=== PATIENT | female | born 1930 | race Caucasian/White ===

== ENCOUNTER 2016-08-20 19:42 | Emergency (ER) | payer OTHER, BC ==
[~2016-08-20] VITALS: Ht 165.1 cm; Wt 55.8 kg
[~2016-08-20 19:42] MED LIST: LANS30TA3 PO; LATA0.5S OP; MULTCAP33 PO
[2016-08-20 19:44] VITALS: TEMP 36.6; Ht 165.1 cm; Wt 55.8 kg
[2016-08-20 19:49] VITALS: O2SAT 95
--- NOTE | 2016-08-20 20:30 | EMERGENCY ROOM VISIT NOTE ---
History Report prepared by Roderick: Dev June Under the Supervision of: Dr. Bud Harding M.D. First contact with patient: 19:57 Chief Complaint: CHOKING Stated Complaint: CHOKING Nursing Triage Summary: Patient presents [facility] for evaluation of ? choking episode while eating dinner. Staff at the [facility] wanted patient evaluated. Patient states, "I was eating a salad and my espophagus just closed up. It happens frequently." Patient denies any complaints upon arrival. States, "I am fine now." Hx: esophageal problems since November 2015. History of Present Illness The patient is a 85 year old female who presents to the Emergency Room by EMS with complaints of an episode of choking occurring shortly prior to arrival. She is a resident at the [facility]. She states that she was witnessed choking on a steak salad. The patient states that she has a history of problems with swallowing, and states that her esophagus frequently closes up. She states that her esophageal symptoms began a little less than a year ago. She states "I felt it closing up tonight". She has been admitted for similar symptoms multiple times in the past. The patient denies any fevers, chills, vomiting, or chest pain. She states that the sensations in her throat lasted for 20-30 minutes. She states that during the episode, she felt that she was unable to breath as well. The patient had associated shortness of breath. She notes that she had a vodka before dinner. She is not on any blood thinners. She is completely asymptomatic at present and feels fine and wants to go home. Source of History: patient, transfer records Onset: shortly prior to arrival Position: throat Quality: other (closing) Timing: other (episode) Associated Symptoms: + SOB, No chest pain, No chills, No fevers, No vomiting Review of Systems See HPI for pertinent positives & negatives. A total of 10 systems reviewed and were otherwise negative. Past Medical & Surgical Medical Problems: (1) Acute respiratory failure with hypoxia and hypercapnia (2) Cerebrovasc Disease Nos (3) Congestive Heart Failure Nos (4) Dysphagia (5) Hypercholesterolemia (6) Hypertension Nos (7) Hysterectomy (8) Osteoarthros Nos-Unspec Old medical records were reviewed. Nurse's notes were reviewed and I agree with. Family History Patient reports no known family medical history. Social History Smoking Status: Never Smoker Alcohol Use: none Drug Use: none Marital Status: Housing Status: assisted living Occupation Status: retired Current/Historical Medications Scheduled Alcaftadine (Lastacaft), 1 DROPS OPR QAM Citalopram (Citalopram Hydrobromide), 40 MG PO QAM Clopidogrel Bisulfate (Clopidogrel), 75 MG PO QAM Lansoprazole (Prevacid Solutab), 30 MG PO DAILY Multiple Vitamins W/ Minerals (Preservision Areds), 1 CAP PO BID Multivitamin (Multivitamin), 1 TAB PO QAM Thiamine Hcl (Vitamin B-1), 100 MG PO DAILY Timolol Maleate (Timolol 0.5% Oph Soln 15 Ml), 1 DROP OP UD Allergies Coded Allergies: Sulfa Drugs (Verified Allergy, Unknown, UNKNOWN, 08/20/16) Fish (Verified Adverse Reaction, Unknown, GI SYMPTOMS, 08/20/16) Shellfish Allergy (Verified Adverse Reaction, Unknown, GI SYMPTOMS, 08/20/16 ) Yogurt (Verified Adverse Reaction, Unknown, GI SYMPTOMS, 08/20/16) Uncoded Allergies: SEAFOOD (Allergy, Unknown, GI SYMPTOMS, 08/20/16) Physical Exam Vital Signs Date Time Temp Pulse Resp B/P Pulse Ox O2 Delivery O2 Flow Rate FiO2 08/20/16 22:28 58 20 118/70 96 Room Air 08/20/16 19:49 95 Room Air 08/20/16 19:44 95 Room Air 08/20/16 19:44 36.6 62 18 111/79 95 Room Air Physical Exam General: Well developed, well nourished, non-ill appearing older female in no acute distress, breathing comfortably on room air. Normal speech. Hard of hearing but answering all questions appropriately. HEENT: Normal cephalic atraumatic. Pupils are equal round and reactive to light. Extraocular movements are intact. Oropharynx is pink with moist mucous membranes. Speaking and swallowing without difficulty. No drooling. No swelling of the mouth lips or tongue. Neck: Supple with a midline trachea. No meningeal signs or stiffness, no JVD or bruits. No Stridor. Chest: Clear to auscultation bilaterally. No wheezes or rhonchi. No increased work of breathing. Heart: regular rate and rhythm. Abdomen: Soft nontender, nondistended without rebound guarding or rigidity. Extremities: No cyanosis clubbing or edema. No calf tenderness or assymetry Spine/Back. Non tender to palpation. No CVA tenderness Skin: Good turgor without rashes. Neurologic exam: Cranial nerves two through 12 are intact. Motor and sensation are intact and symmetrical throughout. Medical Decision & Procedures ER Provider Diagnostic Interpretation: X-ray results as stated below per interpretation by me and the radiologist: CHEST ONE VIEW PORTABLE FINDINGS: Lung volumes are normal. No pneumothorax or pleural effusion is present. Mild opacity within the left lower lung likely reflects epicardial fat pad. Cardiac size is at the upper limits of normal. Dilatation of the aortic arch and descending thoracic aorta is unchanged. There is no evidence of pulmonary edema. IMPRESSION: No acute cardiopulmonary findings. No change in appearance of the chest. Electronically signed by: Sanford Marques M.D. MY IMPRESSION: No acute infiltrate, failure or pneumothorax. Dilation of aortic arch which is unchanged from old x-ray. Laboratory Results 08/20/16 20:25 Red Blood Count 4.10, Mean Corpuscular Volume 92.2, Mean Corpuscular Hemoglobin 30.7, Mean Corpuscular Hemoglobin Concent 33.3, Mean Platelet Volume 9.4, Neutrophils (%) (Auto) 69.0, Lymphocytes (%) (Auto) 17.8, Monocytes (%) (Auto) 10.4, Eosinophils (%) (Auto) 2.0, Basophils (%) (Auto) 0.4, Neutrophils # (Auto ) 3.73, Lymphocytes # (Auto) 0.96, Monocytes # (Auto) 0.56, Eosinophils # (Auto ) 0.11, Basophils # (Auto) 0.02 08/20/16 20:25 Test 08/20/16 20:25 08/20/16 20:36 White Blood Count 5.40 K/uL (4.8-10.8) Red Blood Count 4.10 M/uL (4.2-5.4) Hemoglobin 12.6 g/dL (12.0-16.0) Hematocrit 37.8 % (37-47) Mean Corpuscular Volume 92.2 fL (80-100) Mean Corpuscular Hemoglobin 30.7 pg (25-34) Mean Corpuscular Hemoglobin Concent 33.3 g/dl (32-36) Platelet Count 127 K/uL (130-400) Mean Platelet Volume 9.4 fL (7.4-10.4) Neutrophils (%) (Auto) 69.0 % Lymphocytes (%) (Auto) 17.8 % Monocytes (%) (Auto) 10.4 % Eosinophils (%) (Auto) 2.0 % Basophils (%) (Auto) 0.4 % Neutrophils # (Auto) 3.73 K/uL (1.4-6.5) Lymphocytes # (Auto) 0.96 K/uL (1.2-3.4) Monocytes # (Auto) 0.56 K/uL (0.11-0.59) Eosinophils # (Auto) 0.11 K/uL (0-0.5) Basophils # (Auto) 0.02 K/uL (0-0.2) RDW Standard Deviation 46.7 fL (36.4-46.3) RDW Coefficient of Variation 13.9 % (11.5-14.5) Immature Granulocyte % (Auto) 0.4 % Immature Granulocyte # (Auto) 0.02 K/uL (0.00-0.02) Anion Gap 14.0 mmol/L (3-11) Est Creatinine Clear Calc Drug Dose 29.1 ml/min Estimated GFR () 47.1 Estimated GFR (Non- 40.6 BUN/Creatinine Ratio 15.3 (10-20) Calcium Level 9.0 mg/dl (8.5-10.1) Bedside Troponin I 0.010 ng/ml (0-0.045) Laboratory studies as stated above per my review. ECG Indication: other (choking) Rate (beats per minute): 62 Rhythm: normal sinus Findings: no acute ischemic change, no ectopy Comparison ECG Date: Jul 18, 2016 Change: no significant change ED Course 1957: Past medical records reviewed. The patient was evaluated in room B5, and a complete history and physical examination were performed. 2146: Upon reevaluation, the patient is resting comfortably. She has been able to drink without difficulty and has no further complaints. Her pulse ox is normal. I discussed the results and treatment plan with the patient. She verbalized agreement of the treatment plan. The patient was discharged home. Medical Decision Differentials include, but are not limited to; aspiration, pneumonia, choking, infection, and electrolyte or metabolic abnormality. This patient comes in after having a choking episode. She looks great and is asymptomatic. This has been a chronic ongoing problem. She was admitted here a couple times for this and the last time she had an upper endoscopy in July and it was normal. She is not drooling. She is in no respiratory distress. She's not hypoxemic. She was able drink liquids here without any problems. She is sleeping comfortably. X-ray was obtained is not show any infiltrate or any signs of aspiration blood work was unremarkable. She's had no elevated white count or fever to suggest infection. EKG was unremarkable. It sounds like she has some dysmotility issues but at this point but she has nothing suggest a current food bolus or any ongoing respiratory symptoms or cardiac disease. Again ,she feels good and would like to home with his reasonable discharge her home here I told her to ensure that she take small bites and adheres to her diet. Return if she has recurrence of symptoms, fever or chills, sore throat, cough, any new problems or concerns. She was happy with plan and discharged to home. She is follow-up with her doctor tomorrow for recheck. Impression Primary Impression: Choking episode Scribe Attestation The scribe's documentation has been prepared under my direction and personally reviewed by me in its entirety. I confirm that the note above accurately reflects all work, treatment, procedures, and medical decision making performed by me. Departure Information Dispostion Home / Self-Care Referrals [facility] (PCP) Forms HOME CARE DOCUMENTATION FORM, IMPORTANT VISIT INFORMATION, WORK / SCHOOL INSTRUCTIONS Patient Instructions A Signature Page, [facility] Additional Instructions Rest. Ensure that you are taking small bites and eating food that is easy to swallow. Follow-up with your doctor tomorrow for recheck. Return i:f shortness of breath, chest pain, difficulty swallowing, recurrence of symptoms, any new problems or concerns.
[2016-08-20 20:39] LABS: BASO % 0.4 %; BASO ABS # 0.02 K/uL (0-0.2); COMPLETE YES; HEMATOCRIT 37.8 % (37-47); IG% 0.4 %; LYMPH % 17.8 %; LYMPH ABS # 0.96 K/uL (1.2-3.4); MEAN CELL VOLUME 92.2 fL (80-100); MEAN CORPUSCULAR HEMOGLOBIN 30.7 pg (25-34); MEAN CORPUSCULAR HGB CONC 33.3 g/dl (32-36); MEAN PLATELET VOLUME 9.4 fL (7.4-10.4); MONO % 10.4 %; PLATELET COUNT 127 K/uL (130-400)
[2016-08-20 20:57] LABS: BUN/CREATININE RATIO 15.3 (10-20); CREATININE 1.2 mg/dl (0.60-1.20); POTASSIUM 3.6 mmol/L (3.5-5.1)
--- NOTE | 2016-08-20 21:23 | DIAGNOSTIC IMAGING REPORT ---
CHEST ONE VIEW PORTABLE CLINICAL HISTORY: Chest pain. Choking. COMPARISON STUDY: Chest radiograph July 16, 2016. FINDINGS: Lung volumes are normal. No pneumothorax or pleural effusion is present. Mild opacity within the left lower lung likely reflects epicardial fat pad. Cardiac size is at the upper limits of normal. Dilatation of the aortic arch and descending thoracic aorta is unchanged. There is no evidence of pulmonary edema. IMPRESSION: No acute cardiopulmonary findings. No change in appearance of the chest. Electronically signed by: Sanford Marques M.D. 08/20/2016 9:21 PM
[2016-08-20 22:28] VITALS: BP 118/70; PULSE 58; O2SAT 96
[2016-10-29] MEDS ORDERED: LTRCR45 EXT (07:48)
[2016-10-29] MEDS ORDERED: MCTP EXT (07:48)
[2016-10-29] MEDS ORDERED: MCRK20 PO (09:08)
[2017-01-07] MEDS ORDERED: AMOX1TAB42 PO (15:17)
[2017-01-07] MEDS ORDERED: IMD2 PO (15:17)
[2017-01-07] MEDS ORDERED: LCTX PO (15:17)
[2017-01-07] MEDS ORDERED: XPNINS1255 INH (15:17)
[2017-02-02] MEDS ORDERED: ALCA0.25 OPR (09:34)
[2017-02-02] MEDS ORDERED: CLX40 PO (09:34)
[2017-02-02] MEDS ORDERED: MULT-506 PO (09:34)
[2017-02-02] MEDS ORDERED: PLV75 PO (09:34)
[2017-02-02] MEDS ORDERED: THIA100T11 PO (16:16)
[2017-02-02] MEDS ORDERED: TMPOPS15 OPL (21:04)
[2017-02-02] MEDS ORDERED: SENN-91 PO (21:54)
[2017-02-02] MEDS ORDERED: LATA0.009 OPB (21:54)
[2017-02-09] MEDS ORDERED: CRD200 PO (14:27)
[2017-02-09] MEDS ORDERED: MGNO400 PO (14:27)
[2017-02-09] MEDS ORDERED: AMOX1TAB43 PO (14:27)
[2017-02-09] MEDS ORDERED: IPRASOL4 INH (14:42)
== END 2016-08-20 22:52 | disposition home or self-care (01) ==
LOC: EDBD 19:42 → C.EDB 19:44
DX: R09.89 Other specified symptoms and signs involving the circulatory and respiratory systems (principal); I50.9 Heart failure, unspecified; E78.00 Pure hypercholesterolemia, unspecified; I10 Essential (primary) hypertension; Z90.710 Acquired absence of both cervix and uterus

== ENCOUNTER 2016-09-21 19:18 | Emergency (ER) | payer OTHER, BC ==
[~2016-09-21 19:18] MED LIST changes: -LATA0.5S OP
[2016-09-21 19:29] VITALS: TEMP 36.7; Ht 165.1 cm
[2016-09-21 19:35] VITALS: O2SAT 96
--- NOTE | 2016-09-21 20:40 | EMERGENCY ROOM VISIT NOTE ---
History Report prepared by Roderick: Nettie Francois Under the Supervision of: Dr. Macy Rothman M.D. First contact with patient: 20:12 Chief Complaint: FOOD BOLUS Stated Complaint: SHORTNESS OF BREATH Nursing Triage Summary: pt presents from the [facility] where she lives with her pt in the independent living pt is hard of hearing and wears hearing aids bilaterally uses a walker to ambulate staff report that patient was eating chicken and rice soup and a salad when she "aspirated" pt has a history of recent aspiration with admission here at the [facility] pt currently states she feels better but is making grunting noises and and has some audible stidor states she has a history requiring esophageal stretching History of Present Illness The patient is an 85 year old female who presents to the Emergency Room with complaints of a persistent food bolus that occurred this evening. Per nursing staff, the patient resides at [place] [facility] in independent living. The patient states that she has been feeling well recently. Tonight, the patient was eating chicken and rice soup when, per staff at [place], she aspirated. She states that she currently feels somewhat better but nursing staff notes that the patient is making "grunting noises." The patient states that she has had a food bolus six times previously. She has been told that her esophagus closes up. With these episodes, she notes that she has not been able to breathe when her esophagus closes. The patient describes that these episodes happen when she is eating and talking to people. The patient has had to have her esophagus stretched in the past. She denies feeling short of breath, choking on anything at dinner. Additionally, the patient states that she had a vodka drink before dinner. Source of History: patient, nursing staff Onset: this evening Position: throat Quality: other (food bolus) Timing: other (persistent) Associated Symptoms: No SOB Note: She denies choking on anything at dinner. Review of Systems See HPI for pertinent positives & negatives. A total of 10 systems reviewed and were otherwise negative. Past Medical & Surgical Medical Problems: (1) Acute respiratory failure with hypoxia and hypercapnia (2) Cerebrovasc Disease Nos (3) Congestive Heart Failure Nos (4) Dysphagia (5) Hypercholesterolemia (6) Hypertension Nos (7) Hysterectomy (8) Osteoarthros Nos-Unspec Family History Patient reports no known family medical history. Social History Smoking Status: Former Smoker Alcohol Use: none Drug Use: none Marital Status: Housing Status: assisted living Occupation Status: retired Current/Historical Medications Scheduled Alcaftadine (Lastacaft), 1 DROPS OPR QAM Citalopram (Citalopram Hydrobromide), 40 MG PO QAM Clopidogrel Bisulfate (Clopidogrel), 75 MG PO QAM Lansoprazole (Prevacid Solutab), 30 MG PO DAILY Latanoprost (Xalatan 0.005% Oph Milla), 1 DROPS OPB HS Multiple Vitamins W/ Minerals (Preservision Areds), 1 CAP PO BID Multivitamin (Multivitamin), 1 TAB PO QAM Thiamine Hcl (Vitamin B-1), 100 MG PO DAILY Timolol Maleate (Timolol 0.5% Oph Soln 15 Ml), 1 DROP OPL QAM Scheduled PRN Sennosides-Docusate Sodium (Senna S), 1 TAB PO UD PRN for Constipation Allergies Coded Allergies: Sulfa Drugs (Verified Allergy, Unknown, UNKNOWN, 09/21/16) Fish (Verified Adverse Reaction, Unknown, GI SYMPTOMS, 09/21/16) Shellfish Allergy (Verified Adverse Reaction, Unknown, GI SYMPTOMS, 09/21/16 ) Yogurt (Verified Adverse Reaction, Unknown, GI SYMPTOMS, 09/21/16) Uncoded Allergies: SEAFOOD (Allergy, Unknown, GI SYMPTOMS, 08/20/16) Physical Exam Vital Signs Date Time Temp Pulse Resp B/P Pulse Ox O2 Delivery O2 Flow Rate FiO2 09/21/16 22:21 58 20 102/67 95 Room Air 09/21/16 21:21 64 16 104/70 95 Room Air 09/21/16 20:23 60 20 113/76 96 Room Air 09/21/16 20:00 60 09/21/16 19:35 96 Room Air 09/21/16 19:29 36.7 65 28 137/94 96 Room Air 09/21/16 19:29 96 Room Air Physical Exam Vital signs reviewed. General: Elderly and generally well appearing, in no distress. HEENT: No scleral icterus, PERRLA, neck supple. Atraumatic. Cardiovascular: Regular rate and rhythm, no extra sounds. Pulmonary: Clear to auscultation bilaterally, normal work of breathing. Abdomen: Soft, nontender, nondistended, positive bowel sounds. Musculoskeletal: Atraumatic, no peripheral edema. Neurologic: Patient awake alert and oriented x 3, full strength in all 4 extremities. Cranial nerves 2 through 12 grossly intact. Skin: Warm, dry, no rash Medical Decision & Procedures ER Provider Diagnostic Interpretation: X-ray results as stated below per interpretation by me and the radiologist: CHEST 2 VIEWS ROUTINE CLINICAL HISTORY: choking episode dysphagia COMPARISON STUDY: 08/20/2016 FINDINGS: Stable mild fullness mid mediastinum and aortic arch. This appears to be a chronic finding. Lungs are considered clear. Diaphragms smooth. Chronic pleural plaque formation over the right to a lesser extent left pulmonary apex. IMPRESSION: 1. 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 2.. This is unchanged compared to several prior exams. 3. No acute process Electronically signed by: Tim Bender M.D. 09/21/2016 10:14 PM Dictated Date/Time: 09/21/2016 10:12 PM ED Course 2030: Past medical records reviewed. The patient was evaluated in room B5. A complete history and physical examination was performed. 2226: Upon reevaluation, the patient appeared to have improvement of her symptoms. I discussed findings with the patient. She verbalized agreement of the treatment plan. The patient was discharged home. Medical Decision The patient is an 85 year old female who presents to the ED with complaints of a food bolus. Differentials include: airway obstruction, esophageal dysmotility , esophageal stricture, food bolus, CHF, alcohol intoxication. This patient was evaluated and appeared to be in no significant distress. Physical examination is fairly unrevealing. Chest x-ray was performed and is negative for acute pathology. Review the patient's records indicate that she had an EGD in July 2016 that was normal. 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 I suspect this is what happened this evening. She does drink alcohol rarely. This likely increases her likelihood of choking. Patient was informed of the findings. She will follow-up with her physician this week for reevaluation return to the ER for worsening of symptoms or any medical concerns. Impression Primary Impression: Choking episode Scribe Attestation The scribe's documentation has been prepared under my direction and personally reviewed by me in its entirety. I confirm that the note above accurately reflects all work, treatment, procedures, and medical decision making performed by me. Departure Information Dispostion Home / Self-Care Referrals [facility] (PCP) Forms HOME CARE DOCUMENTATION FORM, IMPORTANT VISIT INFORMATION, WORK / SCHOOL INSTRUCTIONS Patient Instructions [facility] Additional Instructions Diagnosis: Choking episode Please follow-up with your space controller for reevaluation. Return to the ER for worsening of symptoms or any medical concerns.
--- NOTE | 2016-09-21 22:15 | DIAGNOSTIC IMAGING REPORT ---
CHEST 2 VIEWS ROUTINE CLINICAL HISTORY: choking episode dysphagia COMPARISON STUDY: 08/20/2016 FINDINGS: Stable mild fullness mid mediastinum and aortic arch. This appears to be a chronic finding. Lungs are considered clear. Diaphragms smooth. Chronic pleural plaque formation over the right to a lesser extent left pulmonary apex. IMPRESSION: 1. 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 2.. This is unchanged compared to several prior exams. 3. No acute process Electronically signed by: Tim Bender M.D. 09/21/2016 10:14 PM Dictated Date/Time: 09/21/2016 10:12 PM
[2016-09-21 22:21] VITALS: BP 102/67; PULSE 58; O2SAT 95
[2016-10-29] MEDS ORDERED: LTRCR45 EXT (07:48)
[2016-10-29] MEDS ORDERED: MCTP EXT (07:48)
[2016-10-29] MEDS ORDERED: MCRK20 PO (09:08)
[2017-01-07] MEDS ORDERED: XPNINS1255 INH (15:17)
[2017-01-07] MEDS ORDERED: LCTX PO (15:17)
[2017-01-07] MEDS ORDERED: IMD2 PO (15:17)
[2017-01-07] MEDS ORDERED: AMOX1TAB42 PO (15:17)
[2017-02-02] MEDS ORDERED: CLX40 PO (09:34)
[2017-02-02] MEDS ORDERED: PLV75 PO (09:34)
[2017-02-02] MEDS ORDERED: MULT-506 PO (09:34)
[2017-02-02] MEDS ORDERED: ALCA0.25 OPR (09:34)
[2017-02-02] MEDS ORDERED: THIA100T11 PO (16:16)
[2017-02-02] MEDS ORDERED: TMPOPS15 OPL (21:04)
[2017-02-02] MEDS ORDERED: SENN-91 PO (21:54)
[2017-02-02] MEDS ORDERED: LATA0.009 OPB (21:54)
[2017-02-09] MEDS ORDERED: CRD200 PO (14:27)
[2017-02-09] MEDS ORDERED: AMOX1TAB43 PO (14:27)
[2017-02-09] MEDS ORDERED: MGNO400 PO (14:27)
[2017-02-09] MEDS ORDERED: IPRASOL4 INH (14:42)
== END 2016-09-21 22:50 | disposition home or self-care (01) ==
LOC: EDBD 19:18 → C.EDB 19:20
DX: R09.89 Other specified symptoms and signs involving the circulatory and respiratory systems (principal); I50.9 Heart failure, unspecified; E78.00 Pure hypercholesterolemia, unspecified; I10 Essential (primary) hypertension; J96.91 Respiratory failure, unspecified with hypoxia; M19.90 Unspecified osteoarthritis, unspecified site; Z87.891 Personal history of nicotine dependence; Z79.899 Other long term (current) drug therapy

== ENCOUNTER 2016-10-20 09:01 | Inpatient (IN) | payer OTHER, BC ==
[~2016-10-20] VITALS: Ht 165.1 cm; Wt 53.2 kg
[2016-10-20 09:54] LABS: BASO % 0.4 %; BASO ABS # 0.02 K/uL (0-0.2); COMPLETE YES; HEMATOCRIT 36.6 % (37-47); IG% 0.2 %; LYMPH % 18.2 %; LYMPH ABS # 1.02 K/uL (1.2-3.4); MEAN CELL VOLUME 87.4 fL (80-100); MEAN CORPUSCULAR HEMOGLOBIN 29.8 pg (25-34); MEAN CORPUSCULAR HGB CONC 34.2 g/dl (32-36); MEAN PLATELET VOLUME 9.6 fL (7.4-10.4); MONO % 6.6 %; NEUT % 72.6 %; PLATELET COUNT 188 K/uL (130-400); RED BLOOD COUNT 4.19 M/uL (4.2-5.4); WHITE BLOOD COUNT 5.59 K/uL (4.8-10.8)
--- NOTE | 2016-10-20 10:11 | DIAGNOSTIC IMAGING REPORT ---
HEAD CT NONCONTRAST CT DOSE: 537.48 mGy.cm HISTORY: Mental status change encephalopathy, waxing/waning confusion TECHNIQUE: Multiaxial CT images of the head were performed without the use of intravenous contrast. Comparison: 06/07/2016 Findings: The paranasal sinuses and mastoid air cells are clear. The calvarium and skull base are intact. The ventricles and sulci are within normal limits. There is no mass, hematoma, midline shift, or acute infarct. Chronic small vessel change of aging Impression: No acute intracranial abnormality. Chronic small vessel change of aging Electronically signed by: Tim Bender M.D. 10/20/2016 10:10 AM Dictated Date/Time: 10/20/2016 10:09 AM
[2016-10-20 10:13] LABS: BUN/CREATININE RATIO 16.3 (10-20); CALCIUM 8.4 mg/dl (8.5-10.1); CREATININE 0.73 mg/dl (0.60-1.20); POTASSIUM 2.2 mmol/L (3.5-5.1)
--- NOTE | 2016-10-20 10:18 | DIAGNOSTIC IMAGING REPORT ---
CHEST ONE VIEW PORTABLE CLINICAL HISTORY: Encephalopathy mental status change COMPARISON STUDY: 09/21/2016 FINDINGS: Unchanging ectasia and dilatation of the aortic arch. Mild cardiomegaly. Lungs are considered clear. IMPRESSION: Chronic change. No acute process. Electronically signed by: Tim Bender M.D. 10/20/2016 10:17 AM Dictated Date/Time: 10/20/2016 10:16 AM
[2016-10-20] MEDS ORDERED: POTASSIUM CHLORIDE 10 MEQ TABCR PO STA ×2 (10:20→15:29)
[2016-10-20] MEDS ORDERED: POTASSIUM CHLR 20 MEQ / WTR 20 MEQ in PREMIXED WATER 100 ML IV STA (10:20)
--- NOTE | 2016-10-20 10:30 | EMERGENCY ROOM VISIT NOTE ---
History First contact with patient: 09:14 Chief Complaint: DIARRHEA Stated Complaint: DIARRHEA History of Present Illness The patient is a 85 year old female who presents to the Emergency Room with complaints of diarrhea for one month and two days of abdominal pain. She has a past history of alcohol abuse, bradycardia, and respiratory arrest and resides at [facility]. She reports over the last month she has had watery loose stool 2-4 times per day. The stool is occasionally blood tinged, but denies any mucus or uday blood. She reports she does feel generally weak from this diarrhea. The village reports they had sent off a stool sample for C. difficile but it has not returned yet. The patient also reports over the last 2 days she has had abdominal pain to her right and left side of her abdomen. She was unable to characterize her pain, reports she did not have it now, and that it hurt mainly when passing stool. She has associated nausea, but has not been vomiting. She reports she still does drink a small amount of vodka every night before dinner. She reports she last drank last night. She did not admit that in the past used to drink more. She reports she was with her in independent living, and functions very well on her own. She denies any chest pain, palpitations, or shortness of breath. She does report chronic visual issues, and that her right eye is her bad eye but her left works well. She presents with her advanced directive and and POLST form stating she is a DO NOT RESUSCITATE in the event of cardiac arrest. Review of Systems See HPI for pertinent positives & negatives. A total of 10 systems reviewed and were otherwise negative. Past Medical/Surgical History Medical Problems: (1) Acute respiratory failure with hypoxia and hypercapnia (2) Cerebrovasc Disease Nos (3) Congestive Heart Failure Nos (4) Diarrhea (5) Dysphagia (6) Hypercholesterolemia (7) Hypertension Nos (8) Hysterectomy (9) Osteoarthros Nos-Unspec Family History Patient reports no known family medical history. Social History Smoking Status: Former Smoker Alcohol Use: none Drug Use: none Marital Status: Housing Status: assisted living Occupation Status: retired Current/Historical Medications Scheduled Alcaftadine (Lastacaft), 1 DROPS OPR QAM Citalopram (Citalopram Hydrobromide), 40 MG PO QAM Clopidogrel Bisulfate (Clopidogrel), 75 MG PO QAM Lansoprazole (Prevacid Solutab), 30 MG PO DAILY Latanoprost (Xalatan 0.005% Oph Milla), 1 DROPS OPB HS Multiple Vitamins W/ Minerals (Preservision Areds), 1 CAP PO BID Multivitamin (Multivitamin), 1 TAB PO QAM Thiamine Hcl (Vitamin B-1), 100 MG PO DAILY Timolol Maleate (Timolol 0.5% Oph Soln 15 Ml), 1 DROP OPL QAM Scheduled PRN Sennosides-Docusate Sodium (Senna S), 1 TAB PO UD PRN for Constipation Allergies Coded Allergies: Sulfa Antibiotics (Verified Allergy, Unknown, ., 10/20/16) Fish (Verified Adverse Reaction, Unknown, GI SYMPTOMS, 10/20/16) Shellfish Allergy (Verified Adverse Reaction, Unknown, GI SYMPTOMS, 10/20/16 ) Yogurt (Verified Adverse Reaction, Unknown, GI SYMPTOMS, 10/20/16) Physical Exam Vital Signs Date Time Temp Pulse Resp B/P Pulse Ox O2 Delivery O2 Flow Rate FiO2 10/20/16 13:00 95 Room Air 10/20/16 12:54 68 20 129/80 95 Room Air 10/20/16 10:56 68 20 104/65 96 Room Air 10/20/16 10:23 57 10/20/16 09:42 93 Room Air 10/20/16 09:24 37.8 72 20 104/47 96 Room Air Physical Exam GENERAL: Awake, alert, well appearing, no distress. Thin. HENT: Normocephalic, atraumatic. TM's normal. Oropharynx unremarkable. EYES: Right eye pupil is constricted, Left pupil is dilated, mildly reactive to light. Extra ocular movements intact. Normal conjunctivae and sclera. NECK: Supple. No nuchal rigidity. FROM. RESPIRATORY: CTA CARDIAC: RRR. Extremities warm and well perfused. ABDOMEN: Soft, non distended. No tenderness to palpation. No rebound or guarding. No masses. MUSCULOSKELETAL: Unremarkable. EXTREMITIES: No edema. No discoloration. Gross motor strength 5/5 bilaterally. NEURO: Alert, oriented to time, place, and person - though was more confused to place when first came to ED. No sensory or motor deficits noted.Speech normal. Cranial nerves two through 12 intact. No pronator drift. Negative Romberg. Normal rapid alternating movements. SKIN: No rash or jaundice noted. LYMPH: No adenopathy. Medical Decision & Procedures ER Provider Diagnostic Interpretation: HEAD CT NONCONTRAST CT DOSE: 537.48 mGy.cm HISTORY: Mental status change encephalopathy, waxing/waning confusion TECHNIQUE: Multiaxial CT images of the head were performed without the use of intravenous contrast. Comparison: 06/07/2016 Findings: The paranasal sinuses and mastoid air cells are clear. The calvarium and skull base are intact. The ventricles and sulci are within normal limits. There is no mass, hematoma, midline shift, or acute infarct. Chronic small vessel change of aging Impression: No acute intracranial abnormality. Chronic small vessel change of aging CHEST ONE VIEW PORTABLE CLINICAL HISTORY: Encephalopathy mental status change COMPARISON STUDY: 09/21/2016 FINDINGS: Unchanging ectasia and dilatation of the aortic arch. Mild cardiomegaly. Lungs are considered clear. IMPRESSION: Chronic change. No acute process. Laboratory Results Test 10/20/16 09:28 10/20/16 10:16 10/20/16 10:18 10/20/16 10:28 Total Bilirubin 0.8 mg/dl (0.2-1) Aspartate Amino Transf (AST/SGOT) 19 U/L (15-37) Alanine Aminotransferase (ALT/SGPT) 12 U/L (12-78) Alkaline Phosphatase 72 U/L (45-117) Total Protein 6.4 gm/dl (6.4-8.2) Albumin 3.2 gm/dl (3.4-5.0) Globulin 3.2 gm/dl (2.5-4.0) Albumin/Globulin Ratio 1.0 (0.9-2) Ethyl Alcohol mg/dL < 3.0 mg/dl (0-3) Bedside Lactic Acid Venous 0.93 mmol/L (0.90-1.70) Bedside Troponin I 0.030 ng/ml (0-0.045) Test 10/20/16 10:47 Urine Color YELLOW Urine Appearance CLEAR (CLEAR) Urine pH 6.0 (4.5-7.5) Urine Specific [place] 1.008 (1.000-1.030) Urine Protein NEG (NEG) Urine Glucose (UA) NEG (NEG) Urine Ketones TRACE (NEG) Urine Occult Blood NEG (NEG) Urine Nitrite NEG (NEG) Urine Bilirubin NEG (NEG) Urine Urobilinogen NEG (NEG) Urine Leukocyte Esterase NEG (NEG) Urine WBC (Auto) /hpf (0-5) Urine RBC (Auto) /hpf (0-4) Urine Hyaline Casts (Auto) /lpf (0-5) Urine Epithelial Cells (Auto) /lpf (0-5) Urine Bacteria (Auto) (NEG) Urine RBC 0-4 /hpf (0-4) Urine WBC 1-5 /hpf (0-5) Urine Epithelial Cells 0-5 /lpf (0-5) Urine Bacteria NEG (NEG) Urine Opiates Screen NEG (NEG) Urine Methadone, Qualitative NEG (NEG) Urine Barbiturates NEG (NEG) Urine Phencyclidine (PCP) Level NEG (NEG) Ur Amphetamine/Methamphetamine NEG (NEG) MDMA (Ecstasy) Screen NEG (NEG) Urine Benzodiazepines Screen NEG (NEG) Urine Cocaine Metabolite NEG (NEG) Urine Marijuana (THC) NEG (NEG) Medications Administered Medications (Trade) Dose Ordered Sig/Bhavna Route Start Time Stop Time Status Last Admin Dose Admin Potassium Chloride 40 meq 40 meq NOW STAT PO 10/20/16 10:20 10/20/16 10:22 DC 10/20/16 11:13 40 MEQ Potassium Chloride (Kcl 10 Meq / Wtr) 100 ml @ 100 mls/hr Q1H IV 10/20/16 10:30 10/20/16 12:29 DC 10/20/16 12:26 100 MLS/HR Acetaminophen (Tylenol Tab) 650 mg Q4H PRN PO 10/20/16 13:00 11/19/16 12:59 10/20/16 17:44 650 MG ECG Indication: bradycardia Findings: T-wave inversion (Lateral), prolonged QT (>600) Change: no significant change ED Course 9:30: I evaluated the patient in room A10. A complete history and physical examination were performed. 9:37: I ordered a CBC, CMP, Pt/INR, Blood cultures, blood alcohol level, urinalysis, urine toxicology. She had already received a 500mL bolus in the ambulance. 10:20: Her potassium returned at a level of 2.2. She was given KCL 40mEq PO and 20mEq IV. Her EKG had a prolonged QTc as well but was still sinus bradycardia. 11:26: I discussed with Dr. Caruso of the [facility]. The patient will be admitted. Medical Decision This is an 85 yo F with history of respiratory arrest who presents with 1 month of diarrhea, weakness, and found to have a low potassium. Differential includes : Clostridium difficile colitis, alcohol intoxication, malabsorptive syndrome, anemia, ischemic colitis, and IBD. She had an IV placed and labs drawn. Her level of clarity was waxing and waning, but when I saw her, her CAM-ICU was negative, though I provided her with a vomit bag and upon return found she had placed it (empty) on her head. The nurses agreed at times she had irrelevant thought content, eg. asking where [place] was, and unsure of is she was in the hospital or not. Her labwork returned and she was found to have a K+ of 2.2. She was provided with IV and PO replacement. Blood cultures were obtained as she had a temperature of 37.8C. Her QTc was prolonged and upon admission was given 1gm of magnesium sulfate as well. She presented with her advanced directive and POLST form. She will be admitted to [place] [facility]. Impression Primary Impression: Hypokalemia Additional Impression: Diarrhea Departure Information Dispostion Being Evaluated By Hospitalist Condition GOOD Referrals [facility] (PCP) Patient Instructions My [facility] Resident Tracking Resident Involvement: Resident Care Provided Care Provided: Adult ED Problem Qualifiers
[2016-10-20] MEDS: POTASSIUM CHLR 10 MEQ / WTR 10 MEQ IV SCH ×2 (11:13→12:26)
[2016-10-20 11:23] LABS: URINE APPEARANCE CLEAR (CLEAR); URINE BILIRUBIN NEG (NEG); URINE COLOR YELLOW; URINE NITRITE NEG (NEG); URINE SPECIFIC GRAVITY 1.008 (1.000-1.030); UROBILINOGEN NEG (NEG); ZZURINE CULT IF INDIC CATH NO
[2016-10-20 11:24] LABS: MANUAL MICROSCOPIC REQUIRED? YES; REVIEW REQ? NO
--- NOTE | 2016-10-20 11:27 | EMERGENCY ROOM VISIT NOTE ---
ED Visit Note First contact with patient: 09:14 Resident Physician Supervision Note: I interviewed and examined the patient. Discussed with Dr. Soto and agree with findings and plan as documented in the note. Any exceptions or clarifications are listed here: [None] Documented By: Ranjit Hendricks
[2016-10-20 11:31] LABS: URINE BACTERIA NEG (NEG); URINE RBC 0-4 /hpf (0-4)
[2016-10-20 11:40] LABS: BENZODIAZEPINE, URINE NEG (NEG); COCAINE,URINE NEG (NEG); PHENCYCLIDINE, URINE NEG (NEG)
[2016-10-20 13:00] VITALS: O2SAT 95; Ht 165.1 cm; Wt 53.2 kg
[2016-10-20] MEDS ORDERED: ONDANSETRON INJ 2 MG/ML 2 ML VIAL IV PRN (13:00)
--- NOTE | 2016-10-20 13:44 | History and Physical ---
History & Physical Date & Time of Service: Oct 20, 2016 at 12:24 Chief Complaint: Diarrhea Primary Care Physician: Coretta Nelson Gail History of Present Illness Source: patient, family This is a 85 yo F with PMHx of HTN, hx CVA on plavix, diastolic CHF with EF 65- 70%, hyperlipidemia, osteoarthritis, esophageal dysmotility with multiple choking episodes, who presents with worsening diarrhea over the past 1 month. The patient is present with her who is a poor historian. The patient has felt generalized weakness and fatigue since the start of this, and worsened in the past 24 hours. She denies eating raw or undercooked meats, picnic foods, or being exposed to sick contacts with similar symptoms. Reports that her diarrhea is loose, mucous-like, last bowel movement was this morning and that it does have foul smell. The patient has been unable to eat or drink when she normally would 2 days. The patient admits to feeling lightheaded and dizzy this morning, as well as nausea. The patient had a syncopal like episode per nursing from the [facility] - pt reports that she got pale and weak, but quickly came to. She did not sustain any trauma during this syncopal like event. Patient denies fevers chills or sweats, chest pain, shortness of breath. The patient is a resident of the [facility], and reports having a C. difficile stool culture sent for pathology 2 days ago but does not have results back. Stool studies in process Potassium= 2.2 on admission EKG with prolonged QT and U waves Chest x-ray completed not show acute abnormalities Ethanol workup negative, toxicology in process CT of the head completed without any acute abnormalities or ischemic/ hemorrhagic changes. Past Medical/Surgical History Medical Problems: (1) Hypercholesterolemia Status: Chronic (2) Hysterectomy Status: Resolved Diastolic CHF HTN Osteoarthritis Esophageal Dysmotility Hx CVA on anticoagulation Acute hypoxic episode due to choking Family History Patient reports no known family medical history. Social History Smoking Status: Former Smoker Alcohol Use: 1 shot vodka daily/most days of week Drug Use: none Marital Status: Housing status: lives with family Occupational Status: retired Immunizations History of Influenza Vaccine: Yes Influenza Vaccine Date: Jun 09, 2012 History of Tetanus Vaccine?: Unknown History of Pneumococcal: Yes Pneumococcal Date: Oct 10, 2009 History of Hepatitis B Vaccine: Unknown Multi-Drug Resistant Organisms History of MDRO: No Allergies Coded Allergies: Sulfa Drugs (Verified Allergy, Unknown, UNKNOWN, 10/20/16) Fish (Verified Adverse Reaction, Unknown, GI SYMPTOMS, 10/20/16) Shellfish Allergy (Verified Adverse Reaction, Unknown, GI SYMPTOMS, 10/20/16 ) Yogurt (Verified Adverse Reaction, Unknown, GI SYMPTOMS, 10/20/16) Uncoded Allergies: SEAFOOD (Allergy, Unknown, GI SYMPTOMS, 08/20/16) Home Medications Scheduled Alcaftadine (Lastacaft), 1 DROPS OPR QAM Citalopram (Citalopram Hydrobromide), 40 MG PO QAM Clopidogrel Bisulfate (Clopidogrel), 75 MG PO QAM Lansoprazole (Prevacid Solutab), 30 MG PO DAILY Latanoprost (Xalatan 0.005% Oph Milla), 1 DROPS OPB HS Multiple Vitamins W/ Minerals (Preservision Areds), 1 CAP PO BID Multivitamin (Multivitamin), 1 TAB PO QAM Thiamine Hcl (Vitamin B-1), 100 MG PO DAILY Timolol Maleate (Timolol 0.5% Oph Soln 15 Ml), 1 DROP OPL QAM Scheduled PRN Sennosides-Docusate Sodium (Senna S), 1 TAB PO UD PRN for Constipation Review of Systems Constitutional: + fatigue, + weakness, No chills, No fever Eyes: + problem reported (vision is poor left eye) ENT: + trouble swallowing Respiratory: + sputum (ocassional production), No cough Cardiovascular: No chest pain, No orthopnea, No palpitations Abdomen: + diarrhea, + nausea, No GI bleeding, No pain, No vomiting Musculoskeletal: + swelling (patient reports swelling in lower legs/feet are improved today), No joint pain Genitourinary - Female: No dysuria Neurologic: + weakness, No numbness/tingling, No vertigo Psychiatric: + anxiety Endocrine: + fatigue Integumentary: + itch (bilateral lower extremities, feet), + rash (bilateral feet) Physical Exam Vital Signs Date Time Temp Pulse Resp B/P Pulse Ox O2 Delivery O2 Flow Rate FiO2 10/20/16 10:56 68 20 104/65 96 Room Air 10/20/16 10:23 57 10/20/16 09:42 93 Room Air 10/20/16 09:24 37.8 72 20 104/47 96 Room Air General Appearance: WD/WN, no apparent distress, + thin, + pertinent finding ( frail) Head: normocephalic, atraumatic Eyes: EOMI, + pertinent finding (left eye PERRL, right eye + cataract) ENT: pharynx normal, + pertinent finding (hard of hearing) Neck: supple, no JVD, no carotid bruits Respiratory/Chest: chest non-tender, no respiratory distress, no accessory muscle use, + pertinent finding (positive crackles left lower lobe, otherwise no adventitious breath sounds) Cardiovascular: regular rate, rhythm, normal peripheral pulses, + pertinent finding (+ murmur) Abdomen/GI: normal bowel sounds, non tender, soft, no organomegaly Back: normal inspection Extremities/Musculoskelatal: no calf tenderness, + pedal edema (LLE 1+ edema. Right without edema. ) Neurologic/Psych: alert, normal mood/affect, oriented x 3 Skin: + rash (diffuse erythematous rash over the dorsal aspect of bilateral feet, between toes, + onychomycosis) Diagnostics Laboratory Results Results Past 24 Hours Test 10/20/16 09:28 10/20/16 10:16 10/20/16 10:18 10/20/16 10:28 Range/Units White Blood Count 5.59 4.8-10.8 K/uL Red Blood Count 4.19 4.2-5.4 M/uL Hemoglobin 12.5 12.0-16.0 g/dL Hematocrit 36.6 37-47 % Mean Corpuscular Volume 87.4 80-100 fL Mean Corpuscular Hemoglobin 29.8 25-34 pg Mean Corpuscular Hemoglobin Concent 34.2 32-36 g/dl Platelet Count 188 130-400 K/uL Mean Platelet Volume 9.6 7.4-10.4 fL Neutrophils (%) (Auto) 72.6 % Lymphocytes (%) (Auto) 18.2 % Monocytes (%) (Auto) 6.6 % Eosinophils (%) (Auto) 2.0 % Basophils (%) (Auto) 0.4 % Neutrophils # (Auto) 4.06 1.4-6.5 K/uL Lymphocytes # (Auto) 1.02 1.2-3.4 K/uL Monocytes # (Auto) 0.37 0.11-0.59 K/uL Eosinophils # (Auto) 0.11 0-0.5 K/uL Basophils # (Auto) 0.02 0-0.2 K/uL RDW Standard Deviation 44.9 36.4-46.3 fL RDW Coefficient of Variation 14.1 11.5-14.5 % Immature Granulocyte % (Auto) 0.2 % Immature Granulocyte # (Auto) 0.01 0.00-0.02 K/uL Sodium Level 146 136-145 mmol/L Potassium Level 2.2 3.5-5.1 mmol/L Chloride Level 108 98-107 mmol/L Carbon Dioxide Level 25 21-32 mmol/L Anion Gap 13.0 3-11 mmol/L Blood Urea Nitrogen 12 7-18 mg/dl Creatinine 0.73 0.60-1.20 mg/dl Est Creatinine Clear Calc Drug Dose 45.6 ml/min Estimated GFR () 85.8 Estimated GFR (Non- 74.1 BUN/Creatinine Ratio 16.3 10-20 Random Glucose 131 70-99 mg/dl Calcium Level 8.4 8.5-10.1 mg/dl Total Bilirubin 0.8 0.2-1 mg/dl Aspartate Amino Transf (AST/SGOT) 19 15-37 U/L Alanine Aminotransferase (ALT/SGPT) 12 12-78 U/L Alkaline Phosphatase 72 45-117 U/L Total Protein 6.4 6.4-8.2 gm/dl Albumin 3.2 3.4-5.0 gm/dl Globulin 3.2 2.5-4.0 gm/dl Albumin/Globulin Ratio 1.0 0.9-2 Ethyl Alcohol mg/dL < 3.0 0-3 mg/dl Bedside Lactic Acid Venous 0.93 0.90-1.70 mmol/L Bedside Troponin I 0.030 0-0.045 ng/ml Test 10/20/16 10:47 Range/Units Urine Color YELLOW Urine Appearance CLEAR CLEAR Urine pH 6.0 4.5-7.5 Urine Specific [place] 1.008 1.000-1.030 Urine Protein NEG NEG Urine Glucose (UA) NEG NEG Urine Ketones TRACE NEG Urine Occult Blood NEG NEG Urine Nitrite NEG NEG Urine Bilirubin NEG NEG Urine Urobilinogen NEG NEG Urine Leukocyte Esterase NEG NEG Urine WBC (Auto) 0-5 /hpf Urine RBC (Auto) 0-4 /hpf Urine Hyaline Casts (Auto) 0-5 /lpf Urine Epithelial Cells (Auto) 0-5 /lpf Urine Bacteria (Auto) NEG Urine RBC 0-4 0-4 /hpf Urine WBC 1-5 0-5 /hpf Urine Epithelial Cells 0-5 0-5 /lpf Urine Bacteria NEG NEG Urine Opiates Screen NEG NEG Urine Methadone, Qualitative NEG NEG Urine Barbiturates NEG NEG Urine Phencyclidine (PCP) Level NEG NEG Ur Amphetamine/Methamphetamine NEG NEG MDMA (Ecstasy) Screen NEG NEG Urine Benzodiazepines Screen NEG NEG Urine Cocaine Metabolite NEG NEG Urine Marijuana (THC) NEG NEG Microbiology Results 10/20/16 Blood Culture, Received Pending 10/20/16 Blood Culture, Received Pending Diagnostic Radiology HEAD CT NONCONTRAST CT DOSE: 537.48 mGy.cm HISTORY: Mental status change encephalopathy, waxing/waning confusion TECHNIQUE: Multiaxial CT images of the head were performed without the use of intravenous contrast. Comparison: 06/07/2016 Findings: The paranasal sinuses and mastoid air cells are clear. The calvarium and skull base are intact. The ventricles and sulci are within normal limits. There is no mass, hematoma, midline shift, or acute infarct. Chronic small vessel change of aging Impression: No acute intracranial abnormality. Chronic small vessel change of aging Electronically signed by: Tim Bender M.D. 10/20/2016 10:10 AM Dictated Date/Time: 10/20/2016 10:09 AM The status of this report is Signed. CHEST ONE VIEW PORTABLE CLINICAL HISTORY: Encephalopathy mental status change COMPARISON STUDY: 09/21/2016 FINDINGS: Unchanging ectasia and dilatation of the aortic arch. Mild cardiomegaly. Lungs are considered clear. IMPRESSION: Chronic change. No acute process. Electronically signed by: Tim Bender M.D. 10/20/2016 10:17 AM Dictated Date/Time: 10/20/2016 10:16 AM The status of this report is Signed. EKG Vent. rate 63 BPM CA interval 180 ms QRS duration 128 ms QT/QTc 646/661 ms P-R-T axes 71 -55 93 Prolonged QT interval T-wave abnormality in the anterior and lateral leads be more prominent than last EKG completed September 21 Impression Assessment and Plan This is a 85 yo F with PMHx of HTN, hx CVA on plavix, diastolic CHF with EF 65- 70%, hyperlipidemia, osteoarthritis, esophageal dysmotility with multiple choking episodes, who presents with worsening diarrhea over the past 1 month. Diarrhea - C. difficile culture pending, check stool studies, fecal leukocytes - NSS + KCL 20 IV at 100mL/hr - Encourage oral hydration - Imodium when necessary, continue other supportive treatment - Patient does not have a history of recent antibiotic use or proton pump inhibitor - Pt was apparently taking some flagyl at home per nursing from the [facility] but was noncompliant with this, c. diff sample was not sent at the [facility]. - May need GI eval if this is malabsorptive syndrome if c. diff is negative. - checking celiac panel, b12, vit d levels, folate - PT/OT evaluation Hypokalemia - 2.2 on admission. Got 40 meq orally and 20 meq IV. Will replace potassium in IV fluids as above - Likely secondary to diarrhea - Prolonged QT interval on EKG - QT + 646/661, on last admission was ~450 - U waves present on EKG from hypokalemia Diastolic CHF - Last echocardiogram completed September 2014, with grade 1 diastolic dysfunction, preserved EF 65-70% - Mild swelling in bilateral lower extremities per patient, at present seems to be improved but lately more edema in the left ankle, nonpitting - Caution with IVFs Hx CVA - Cont Plavix Esophageal dysmotility - Patient has had a history of choking episodes, and has been seen in the ER twice within the past 2 months. She was recently hospitalized at the end of July for hypoxia where she required CPR and speech therapist saw her. At that time she was initially placed on pured foods and thickened liquids, at the [facility] she has been tolerating a regular diet with thin liquids. - Consider speech consult if patient displays any signs of worsening ability to swallow- - will place on mechanical soft, slippery diet. - Aspiration precautions, sit up to 90 with all meals, take sips of water in between each bite, do not talk when eating, chew all food thoroughly. Pruritic erythematous rash over bilateral feet/toes - ? if this is tinea pedis with itching and rash located on dorsal aspects of feet and in between toes- topical clotrimazole ordered - We'll order a one-time dose of Benadryl as the patient reports itching of her leg and also complaining of anxiety Anxiety/depression - Continue on daily Celexa 40 mg by mouth daily - We'll order one-time dose of Benadryl for anxiety, consider hydroxyzine if this does not work - The patient does not require other anxiolytic benzodiazepines as an outpatient and would not use this in a patient her age DVT prophylaxis: plavix, TEDs, SCDs CODE STATUS: DO NOT RESUSCITATE [facility]: [facility] [facility], can consider [facility] if patient requires SNIF level of care, await PT OT eval Level of Care Med/Surg Advanced Directives Existing Advance Directive: Yes Existing Living Will: Yes Existing Power of Glass Technician/Installer: Yes Existing Health Care Proxy: Yes Resuscitation Status DO NOT RESUSCITATE VTE Prophylaxis VTE Risk Assessment Done? Y/N: Yes Risk Level: Low Given or contraindicated: Other Anticoagulation, T.E.D. Stockings, SCD's Note Attending Admission Note & Attestation: Patient seen/examined, chart reviewed, and care plan d/w ALEKSEY Figueroa. I agree with the chandler components of her admission documentation. 85yo female with history of esophageal dysmotility leading to past dysphagia episodes leading to respiratory failure, chronic diastolic CHF, dementia vs cognitive impairment, and stroke who presented from the [facility] this AM after her called and health clinic there due to worsening weakness, confusion, and ongoing diarrhea. The patient is a poor historian and thus most information was obtained from the chart as well as her . She has had diarrhea for at least 1 month according to the . She was seen by Dr. Jones about 2 weeks ago and placed on flagyl. I called and spoke with the nurse at the [facility] health clinic and she confirmed she was in fact prescribed flagyl for suspected c. diff but the patient was noncompliant with such. She was unaware that an actual c. diff stool test was sent. Apparently the patient was confused this AM at her home. The dialed the clinic, and the nurse went to evaluate her. While the nurse was performing her evaluation she had a 20 second episode of unresponsiveness. By history it sounds like she was pale and/or cyanotic and she had posturing movements or myoclonic movements during the event. When it stopped the patient immediately regained consciousness and was able to talk. The confirms "her color wasn't good" during the spell. In July 2016 her weight was 67 kg; it is now 53 kg. The pt and her cannot tell me what she has been eating or how often. The diarrhea is described as mucous filled with occasional blood and liquid in consistency. PMH, PSH, allergies, meds, sochx, famhx, ros - reviewed VSS T 37.8 gen - confused, looks dehydrated, poor historian mouth - MM dry heart - irregular, s1, s2 lungs - CTA b/l abd - soft, minimally distended, BS+, no HSM, no masses rectal - multiple external hemorrhoids; stool with mucous present; no impaction ; no masses; stool heme negative ext - no edema, pulses 2+ b/l; probable tinea pedis both feet skin - dry A/P: 1. chronic diarrhea with history suggestive of malabsorption 2. moderate-severe protein calorie malnutrition as evidenced by 25+ pound weight loss 3. metabolic encephalopathy in setting of h/o dementia 4. severe hypokalemia 5. hypomagnesemia 6. prolonqed QTc due to low K and low mag 7. suspected syncopal episode due to electrolyte abnormalities and volume depletion 8. hypernatremia due to dehydration 9. chronic medical problems - chronic diastolic CHF, etc place on telemetry send c. diff toxin, stool cx, fecal leuks; consider celiac testing; consider giardia if infectious w/u is negative may need colonoscopy to exclude mass, biopsy for colitis (UC, Crohn's, etc) check vitamin D, vitamin B12, folic acid consider sed rate/crp hydrate with hypotonic fluids repeat K and mag later tonight to ensure normalization Everette Caruso MD
[2016-10-20] MEDS ORDERED: LOPERAMIDE HCL 2 MG CAP PO PRN (13:45)
[2016-10-20] MEDS ORDERED: CLOTRIMAZOLE 1% CR 15 GM TUBE EXT PRN (14:15)
[2016-10-20] MEDS ORDERED: MAGNESIUM SULFATE 1GM / D5W 1 GM BAG IV STA (14:56)
[2016-10-20 15:25] VITALS: BP 148/93; PULSE 71; TEMP 36.9; O2SAT 95
[2016-10-20] MEDS ORDERED: NSS + 20MEQ KCL 1000ML 1,000 ML IV SCH (16:00)
[2016-10-20] MEDS: MAGNESIUM SULFATE 1GM / D5W 1 GM in PREMIXED IN D5W 100 ML IV SCH ×2 (16:01→16:53)
[2016-10-20] MEDS: SODIUM CHLOR 0.45% + 20MEQ KCL 1,000 ML IV SCH (17:41)
[2016-10-20] MEDS: ACETAMINOPHEN 325 MG TAB PO PRN (17:44)
[2016-10-20] MEDS ORDERED: ERGOCALCIFEROL 50,000 INTER.UNIT CAP PO SCH (18:00)
[2016-10-20 19:01] LABS: BUN/CREATININE RATIO 14.1 (10-20); CALCIUM 8.3 mg/dl (8.5-10.1); CREATININE 0.63 mg/dl (0.60-1.20); MAGNESIUM 2.3 mg/dl (1.8-2.4); POTASSIUM 2.6 mmol/L (3.5-5.1)
[2016-10-20 19:57] VITALS: BP 101/70; PULSE 60; TEMP 36.9; O2SAT 95
[2016-10-20] MEDS ORDERED: POTASSIUM CHLORIDE 10 MEQ TABCR PO ONE (20:00)
[2016-10-20] MEDS: POTASSIUM CHLR 10 MEQ / WTR 10 MEQ in PREMIXED WATER 100 ML IV SCH ×2 (20:13→21:55)
[2016-10-20] MEDS: CEROVITE ADV FORMULA TAB PO SCH (20:17)
[2016-10-20] MEDS: MAGNESIUM OXIDE 400 MG TAB PO SCH (21:00)
[2016-10-20] MEDS: LATANOPROST 0.005% OP SOLN 2.5 ML BTL OPB SCH (21:04)
[2016-10-20 23:34] VITALS: BP 113/78; PULSE 59; TEMP 36.9; O2SAT 93
[2016-10-21] VITALS (7 sets, daily range): BP systolic 107–156; BP diastolic 62–91; PULSE 18–81; TEMP 36.3–36.7; O2SAT 94–96
[2016-10-21] MEDS: SODIUM CHLOR 0.45% + 20MEQ KCL 1,000 ML IV SCH ×3 (02:15→21:38)
[2016-10-21 06:19] LABS: BASO % 0.3 %; BASO ABS # 0.02 K/uL (0-0.2); COMPLETE YES; EOS % 2.6 %; HEMATOCRIT 35.6 % (37-47); IG% 0.2 %; LYMPH % 26.4 %; LYMPH ABS # 1.52 K/uL (1.2-3.4); MEAN CELL VOLUME 90.4 fL (80-100); MEAN CORPUSCULAR HEMOGLOBIN 30.7 pg (25-34); MEAN PLATELET VOLUME 9.9 fL (7.4-10.4); MONO % 10.1 %; NEUT % 60.4 %; PLATELET COUNT 185 K/uL (130-400); RED BLOOD COUNT 3.94 M/uL (4.2-5.4); WHITE BLOOD COUNT 5.76 K/uL (4.8-10.8)
[2016-10-21 06:50] LABS: BUN/CREATININE RATIO 8.6 (10-20); CALCIUM 8.3 mg/dl (8.5-10.1); CREATININE 0.58 mg/dl (0.60-1.20); POTASSIUM 2.9 mmol/L (3.5-5.1)
[2016-10-21] MEDS: TIMOLOL MALEATE 0.5% OP SOLN 5 ML BTL OPL SCH (07:56)
[2016-10-21] MEDS: CITALOPRAM 40 MG TAB PO SCH ×2 (07:58→08:08)
[2016-10-21] MEDS: CLOPIDOGREL BISULFATE 75 MG TAB PO SCH ×2 (07:58→08:08)
[2016-10-21] MEDS: MAGNESIUM OXIDE 400 MG TAB PO SCH ×3 (07:59→20:33)
[2016-10-21] MEDS: MULTIVITAMIN TAB PO SCH (07:59)
[2016-10-21] MEDS: CEROVITE ADV FORMULA TAB PO SCH ×3 (07:59→20:33)
[2016-10-21] MEDS: THIAMINE HCL 100 MG TAB PO SCH (08:02)
[2016-10-21] MEDS: PANTOprazole SOD 40 MG TAB PO SCH (08:02)
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
[2016-10-21] MEDS ORDERED: hydrOXYzine HCL 25 MG TAB PO PRN (09:45)
[2016-10-21] MEDS ORDERED: ONDANSETRON INJ 2 MG/ML 2 ML VIAL IV STA (09:45)
[2016-10-21] MEDS: RASPBERRY SYRUP 5 ML UDP PO SCH ×2 (11:54→17:06)
[2016-10-21] MEDS: VANCOMYCIN HCL 125 MG/2.5ML SOLN PO SCH ×2 (11:55→17:06)
[2016-10-21] MEDS ORDERED: ONDANSETRON INJ 8 MG in DEXTROSE 5% 50ML 50 ML IV PRN (14:00)
[2016-10-21] MEDS ORDERED: ONDANSETRON INJ 2 MG/ML 2 ML VIAL IV PRN (14:00)
[2016-10-21] MEDS ORDERED: LORAZEPAM 2 MG/ML 1 ML VIAL IV PRN ×2 (18:00)
[2016-10-21] MEDS ORDERED: LORAZEPAM INJ 0.5 MG in SYRINGE 0.75 ML IV PRN (18:15)
[2016-10-21] MEDS ORDERED: LORAZEPAM INJ 1 MG in SYRINGE 0.5 ML IV PRN (18:15)
--- NOTE | 2016-10-21 18:34 | DIAGNOSTIC IMAGING REPORT ---
ABDOMEN 2 VIEWS CLINICAL HISTORY: Diarrhea. FINDINGS: Supine and decubitus abdominal radiographs are correlated with abdominal CT dated 06/07/2016. There is a nonobstructed abdominal bowel gas pattern. Mild colonic fecal retention is noted. No evidence of intraperitoneal free air seen on the decubitus view. Numerous phleboliths are identified in the pelvis. There is advanced atherosclerotic calcification of the abdominal aorta. The skeletal structures are osteopenic. There is moderate to advanced lumbosacral spondylosis and scoliosis. Cardiac enlargement is observed. IMPRESSION: Nonobstructed abdominal bowel gas pattern noting mild colonic fecal retention. Electronically signed by: Kirill Cui M.D. 10/21/2016 6:33 PM Dictated Date/Time: 10/21/2016 6:31 PM
[2016-10-21] MEDS: LATANOPROST 0.005% OP SOLN 2.5 ML BTL OPB SCH (20:32)
[2016-10-22] MEDS: SODIUM CHLOR 0.45% + 20MEQ KCL 1,000 ML IV SCH ×2 (04:19→14:21)
[2016-10-22 07:03] VITALS: BP 145/88; PULSE 68; TEMP 36.8; O2SAT 92
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
[2016-10-22 08:00] VITALS: O2SAT 92
[2016-10-22 08:12] LABS: BASO % 0.4 %; BASO ABS # 0.03 K/uL (0-0.2); COMPLETE YES; HEMATOCRIT 38.1 % (37-47); IG% 0.6 %; LYMPH ABS # 1.33 K/uL (1.2-3.4); MEAN CELL VOLUME 91.1 fL (80-100); MEAN CORPUSCULAR HEMOGLOBIN 31.1 pg (25-34); MEAN CORPUSCULAR HGB CONC 34.1 g/dl (32-36); MEAN PLATELET VOLUME 9.7 fL (7.4-10.4); MONO % 6.3 %; NEUT % 72.7 %; PLATELET COUNT 184 K/uL (130-400); RED BLOOD COUNT 4.18 M/uL (4.2-5.4)
[2016-10-22 08:45] LABS: CALCIUM 8.6 mg/dl (8.5-10.1); CREATININE 0.54 mg/dl (0.60-1.20); POTASSIUM 3.1 mmol/L (3.5-5.1)
[2016-10-22] MEDS: CEROVITE ADV FORMULA TAB PO SCH (09:53)
[2016-10-22] MEDS: MULTIVITAMIN TAB PO SCH (09:54)
[2016-10-22] MEDS: PANTOprazole SOD 40 MG TAB PO SCH (09:54)
[2016-10-22] MEDS: CITALOPRAM 40 MG TAB PO SCH (09:54)
[2016-10-22] MEDS: THIAMINE HCL 100 MG TAB PO SCH (09:54)
[2016-10-22] MEDS: MAGNESIUM OXIDE 400 MG TAB PO SCH (09:54)
[2016-10-22] MEDS: CLOPIDOGREL BISULFATE 75 MG TAB PO SCH (09:54)
[2016-10-22] MEDS: TIMOLOL MALEATE 0.5% OP SOLN 5 ML BTL OPL SCH (09:55)
[2016-10-22] MEDS ORDERED: NURSING VERBAL MED ORDER ONE (10:25)
[2016-10-22] MEDS ORDERED: ONDANSETRON INJ 2 MG/ML 2 ML VIAL ONE (10:25)
[2016-10-22] MEDS ORDERED: ACETAMINOPHEN IV 650 MG in EMPTY BAG 0 ML IV PRN (12:15)
[2016-10-22] MEDS ORDERED: PROCHLORPERAZINE MALEATE 10 MG TAB PO PRN (12:30)
[2016-10-22] MEDS ORDERED: HYDROmorphone INJ 0.5 MG/0.5 ML SYR IV STA (12:34)
[2016-10-22] MEDS ORDERED: PANTOprazole INJ 40 MG in SYRINGE 0 ML IV ONE (12:45)
[2016-10-22] MEDS ORDERED: HYDROmorphone INJ 1 MG/ML SYR IV PRN (12:45)
[2016-10-22 14:13] LABS: BUN/CREATININE RATIO 8.4 (10-20); CALCIUM 8.7 mg/dl (8.5-10.1); CREATININE 0.63 mg/dl (0.60-1.20); POTASSIUM 3.6 mmol/L (3.5-5.1)
--- NOTE | 2016-10-22 14:56 | DIAGNOSTIC IMAGING REPORT ---
ABDOMEN 2VIEW W/PA CHEST RTN CLINICAL HISTORY: Abdominal pain, nausea, diarrhea. COMPARISON STUDY: 10/21/2016, chest x-ray dated 10/20/2016 FINDINGS: The heart is enlarged. There is dilatation of the aortic knob. No free air is visualized. There are minor left basilar atelectatic changes. There are biapical opacities, likely representing calcifications. There is calcification within the abdominal aorta. There are no abnormally dilated loops of large or small bowel. There are no transition zones to indicate bowel obstruction. IMPRESSION: No evidence of bowel obstruction. No evidence of free air. Electronically signed by: Arthur Gonzalez M.D. 10/22/2016 2:54 PM Dictated Date/Time: 10/22/2016 2:53 PM
--- NOTE | 2016-10-22 15:08 | DIAGNOSTIC IMAGING REPORT ---
BILIARY ULTRASOUND CLINICAL HISTORY: Right upper quadrant abdominal pain COMPARISON STUDY: 04/21/2007 FINDINGS: The pancreas appears normal. The pancreatic duct is at the upper limits of normal in diameter. There is coarsened hepatic echotexture. No focal masses are visualized. There is no right-sided hydronephrosis. The gallbladder demonstrates minimal dependent sludge. No calculi are visualized. There is mild dilatation the common bile duct which measures 9 mm. The common bile duct measured 5 mm in April 2007 IMPRESSION: 1. Slightly coarsened hepatic echotexture without evidence of focal mass 2. Small amount of sludge in the gallbladder. No shadowing calculi identified 3. Mild dilatation of the common bile duct which measured up to 9 mm Electronically signed by: Arthur Gonzalez M.D. 10/22/2016 3:07 PM Dictated Date/Time: 10/22/2016 3:04 PM
[2016-10-22] MEDS ORDERED: PROMETHAZINE HCL INJ 12.5 MG in SODIUM CHLORIDE 0.9% 50ML 50 ML IV PRN (15:30)
[2016-10-22 15:35] VITALS: BP 90/62; PULSE 58; TEMP 36.3; O2SAT 93
[2016-10-22] MEDS ORDERED: PIPERACILL/TAZOBAC CONSULT ACTIVE PRN (15:45)
[2016-10-22] MEDS ORDERED: ONDANSETRON INJ 2 MG/ML 2 ML VIAL IV STA (15:45)
[2016-10-22] MEDS ORDERED: PIPERACILL/TAZOBAC IV 3.375 GM in DEXTROSE 5% 100ML IV ONE (16:00)
[2016-10-22] MEDS: NSS + 20MEQ KCL 1000ML 1,000 ML IV SCH (16:38)
[2016-10-22] MEDS: ACETAMINOPHEN 325 MG TAB PO PRN (17:21)
[2016-10-22] MEDS: LATANOPROST 0.005% OP SOLN 2.5 ML BTL OPB SCH (20:13)
[2016-10-22] MEDS: PANTOprazole INJ 40 MG in SYRINGE 0 ML IV SCH (20:14)
[2016-10-22] MEDS ORDERED: QUETIAPINE FUMARATE 25 MG TAB PO SCH (21:00)
[2016-10-22] MEDS ORDERED: PIPERACILL/TAZOBAC IV 3.375 GM in DEXTROSE 5% 100ML 100 ML IV SCH (22:00)
[2016-10-22] MEDS: PIPERACILL/TAZOBAC IV 3.375 GM in DEXTROSE 5% 100ML IV SCH (22:00)
[2016-10-23] VITALS (14 sets, daily range): BP systolic 72–130; BP diastolic 46–85; PULSE 58–66; TEMP 36.4–37; O2SAT 37–100
[2016-10-23] MEDS: NSS + 20MEQ KCL 1000ML 1,000 ML IV SCH ×2 (04:53→20:28)
[2016-10-23] MEDS: PIPERACILL/TAZOBAC IV 3.375 GM in DEXTROSE 5% 100ML IV SCH ×3 (06:02→21:45)
[2016-10-23 06:57] LABS: COMPLETE YES; EOS % 0.1 %; HEMATOCRIT 36.7 % (37-47); IG% 0.4 %; LYMPH % 15.8 %; LYMPH ABS # 1.06 K/uL (1.2-3.4); MEAN CELL VOLUME 88.2 fL (80-100); MEAN CORPUSCULAR HEMOGLOBIN 30.5 pg (25-34); MEAN CORPUSCULAR HGB CONC 34.6 g/dl (32-36); MEAN PLATELET VOLUME 9.3 fL (7.4-10.4); NEUT % 74.7 %; PLATELET COUNT 168 K/uL (130-400); RED BLOOD COUNT 4.16 M/uL (4.2-5.4)
[2016-10-23 07:28] LABS: BUN/CREATININE RATIO 10.8 (10-20); CALCIUM 8.6 mg/dl (8.5-10.1); CREATININE 0.73 mg/dl (0.60-1.20); POTASSIUM 3.3 mmol/L (3.5-5.1)
--- NOTE | 2016-10-23 08:03 | Hospitalist Progress Note ---
Hospitalist Progress Note Date of Service Oct 23, 2016. (Tari Figueroa PA-C) Subjective Pt evaluation today including: conversation w/ patient, physical exam, chart review, lab review, review of studies, review of inpatient medication list Pain: RUQ PO Intake: Poor Voiding: quesada catheter in place The patient was seen and examined this morning. Pt reports feeling better today. She does not recall much of yesterday or anything that happened overnight. PT reports her abdominal pain was not there earlier this morning but that it started after HIDA scan was complete. The patient denies having nausea this morning, she denies vomiting, denies having bowel movement since yesterday. Nursing staff reports that she has not had any bowel movements overnight. Denies fever, chills, sweats, chest pain, shortness of breath, lightheadedness, dizziness. All Other Systems: Reviewed and Negative (other than listed above) (Tari Figueroa PA-C) Objective Vital Signs Date Time Temp Pulse Resp B/P Pulse Ox O2 Delivery O2 Flow Rate FiO2 10/23/16 00:03 37.0 66 16 116/79 37 Room Air 10/23/16 00:00 Room Air 10/22/16 20:00 Room Air 10/22/16 16:00 Room Air 10/22/16 15:35 36.3 58 18 90/62 93 Room Air 10/22/16 08:00 92 Room Air (Tari Figueroa PA-C) Physical Exam General Appearance: WD/WN, no apparent distress, + thin Eyes: PERRL, EOMI ENT: hearing grossly normal, pharynx normal, + pertinent finding (hard of hearing) Neck: supple, no JVD Respiratory/Chest: chest non-tender, no respiratory distress, no accessory muscle use, + pertinent finding (diminished breath sounds in bases bilaterally, no adventitious breath sounds) Cardiovascular: regular rate, rhythm, no JVD, no murmur Abdomen: normal bowel sounds, soft, no organomegaly, + pertinent finding (+ pain in RUQ, tender with palpation, no rebound tenderness or guarding. ) Extremities: non-tender, no pedal edema, no calf tenderness Neurologic/Psychiatric: alert, normal mood/affect, oriented x 3 Skin: normal color, warm/dry (Tari Figueroa PA-C) Laboratory Results Last 24 Hours Test 10/22/16 07:55 10/22/16 13:18 10/23/16 06:45 White Blood Count 7.00 K/uL 6.70 K/uL Red Blood Count 4.18 M/uL 4.16 M/uL Hemoglobin 13.0 g/dL 12.7 g/dL Hematocrit 38.1 % 36.7 % Mean Corpuscular Volume 91.1 fL 88.2 fL Mean Corpuscular Hemoglobin 31.1 pg 30.5 pg Mean Corpuscular Hemoglobin Concent 34.1 g/dl 34.6 g/dl Platelet Count 184 K/uL 168 K/uL Mean Platelet Volume 9.7 fL 9.3 fL Neutrophils (%) (Auto) 72.7 % 74.7 % Lymphocytes (%) (Auto) 19.0 % 15.8 % Monocytes (%) (Auto) 6.3 % 9.0 % Eosinophils (%) (Auto) 1.0 % 0.1 % Basophils (%) (Auto) 0.4 % 0.0 % Neutrophils # (Auto) 5.09 K/uL 5.00 K/uL Lymphocytes # (Auto) 1.33 K/uL 1.06 K/uL Monocytes # (Auto) 0.44 K/uL 0.60 K/uL Eosinophils # (Auto) 0.07 K/uL 0.01 K/uL Basophils # (Auto) 0.03 K/uL 0.00 K/uL RDW Standard Deviation 46.6 fL 44.1 fL RDW Coefficient of Variation 14.2 % 13.7 % Immature Granulocyte % (Auto) 0.6 % 0.4 % Immature Granulocyte # (Auto) 0.04 K/uL 0.03 K/uL Sodium Level 139 mmol/L 137 mmol/L 138 mmol/L Potassium Level 3.1 mmol/L 3.6 mmol/L 3.3 mmol/L Chloride Level 99 mmol/L 97 mmol/L 98 mmol/L Carbon Dioxide Level 25 mmol/L 28 mmol/L 28 mmol/L Anion Gap 15.0 mmol/L 12.0 mmol/L 12.0 mmol/L Blood Urea Nitrogen 4 mg/dl 5 mg/dl 8 mg/dl Creatinine 0.54 mg/dl 0.63 mg/dl 0.73 mg/dl Est Creatinine Clear Calc Drug Dose 61.6 ml/min 52.8 ml/min 45.6 ml/min Estimated GFR () 98.3 93.5 85.8 Estimated GFR (Non- 84.8 80.6 74.1 BUN/Creatinine Ratio 8.0 8.4 10.8 Random Glucose 111 mg/dl 133 mg/dl 117 mg/dl Calcium Level 8.6 mg/dl 8.7 mg/dl 8.6 mg/dl Lactic Acid Level 1.4 mmol/L Lactate Dehydrogenase 209 U/L (Tari Figueroa, SANDI) Assessment and Plan This is a 85 yo F with PMHx of HTN, hx CVA on plavix, diastolic CHF with EF 65- 70%, hyperlipidemia, osteoarthritis, esophageal dysmotility with multiple choking episodes, who presents with worsening diarrhea over the past 1 month. Diarrhea - C. difficile culture NEGATIVE, - following check stool studies, fecal leukocytes - NSS + KCL 20 IV at 100mL/hr, continue, K+ improved to 3.3 - Encourage oral hydration, continue other supportive treatment - Consult GI: ?if this is malabsorptive syndrome if c. diff is negative. - checking celiac panel still in process. Vit D low, B12 and folate WNL. Does not appear to have signs of macrocytic anemia with would signal other signs of malabsorptive syndrome. Last EGD done by Dr. Smith on 07/19/16 for esophageal dysmotility as below. NO records of colonoscopy found in the system. - Consult Gen surg for dilated CBD, possible cholycystitis? - antiemetic- phenergan IV, zofran 8 mg TID, compazine 10 mg ordered - HIDA scan 1. No evidence for cystic duct obstruction. 2. Gallbladder ejection fraction calculated to be 73 %. - CT abd w/ IV and oral contrast ordered, also recommended gen surg to rule out colitis or other etiology; possible that patient will need colonoscopy Hypokalemia - 2.2 on admission. Cont IVFs with KCl- , secondary to diarrhea, K+ 3.3 today - Prolonged QT interval on EKG - QT + 646/661, on last admission was ~450 - U waves present on EKG from hypokalemia Diastolic CHF - Last echocardiogram completed September 2014, with grade 1 diastolic dysfunction, preserved EF 65-70% - Swelling improved, will monitor - Caution with IVFs Hx CVA - Cont Plavix Esophageal dysmotility - Patient has had a history of choking episodes - been in the ER twice within the past 2 months. She was recently hospitalized at the end of July for hypoxia where she required CPR and speech therapist saw her. At that time she was initially placed on pured foods and thickened liquids, at the [facility] she has been tolerating a regular diet with thin liquids. - nutrition consulted: Agree with boost supplementation, she has lost 21% body weight in past 3 months. - speech consulted- cont mechanical soft, slippery diet - Aspiration precautions, sit up to 90 with all meals, take sips of water in between each bite, do not talk when eating, chew all food thoroughly. Pruritic erythematous rash over bilateral feet/toes - likely tinea pedis- topical clotrimazole ordered - pt reports improvement with itching. Anxiety/depression - Continue on daily Celexa 40 mg by mouth daily - Ativan when necessary - Continue seroquel 25 mg QHS; patient is unsure that she had any issues overnight, reports her hallucinations have diminished, nursing staff did not receive reports the patient was increasingly agitated or confused. Dementia - Pt is AAO x 3 today - Patient has displayed signs of confusion since admission, infectious etiology being worked off and negative thus far, question if the patient has early onset dementia, stated upon admission the patient had been more confused and has been ongoing thing for the last 3 months or so. - Likely not related to infectious etiology at this point - Continue seroquel Hallucinations - improved. - Continue seroquel 25 mg QHS to aid in sleep. DVT ppx: plavix, TEDs, SCDs CODE STATUS: DNR Disposition: Patient from the [facility], will return there, PT recommending SNF, will ask CM to contact with [facility] (Tari Figueroa, SANDI) PA Physician Supervision Note: I interviewed and examined the patient. Discussed with Tari Figueroa PAC and agree with findings and plan as documented in the note. Any exceptions or clarifications are listed here: None Pt has great improvement, u/s shows dialated CBD ? passed stone, HIDA is negative, CT shows some debris in esophagus, but also some sma and renal artery stenosis, will await GI medicine to comment on achalasia and importance of sma in this pts current course vitals reviewed, abd is tender in RUQ, not prater's sign tenderness but shot coat tender did have episode prior to CT of aspirating contrast, now improved, no focal loss of breath sounds Await GI and surgical input after CT continue zosyn, liquid diet and symptom control Documented By: Chris Adam (Chris Adam M.D.)
[2016-10-23] MEDS ORDERED: SINCALIDE INJ 1.1 MCG in SODIUM CHLORIDE 0.9% 100ML 100 ML IV ONE (08:45)
[2016-10-23] MEDS: PANTOprazole INJ 40 MG in SYRINGE 0 ML IV SCH ×2 (10:12→20:29)
[2016-10-23] MEDS: TIMOLOL MALEATE 0.5% OP SOLN 5 ML BTL OPL SCH (10:14)
[2016-10-23] MEDS: CITALOPRAM 40 MG TAB PO SCH (10:14)
[2016-10-23] MEDS: CLOPIDOGREL BISULFATE 75 MG TAB PO SCH (10:14)
--- NOTE | 2016-10-23 10:19 | DIAGNOSTIC IMAGING REPORT ---
NUCLEAR MEDICINE HEPATOBILIARY SCAN WITH EJECTION FRACTION HISTORY: Nausea. Vomiting. eval for gb dysfunction COMPARISON: None. TECHNIQUE: Immediately following the intravenous administration of 5.2 mCi Tc-99m Choletec, dynamic anterior abdominal imaging pre/post 1.2 mcg of Kinevac was performed. FINDINGS: Uniform hepatic tracer accumulation is shown. Prompt intrahepatic biliary excretion is seen. The gallbladder, common bile duct, and small bowel are all visualized by 20 minutes. This appearance represents the normal sequence of biliary excretion. The gallbladder ejection fraction following administration of Kinevac was 73 % (normal >35%). IMPRESSION: 1. No evidence for cystic duct obstruction. 2. Gallbladder ejection fraction calculated to be 73 %. Electronically signed by: Tim Bender M.D. 10/23/2016 10:18 AM Dictated Date/Time: 10/23/2016 10:17 AM
[2016-10-23] MEDS ORDERED: PANTOprazole INJ 40 MG in SYRINGE 0 ML IV SCH (11:00)
--- NOTE | 2016-10-23 11:02 | Medical Consult ---
Consultation Date of Consultation: Oct 23, 2016. Attending Physician: Chris Adam M.D. History of Present Illness 85 y/o female with at least 1 month history of diarrhea [place] when she developed some RUQ discomfort. She describes her BM's as cereal-like mixed mixed with mucus and occasionally small amounts of blood. She's not able to recall how many times she goes in a day. She has occasional nausea, no vomiting. She has not been eating much lately due to dysphagia. Had EGD in July. No known fatty food intolerance. Has lost weight but does not know how much. Over the past three months her recorded weight has gone from 67 to 53 Kg. Past Medical/Surgical History Medical Problems: (1) Acute respiratory failure with hypoxia and hypercapnia (2) Cerebrovasc Disease Nos (3) Congestive Heart Failure Nos (4) Diarrhea (5) Dysphagia (6) Hypercholesterolemia (7) Hypertension Nos (8) Hysterectomy (9) Osteoarthros Nos-Unspec Family History Patient reports no known family medical history. Social History Smoking Status: Former Smoker Alcohol Use: 1 shot vodka daily/most days of week Drug Use: none Marital Status: Housing Status: assisted living Occupation Status: retired Allergies Coded Allergies: Sulfa Antibiotics (Verified Allergy, Unknown, ., 10/20/16) Fish (Verified Adverse Reaction, Unknown, GI SYMPTOMS, 10/20/16) Shellfish Allergy (Verified Adverse Reaction, Unknown, GI SYMPTOMS, 10/20/16 ) Yogurt (Verified Adverse Reaction, Unknown, GI SYMPTOMS, 10/20/16) Current Inpatient Medications Current Inpatient Medications Medications (Trade) Dose Ordered Sig/Bhavna Route Start Time Stop Time Status Last Admin Dose Admin Acetaminophen (Tylenol Tab) 650 mg Q4H PRN PO 10/20/16 13:00 11/19/16 12:59 10/22/16 17:21 650 MG Citalopram Hydrobromide (celeXA TAB) 40 mg QAM PO 10/21/16 09:00 11/20/16 08:59 10/23/16 10:14 40 MG Clopidogrel Bisulfate (plAVix TAB) 75 mg QAM PO 10/21/16 09:00 11/20/16 08:59 10/23/16 10:14 75 MG Latanoprost (Xalatan Oph Soln) 1 drops HS OPB 10/20/16 21:00 11/19/16 20:59 10/22/16 20:13 1 DROPS Timolol Maleate (Timoptic 0.5% Oph Soln) 1 drops QAM OPL 10/21/16 09:00 11/20/16 08:59 10/23/16 10:14 1 DROPS Miscellaneous Information (Order Awaiting Action) 1 ea QS N/A 10/20/16 16:00 11/19/16 15:59 Clotrimazole (Lotrimin 1% Crm) 1 appln DAILY PRN EXT 10/20/16 14:15 11/19/16 14:14 Hydroxyzine HCl 25 mg 25 mg BID PRN PO 10/21/16 09:45 11/20/16 09:44 Ondansetron HCl/ Dextrose (Zofran Inj/D5 50ml) 54 ml @ 216 mls/hr TID PRN IV 10/21/16 14:00 11/20/16 13:59 Lorazepam 0.5 mg 0.5 mg Q6 PRN PO 10/21/16 18:00 11/20/16 17:59 Lorazepam 1 mg/ Syringe 1 ml @ 1 mls/min Q4H PRN IV 10/21/16 18:15 11/20/16 18:14 10/21/16 21:34 1 MLS/MIN Lorazepam 0.5 mg/ Syringe 1 ml @ 1 mls/min Q4H PRN IV 10/21/16 18:15 11/20/16 18:14 Acetaminophen/ Empty Bag (Ofirmev IV/ Empty Iv Bag 100ml) 65 ml @ 260 mls/hr Q6H PRN IV 10/22/16 12:15 11/21/16 12:14 Hydromorphone HCl (Dilaudid Inj) 0.5 mg Q4 PRN IV 10/22/16 12:45 11/05/16 12:44 Hydromorphone HCl 1 mg 1 mg Q4 PRN IV 10/22/16 12:45 11/05/16 12:44 Pantoprazole Sodium 40 mg/ Syringe 10 ml @ 5 mls/min BID IV 10/22/16 21:00 11/21/16 20:59 10/23/16 10:12 5 MLS/MIN Potassium Chloride/Sodium Chloride 1,000 ml @ 80 mls/hr [id number] IV 10/22/16 16:00 11/21/16 15:59 10/23/16 04:53 80 MLS/HR Promethazine HCl 12.5 mg/Sodium Chloride 50.5 ml @ 204 mls/hr Q6H PRN IV 10/22/16 15:30 11/21/16 15:29 Piperacillin Sod/ Tazobactam Sod/ Dextrose (Zosyn Iv/D5 100ml) 115 ml @ 28.75 mls/ hr Q8H IV 10/22/16 22:00 11/01/16 21:59 10/23/16 06:02 28.75 MLS/HR Piperacillin Sod/ Tazobactam Sod (Consult) 1 ea UD PRN N/A 10/22/16 15:45 11/21/16 15:44 Review of Systems Constitutional: No chills, No fever Abdomen: + nausea, No vomiting Physical Exam Date Time Temp Pulse Resp B/P Pulse Ox O2 Delivery O2 Flow Rate FiO2 10/23/16 08:30 97 Room Air 10/23/16 08:17 36.4 65 20 130/85 97 Room Air 10/23/16 08:00 92 Room Air 10/23/16 00:03 37.0 66 16 116/79 37 Room Air 10/23/16 00:00 Room Air 10/22/16 20:00 Room Air 10/22/16 16:00 Room Air 10/22/16 15:35 36.3 58 18 90/62 93 Room Air General Appearance: no apparent distress, + thin Abdomen/GI: soft, + tenderness (minimal RUQ) Extremities/Musculoskelatal: no pedal edema Laboratory Results Last 24 Hours Test 10/22/16 13:18 10/23/16 06:45 Sodium Level 137 mmol/L 138 mmol/L Potassium Level 3.6 mmol/L 3.3 mmol/L Chloride Level 97 mmol/L 98 mmol/L Carbon Dioxide Level 28 mmol/L 28 mmol/L Anion Gap 12.0 mmol/L 12.0 mmol/L Blood Urea Nitrogen 5 mg/dl 8 mg/dl Creatinine 0.63 mg/dl 0.73 mg/dl Est Creatinine Clear Calc Drug Dose 52.8 ml/min 45.6 ml/min Estimated GFR () 93.5 85.8 Estimated GFR (Non- 80.6 74.1 BUN/Creatinine Ratio 8.4 10.8 Random Glucose 133 mg/dl 117 mg/dl Lactic Acid Level 1.4 mmol/L Calcium Level 8.7 mg/dl 8.6 mg/dl Lactate Dehydrogenase 209 U/L White Blood Count 6.70 K/uL Red Blood Count 4.16 M/uL Hemoglobin 12.7 g/dL Hematocrit 36.7 % Mean Corpuscular Volume 88.2 fL Mean Corpuscular Hemoglobin 30.5 pg Mean Corpuscular Hemoglobin Concent 34.6 g/dl Platelet Count 168 K/uL Mean Platelet Volume 9.3 fL Neutrophils (%) (Auto) 74.7 % Lymphocytes (%) (Auto) 15.8 % Monocytes (%) (Auto) 9.0 % Eosinophils (%) (Auto) 0.1 % Basophils (%) (Auto) 0.0 % Neutrophils # (Auto) 5.00 K/uL Lymphocytes # (Auto) 1.06 K/uL Monocytes # (Auto) 0.60 K/uL Eosinophils # (Auto) 0.01 K/uL Basophils # (Auto) 0.00 K/uL RDW Standard Deviation 44.1 fL RDW Coefficient of Variation 13.7 % Immature Granulocyte % (Auto) 0.4 % Immature Granulocyte # (Auto) 0.03 K/uL Assessment & Plan diarrhea, dysphagia, weight loss Doubt her discomfort is of biliary origin given normal WBC, HIDA, and lack of inflammatory findings on U/S. Although CBD was 9mm, LFTs were normal on admission. Stool studies have been negative. We would agree with abdominal CT and GI evaluation. Will follow-up after CT.
--- NOTE | 2016-10-23 11:17 | Gastroenterology Progress Note ---
Progress Note Date of Service: Oct 23, 2016 Subjective Pt evaluation today including: conversation w/ patient, physical exam, chart review (including outpt EMR), lab review, review of studies, review of inpatient medication list Medications Current Inpatient Medications Medications (Trade) Dose Ordered Sig/Bhavna Route Start Time Stop Time Status Last Admin Dose Admin Acetaminophen (Tylenol Tab) 650 mg Q4H PRN PO 10/20/16 13:00 11/19/16 12:59 10/22/16 17:21 650 MG Citalopram Hydrobromide (celeXA TAB) 40 mg QAM PO 10/21/16 09:00 11/20/16 08:59 10/23/16 10:14 40 MG Clopidogrel Bisulfate (plAVix TAB) 75 mg QAM PO 10/21/16 09:00 11/20/16 08:59 10/23/16 10:14 75 MG Latanoprost (Xalatan Oph Soln) 1 drops HS OPB 10/20/16 21:00 11/19/16 20:59 10/22/16 20:13 1 DROPS Timolol Maleate (Timoptic 0.5% Oph Soln) 1 drops QAM OPL 10/21/16 09:00 11/20/16 08:59 10/23/16 10:14 1 DROPS Miscellaneous Information (Order Awaiting Action) 1 ea QS N/A 10/20/16 16:00 11/19/16 15:59 Clotrimazole (Lotrimin 1% Crm) 1 appln DAILY PRN EXT 10/20/16 14:15 11/19/16 14:14 Hydroxyzine HCl 25 mg 25 mg BID PRN PO 10/21/16 09:45 11/20/16 09:44 Ondansetron HCl/ Dextrose (Zofran Inj/D5 50ml) 54 ml @ 216 mls/hr TID PRN IV 10/21/16 14:00 11/20/16 13:59 Lorazepam 0.5 mg 0.5 mg Q6 PRN PO 10/21/16 18:00 11/20/16 17:59 Lorazepam 1 mg/ Syringe 1 ml @ 1 mls/min Q4H PRN IV 10/21/16 18:15 11/20/16 18:14 10/21/16 21:34 1 MLS/MIN Lorazepam 0.5 mg/ Syringe 1 ml @ 1 mls/min Q4H PRN IV 10/21/16 18:15 11/20/16 18:14 Acetaminophen/ Empty Bag (Ofirmev IV/ Empty Iv Bag 100ml) 65 ml @ 260 mls/hr Q6H PRN IV 10/22/16 12:15 11/21/16 12:14 Hydromorphone HCl (Dilaudid Inj) 0.5 mg Q4 PRN IV 10/22/16 12:45 11/05/16 12:44 Hydromorphone HCl 1 mg 1 mg Q4 PRN IV 10/22/16 12:45 11/05/16 12:44 Pantoprazole Sodium 40 mg/ Syringe 10 ml @ 5 mls/min BID IV 10/22/16 21:00 11/21/16 20:59 10/23/16 10:12 5 MLS/MIN Potassium Chloride/Sodium Chloride 1,000 ml @ 80 mls/hr [id number] IV 10/22/16 16:00 11/21/16 15:59 10/23/16 04:53 80 MLS/HR Promethazine HCl 12.5 mg/Sodium Chloride 50.5 ml @ 204 mls/hr Q6H PRN IV 10/22/16 15:30 11/21/16 15:29 Piperacillin Sod/ Tazobactam Sod/ Dextrose (Zosyn Iv/D5 100ml) 115 ml @ 28.75 mls/ hr Q8H IV 10/22/16 22:00 11/01/16 21:59 10/23/16 06:02 28.75 MLS/HR Piperacillin Sod/ Tazobactam Sod (Consult) 1 ea UD PRN N/A 10/22/16 15:45 11/21/16 15:44 Objective Vital Signs Date Time Temp Pulse Resp B/P Pulse Ox O2 Delivery O2 Flow Rate FiO2 10/23/16 08:30 97 Room Air 10/23/16 08:17 36.4 65 20 130/85 97 Room Air 10/23/16 08:00 92 Room Air 10/23/16 00:03 37.0 66 16 116/79 37 Room Air 10/23/16 00:00 Room Air 10/22/16 20:00 Room Air 10/22/16 16:00 Room Air 10/22/16 15:35 36.3 58 18 90/62 93 Room Air Laboratory Results Last 24 Hours Test 10/22/16 13:18 10/23/16 06:45 10/23/16 11:05 Sodium Level 137 mmol/L 138 mmol/L Potassium Level 3.6 mmol/L 3.3 mmol/L Chloride Level 97 mmol/L 98 mmol/L Carbon Dioxide Level 28 mmol/L 28 mmol/L Anion Gap 12.0 mmol/L 12.0 mmol/L Blood Urea Nitrogen 5 mg/dl 8 mg/dl Creatinine 0.63 mg/dl 0.73 mg/dl Est Creatinine Clear Calc Drug Dose 52.8 ml/min 45.6 ml/min Estimated GFR () 93.5 85.8 Estimated GFR (Non- 80.6 74.1 BUN/Creatinine Ratio 8.4 10.8 Random Glucose 133 mg/dl 117 mg/dl Lactic Acid Level 1.4 mmol/L Calcium Level 8.7 mg/dl 8.6 mg/dl Lactate Dehydrogenase 209 U/L White Blood Count 6.70 K/uL Red Blood Count 4.16 M/uL Hemoglobin 12.7 g/dL Hematocrit 36.7 % Mean Corpuscular Volume 88.2 fL Mean Corpuscular Hemoglobin 30.5 pg Mean Corpuscular Hemoglobin Concent 34.6 g/dl Platelet Count 168 K/uL Mean Platelet Volume 9.3 fL Neutrophils (%) (Auto) 74.7 % Lymphocytes (%) (Auto) 15.8 % Monocytes (%) (Auto) 9.0 % Eosinophils (%) (Auto) 0.1 % Basophils (%) (Auto) 0.0 % Neutrophils # (Auto) 5.00 K/uL Lymphocytes # (Auto) 1.06 K/uL Monocytes # (Auto) 0.60 K/uL Eosinophils # (Auto) 0.01 K/uL Basophils # (Auto) 0.00 K/uL RDW Standard Deviation 44.1 fL RDW Coefficient of Variation 13.7 % Immature Granulocyte % (Auto) 0.4 % Immature Granulocyte # (Auto) 0.03 K/uL Assessment and Plan GI consult dictated job [id number] diarrha---Cdiff neg, WBC negative, culture pending--Check CT A/P, check stool for blood, no impaction on rectal exam, check giardia, o/p, cryptosporidia, fecal fat epigastric pain--u./s and HIDA do not suggest GB etiology---EGD 07/19/[address] A/P for other pathology including ischemic. No WBC elevation of low CO2 to suggest ischemia but will look at CT report and also check lactic acid level. dilated CBD on U/S ---LFTs on admit normal so no complete obstruction--repeat LFTS and see what CT shows weight loss-see what CT shows.
--- NOTE | 2016-10-23 11:49 | GASTROINTESTINAL CONSULTATION ---
DATE OF CONSULTATION: 10/23/2016 DATE OF CONSULTATION: 10/23/2016. REASON FOR CONSULTATION: Dilated bile duct and questionable malabsorption with diarrhea. REQUESTING PHYSICIAN: Hospitalist. CHIEF COMPLAINT OF THE PATIENT: Diarrhea and abdominal pain. HISTORY OF PRESENT ILLNESS: For the last 2-4 weeks the patient has been having epigastric pain, also watery diarrhea up to 4 times a day normally bowel movements 1-2 times a day and is not constipated. Apparently, her weight in July 2016 was 67 kilograms down to 53 kilograms. It does not sound like she is able to eat as much. She has early satiety. Stools have been mucusy. There are some occasional blood tinges of stool but no gross blood and not black. Some nausea and vomiting recently. In the ER she was also noted to have some confusion and weakness. Apparently she was given an outpatient Flagyl couple weeks prior, although I do not have any testing for that. Her C. diff in the hospital x2 has been negative. Stools for WBC negative. Stool culture pending. Biliary ultrasound this admission showed coarse hepatic echotexture, sludge in the gallbladder, common bile duct 9 mm versus 5 mm in 2006. Abdominal series done twice showed some cardiomegaly, 1 showed some mild colonic fecal retention. Head CT no acute changes. Chest x-ray some cardiomegaly. The patient does have significant dysphagia. She was seen by our GI group in the hospital 06/08/2016 and had foreign body removal, esophagitis presbyesophagus. Seen in the office 07/10/2016 and had a repeat EGD 07/19/2016 reported as normal. PAST MEDICAL HISTORY: ALLERGY TO SULFA AND SEAFOOD. MEDICATIONS ON ADMISSION: Lastacaft, citalopram, Plavix, Prevacid, Xalatan eyedrops, multivitamin, B1, timolol eyedrops. Senna S was listed as p.r.n. for constipation. PROBLEMS AND SURGERY: CARLITO-BSO, eye surgeries, appendectomy, cerebrovascular disease, CHF, dysphagia, hypercholesterolemia, hypertension, hysterectomy and dementia versus cognitive impairment. FAMILY HISTORY: Noncontributory. SOCIAL HISTORY: Lives at [place] at [facility]. Alcohol 1-2 times a day previously heavy tobacco, quit 4 years ago. REVIEW OF SYSTEMS: CONSTITUTIONAL: Weak. EYES: Poor vision in the left eye. EARS, NOSE, MOUTH, THROAT: Negative. CARDIOVASCULAR: Negative. RESPIRATORY: Negative. GENITOURINARY: Negative. MUSCULOSKELETAL: Some arthritis. INTEGUMENTARY: Negative. NEUROLOGIC, PSYCHIATRIC, ENDOCRINE, HEMATOLOGIC: Negative except as noted above. PHYSICAL EXAMINATION: GENERAL: Female, appears stated age in no acute distress. VITAL SIGNS: Most recent vital signs in the chart temp 36.4, pulse 65, respirations 20, BP 130/85, O2 saturation 97% on room air. EYES: Conjunctivae and lids normal. EARS, NOSE, THROAT: Oropharynx clear. NECK: Without obvious mass or thyroid enlargement. RESPIRATORY: Normal effort, clear to anterior auscultation. CARDIOVASCULAR: Regular rate and rhythm. EXTREMITIES: Without edema. ABDOMEN: Positive bowel sounds. Guarding in the epigastric, no rebound, no obvious organomegaly or masses are appreciated. RECTAL EXAMINATION: Done in presence of the nurse as well as the entire physical. No impaction noted. Stool was liquid brown being sent for Hemoccult. LYMPH NODES: No obvious neck or groin nodes. MUSCULOSKELETAL: Digits and nails normal. SKIN: Without obvious rash or induration. NEUROLOGIC: Cranial nerves intact. Sensation intact. PSYCHIATRIC: Recent and remote memory good. Insight and judgment good. DATA: As above plus CBC on admission normal. CMP low potassium of 2.2. LFTs: Albumin was 3.2, otherwise were normal on admission. C. diff negative x2. Stool for white count negative. Stool for culture is pending. IMPRESSION AND PLAN: 1. Diarrhea. Clostridium difficile is negative. Stool WBC was negative. Await the stool culture. Check CT abdomen and pelvis. Check stool for blood. There is no impaction on rectal exam. Going to check Giardia, O & P, cryptosporidium antigen also. 2. Epigastric pain. Ultrasound and HIDA do not suggest gallbladder etiology. An EGD 08/12/2016 was normal. Again check a CT scan abdomen and pelvis above for other pathology including ischemic bowel. There is no white blood cell or low CO2 to suggest ischemia but would like the CT report and also check lactic acid level. 3. Dilated common bile duct on ultrasound. Repeat the LFTs, but they were normal on admission, so no complete obstruction. We will see what the CT scan shows as well. [facility]
[2016-10-23] MEDS: HYDROmorphone INJ 0.5 MG/0.5 ML SYR IV PRN (12:46)
[2016-10-23] MEDS ORDERED: OPTIRAY 320 IV PRN (14:00)
--- NOTE | 2016-10-23 14:19 | DIAGNOSTIC IMAGING REPORT ---
ABDOMEN AND PELVIS CT WITH IV AND ORAL CONTRAST CT DOSE: 332.64 mGy.cm HISTORY: Transabdominal pain, diarrhea, r/o gastritis and ischemic etiology TECHNIQUE: Multiaxial CT images of the abdomen and pelvis were performed following the use of intravenous and oral contrast. COMPARISON STUDY: Chest abdomen and pelvis CTA 06/07/2016. FINDINGS: The heart remains mildly enlarged. Aortic and mitral valve calcifications. Small bilateral pleural effusions with partial compressive atelectasis of the bilateral lower lobes. Moderately distended and debris-filled distal esophagus. This remains unchanged. There appears to be focal narrowing at the gastroesophageal junction. There is hyperenhancement within the gastric mucosa. Nodular contour to the liver which demonstrates heterogeneous enhancement. This is consistent with cirrhosis. The main portal vein is patent. Normal adrenal glands. The gallbladder is unremarkable. Trace perihepatic ascites. Bilateral cortical renal scarring. Bilateral nephrolithiasis. No hydronephrosis. The pancreas enhances normally. No retroperitoneal lymphadenopathy. Extensive calcified plaque within the abdominal aorta. The main portal vein is patent. Moderate right and severe left renal artery stenosis. 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 The inferior mesenteric artery and celiac artery are patent. No retroperitoneal lymphadenopathy. Trace pelvic ascites. There is a Dent catheter within the bladder. The uterus is surgically absent. No evidence for small bowel obstruction. Questionable mild thickening of the hepatic flexure of the colon may be due to the patient's edematous state. There is mild body wall edema. Mild anterior wedging within the T9 vertebral body. This is likely old. There are 2 separate bandlike hypodense areas within the spleen. IMPRESSION: 1. Moderately distended and debris-filled distal esophagus, unchanged. There is focal narrowing at the gastroesophageal junction. This could be due to a stricture or achalasia. Endoscopy should be performed for further evaluation. 2. Hyperenhancement within the gastric mucosa consistent with a nonspecific gastritis. 3. Cirrhosis with trace ascites. 4. There are 2 separate bandlike hypodense areas within the spleen. The may represent small splenic infarcts. 5. Small bilateral pleural effusions. 6. Bilateral nephrolithiasis. No hydronephrosis. 7. 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 There is also moderate right and severe left renal artery stenosis. 8. Questionable mild thickening of the hepatic flexure of the colon which is likely due to the patient's edematous state. Electronically signed by: Tee Whatley M.D. 10/23/2016 2:17 PM Dictated Date/Time: 10/23/2016 2:03 PM
[2016-10-23 15:33] LABS: IGA SERUM 263 mg/dL (81-463); TIS TRANS IGA 1 U/mL (<4)
[2016-10-23] MEDS ORDERED: ATROPINE SULFATE 0.1 MG/ML 5ML SYR IV PRN (16:15)
[2016-10-23] MEDS ORDERED: EpHEDrine SULFATE INJ 50 MG/ML AMP IV PRN (16:15)
[2016-10-23] MEDS ORDERED: FENTANYL CITRATE INJ 50 MCG/1 ML 2 ML VIAL ONE (16:20)
[2016-10-23] MEDS ORDERED: LIDOCAINE HCL 2% 2 ML VIAL (20MG/ML) ONE (17:37)
[2016-10-23] MEDS ORDERED: PROPOFOL IV EMULSION 10 MG/ML 20 ML VIAL IV ONE (17:37)
[2016-10-23] MEDS ORDERED: SUCCINYLCHOLINE CHLORIDE 20 MG/ML 10 ML VIAL IV ONE (17:37)
--- NOTE | 2016-10-23 17:58 | Anesthesiology Progress Note ---
Anesthesia Post Op Note Date & Time Oct 23, 2016 at 17:58 Vital Signs Pain Intensity: 0 Vital Signs Past 12 Hours Date Time Temp Pulse Resp B/P Pulse Ox O2 Delivery O2 Flow Rate FiO2 10/23/16 17:45 57 14 119/80 100 Mask 10 10/23/16 17:35 36.9 60 16 122/83 100 Mask 10 10/23/16 16:27 36.9 20 117/75 100 Nasal Cannula 4 10/23/16 15:51 36.6 62 18 98/64 100 Nasal Cannula 6.0 10/23/16 08:30 97 Room Air 10/23/16 08:17 36.4 65 20 130/85 97 Room Air 10/23/16 08:00 92 Room Air Notes Mental Status: alert / awake / arousable, participated in evaluation Pt Amnestic to Procedure: Yes Nausea / Vomiting: adequately controlled Pain: adequately controlled Airway Patency, RR, SpO2: stable & adequate BP & HR: stable & adequate Hydration State: stable & adequate Anesthetic Complications: no major complications apparent
[2016-10-23] MEDS: LATANOPROST 0.005% OP SOLN 2.5 ML BTL OPB SCH (20:29)
[2016-10-23] MEDS ORDERED: SODIUM CHLORIDE 0.9% 500ML 500 ML IV STA (22:01)
[2016-10-24] VITALS: BP 101/64; PULSE 60; TEMP 36.6; O2SAT 96
--- NOTE | 2016-10-24 00:45 | GI REPORT ---
Procedure Date: 10/23/2016 4:38 PM Procedure: Upper GI endoscopy Indications: Esophageal dysphagia, Foreign body in the esophagus, Abnormal CT of the GI tract Medicines: General Anesthesia Complications: No immediate complications. Estimated blood loss: None. Estimated Blood Loss: Estimated blood loss: none. Procedure: Pre-Anesthesia Assessment: - Prior to the procedure, a History and Physical was performed, and patient medications and allergies were reviewed. The patient's tolerance of previous anesthesia was also reviewed. The risks and benefits of the procedure and the sedation options and risks were discussed with the patient. All questions were answered, and informed consent was obtained. Prior Anticoagulants: The patient has taken no previous anticoagulant or antiplatelet agents. ASA Grade Assessment: III - A patient with severe systemic disease. After reviewing the risks and benefits, the patient was deemed in satisfactory condition to undergo the procedure. After obtaining informed consent, the endoscope was passed under direct vision. Throughout the procedure, the patient's blood pressure, pulse, and oxygen saturations were monitored continuously. The Scope was introduced through the mouth, and advanced to the second part of duodenum. The upper GI endoscopy was accomplished without difficulty. The patient tolerated the procedure well. Findings: Food was found in the entire esophagus. Removal of food was accomplished. One moderate benign-appearing, intrinsic stenosis was found 32 to 34 cm from the incisors. This measured 1.2 cm (inner diameter) and was traversed. A guidewire was placed and the scope was withdrawn. Dilation was performed with a Savary dilator with no resistance at 42 Fr and 45 Fr and mild resistance at 48 Fr and 51 Fr. LA Grade B (one or more mucosal breaks greater than 5 mm, not extending between the tops of two mucosal folds) esophagitis with no bleeding was found in the entire esophagus. The entire examined stomach was normal. The examined duodenum was normal. The cardia and gastric fundus were normal on retroflexion. All food bolus material and retained particiles were advanced to the stomach and or flushed to the stomach. the entire esphgaus was clear of retained contents at the end of procedure. All liquid and soludi debris was suctioned from the oropharynx preior to ET tube removal. Impression: - Food in the esophagus. Removal was successful. - Benign-appearing esophageal stenosis. Dilated. - LA Grade B esophagitis. - Normal stomach. - Normal examined duodenum. Recommendation: - Return patient to [facility] for ongoing care. - Full liquid diet, pureed diet and diet per speech therapy indefinitely. - Use a proton pump inhibitor PO BID. MD Luis Alberto Dominguez MD 10/23/2016 5:38:04 PM This report has been signed electronically. Note Initiated On: 10/23/2016 4:38 PM I attest to the content of the Intraoperative Record and orders documented therein, exceptions below
[2016-10-24] MEDS: PIPERACILL/TAZOBAC IV 3.375 GM in DEXTROSE 5% 100ML IV SCH ×3 (05:40→21:58)
[2016-10-24] MEDS: NSS + 20MEQ KCL 1000ML 1,000 ML IV SCH ×2 (05:40→18:05)
[2016-10-24 05:45] LABS: BASO % 0.1 %; BASO ABS # 0.01 K/uL (0-0.2); COMPLETE YES; EOS % 1.7 %; HEMATOCRIT 35.7 % (37-47); IG% 0.1 %; LYMPH % 19.5 %; LYMPH ABS # 1.36 K/uL (1.2-3.4); MEAN CELL VOLUME 91.3 fL (80-100); MEAN CORPUSCULAR HEMOGLOBIN 30.7 pg (25-34); MEAN CORPUSCULAR HGB CONC 33.6 g/dl (32-36); MEAN PLATELET VOLUME 9.4 fL (7.4-10.4); NEUT % 66.6 %; PLATELET COUNT 130 K/uL (130-400); RED BLOOD COUNT 3.91 M/uL (4.2-5.4); WHITE BLOOD COUNT 6.99 K/uL (4.8-10.8)
[2016-10-24 06:16] LABS: CALCIUM 8.3 mg/dl (8.5-10.1); CREATININE 0.86 mg/dl (0.60-1.20); POTASSIUM 3.2 mmol/L (3.5-5.1)
--- NOTE | 2016-10-24 06:40 | SURGERY PROGRESS NOTE ---
DATE: 10/24/2016 SUBJECTIVE: Denise is resting comfortably this morning. She said she feels better than she had yesterday. She has no abdominal discomfort. EGD results were noted. Her last vitals showed a temperature of 36.6, pulse 60, respirations 18, blood pressure 101/64, O2 sats 94 on room air. Her I\T\O, she is slightly positive since been admitted, but this does include the insensible losses that she has had as far as the diarrhea, although she stated that she still has diarrhea, but only 2 times was reported yesterday. Of note, her labs this morning is pending. Chemistries still showed hypokalemia. Interestingly, now she came in with a hypokalemia of 2.2. With the diarrhea, one would probably need to rule out the possibility of a villous adenoma in the colon, although the CAT scan showed no real evidence of any enlarging mass in the colon itself. The only issue was some edema regarding the hepatic flexure. Regarding her gallbladder, I think this is just mildly chronic cholecystitis that she has had. She is completely asymptomatic and certainly I would not her put her through with any surgery and the fact that she has had some cirrhosis also found by CAT scan. I will leave it up to the medical colleagues and the GI colleagues whether or not she needs a colonoscopy.
[2016-10-24] MEDS: PANTOprazole INJ 40 MG in SYRINGE 0 ML IV SCH ×2 (07:49→20:23)
[2016-10-24] MEDS: CITALOPRAM 40 MG TAB PO SCH (07:50)
[2016-10-24] MEDS: CLOPIDOGREL BISULFATE 75 MG TAB PO SCH (07:50)
[2016-10-24] MEDS: TIMOLOL MALEATE 0.5% OP SOLN 5 ML BTL OPL SCH (07:51)
[2016-10-24 08:03] VITALS: BP 123/68; PULSE 57; TEMP 36.5; O2SAT 99
--- NOTE | 2016-10-24 08:17 | Hospitalist Progress Note ---
Hospitalist Progress Note Date of Service Oct 24, 2016. (Tari Figueroa PA-C) Subjective Pt evaluation today including: conversation w/ patient, physical exam, chart review, lab review, review of studies, review of inpatient medication list Pain: mild RUQ pain with palpation PO Intake: Liquid diet Voiding: no voiding problems The patient was seen and examined this morning. Pt underwent EGD last evening. She is extrememly confused this morning; thinks she is in a shared room with lots of people around her, was on a train, going [place] a [place], and can't make another trip. She knows she is in a hospital. The patient doesn't remember procedure yesterday. She denies any acute pain just sitting in bed, she is unsure if she has had a bowel movement overnight. All Other Systems: Reviewed and Negative (other than listed above) (Tari Figueroa, SANDI) Objective Vital Signs Date Time Temp Pulse Resp B/P Pulse Ox O2 Delivery O2 Flow Rate FiO2 10/24/16 00:00 36.6 60 18 101/64 96 Room Air 10/24/16 00:00 Room Air 10/23/16 22:41 61 99/64 10/23/16 22:40 82/60 10/23/16 22:00 72/54 10/23/16 21:45 36.5 63 18 81/46 95 Room Air 10/23/16 20:45 37.0 66 18 91/60 94 Room Air 10/23/16 19:45 36.9 59 18 124/71 99 Nasal Cannula 2.0 10/23/16 19:15 36.5 66 18 104/67 96 Nasal Cannula 2.0 10/23/16 18:46 36.6 58 16 122/79 100 Nasal Cannula 2.0 10/23/16 18:20 58 20 122/78 98 Nasal Cannula 2 10/23/16 18:05 36.9 58 15 125/82 99 Nasal Cannula 2 10/23/16 17:55 59 15 135/85 100 Mask 10 10/23/16 17:45 57 14 119/80 100 Mask 10 10/23/16 17:35 36.9 60 16 122/83 100 Mask 10 10/23/16 16:27 36.9 20 117/75 100 Nasal Cannula 4 10/23/16 16:00 94 Nasal Cannula 4.0 10/23/16 15:51 36.6 62 18 98/64 100 Nasal Cannula 6.0 10/23/16 08:30 97 Room Air 10/23/16 08:17 36.4 65 20 130/85 97 Room Air (Tari Figueroa PA-C) Physical Exam General Appearance: WD/WN, no apparent distress, + thin, + pertinent finding ( + confused) Eyes: PERRL, EOMI ENT: hearing grossly normal, pharynx normal Neck: supple, no JVD Respiratory/Chest: lungs clear, no respiratory distress, no accessory muscle use Cardiovascular: regular rate, rhythm, no murmur Abdomen: normal bowel sounds, soft, no organomegaly, + pertinent finding (+ mild tenderness in the RUQ with palpation, no rebound tenderness or guarding.) Extremities: non-tender, no pedal edema, no calf tenderness Neurologic/Psychiatric: alert, + disoriented Skin: normal color, warm/dry (Tari Figueroa, ALEKSEY-C) Laboratory Results Last 24 Hours Test 10/23/16 10:20 10/23/16 11:05 10/24/16 05:37 Lactic Acid Level 1.0 mmol/L 0.8 mmol/L Total Bilirubin 1.1 mg/dl 0.7 mg/dl Direct Bilirubin 0.4 mg/dl Aspartate Amino Transf (AST/SGOT) 22 U/L 20 U/L Alanine Aminotransferase (ALT/SGPT) 14 U/L 16 U/L Alkaline Phosphatase 61 U/L 59 U/L Total Protein 6.0 gm/dl 5.4 gm/dl Albumin 3.1 gm/dl 2.7 gm/dl Stool Occult Blood NEGATIVE White Blood Count 6.99 K/uL Red Blood Count 3.91 M/uL Hemoglobin 12.0 g/dL Hematocrit 35.7 % Mean Corpuscular Volume 91.3 fL Mean Corpuscular Hemoglobin 30.7 pg Mean Corpuscular Hemoglobin Concent 33.6 g/dl Platelet Count 130 K/uL Mean Platelet Volume 9.4 fL Neutrophils (%) (Auto) 66.6 % Lymphocytes (%) (Auto) 19.5 % Monocytes (%) (Auto) 12.0 % Eosinophils (%) (Auto) 1.7 % Basophils (%) (Auto) 0.1 % Neutrophils # (Auto) 4.65 K/uL Lymphocytes # (Auto) 1.36 K/uL Monocytes # (Auto) 0.84 K/uL Eosinophils # (Auto) 0.12 K/uL Basophils # (Auto) 0.01 K/uL RDW Standard Deviation 45.8 fL RDW Coefficient of Variation 14.0 % Immature Granulocyte % (Auto) 0.1 % Immature Granulocyte # (Auto) 0.01 K/uL Sodium Level 142 mmol/L Potassium Level 3.2 mmol/L Chloride Level 104 mmol/L Carbon Dioxide Level 30 mmol/L Anion Gap 8.0 mmol/L Blood Urea Nitrogen 10 mg/dl Creatinine 0.86 mg/dl Est Creatinine Clear Calc Drug Dose 38.7 ml/min Estimated GFR () 70.4 Estimated GFR (Non- 60.7 BUN/Creatinine Ratio 12.0 Random Glucose 86 mg/dl Calcium Level 8.3 mg/dl Globulin 2.7 gm/dl Albumin/Globulin Ratio 1.0 (Tari Figueroa, PARoC) Assessment and Plan This is a 85 yo F with PMHx of HTN, hx CVA on plavix, diastolic CHF with EF 65- 70%, hyperlipidemia, osteoarthritis, esophageal dysmotility with multiple choking episodes, who presents with worsening diarrhea over the past 1 month. Diarrhea - C. difficile culture NEGATIVE, - following check stool studies, fecal leukocytes - NSS + KCL 20 IV at 100mL/hr, continue, K+ improved to 3.3 - Encourage oral hydration, continue other supportive treatment - Consult GI: ?if this is malabsorptive syndrome if c. diff is negative. - celiac panel is negative. B12 and folate WNL. Vit D low. EGD completed on 10/23: food bolus removed but no acute signs of bleeding - by Dr. Grover. - ? may need colonoscopy - Consult Gen surg- no need for surgical intervention with mild cholecystitis - CT abdomen completed 1. Moderately distended and debris-filled distal esophagus, unchanged. There is focal narrowing at the gastroesophageal junction. This could be due to a stricture or achalasia. Endoscopy should be performed for further evaluation. 2. Hyperenhancement within the gastric mucosa consistent with a nonspecific gastritis. 3. Cirrhosis with trace ascites. 4. There are 2 separate bandlike hypodense areas within the spleen. The may represent small splenic infarcts. 5. Small bilateral pleural effusions. 6. Bilateral nephrolithiasis. No hydronephrosis. 7. 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 There is also moderate right and severe left renal artery stenosis. 8. Questionable mild thickening of the hepatic flexure of the colon which is likely due to the patient's edematous state. - Multiple findings but none specific to the patient complaints. - Unlikely that MSA stenosis is causing issues as bowel movements have not been bloody - Will need follow up as outpatient for renal artery stenosis but nothing to do now. - antiemetic- phenergan IV, zofran 8 mg TID, compazine 10 mg ordered Hypokalemia - Cont IVFs with KCl- , secondary to diarrhea, K+ 3.2 today, cont to replace - Prolonged QT interval on EKG - QT + 646/661, on last admission was ~450 - U waves present on EKG from hypokalemia Diastolic CHF - Last echocardiogram completed September 2014, with grade 1 diastolic dysfunction, preserved EF 65-70% - Swelling improved, will monitor - Caution with IVFs Hx CVA - Cont Plavix Esophageal dysmotility - EGD complete as above - Patient has had a history of choking episodes - been in the ER twice within the past 2 months. She was recently hospitalized at the end of July for hypoxia where she required CPR and speech therapist saw her. At that time she was initially placed on pured foods and thickened liquids, at [facility] she has been tolerating a regular diet with thin liquids. - nutrition consulted: cont boost supplementation, she has lost 21% body weight in past 3 months. - speech consulted- cont mechanical soft, slippery diet - Aspiration precautions, sit up to 90 with all meals, take sips of water in between each bite, do not talk when eating, chew all food thoroughly. Pruritic erythematous rash over bilateral feet/toes - likely tinea pedis- topical clotrimazole ordered - pt reports improvement with itching. Anxiety/depression Hallucinations - Continue on daily Celexa 40 mg by mouth daily - confirmed with pharmacy that she picked up last on sep 26 for the month. - Ativan when necessary - Continue seroquel 25 mg QHS; did not receive last night after EGD. - See's a counselor to alcohol use/depression at [facility], but does not have a psychiatrist. Psych meds are managed by Dr. Jones. - Pt is agreeable to seeing a psychiatrist for hallucinations as she hasn't ever before. Dementia - Pt is very confused this morning- got anesthesia last night with EGD, so likely is worse due to this, cont reorientation - Patient has displayed signs of confusion since admission, infectious etiology being worked off and negative thus far, question if the patient has early onset dementia, stated upon admission the patient had been more confused and has been ongoing thing for the last 3 months or so. - Likely not related to infectious etiology at this point - May ask neuro to see the pt DVT ppx: plavix, TEDs, SCDs CODE STATUS: DNR Disposition: [facility], will return there, PT recommending SNF, will ask CM to contact with [facility] Addendum: Pt was re-evalated around 12:30 and shows some improvement with less confusion. She is oriented to self, family members in room, and place. Spoke with anesthesiology about the patient. Discussed issues with family at bedside where all their questions and concerns were addressed. - Will do delirium workup with electrolytes, tsh, UA/Ucx since has quesada cath in place, CT head, cxr - consider alcohol withdrawal (pts last drink was day prior to admission) vs wernickes encephalopathy vs sundowning vs worsening dementia. (Tari Figueroa, SANDI) ALEKSEY Physician Supervision Note: I interviewed and examined the patient. Discussed with Tari Figueroa PAC and agree with findings and plan as documented in the note. Any exceptions or clarifications are listed here: None Pt has developed delerium, maybe from medications or possible developing infiltrate discussed on cxr, head ct reviewed by myself shows no changes EGD 10/23 removed food bolus and stretched LES vitals reviewed, abd is less tender in RUQ, epigastrium lungs with rhonchi at both bases delerium maybe multifactoral, only with antibiotic less than 48 hours, zosyn is acceptable for health care associated pneumonia, if still poor may use other antibiotics, use hs seroquel and follow Documented By: Chris Adam (Chris Adam M.D.)
[2016-10-24 08:30] VITALS: O2SAT 94
[2016-10-24] MEDS: POTASSIUM CHLR 10 MEQ / WTR 10 MEQ in PREMIXED WATER 100 ML IV SCH ×2 (09:40→11:53)
--- NOTE | 2016-10-24 10:22 | Anesthesiology Progress Note ---
Anesthesia Post Op Note Date & Time Oct 24, 2016 at 10:18 Vital Signs Pain Intensity: 0 Vital Signs Past 12 Hours Date Time Temp Pulse Resp B/P Pulse Ox O2 Delivery O2 Flow Rate FiO2 10/24/16 08:30 94 Room Air 10/24/16 08:03 36.5 57 16 123/68 99 Nasal Cannula 2.0 10/24/16 00:00 36.6 60 18 101/64 96 Room Air 10/24/16 00:00 Room Air 10/23/16 22:41 61 99/64 10/23/16 22:40 82/60 Notes Mental Status: alert / awake / arousable, participated in evaluation Pt Amnestic to Procedure: Yes Nausea / Vomiting: adequately controlled Pain: adequately controlled Airway Patency, RR, SpO2: stable & adequate BP & HR: stable & adequate Hydration State: stable & adequate Anesthetic Complications: no major complications apparent Patient awake, alert, vitals stable....RN reports some mild confusion this AM, possibly due to advanced age, unfamiliar hospital environment, anesthesia, illness, etc. Will continue to follow.
--- NOTE | 2016-10-24 13:06 | Anesthesiology Progress Note ---
Anesthesia Progress Note Date of Service Oct 24, 2016. Progress Notes The patient is an 85 y/o female who underwent a general anesthetic yesterday due to a food bolus. She was found to be more confused this AM than she was yesterday including seeing hallucinations and making up stories of things that are happening to her. She has a PMH of dementia and has been noticing to be worsening over the past three months according to her family. PMH includes stroke, esophageal dysmotility, HTN, CHF, dyslipidemia, hypokalemia, diarrhea, and respiratory distress. She has been hospitalized for several days due to her gastrointestinal issues. According to Paty, the medicine PA the patient was agitated on arrival but improved after receiving Seroquel to help her sleep. However, the patient was more agitated this morning than she was on admission according to Paty. The patient did admit that she did not sleep well last night. The patient underwent a quick general anesthetic with only propofol and desflurane being used as anesthetics for a brief period of time. Dr. Marcus stated that the patient was confused preoperatively which necessitated consent from the patient's . The procedure was quick and uneventful and the patient was at her baseline in recovery according to Dr. Marcus. On exam the patient was pleasant and oriented to self and year. She stated that the month was November even though it is December and initially stated that she was in the [facility] before quickly correcting herself to say she was in the hospital. She stated that she was irritated with people asking her birthday. The patient otherwise seemed comfortable. Her family was present and stated that she seems slightly more confused than normal. The patient likely has a multifactorial delirium on top of possible dementia. Her delirium may be related to postoperative delirium even though she received no long acting anesthetics. It could also be due to her underlying GI abnormality , electrolyte imbalance, lack of sleep, or other underlying medical cause. She may have an evolving dementia as well. I spoke to Paty about the possibility of getting a geriatric neuro/psych evaluation as well as continuing to workup any other possible underlying medical causes for her delirium. The patient will continue to be monitored on the floor.
[2016-10-24 15:24] VITALS: BP 106/69; PULSE 56; TEMP 36.5; O2SAT 98
[2016-10-24 15:55] VITALS: O2SAT 98
--- NOTE | 2016-10-24 16:14 | DIAGNOSTIC IMAGING REPORT ---
TWO VIEW CHEST CLINICAL HISTORY: Change in mental status. FINDINGS: AP and lateral chest radiographs are compared to study dated 10/22/2016. Correlation is made with chest CT dated 06/07/2016. The AP view is degraded by patient rotation. The heart is enlarged. The pulmonary vasculature is noncongested. 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 Chronic interstitial thickening is unchanged. Left basilar consolidation is noted. Small pleural effusions are identified on the lateral view. The right lung is clear. Biapical scarring is observed. There is no pneumothorax. The skeletal structures are osteopenic. Chronic posttraumatic deformity is noted in the right humerus. A mild compression deformity is seen in the lower thoracic spine. IMPRESSION: 1. There is developing airspace consolidation at the left lung base. Correlate clinically for pneumonia/aspiration pneumonitis. Radiographic follow-up to resolution is recommended. 2. Cardiomegaly without radiographic evidence of congestive failure. 3. Small pleural effusions are noted on the lateral view. 4. Additional chronic findings as above. Electronically signed by: Kirill Cui M.D. 10/24/2016 4:13 PM Dictated Date/Time: 10/24/2016 4:10 PM
[2016-10-24] MEDS ORDERED: OPTIRAY 320 IV PRN (16:15)
--- NOTE | 2016-10-24 16:36 | DIAGNOSTIC IMAGING REPORT ---
CT SCAN OF THE BRAIN COMBO CLINICAL HISTORY: Change in mental status. Dimension appear COMPARISON STUDY: CT of the brain dated 10/20/2016. MRI of the brain dated 05/22/2016. TECHNIQUE: Axial CT scan of the brain is performed from the vertex to the skull base before and following the IV administration of 92 cc of Optiray 320. IV contrast was administered without complication.. CT DOSE: 1228.53 mGy.cm FINDINGS: Brain parenchyma: There are age-related involutional changes noting moderate confluent subcortical and periventricular microangiopathic change. There is no hemorrhage, mass effect, or evidence of acute territorial ischemia by CT criteria. No enhancing mass lesion is seen on the postcontrast images. Nugent-white matter is preserved. No extra-axial fluid collection is seen. Ventricles, sulci, cisterns: Prominent secondary to involutional change. Intracranial vasculature: There is atherosclerotic calcification of the cavernous carotid and vertebral arteries. Calvarium: The skeletal structures are osteopenic. The calvarium appears intact. 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 Sinuses and mastoids: Mild mucosal thickening is seen within the maxillary antra. The remaining visualized paranasal sinuses are clear. The mastoid air cells are well pneumatized. Orbits: The bony orbits are grossly intact. There are bilateral ocular lens implants. IMPRESSION: Senescent changes as above with no hemorrhage, enhancing mass, or evidence of acute territorial ischemia by CT criteria. There has been no significant change from 10/20/2016. Electronically signed by: Kirill Cui M.D. 10/24/2016 4:34 PM Dictated Date/Time: 10/24/2016 4:31 PM
--- NOTE | 2016-10-24 18:02 | GASTROENTEROLOGY PROGRESS NOTE ---
DATE: 10/24/2016 GASTROENTEROLOGY INPATIENT PROGRESS NOTE SUBJECTIVE: The patient is not complaining of any difficulty with dysphagia, although according to the nursing notes and staff, the patient has not had anything to eat or drink since last evening. A liquid diet is prescribed. The patient seems somewhat more confused today and agitated. She comments that she has abdominal discomfort, although her vital signs are and have been stable. She is afebrile at 36.6 at midnight and 36.5 again this morning. Blood pressure is stable 101/64 and currently 123/68; she is 99% on 2 liters, respirations 16, heart rate is 57. LABORATORY STUDIES: From today show white count 6.99, hemoglobin is 12, MCV 91, platelets are 130. Serum chemistries show a potassium that is low at 3.2 and she is receiving a potassium replacement. Celiac serologies were sent on admission and there is no evidence for celiac disease on those blood specimens. Her medications were reviewed as was her allergy list. PHYSICAL EXAMINATION: GENERAL: The patient is awake and alert but not oriented to place and got confrontational when asked these questions by me and the nurse. HEART: Normal S1, S2. LUNGS: Clear to auscultation. ABDOMEN: Soft, nontender with no rebound or guarding. EXTREMITIES: Without edema. RECTAL: Deferred. IMAGING DATA: Chest x-ray and head CT today with change in mental status was found with senescent changes as above without hemorrhage, enhancing mass, or evidence of acute ischemia by CT, no change from 10/20/2016. A chest x-ray showed evidence of left lung pneumonia. Cardiomegaly is present. Abdominal CT reports from yesterday revealed the moderately distended debris filled distal esophagus which was unchanged. There was focal narrowing at the GE junction. This underwent upper endoscopy yesterday afternoon with food bolus removal through advancement into the stomach and serial dilation to 51-[place]man[place] Savary dilator. 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 There is also questionable hepatic flexure thickening in the colon which may be related to edema. IMPRESSION AND PLAN: I made the following recommendations: The CT did not reveal any acute cerebrovascular events to explain the patient's change in mental status. The esophagus is cleared of any debris by endoscopy yesterday; however, at the present time, would maintain n.p.o. status until the patient's mental status is improved and can adequately and safely take oral intake. The left lung consolidation may reflect the source of the patient's change in mental status, although there is no fever or leukocytosis associated with this chest x-ray finding. Regarding her eventual resumption of oral intake, this should occur with liquids or nectar-thickened liquids along with a pureed diet and would strongly consider a speech therapy consultation. Ultimately, a study with a barium esophagram with a barium tablet may be helpful to exclude a focal stenosis in the esophagus. Diet should be limited to no more than a full liquid or perhaps a soft mechanical diet or preferably a pureed diet to avoid large food amounts to obstruct the esophagus. The nature of the SMA stenosis also may be a source of the patient's presenting abdominal pain. Additional testing with Dopplers to get a better sense of the degree of stenosis may be helpful. We will follow with you. JOLIE
[2016-10-24] MEDS: LATANOPROST 0.005% OP SOLN 2.5 ML BTL OPB SCH (20:24)
[2016-10-24] MEDS ORDERED: QUETIAPINE FUMARATE 25 MG TAB PO SCH (21:00)
[2016-10-25 00:18] VITALS: BP 115/81; PULSE 54; TEMP 34.5; O2SAT 95
[2016-10-25] MEDS: HYDROmorphone INJ 0.5 MG/0.5 ML SYR IV PRN (03:50)
[2016-10-25 04:34] LABS: URINE APPEARANCE CLEAR (CLEAR); URINE BILIRUBIN NEG (NEG); URINE COLOR YELLOW; URINE NITRITE NEG (NEG); URINE SPECIFIC GRAVITY 1.008 (1.000-1.030); UROBILINOGEN NEG (NEG)
[2016-10-25 04:35] LABS: MANUAL MICROSCOPIC REQUIRED? NO; REVIEW REQ? NO
[2016-10-25] MEDS: PIPERACILL/TAZOBAC IV 3.375 GM in DEXTROSE 5% 100ML IV SCH ×3 (05:48→21:28)
[2016-10-25] MEDS: NSS + 20MEQ KCL 1000ML 1,000 ML IV SCH ×2 (05:49→18:07)
[2016-10-25 06:47] LABS: BASO % 0.4 %; BASO ABS # 0.02 K/uL (0-0.2); COMPLETE YES; HEMATOCRIT 35.2 % (37-47); IG% 0.4 %; LYMPH % 21.2 %; LYMPH ABS # 1.05 K/uL (1.2-3.4); MEAN CELL VOLUME 91.4 fL (80-100); MEAN CORPUSCULAR HEMOGLOBIN 29.9 pg (25-34); MEAN CORPUSCULAR HGB CONC 32.7 g/dl (32-36); MEAN PLATELET VOLUME 9.8 fL (7.4-10.4); MONO % 7.7 %; NEUT % 67.3 %; PLATELET COUNT 109 K/uL (130-400); RED BLOOD COUNT 3.85 M/uL (4.2-5.4); WHITE BLOOD COUNT 4.96 K/uL (4.8-10.8)
[2016-10-25 07:11] LABS: BUN/CREATININE RATIO 8.6 (10-20); CALCIUM 8.6 mg/dl (8.5-10.1); CREATININE 0.73 mg/dl (0.60-1.20); MAGNESIUM 1.4 mg/dl (1.8-2.4)
[2016-10-25 07:22] LABS: PHOSPHORUS 2.1 mg/dl (2.5-4.9); THYROID STIMULATING HORMONE 3.87 uIu/ml (0.300-4.500)
[2016-10-25 07:52] VITALS: BP 126/77; PULSE 52; TEMP 36.4; O2SAT 98
[2016-10-25] MEDS ORDERED: MAGNESIUM SULFATE 1GM / D5W 1 GM in PREMIXED IN D5W 100 ML IV STA (08:01)
[2016-10-25] MEDS: PANTOprazole INJ 40 MG in SYRINGE 0 ML IV SCH (08:22)
[2016-10-25] MEDS: CLOPIDOGREL BISULFATE 75 MG TAB PO SCH (08:22)
[2016-10-25] MEDS: CITALOPRAM 40 MG TAB PO SCH (08:22)
[2016-10-25] MEDS: TIMOLOL MALEATE 0.5% OP SOLN 5 ML BTL OPL SCH (08:23)
[2016-10-25] MEDS: POTASSIUM CHLORIDE 20 MEQ TABCR PO SCH ×2 (08:48→20:08)
[2016-10-25] MEDS: POTASSIUM CHLR 10 MEQ / WTR 10 MEQ in PREMIXED WATER 100 ML IV SCH ×4 (08:50→11:33)
[2016-10-25 09:54] VITALS: O2SAT 98
--- NOTE | 2016-10-25 13:26 | Gastroenterology Progress Note ---
Progress Note Date of Service: Oct 25, 2016 Subjective Pt evaluation today including: conversation w/ patient, conversation w/ family (daughter and ), physical exam, chart review, lab review, review of studies, review of inpatient medication list cc f/u epigastric pain and diarrhea HPI Diet has been clear liquids and not advanced to solid yet. Per nursing notes about 3 loose stools in last 24 hours. Pt denies abd pain. From family sounds like patient not eating much at home and is drinking alcohol. Review of Systems Respiratory: No shortness of breath Cardiac: No chest pain Medications Current Inpatient Medications Medications (Trade) Dose Ordered Sig/Bhavna Route Start Time Stop Time Status Last Admin Dose Admin Acetaminophen (Tylenol Tab) 650 mg Q4H PRN PO 10/20/16 13:00 11/19/16 12:59 10/22/16 17:21 650 MG Citalopram Hydrobromide (celeXA TAB) 40 mg QAM PO 10/21/16 09:00 11/20/16 08:59 10/25/16 08:22 40 MG Clopidogrel Bisulfate (plAVix TAB) 75 mg QAM PO 10/21/16 09:00 11/20/16 08:59 10/25/16 08:22 75 MG Latanoprost (Xalatan Oph Soln) 1 drops HS OPB 10/20/16 21:00 11/19/16 20:59 10/24/16 20:24 1 DROPS Timolol Maleate (Timoptic 0.5% Oph Soln) 1 drops QAM OPL 10/21/16 09:00 11/20/16 08:59 10/25/16 08:23 1 DROPS Miscellaneous Information (Order Awaiting Action) 1 ea QS N/A 10/20/16 16:00 11/19/16 15:59 Clotrimazole (Lotrimin 1% Crm) 1 appln DAILY PRN EXT 10/20/16 14:15 11/19/16 14:14 Hydroxyzine HCl 25 mg 25 mg BID PRN PO 10/21/16 09:45 11/20/16 09:44 Ondansetron HCl/ Dextrose (Zofran Inj/D5 50ml) 54 ml @ 216 mls/hr TID PRN IV 10/21/16 14:00 11/20/16 13:59 10/23/16 11:22 216 MLS/HR Lorazepam 0.5 mg 0.5 mg Q6 PRN PO 10/21/16 18:00 11/20/16 17:59 Lorazepam 1 mg/ Syringe 1 ml @ 1 mls/min Q4H PRN IV 10/21/16 18:15 11/20/16 18:14 10/21/16 21:34 1 MLS/MIN Lorazepam 0.5 mg/ Syringe 1 ml @ 1 mls/min Q4H PRN IV 10/21/16 18:15 11/20/16 18:14 10/24/16 19:46 1 MLS/MIN Acetaminophen/ Empty Bag (Ofirmev IV/ Empty Iv Bag 100ml) 65 ml @ 260 mls/hr Q6H PRN IV 10/22/16 12:15 11/21/16 12:14 Hydromorphone HCl (Dilaudid Inj) 0.5 mg Q4 PRN IV 10/22/16 12:45 11/05/16 12:44 10/25/16 03:50 0.5 MG Hydromorphone HCl 1 mg 1 mg Q4 PRN IV 10/22/16 12:45 11/05/16 12:44 Pantoprazole Sodium 40 mg/ Syringe 10 ml @ 5 mls/min BID IV 10/22/16 21:00 11/21/16 20:59 10/25/16 08:22 5 MLS/MIN Potassium Chloride/Sodium Chloride 1,000 ml @ 80 mls/hr [id number] IV 10/22/16 16:00 11/21/16 15:59 10/25/16 05:49 80 MLS/HR Promethazine HCl 12.5 mg/Sodium Chloride 50.5 ml @ 204 mls/hr Q6H PRN IV 10/22/16 15:30 11/21/16 15:29 Piperacillin Sod/ Tazobactam Sod/ Dextrose (Zosyn Iv/D5 100ml) 115 ml @ 28.75 mls/ hr Q8H IV 10/22/16 22:00 11/01/16 21:59 10/25/16 05:48 28.75 MLS/HR Piperacillin Sod/ Tazobactam Sod (Consult) 1 ea UD PRN N/A 10/22/16 15:45 11/21/16 15:44 Ioversol (Optiray 320) 93 ml UD PRN IV 10/23/16 14:00 10/27/16 13:59 Quetiapine Fumarate (seroQUEL TAB) 25 mg HS PO 10/24/16 21:00 11/23/16 20:59 10/24/16 20:23 25 MG Ioversol (Optiray 320) 100 ml UD PRN IV 10/24/16 16:15 10/28/16 16:14 Potassium Chloride (Klor-Con Tab) 20 meq BID PO 10/25/16 09:00 11/24/16 08:59 10/25/16 08:48 20 MEQ Objective Vital Signs Date Time Temp Pulse Resp B/P Pulse Ox O2 Delivery O2 Flow Rate FiO2 10/25/16 09:54 98 Room Air 10/25/16 08:00 Room Air 10/25/16 07:52 36.4 52 20 126/77 98 Room Air 10/25/16 00:18 34.5 54 18 115/81 95 Room Air 10/24/16 15:55 98 Nasal Cannula 2.0 10/24/16 15:24 36.5 56 18 106/69 98 Room Air Physical Exam General Appearance: WD/WN, no apparent distress Respiratory/Chest: lungs clear, no respiratory distress Cardiovascular: no murmur Abdomen: normal bowel sounds, non tender, soft, no organomegaly Neurologic/Psych: normal mood/affect Laboratory Results Last 24 Hours Test 10/25/16 04:00 10/25/16 04:03 10/25/16 04:04 10/25/16 06:36 Urine Color YELLOW Urine Appearance CLEAR Urine pH 5.0 Urine Specific [place] 1.008 Urine Protein NEG Urine Glucose (UA) NEG Urine Ketones NEG Urine Occult Blood NEG Urine Nitrite NEG Urine Bilirubin NEG Urine Urobilinogen NEG Urine Leukocyte Esterase NEG White Blood Count 4.96 K/uL Red Blood Count 3.85 M/uL Hemoglobin 11.5 g/dL Hematocrit 35.2 % Mean Corpuscular Volume 91.4 fL Mean Corpuscular Hemoglobin 29.9 pg Mean Corpuscular Hemoglobin Concent 32.7 g/dl Platelet Count 109 K/uL Mean Platelet Volume 9.8 fL Neutrophils (%) (Auto) 67.3 % Lymphocytes (%) (Auto) 21.2 % Monocytes (%) (Auto) 7.7 % Eosinophils (%) (Auto) 3.0 % Basophils (%) (Auto) 0.4 % Neutrophils # (Auto) 3.34 K/uL Lymphocytes # (Auto) 1.05 K/uL Monocytes # (Auto) 0.38 K/uL Eosinophils # (Auto) 0.15 K/uL Basophils # (Auto) 0.02 K/uL RDW Standard Deviation 47.0 fL RDW Coefficient of Variation 14.1 % Immature Granulocyte % (Auto) 0.4 % Immature Granulocyte # (Auto) 0.02 K/uL Sodium Level 145 mmol/L Potassium Level 3.0 mmol/L Chloride Level 108 mmol/L Carbon Dioxide Level 26 mmol/L Anion Gap 11.0 mmol/L Blood Urea Nitrogen 6 mg/dl Creatinine 0.73 mg/dl Est Creatinine Clear Calc Drug Dose 45.6 ml/min Estimated GFR () 85.8 Estimated GFR (Non- 74.1 BUN/Creatinine Ratio 8.6 Random Glucose 91 mg/dl Calcium Level 8.6 mg/dl Phosphorus Level 2.1 mg/dl Magnesium Level 1.4 mg/dl Thyroid Stimulating Hormone (TSH) 3.870 uIu/ml Assessment and Plan diarrha---Cdiff neg, WBC negative, culture neg, WBCs neg--CT A/P negative for significant SB or colo disease (?hepatic flexure thickening only) , stool for blood negative, no impaction on rectal exam, heme neg, TTG/IGA normal, giardia, o/p, cryptosporidia, fecal fat still pending---could be from not eating much and drinking ETOH---advance to solid diet and see how she does. epigastric pain--u./s and HIDA do not suggest GB etiology---EGD 10/23 esophagus full of food, erosive esophagitis--continue PPI erosive esophagitis--PPI cirrhosis--noted on CT scan, Check ammonia since patient confused dilated CBD on U/S ---LFTs normal and no pathology appreciated on CT, no mention of ampulllary pathology on EGD stenosis of SMA--epigastric pain has improved with removal of food bolus so do not feel patient has intestinal angina weight loss-no cancer noted on CT A/P nor on CXR. Discussed with family there are many tests that could be done on this patient like colonoscopy and angiogram but at 85 if she tolerates diet I do not feel putting her through lot of testing is indicated. Pts family is in agreement. Likewise, I spoke with DR Adam could do MRCP for dilated PD and angiogram for SMA and renal artery stenosis in addition to above but again at 85 probably not warranted Plan therefore is check ammonia level and advance diet to cardiac diet but mechanical soft/slippery.
[2016-10-25 14:41] VITALS: BP 99/65; PULSE 56; TEMP 36.4; O2SAT 99
--- NOTE | 2016-10-25 15:45 | Progress Note ---
Subjective Date of Service: Oct 25, 2016. Subjective pt was lethargic in the morning but cleared as day progressed suggesting this was medication induced, less abdominal pain Problem List Medical Problems: (1) Choking Status: Acute (2) Choking episode Status: Acute (3) Choking episode Status: Acute (4) Contusion of multiple sites Status: Acute (5) Dizzy spells Status: Acute (6) Fall Status: Acute (7) Fall Status: Acute (8) Hypokalemia Status: Acute (9) Lactic acidosis Status: Acute (10) Respiratory arrest Status: Acute (11) Respiratory arrest Status: Acute (12) Rib pain on left side Status: Acute (13) Upper abdominal pain Status: Acute Review of Systems Constitutional: No chills, No fever Cardiac: No chest pain, No edema Abdomen: No diarrhea, No nausea, No pain Female : No dysuria, No hematuria, No urinary frequency Psychiatric: No anhedonism, No depression symptoms Objective Vital Signs Date Time Temp Pulse Resp B/P Pulse Ox O2 Delivery O2 Flow Rate FiO2 10/25/16 07:52 36.4 52 20 126/77 98 Room Air 10/25/16 00:18 34.5 54 18 115/81 95 Room Air 10/24/16 15:55 98 Nasal Cannula 2.0 10/24/16 15:24 36.5 56 18 106/69 98 Room Air 10/24/16 08:30 94 Room Air 10/24/16 08:03 36.5 57 16 123/68 99 Nasal Cannula 2.0 Physical Exam General Appearance: WD/WN, + mild distress Neck: supple, no JVD Respiratory/Chest: chest non-tender, lungs clear Cardiovascular: regular rate, rhythm, no murmur Abdomen: normal bowel sounds, soft Extremities: no pedal edema, no calf tenderness Neurologic/Psychiatric: alert, oriented x 3 Laboratory Results Last 24 Hours Test 10/25/16 04:00 10/25/16 04:03 10/25/16 04:04 10/25/16 06:36 Urine Color YELLOW Urine Appearance CLEAR Urine pH 5.0 Urine Specific [place] 1.008 Urine Protein NEG Urine Glucose (UA) NEG Urine Ketones NEG Urine Occult Blood NEG Urine Nitrite NEG Urine Bilirubin NEG Urine Urobilinogen NEG Urine Leukocyte Esterase NEG White Blood Count 4.96 K/uL Red Blood Count 3.85 M/uL Hemoglobin 11.5 g/dL Hematocrit 35.2 % Mean Corpuscular Volume 91.4 fL Mean Corpuscular Hemoglobin 29.9 pg Mean Corpuscular Hemoglobin Concent 32.7 g/dl Platelet Count 109 K/uL Mean Platelet Volume 9.8 fL Neutrophils (%) (Auto) 67.3 % Lymphocytes (%) (Auto) 21.2 % Monocytes (%) (Auto) 7.7 % Eosinophils (%) (Auto) 3.0 % Basophils (%) (Auto) 0.4 % Neutrophils # (Auto) 3.34 K/uL Lymphocytes # (Auto) 1.05 K/uL Monocytes # (Auto) 0.38 K/uL Eosinophils # (Auto) 0.15 K/uL Basophils # (Auto) 0.02 K/uL RDW Standard Deviation 47.0 fL RDW Coefficient of Variation 14.1 % Immature Granulocyte % (Auto) 0.4 % Immature Granulocyte # (Auto) 0.02 K/uL Sodium Level 145 mmol/L Potassium Level 3.0 mmol/L Chloride Level 108 mmol/L Carbon Dioxide Level 26 mmol/L Anion Gap 11.0 mmol/L Blood Urea Nitrogen 6 mg/dl Creatinine 0.73 mg/dl Est Creatinine Clear Calc Drug Dose 45.6 ml/min Estimated GFR () 85.8 Estimated GFR (Non- 74.1 BUN/Creatinine Ratio 8.6 Random Glucose 91 mg/dl Calcium Level 8.6 mg/dl Phosphorus Level 2.1 mg/dl Magnesium Level 1.4 mg/dl Thyroid Stimulating Hormone (TSH) 3.870 uIu/ml Assessment and Plan 85 yo F presented with diarrhea but has shown issues with esophageal dysmotility , has dialated CBD with concern for passing a stone and now concern for LLL pneumonia causing metabolic encephalopathy, PMHx of HTN, hx CVA on plavix, diastolic CHF with EF 65-70%, hyperlipidemia, osteoarthritis, choking episode, CT shows . Moderately distended and debris-filled distal esophagus, unchanged. There is focal narrowing at the gastroesophageal junction. possibly stricture or achalasia. Endoscopy 10/23 with LES dialation, mechanical soft, slippery diet - Aspiration precautions CT incidentally noted, Mild multifocal stenosis within the superior mesenteric artery. There is also moderate right and severe left renal artery stenosis. Diarrhea- C. difficile culture NEGATIVE, -resolved Hypokalemia/hypomagnesemia, repleted 10/25 Diastolic CHF- Last echocardiogram completed September 2014, with grade 1 diastolic dysfunction, preserved EF 65-70% Hx CVA- Cont Plavix Delerium, Celexa 40 mg by mouth daily - Ativan when necessary, CT head is negative seroquel 25 mg QHS; this maybe metabolic encephalopathy from LLL pneumonia seen in CXR 10/24, which I reviewed, continue zosyn DVT ppx: plavix, TEDs, SCDs CODE STATUS: DNR
[2016-10-25 16:15] VITALS: O2SAT 99
[2016-10-25] MEDS: PANTOprazole SOD 40 MG TAB PO SCH (20:08)
[2016-10-25] MEDS: LATANOPROST 0.005% OP SOLN 2.5 ML BTL OPB SCH (20:08)
[2016-10-25] MEDS: QUETIAPINE FUMARATE 25 MG TAB PO SCH (20:09)
[2016-10-25 23:44] VITALS: BP 112/73; PULSE 67; TEMP 36.6; O2SAT 94
[2016-10-26 00:09] VITALS: O2SAT 98
[2016-10-26] MEDS: PIPERACILL/TAZOBAC IV 3.375 GM in DEXTROSE 5% 100ML IV SCH ×3 (04:07→22:28)
[2016-10-26] MEDS: NSS + 20MEQ KCL 1000ML 1,000 ML IV SCH ×2 (06:15→18:07)
[2016-10-26 07:15] LABS: BASO % 0.6 %; BASO ABS # 0.03 K/uL (0-0.2); COMPLETE YES; EOS % 4.7 %; HEMATOCRIT 34.5 % (37-47); IG% 0.2 %; LYMPH ABS # 1.03 K/uL (1.2-3.4); MEAN CELL VOLUME 90.1 fL (80-100); MEAN CORPUSCULAR HEMOGLOBIN 30.3 pg (25-34); MEAN CORPUSCULAR HGB CONC 33.6 g/dl (32-36); MEAN PLATELET VOLUME 9.7 fL (7.4-10.4); NEUT % 63.5 %; PLATELET COUNT 127 K/uL (130-400); RED BLOOD COUNT 3.83 M/uL (4.2-5.4); WHITE BLOOD COUNT 4.68 K/uL (4.8-10.8)
[2016-10-26] MEDS: TIMOLOL MALEATE 0.5% OP SOLN 5 ML BTL OPL SCH (07:44)
[2016-10-26] MEDS: PANTOprazole SOD 40 MG TAB PO SCH ×2 (07:46→20:37)
[2016-10-26] MEDS: POTASSIUM CHLORIDE 20 MEQ TABCR PO SCH ×2 (07:46→20:37)
[2016-10-26] MEDS: CITALOPRAM 40 MG TAB PO SCH (07:47)
[2016-10-26 07:48] LABS: ALB/GLOB RATIO 0.9 (0.9-2); BUN/CREATININE RATIO 6.4 (10-20); CALCIUM 8.3 mg/dl (8.5-10.1); CREATININE 0.83 mg/dl (0.60-1.20); POTASSIUM 3.5 mmol/L (3.5-5.1)
[2016-10-26 08:03] VITALS: BP 150/84; PULSE 61; TEMP 36.4; O2SAT 96
[2016-10-26 08:09] VITALS: O2SAT 96
[2016-10-26] MEDS: CLOPIDOGREL BISULFATE 75 MG TAB PO SCH (08:50)
[2016-10-26 09:44] VITALS: BP 103/72
--- NOTE | 2016-10-26 10:20 | Gastroenterology Progress Note ---
Progress Note Date of Service: Oct 26, 2016 Subjective Pt evaluation today including: conversation w/ patient, physical exam, chart review, lab review, review of studies, review of inpatient medication list CC f/u epigastric pain and diarrhea HPI Per patient no abd pain. Is eating some solid food. Nursing record confusing as to how many bms last 24 hours because says diarrhea in 2 places but 0 BMs. This am had report of large loose brown stool. Review of Systems Respiratory: No shortness of breath Cardiac: No chest pain Medications Current Inpatient Medications Medications (Trade) Dose Ordered Sig/Bhavna Route Start Time Stop Time Status Last Admin Dose Admin Acetaminophen (Tylenol Tab) 650 mg Q4H PRN PO 10/20/16 13:00 11/19/16 12:59 10/22/16 17:21 650 MG Citalopram Hydrobromide (celeXA TAB) 40 mg QAM PO 10/21/16 09:00 11/20/16 08:59 10/26/16 07:47 40 MG Clopidogrel Bisulfate (plAVix TAB) 75 mg QAM PO 10/21/16 09:00 11/20/16 08:59 10/26/16 08:50 75 MG Latanoprost (Xalatan Oph Soln) 1 drops HS OPB 10/20/16 21:00 11/19/16 20:59 10/25/16 20:08 1 DROPS Timolol Maleate (Timoptic 0.5% Oph Soln) 1 drops QAM OPL 10/21/16 09:00 11/20/16 08:59 10/26/16 07:44 1 DROPS Miscellaneous Information (Order Awaiting Action) 1 ea QS N/A 10/20/16 16:00 11/19/16 15:59 Clotrimazole (Lotrimin 1% Crm) 1 appln DAILY PRN EXT 10/20/16 14:15 11/19/16 14:14 Hydroxyzine HCl 25 mg 25 mg BID PRN PO 10/21/16 09:45 11/20/16 09:44 Ondansetron HCl/ Dextrose (Zofran Inj/D5 50ml) 54 ml @ 216 mls/hr TID PRN IV 10/21/16 14:00 11/20/16 13:59 10/23/16 11:22 216 MLS/HR Lorazepam 0.5 mg 0.5 mg Q6 PRN PO 10/21/16 18:00 11/20/16 17:59 Acetaminophen/ Empty Bag (Ofirmev IV/ Empty Iv Bag 100ml) 65 ml @ 260 mls/hr Q6H PRN IV 10/22/16 12:15 11/21/16 12:14 Hydromorphone HCl (Dilaudid Inj) 0.5 mg Q4 PRN IV 10/22/16 12:45 11/05/16 12:44 10/25/16 03:50 0.5 MG Hydromorphone HCl 1 mg 1 mg Q4 PRN IV 10/22/16 12:45 11/05/16 12:44 Potassium Chloride/Sodium Chloride 1,000 ml @ 80 mls/hr [id number] IV 10/22/16 16:00 11/21/16 15:59 10/26/16 06:15 80 MLS/HR Promethazine HCl 12.5 mg/Sodium Chloride 50.5 ml @ 204 mls/hr Q6H PRN IV 10/22/16 15:30 11/21/16 15:29 Piperacillin Sod/ Tazobactam Sod/ Dextrose (Zosyn Iv/D5 100ml) 115 ml @ 28.75 mls/ hr Q8H IV 10/22/16 22:00 11/01/16 21:59 10/26/16 04:07 28.75 MLS/HR Piperacillin Sod/ Tazobactam Sod (Consult) 1 ea UD PRN N/A 10/22/16 15:45 11/21/16 15:44 Ioversol (Optiray 320) 93 ml UD PRN IV 10/23/16 14:00 10/27/16 13:59 Ioversol (Optiray 320) 100 ml UD PRN IV 10/24/16 16:15 10/28/16 16:14 Potassium Chloride (Klor-Con Tab) 20 meq BID PO 10/25/16 09:00 11/24/16 08:59 10/26/16 07:46 20 MEQ Quetiapine Fumarate (seroQUEL TAB) 12.5 mg HS PO 10/25/16 21:00 11/24/16 20:59 10/25/16 20:09 12.5 MG Pantoprazole Sodium (Protonix Tab) 40 mg BID PO 10/25/16 21:00 11/24/16 20:59 10/26/16 07:46 40 MG Objective Vital Signs Date Time Temp Pulse Resp B/P Pulse Ox O2 Delivery O2 Flow Rate FiO2 10/26/16 09:44 103/72 10/26/16 08:03 36.4 61 20 150/84 96 Room Air 10/26/16 08:00 Room Air 10/26/16 00:09 98 Room Air 10/25/16 23:44 36.6 67 16 112/73 94 Room Air 10/25/16 16:15 99 Room Air 10/25/16 14:41 36.4 56 16 99/65 99 Room Air Physical Exam General Appearance: WD/WN, no apparent distress Respiratory/Chest: lungs clear, no respiratory distress Cardiovascular: no murmur Abdomen: normal bowel sounds, non tender, soft Neurologic/Psych: normal mood/affect Laboratory Results Last 24 Hours Test 10/25/16 13:39 10/26/16 06:30 Ammonia < 10.0 umol/L White Blood Count 4.68 K/uL Red Blood Count 3.83 M/uL Hemoglobin 11.6 g/dL Hematocrit 34.5 % Mean Corpuscular Volume 90.1 fL Mean Corpuscular Hemoglobin 30.3 pg Mean Corpuscular Hemoglobin Concent 33.6 g/dl Platelet Count 127 K/uL Mean Platelet Volume 9.7 fL Neutrophils (%) (Auto) 63.5 % Lymphocytes (%) (Auto) 22.0 % Monocytes (%) (Auto) 9.0 % Eosinophils (%) (Auto) 4.7 % Basophils (%) (Auto) 0.6 % Neutrophils # (Auto) 2.97 K/uL Lymphocytes # (Auto) 1.03 K/uL Monocytes # (Auto) 0.42 K/uL Eosinophils # (Auto) 0.22 K/uL Basophils # (Auto) 0.03 K/uL RDW Standard Deviation 45.7 fL RDW Coefficient of Variation 13.9 % Immature Granulocyte % (Auto) 0.2 % Immature Granulocyte # (Auto) 0.01 K/uL Sodium Level 144 mmol/L Potassium Level 3.5 mmol/L Chloride Level 109 mmol/L Carbon Dioxide Level 26 mmol/L Anion Gap 9.0 mmol/L Blood Urea Nitrogen 5 mg/dl Creatinine 0.83 mg/dl Est Creatinine Clear Calc Drug Dose 40.1 ml/min Estimated GFR () 73.5 Estimated GFR (Non- 63.4 BUN/Creatinine Ratio 6.4 Random Glucose 85 mg/dl Calcium Level 8.3 mg/dl Total Bilirubin 0.6 mg/dl Aspartate Amino Transf (AST/SGOT) 23 U/L Alanine Aminotransferase (ALT/SGPT) 16 U/L Alkaline Phosphatase 58 U/L Total Protein 5.3 gm/dl Albumin 2.5 gm/dl Globulin 2.8 gm/dl Albumin/Globulin Ratio 0.9 Assessment and Plan diarrha---Cdiff neg, WBC negative, culture neg, WBCs neg--CT A/P negative for significant SB or colo disease (?hepatic flexure thickening only) , stool for blood negative, no impaction on rectal exam, heme neg, TTG/IGA normal, giardia, o/p, cryptosporidia, fecal fat still pending---could be from not eating much and drinking ETOH---see how she does next 24 hours on solid diet epigastric pain--u./s and HIDA do not suggest GB etiology---EGD 10/23 esophagus full of food, erosive esophagitis--continue PPI erosive esophagitis--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 dilated CBD on U/S ---LFTs normal and no pathology appreciated on CT, no mention of ampulllary pathology on EGD stenosis of SMA--epigastric pain has improved with removal of food bolus so do not feel patient has intestinal angina weight loss-no cancer noted on CT A/P nor on CXR. Discussed with family yesterday there are many tests that could be done on this patient like colonoscopy and angiogram but at 85 if she tolerates diet I do not feel putting her through lot of testing is indicated. Pts family is in agreement. Likewise, I spoke with DR Adam could do MRCP for dilated PD and angiogram for SMA and renal artery stenosis in addition to above but again at 85 probably not warranted Continue supportive care as above.
[2016-10-26 11:45] VITALS: BP 118/79; PULSE 57; TEMP 36.8; O2SAT 93
--- NOTE | 2016-10-26 13:11 | Progress Note ---
Subjective Date of Service: Oct 26, 2016. Subjective this pt is much better but pleasantly confused, she is not tolerating full diet yet. has some bloody bowel movements negative infectious workups. Problem List Medical Problems: (1) Choking Status: Acute (2) Choking episode Status: Acute (3) Choking episode Status: Acute (4) Contusion of multiple sites Status: Acute (5) Dizzy spells Status: Acute (6) Fall Status: Acute (7) Fall Status: Acute (8) Hypokalemia Status: Acute (9) Lactic acidosis Status: Acute (10) Respiratory arrest Status: Acute (11) Respiratory arrest Status: Acute (12) Rib pain on left side Status: Acute (13) Upper abdominal pain Status: Acute Review of Systems Constitutional: No chills, No fatigue, No fever, No weakness Respiratory: No cough, No wheezing Cardiac: No chest pain, No edema Abdomen: + GI bleeding, + diarrhea, + nausea, + pain, No vomiting Female : No dysuria, No urinary frequency Neurologic: + memory loss, + weakness Objective Vital Signs Date Time Temp Pulse Resp B/P Pulse Ox O2 Delivery O2 Flow Rate FiO2 10/26/16 11:45 36.8 57 23 118/79 93 Room Air 10/26/16 09:44 103/72 10/26/16 08:03 36.4 61 20 150/84 96 Room Air 10/26/16 08:00 Room Air 10/26/16 00:09 98 Room Air 10/25/16 23:44 36.6 67 16 112/73 94 Room Air 10/25/16 16:15 99 Room Air 10/25/16 14:41 36.4 56 16 99/65 99 Room Air Physical Exam General Appearance: WD/WN, + mild distress Eyes: PERRL, EOMI Neck: supple, no JVD Respiratory/Chest: no respiratory distress, no accessory muscle use Cardiovascular: regular rate, rhythm, + systolic murmur Abdomen: normal bowel sounds, soft, + tenderness Extremities: no pedal edema, no calf tenderness Neurologic/Psychiatric: alert, + disoriented Laboratory Results Last 24 Hours Test 10/25/16 13:39 10/26/16 06:30 Ammonia < 10.0 umol/L White Blood Count 4.68 K/uL Red Blood Count 3.83 M/uL Hemoglobin 11.6 g/dL Hematocrit 34.5 % Mean Corpuscular Volume 90.1 fL Mean Corpuscular Hemoglobin 30.3 pg Mean Corpuscular Hemoglobin Concent 33.6 g/dl Platelet Count 127 K/uL Mean Platelet Volume 9.7 fL Neutrophils (%) (Auto) 63.5 % Lymphocytes (%) (Auto) 22.0 % Monocytes (%) (Auto) 9.0 % Eosinophils (%) (Auto) 4.7 % Basophils (%) (Auto) 0.6 % Neutrophils # (Auto) 2.97 K/uL Lymphocytes # (Auto) 1.03 K/uL Monocytes # (Auto) 0.42 K/uL Eosinophils # (Auto) 0.22 K/uL Basophils # (Auto) 0.03 K/uL RDW Standard Deviation 45.7 fL RDW Coefficient of Variation 13.9 % Immature Granulocyte % (Auto) 0.2 % Immature Granulocyte # (Auto) 0.01 K/uL Sodium Level 144 mmol/L Potassium Level 3.5 mmol/L Chloride Level 109 mmol/L Carbon Dioxide Level 26 mmol/L Anion Gap 9.0 mmol/L Blood Urea Nitrogen 5 mg/dl Creatinine 0.83 mg/dl Est Creatinine Clear Calc Drug Dose 40.1 ml/min Estimated GFR () 73.5 Estimated GFR (Non- 63.4 BUN/Creatinine Ratio 6.4 Random Glucose 85 mg/dl Calcium Level 8.3 mg/dl Total Bilirubin 0.6 mg/dl Aspartate Amino Transf (AST/SGOT) 23 U/L Alanine Aminotransferase (ALT/SGPT) 16 U/L Alkaline Phosphatase 58 U/L Total Protein 5.3 gm/dl Albumin 2.5 gm/dl Globulin 2.8 gm/dl Albumin/Globulin Ratio 0.9 Assessment and Plan 85 yo F presented with diarrhea but has shown issues with esophageal dysmotility requiring urgent EGD and removal of food bolus, since has been improved, , also during this stay had discovered a dilated CBD with concern for passing a stone and LLL pneumonia causing metabolic encephalopathy choking episode, CT showed . 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 There is also moderate right and severe left renal artery stenosis. she seems to be asymptomatic at this time and will recommend follow up only if needed Diarrhea- C. difficile culture NEGATIVE, -resolved Hypokalemia/hypomagnesemia, repleated 10/25 Diastolic CHF- Last echocardiogram completed September 2014, with grade 1 diastolic dysfunction, preserved EF 65-70% Hx CVA- Cont Plavix Delirium, Celexa 40 mg by mouth daily - Ativan when necessary, CT head is negative seroquel 12.5 mg QHS; metabolic encephalopathy from LLL pneumonia seen in CXR 10/24, which I reviewed, continue zosyn DVT ppx: plavix, TEDs, SCDs CODE STATUS: DNR
[2016-10-26 15:31] VITALS: BP 124/84; PULSE 59; TEMP 36.9; O2SAT 96
[2016-10-26] MEDS: LORAZEPAM 0.5 MG TAB PO PRN (16:09)
[2016-10-26] MEDS: LATANOPROST 0.005% OP SOLN 2.5 ML BTL OPB SCH (20:37)
[2016-10-26] MEDS: QUETIAPINE FUMARATE 25 MG TAB PO SCH (20:37)
[2016-10-27] MEDS: PIPERACILL/TAZOBAC IV 3.375 GM in DEXTROSE 5% 100ML IV SCH ×3 (05:56→22:00)
[2016-10-27 07:28] LABS: CREATININE 0.78 mg/dl (0.60-1.20)
[2016-10-27 07:37] VITALS: BP 140/97; PULSE 64; TEMP 36.6; O2SAT 98
[2016-10-27] MEDS: NSS + 20MEQ KCL 1000ML 1,000 ML IV SCH (08:18)
[2016-10-27] MEDS: CLOPIDOGREL BISULFATE 75 MG TAB PO SCH (08:19)
[2016-10-27] MEDS: CITALOPRAM 40 MG TAB PO SCH (08:19)
[2016-10-27] MEDS: PANTOprazole SOD 40 MG TAB PO SCH ×2 (08:19→20:14)
[2016-10-27] MEDS: POTASSIUM CHLORIDE 20 MEQ TABCR PO SCH ×2 (08:19→20:15)
[2016-10-27] MEDS: TIMOLOL MALEATE 0.5% OP SOLN 5 ML BTL OPL SCH (08:19)
[2016-10-27] MEDS ORDERED: NURSING DECISION MEDICATION ORDER SCH ×2 (10:30→11:00)
[2016-10-27] MEDS ORDERED: MICONAZOLE NITRATE POWDER 43 GM EXT PRN (11:15)
--- NOTE | 2016-10-27 12:07 | Progress Note ---
Subjective Date of Service: Oct 27, 2016. Subjective Pt evaluation today including: conversation w/ patient, physical exam, lab review, review of inpatient medication list Pain: denies pain PO Intake: adequate per RN Voiding: no voiding problems patient lethargic, sleeping when I entered room, awoke to verbal and tactile stimuli after some prodding, she was able to answer simple questions she stated that she was in a hospital, when asked why, she said "I am sick" RN reports she is similar to yesterday, alertness waxes and wanes, baseline dementia no specific complaints from the patient herself Problem List Medical Problems: (1) Choking Status: Acute (2) Choking episode Status: Acute (3) Choking episode Status: Acute (4) Contusion of multiple sites Status: Acute (5) Dizzy spells Status: Acute (6) Fall Status: Acute (7) Fall Status: Acute (8) Hypokalemia Status: Acute (9) Lactic acidosis Status: Acute (10) Respiratory arrest Status: Acute (11) Respiratory arrest Status: Acute (12) Rib pain on left side Status: Acute (13) Upper abdominal pain Status: Acute Review of Systems Constitutional: + fatigue, + weakness Respiratory: No shortness of breath Abdomen: No diarrhea, No pain Neurologic: + memory loss Psychiatric: + depression symptoms All Other Systems: Reviewed and Negative Medications Current Inpatient Medications Medications (Trade) Dose Ordered Sig/Bhavna Route Start Time Stop Time Status Last Admin Dose Admin Acetaminophen (Tylenol Tab) 650 mg Q4H PRN PO 10/20/16 13:00 11/19/16 12:59 10/22/16 17:21 650 MG Citalopram Hydrobromide (celeXA TAB) 40 mg QAM PO 10/21/16 09:00 11/20/16 08:59 10/27/16 08:19 40 MG Clopidogrel Bisulfate (plAVix TAB) 75 mg QAM PO 10/21/16 09:00 11/20/16 08:59 10/27/16 08:19 75 MG Latanoprost (Xalatan Oph Soln) 1 drops HS OPB 10/20/16 21:00 11/19/16 20:59 10/26/16 20:37 1 DROPS Timolol Maleate (Timoptic 0.5% Oph Soln) 1 drops QAM OPL 10/21/16 09:00 11/20/16 08:59 10/27/16 08:19 1 DROPS Miscellaneous Information (Order Awaiting Action) 1 ea QS N/A 10/20/16 16:00 11/19/16 15:59 Clotrimazole (Lotrimin 1% Crm) 1 appln DAILY PRN EXT 10/20/16 14:15 11/19/16 14:14 Hydroxyzine HCl 25 mg 25 mg BID PRN PO 10/21/16 09:45 11/20/16 09:44 Ondansetron HCl/ Dextrose (Zofran Inj/D5 50ml) 54 ml @ 216 mls/hr TID PRN IV 10/21/16 14:00 11/20/16 13:59 10/23/16 11:22 216 MLS/HR Lorazepam 0.5 mg 0.5 mg Q6 PRN PO 10/21/16 18:00 11/20/16 17:59 10/26/16 16:09 0.5 MG Acetaminophen/ Empty Bag (Ofirmev IV/ Empty Iv Bag 100ml) 65 ml @ 260 mls/hr Q6H PRN IV 10/22/16 12:15 11/21/16 12:14 Hydromorphone HCl (Dilaudid Inj) 0.5 mg Q4 PRN IV 10/22/16 12:45 11/05/16 12:44 10/25/16 03:50 0.5 MG Hydromorphone HCl 1 mg 1 mg Q4 PRN IV 10/22/16 12:45 11/05/16 12:44 Potassium Chloride/Sodium Chloride 1,000 ml @ 80 mls/hr [id number] IV 10/22/16 16:00 11/21/16 15:59 10/27/16 08:18 80 MLS/HR Promethazine HCl 12.5 mg/Sodium Chloride 50.5 ml @ 204 mls/hr Q6H PRN IV 10/22/16 15:30 11/21/16 15:29 Piperacillin Sod/ Tazobactam Sod/ Dextrose (Zosyn Iv/D5 100ml) 115 ml @ 28.75 mls/ hr Q8H IV 10/22/16 22:00 11/01/16 21:59 10/27/16 05:56 28.75 MLS/HR Piperacillin Sod/ Tazobactam Sod (Consult) 1 ea UD PRN N/A 10/22/16 15:45 11/21/16 15:44 Ioversol (Optiray 320) 93 ml UD PRN IV 10/23/16 14:00 10/27/16 13:59 Ioversol (Optiray 320) 100 ml UD PRN IV 10/24/16 16:15 10/28/16 16:14 Potassium Chloride (Klor-Con Tab) 20 meq BID PO 10/25/16 09:00 11/24/16 08:59 10/27/16 08:19 20 MEQ Quetiapine Fumarate (seroQUEL TAB) 12.5 mg HS PO 10/25/16 21:00 11/24/16 20:59 10/26/16 20:37 12.5 MG Pantoprazole Sodium (Protonix Tab) 40 mg BID PO 10/25/16 21:00 11/24/16 20:59 10/27/16 08:19 40 MG Miconazole Nitrate (Desenex Powder) 1 appln PRN PRN EXT 10/27/16 11:15 11/26/16 11:14 Objective Vital Signs Date Time Temp Pulse Resp B/P Pulse Ox O2 Delivery O2 Flow Rate FiO2 10/27/16 08:00 Room Air 10/27/16 07:37 36.6 64 16 140/97 98 Room Air 10/26/16 23:59 Room Air 10/26/16 19:09 Room Air 10/26/16 15:31 36.9 59 18 124/84 96 Room Air Physical Exam General Appearance: WD/WN, no apparent distress Eyes: normal inspection, EOMI, sclerae normal ENT: normal ENT inspection, hearing grossly normal, pharynx normal Neck: supple, no adenopathy, no JVD, trachea midline Respiratory/Chest: chest non-tender, no respiratory distress, no accessory muscle use, + decreased breath sounds (bases) Cardiovascular: regular rate, rhythm, no edema, no gallop, no JVD, no murmur Abdomen: normal bowel sounds, non tender, soft, no organomegaly Extremities: non-tender, normal inspection, no pedal edema, no calf tenderness , normal capillary refill, pelvis stable 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, + motor weakness (generalized , in bed), + disoriented, + pertinent finding (lethargic but wakes on command) Skin: normal color, warm/dry, no rash Lymphatic: no adenopathy Laboratory Results Last 24 Hours Test 10/26/16 21:00 10/27/16 06:28 Creatinine 0.78 mg/dl Est Creatinine Clear Calc Drug Dose 42.7 ml/min Estimated GFR () 79.2 Estimated GFR (Non- 68.4 Assessment and Plan 85 yo F presented with diarrhea but has shown issues with esophageal dysmotility requiring urgent EGD and removal of food bolus, since has been improved, , also during this stay had discovered a dilated CBD with concern for passing a stone and LLL pneumonia causing metabolic encephalopathy choking episode, CT showed moderately distended and debris-filled distal esophagus,urgent egd 10/23 with LES dialation, mechanical soft, slippery diet - Aspiration precautions, she has done well with progression of diet - no issues today CT incidentally noted, 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 There is also moderate right and severe left renal artery stenosis. she seems to be asymptomatic at this time and will recommend follow up only if needed Diarrhea- C. difficile culture NEGATIVE, -resolved Hypokalemia/hypomagnesemia, repleated 10/25, recheck tomorrow AM labs Diastolic CHF- Last echocardiogram completed September 2014, with grade 1 diastolic dysfunction, preserved EF 65-70% Hx CVA- Cont Plavix Delirium, Celexa 40 mg by mouth daily - Ativan when necessary, CT head is negative seroquel 12.5 mg QHS; metabolic encephalopathy from LLL pneumonia seen in CXR 10/24 treat pneumonia with Zosyn IV, today is day # 5 she has been afebrile, WBC normal, breathing room air will stop antibiotics after today DVT ppx: plavix, TEDs, SCDs CODE STATUS: DNR Plan: to return to the [facility] tomorrow as long as she is stable off antibiotics and continues to eat well
[2016-10-27] MEDS: ACETAMINOPHEN 325 MG TAB PO PRN ×2 (12:18→20:13)
--- NOTE | 2016-10-27 13:17 | Gastroenterology Progress Note ---
Progress Note Date of Service: Oct 27, 2016 Subjective Pt evaluation today including: conversation w/ patient, conversation w/ family (), physical exam, chart review, lab review, review of studies, review of inpatient medication list CC f/u epigastric pain and diarrhea HPI Pt denies abd pain and states she is eating amount of food she normally eats which is no alot. She thinks stools are firming. The report is 3-4 BMs in last 24 hours no blood or black reported Review of Systems Respiratory: No shortness of breath Cardiac: No chest pain Medications Current Inpatient Medications Medications (Trade) Dose Ordered Sig/Bhavna Route Start Time Stop Time Status Last Admin Dose Admin Acetaminophen (Tylenol Tab) 650 mg Q4H PRN PO 10/20/16 13:00 11/19/16 12:59 10/27/16 12:18 650 MG Citalopram Hydrobromide (celeXA TAB) 40 mg QAM PO 10/21/16 09:00 11/20/16 08:59 10/27/16 08:19 40 MG Clopidogrel Bisulfate (plAVix TAB) 75 mg QAM PO 10/21/16 09:00 11/20/16 08:59 10/27/16 08:19 75 MG Latanoprost (Xalatan Oph Soln) 1 drops HS OPB 10/20/16 21:00 11/19/16 20:59 10/26/16 20:37 1 DROPS Timolol Maleate (Timoptic 0.5% Oph Soln) 1 drops QAM OPL 10/21/16 09:00 11/20/16 08:59 10/27/16 08:19 1 DROPS Miscellaneous Information (Order Awaiting Action) 1 ea QS N/A 10/20/16 16:00 11/19/16 15:59 Clotrimazole (Lotrimin 1% Crm) 1 appln DAILY PRN EXT 10/20/16 14:15 11/19/16 14:14 Hydroxyzine HCl 25 mg 25 mg BID PRN PO 10/21/16 09:45 11/20/16 09:44 Ondansetron HCl/ Dextrose (Zofran Inj/D5 50ml) 54 ml @ 216 mls/hr TID PRN IV 10/21/16 14:00 11/20/16 13:59 10/23/16 11:22 216 MLS/HR Lorazepam 0.5 mg 0.5 mg Q6 PRN PO 10/21/16 18:00 11/20/16 17:59 10/26/16 16:09 0.5 MG Acetaminophen/ Empty Bag (Ofirmev IV/ Empty Iv Bag 100ml) 65 ml @ 260 mls/hr Q6H PRN IV 10/22/16 12:15 11/21/16 12:14 Hydromorphone HCl (Dilaudid Inj) 0.5 mg Q4 PRN IV 10/22/16 12:45 11/05/16 12:44 10/25/16 03:50 0.5 MG Hydromorphone HCl 1 mg 1 mg Q4 PRN IV 10/22/16 12:45 11/05/16 12:44 Promethazine HCl 12.5 mg/Sodium Chloride 50.5 ml @ 204 mls/hr Q6H PRN IV 10/22/16 15:30 11/21/16 15:29 Piperacillin Sod/ Tazobactam Sod/ Dextrose (Zosyn Iv/D5 100ml) 115 ml @ 28.75 mls/ hr Q8H IV 10/22/16 22:00 10/27/16 23:00 10/27/16 05:56 28.75 MLS/HR Piperacillin Sod/ Tazobactam Sod (Consult) 1 ea UD PRN N/A 10/22/16 15:45 10/27/16 23:00 Ioversol (Optiray 320) 93 ml UD PRN IV 10/23/16 14:00 10/27/16 13:59 Ioversol (Optiray 320) 100 ml UD PRN IV 10/24/16 16:15 10/28/16 16:14 Potassium Chloride (Klor-Con Tab) 20 meq BID PO 10/25/16 09:00 11/24/16 08:59 10/27/16 08:19 20 MEQ Quetiapine Fumarate (seroQUEL TAB) 12.5 mg HS PO 10/25/16 21:00 11/24/16 20:59 10/26/16 20:37 12.5 MG Pantoprazole Sodium (Protonix Tab) 40 mg BID PO 10/25/16 21:00 11/24/16 20:59 10/27/16 08:19 40 MG Miconazole Nitrate (Desenex Powder) 1 appln PRN PRN EXT 10/27/16 11:15 11/26/16 11:14 Objective Vital Signs Date Time Temp Pulse Resp B/P Pulse Ox O2 Delivery O2 Flow Rate FiO2 10/27/16 08:00 Room Air 10/27/16 07:37 36.6 64 16 140/97 98 Room Air 10/26/16 23:59 Room Air 10/26/16 19:09 Room Air 10/26/16 15:31 36.9 59 18 124/84 96 Room Air Physical Exam General Appearance: WD/WN, no apparent distress Respiratory/Chest: normal breath sounds, no respiratory distress Cardiovascular: no murmur Abdomen: normal bowel sounds, non tender, soft, no organomegaly, no pulsatile mass Neurologic/Psych: normal mood/affect Laboratory Results Last 24 Hours Test 10/26/16 21:00 10/27/16 06:28 Creatinine 0.78 mg/dl Est Creatinine Clear Calc Drug Dose 42.7 ml/min Estimated GFR () 79.2 Estimated GFR (Non- 68.4 Assessment and Plan diarrha---Cdiff neg, WBC negative, culture neg, WBCs neg--CT A/P negative for significant SB or colo disease (?hepatic flexure thickening only) , stool for blood negative, no impaction on rectal exam, heme neg, TTG/IGA normal, giardia, o/p, cryptosporidia, fecal fat still pending---could be from not eating much and drinking ETOH---improved overall epigastric pain--u./s and HIDA do not suggest GB etiology---EGD 10/23 esophagus full of food, erosive esophagitis--continue PPI--resolved erosive esophagitis--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 dilated CBD on U/S ---LFTs normal and no pathology appreciated on CT, no mention of ampulllary pathology on EGD stenosis of SMA--epigastric pain has improved with removal of food bolus so do not feel patient has intestinal angina weight loss-no cancer noted on CT A/P nor on CXR. Discussed with family yesterday 2 days ago: there are many tests that could be done on this patient like colonoscopy and angiogram but at 85 if she tolerates diet I do not feel putting her through lot of testing is indicated. Pts family is in agreement. Likewise, I spoke with DR Adam could do MRCP for dilated PD and angiogram for SMA and renal artery stenosis in addition to above but again at 85 probably not warranted Continue supportive care as above. Probable DC soon from GI standpoint.
[2016-10-27 15:33] VITALS: BP 111/76; PULSE 51; TEMP 36.4; O2SAT 97
[2016-10-27] MEDS: LATANOPROST 0.005% OP SOLN 2.5 ML BTL OPB SCH (20:14)
[2016-10-27] MEDS: QUETIAPINE FUMARATE 25 MG TAB PO SCH (20:14)
[2016-10-27 23:06] VITALS: BP 148/96; PULSE 56; TEMP 36.5; O2SAT 96
[2016-10-28 06:54] LABS: BASO % 0.5 %; BASO ABS # 0.02 K/uL (0-0.2); COMPLETE YES; HEMATOCRIT 37.2 % (37-47); IG% 0.5 %; LYMPH % 31.7 %; LYMPH ABS # 1.33 K/uL (1.2-3.4); MEAN CELL VOLUME 92.1 fL (80-100); MEAN CORPUSCULAR HEMOGLOBIN 30.4 pg (25-34); MEAN CORPUSCULAR HGB CONC 33.1 g/dl (32-36); MEAN PLATELET VOLUME 10.2 fL (7.4-10.4); MONO % 11.2 %; NEUT % 52.1 %; PLATELET COUNT 133 K/uL (130-400); RED BLOOD COUNT 4.04 M/uL (4.2-5.4)
[2016-10-28 07:09] VITALS: BP 134/83; PULSE 56; TEMP 36.5; O2SAT 97
[2016-10-28 07:22] LABS: BUN/CREATININE RATIO 7.2 (10-20); CALCIUM 8.8 mg/dl (8.5-10.1); CREATININE 0.98 mg/dl (0.60-1.20); MAGNESIUM 1.5 mg/dl (1.8-2.4)
[2016-10-28] MEDS: CITALOPRAM 40 MG TAB PO SCH (07:57)
[2016-10-28] MEDS: TIMOLOL MALEATE 0.5% OP SOLN 5 ML BTL OPL SCH (07:57)
[2016-10-28] MEDS: CLOPIDOGREL BISULFATE 75 MG TAB PO SCH (07:57)
[2016-10-28] MEDS: POTASSIUM CHLORIDE 20 MEQ TABCR PO SCH ×2 (07:57→20:34)
[2016-10-28] MEDS: PANTOprazole SOD 40 MG TAB PO SCH ×2 (07:57→20:35)
[2016-10-28 08:00] VITALS: O2SAT 97
--- NOTE | 2016-10-28 10:19 | Progress Note ---
Subjective Date of Service: Oct 28, 2016. Subjective Pt evaluation today including: conversation w/ patient, physical exam, chart review, lab review, review of studies, review of inpatient medication list Still have large watery brown stools, one last night and one this morning. Otherwise, no chest pain, no sob, no lightheadedness. No abd pain, no urinary symptoms. No fevers. Tolerating mechanical soft with aspiration precautions. Denies coughing with swallowing. Problem List Medical Problems: (1) Choking Status: Acute (2) Choking episode Status: Acute (3) Choking episode Status: Acute (4) Contusion of multiple sites Status: Acute (5) Dizzy spells Status: Acute (6) Fall Status: Acute (7) Fall Status: Acute (8) Hypokalemia Status: Acute (9) Lactic acidosis Status: Acute (10) Respiratory arrest Status: Acute (11) Respiratory arrest Status: Acute (12) Rib pain on left side Status: Acute (13) Upper abdominal pain Status: Acute Review of Systems All Other Systems: Reviewed and Negative Medications Acetaminophen (Tylenol Tab) 650 mg Q4H PRN PO Last administered on 10/27/16 20:13; Admin Dose 650 MG; Start 10/20/16 at 13:00; Stop 11/19/16 at 12:59 Acetaminophen/ Empty Bag (Ofirmev IV/ Empty Iv Bag 100ml) 65 ml @ 260 mls/hr Q6H PRN IV; Start 10/22/16 at 12:15; Stop 11/21/16 at 12:14 Citalopram Hydrobromide (celeXA TAB) 40 mg QAM PO Last administered on 07:57; Admin Dose 40 MG; Start 10/21/16 at 09:00; Stop 11/20/16 at 08:59 Clopidogrel Bisulfate (plAVix TAB) 75 mg QAM PO Last administered on 10/28/16 07:57; Admin Dose 75 MG; Start 10/21/16 at 09:00; Stop 11/20/16 at 08:59 Clotrimazole (Lotrimin 1% Crm) 1 appln DAILY PRN EXT; Start 10/20/16 at 14:15; Stop 11/19/16 at 14:14 Hydromorphone HCl (Dilaudid Inj) 0.5 mg Q4 PRN IV Last administered on 03:50; Admin Dose 0.5 MG; Start 10/22/16 at 12:45; Stop 11/05/16 at 12:44 Hydromorphone HCl 1 mg 1 mg Q4 PRN IV; Start 10/22/16 at 12:45; Stop 11/05/16 at 12:44 Hydroxyzine HCl 25 mg 25 mg BID PRN PO; Start 10/21/16 at 09:45; Stop 11/20/16 at 09:44 Ioversol (Optiray 320) 100 ml UD PRN IV; Start 10/24/16 at 16:15; Stop 10/28/16 at 16:14 Latanoprost (Xalatan Oph Soln) 1 drops HS OPB Last administered on 10/27/16 20: 14; Admin Dose 1 DROPS; Start 10/20/16 at 21:00; Stop 11/19/16 at 20:59 Lorazepam 0.5 mg 0.5 mg Q6 PRN PO Last administered on 10/26/16 16:09; Admin Dose 0.5 MG; Start 10/21/16 at 18:00; Stop 11/20/16 at 17:59 Miconazole Nitrate (Desenex Powder) 1 appln PRN PRN EXT; Start 10/27/16 at 11: 15; Stop 11/26/16 at 11:14 Miscellaneous Information (Order Awaiting Action) 1 ea QS N/A; Start 10/20/16 at 16:00; Stop 11/19/16 at 15:59 Ondansetron HCl/ Dextrose (Zofran Inj/D5 50ml) 54 ml @ 216 mls/hr TID PRN IV Last administered on 10/23/16 11:22; Admin Dose 216 MLS/HR; Start 10/21/16 at 14: 00; Stop 11/20/16 at 13:59 Pantoprazole Sodium (Protonix Tab) 40 mg BID PO Last administered on 10/28/16 07:57; Admin Dose 40 MG; Start 10/25/16 at 21:00; Stop 11/24/16 at 20:59 Potassium Chloride (Klor-Con Tab) 20 meq BID PO Last administered on 10/28/16 07:57; Admin Dose 20 MEQ; Start 10/25/16 at 09:00; Stop 11/24/16 at 08:59 Promethazine HCl/ Sodium Chloride (Phenergan Inj/ Nss 50ml) 50.5 ml @ 204 mls/ hr Q6H PRN IV; Start 10/22/16 at 15:30; Stop 11/21/16 at 15:29 Quetiapine Fumarate (seroQUEL TAB) 12.5 mg HS PO Last administered on 10/27/16 20:14; Admin Dose 12.5 MG; Start 10/25/16 at 21:00; Stop 11/24/16 at 20:59 Timolol Maleate (Timoptic 0.5% Oph Soln) 1 drops QAM OPL Last administered on 07:57; Admin Dose 1 DROPS; Start 10/21/16 at 09:00; Stop 11/20/16 at 08:59 Objective Vital Signs Date Time Temp Pulse Resp B/P Pulse Ox O2 Delivery O2 Flow Rate FiO2 10/28/16 08:00 97 Room Air 10/28/16 07:09 36.5 56 16 134/83 97 Room Air 10/27/16 23:59 Room Air 10/27/16 23:06 36.5 56 20 148/96 96 Room Air 10/27/16 20:00 Room Air 10/27/16 16:00 Room Air 10/27/16 15:33 36.4 51 18 111/76 97 Room Air Physical Exam Comments: nad, oriented to person and place, knows it's October but that it's 2011 s1 s2 rrr, no murmurs appreciated ctab no w/r/r abd soft, nt/nd +BS no LE edema Laboratory Results Last 24 Hours Test 10/28/16 06:35 White Blood Count 4.20 K/uL Red Blood Count 4.04 M/uL Hemoglobin 12.3 g/dL Hematocrit 37.2 % Mean Corpuscular Volume 92.1 fL Mean Corpuscular Hemoglobin 30.4 pg Mean Corpuscular Hemoglobin Concent 33.1 g/dl Platelet Count 133 K/uL Mean Platelet Volume 10.2 fL Neutrophils (%) (Auto) 52.1 % Lymphocytes (%) (Auto) 31.7 % Monocytes (%) (Auto) 11.2 % Eosinophils (%) (Auto) 4.0 % Basophils (%) (Auto) 0.5 % Neutrophils # (Auto) 2.19 K/uL Lymphocytes # (Auto) 1.33 K/uL Monocytes # (Auto) 0.47 K/uL Eosinophils # (Auto) 0.17 K/uL Basophils # (Auto) 0.02 K/uL RDW Standard Deviation 46.4 fL RDW Coefficient of Variation 14.0 % Immature Granulocyte % (Auto) 0.5 % Immature Granulocyte # (Auto) 0.02 K/uL Sodium Level 143 mmol/L Potassium Level 4.0 mmol/L Chloride Level 107 mmol/L Carbon Dioxide Level 29 mmol/L Anion Gap 7.0 mmol/L Blood Urea Nitrogen 7 mg/dl Creatinine 0.98 mg/dl Est Creatinine Clear Calc Drug Dose 34.0 ml/min Estimated GFR () 60.1 Estimated GFR (Non- 51.9 BUN/Creatinine Ratio 7.2 Random Glucose 87 mg/dl Calcium Level 8.8 mg/dl Magnesium Level 1.5 mg/dl Assessment and Plan 1. Chronic diarrhea - unclear etiology - C diff negative, obt negative. Stool O&P, crypto, giardia pending. - anti- ttg mis, iga negative. - no obstruction on imaging - CBD slightly dilated but HIDA without e/o obstruction - GI on board 2. Aspiration, dysphagia - EGD with GE junction narrowing, s/p dilation - aspiration precautions - mechanical soft diet - PPI 3. erosive esophagitis - PPI BID 4. Vascular stenoses - seen on imaging in SMA and renal artery - asymptomatic and creat stable - conservative management, monitor for symptoms for now 5. diastolic CHF, HFpEF - stable 6. hx CVA - cont plavix 7. dvt ppx
[2016-10-28] MEDS ORDERED: MAGNESIUM SULFATE 1GM / D5W 1 GM in PREMIXED IN D5W 100 ML IV ONE (10:30)
[2016-10-28 12:02] LABS: INR 1.1 (0.9-1.1)
[2016-10-28] MEDS ORDERED: ENOXAPARIN 30 MG/0.3 ML SYR SQ ONE (13:00)
[2016-10-28 14:57] VITALS: BP 90/61; PULSE 55; TEMP 36.9; O2SAT 95
--- NOTE | 2016-10-28 16:12 | PROGRESS NOTE ---
DATE: 10/28/2016 SUBJECTIVE: Symptomatically the patient is eating, although not a lot, but her usual amount. She has had 2 recorded bowel movements today. Most of her stool studies have returned negative, things that are still pending are fecal fat, cryptosporidium, ova and parasites and stool for Giardia. IMPRESSION: The patient's diarrhea is improving. Her anemia is stable. According to conversations that Dr. Fonseca had with family, it was agreed that further aggressive intervention was not warranted. Will continue to follow the patient as needed.
[2016-10-28] MEDS: LORAZEPAM 0.5 MG TAB PO PRN (20:33)
[2016-10-28] MEDS: ACETAMINOPHEN 325 MG TAB PO PRN (20:34)
[2016-10-28] MEDS: QUETIAPINE FUMARATE 25 MG TAB PO SCH (20:35)
[2016-10-28] MEDS: LATANOPROST 0.005% OP SOLN 2.5 ML BTL OPB SCH (20:38)
[2016-10-29 00:12] VITALS: BP 118/79; PULSE 61; TEMP 36.7; O2SAT 96
[2016-10-29 07:27] LABS: BASO % 0.3 %; BASO ABS # 0.01 K/uL (0-0.2); COMPLETE YES; EOS % 3.5 %; HEMATOCRIT 37.3 % (37-47); IG% 0.3 %; LYMPH % 29.7 %; LYMPH ABS # 1.18 K/uL (1.2-3.4); MEAN PLATELET VOLUME 9.8 fL (7.4-10.4); MONO % 12.1 %; NEUT % 54.1 %; PLATELET COUNT 129 K/uL (130-400); WHITE BLOOD COUNT 3.97 K/uL (4.8-10.8)
[2016-10-29] MEDS ORDERED: MCTP EXT (07:48)
[2016-10-29] MEDS ORDERED: LTRCR45 EXT (07:48)
--- NOTE | 2016-10-29 07:52 | Discharge Instructions ---
Discharge Instructions Date of Service Oct 29, 2016. Admission Reason for Admission: Diarrhea Discharge Discharge Diagnosis / Problem: diarrhea, electrolyte abnormalities Discharge Goals Goal(s): Improve function, Improve nutritional status Activity Recommendations Activity Limitations: resume your previous activity Exercise/Sports Limitations: as tolerated . Current Hospital Diet Patient's current hospital diet: AHA Diet (Heart Healthy) Discharge Diet Recommended Diet: Clear Liquid Diet (see details below), Full Liquid Diet Diet Texture: Mechanical Soft (ground) (SLIPPERY see details below) Procedures Procedures Performed: Esophagogastroduodenoscopy, removal of food bolus, esophageal dilation. DIET RECS: 1. We recommend advancing the patient's diet to full liquids and continuing to advance it slowly until reaching the goal of SLIPPERY Dental Soft diet. Full liquids ---> SLIPPERY pureed ---> SLIPPERY mechanical soft ---> SLIPPERY Dental Soft 2. Aspiration precautions: no straws; fully upright during meals and for 15-30 minutes after, head of bed elevated at least 30-degrees at all times, alternate solids and liquids frequently during meals to encourage esophageal clearance 3. Consider routine imaging to check for esophageal bolus retention Pending Studies Studies pending at discharge: yes List of pending studies: Stool studies Medical Emergencies . Who to Call and When: Medical Emergencies: If at any time you feel your situation is an emergency, please call 911 immediately. . Non-Emergent Contact Non-Emergency issues call your: Primary Care Provider . . "Provider Documentation" section prepared by Anne Ordaz. VTE Core Measure Inpt VTE Proph given/why not?: Other Anticoagulation, T.E.D. Stockings, SCD's
[2016-10-29 07:54] VITALS: BP 127/83; PULSE 61; TEMP 36.5; O2SAT 95
[2016-10-29 08:00] LABS: CALCIUM 9.2 mg/dl (8.5-10.1); CREATININE 0.78 mg/dl (0.60-1.20); POTASSIUM 3.8 mmol/L (3.5-5.1)
[2016-10-29 08:03] LABS: ALB/GLOB RATIO 0.8 (0.9-2)
[2016-10-29] MEDS: PANTOprazole SOD 40 MG TAB PO SCH (08:34)
[2016-10-29] MEDS: TIMOLOL MALEATE 0.5% OP SOLN 5 ML BTL OPL SCH (08:35)
[2016-10-29] MEDS: POTASSIUM CHLORIDE 20 MEQ TABCR PO SCH (08:35)
[2016-10-29] MEDS: CITALOPRAM 40 MG TAB PO SCH (08:35)
[2016-10-29] MEDS: CLOPIDOGREL BISULFATE 75 MG TAB PO SCH (08:35)
[2016-10-29] MEDS ORDERED: ENOXAPARIN 30 MG/0.3 ML SYR SQ SCH (09:00)
[2016-10-29] MEDS ORDERED: MCRK20 PO (09:08)
--- NOTE | 2016-10-29 09:23 | Discharge Summary ---
Discharge Summary Date of Service Oct 29, 2016. Discharge Summary Admission Date: Oct 20, 2016 at 14:17 Discharge Date: Oct 29, 2016 Discharge Disposition: [facility] facility Principal Diagnosis: diarrhea, viral GE Immunizations: Have You Had Influenza Vaccine: Yes Influenza Vaccine Date: Jun 09, 2012 History of Tetanus Vaccine?: Unknown History of Pneumococcal: Yes Pneumococcal Date: Oct 10, 2009 History of Hepatitis B Vaccine: Unknown Medication Reconciliation New Medications: Potassium Chloride (Klor-Con M20) 20 Meq Tabcr 20 MEQ PO DAILY for 30 Days Continued Medications: Alcaftadine (Lastacaft) 0.25 % Milla 1 DROPS OPR QAM, ML Citalopram (Citalopram Hydrobromide) 40 Mg Tab 40 MG PO QAM Clopidogrel Bisulfate (Clopidogrel) 75 Mg Tab 75 MG PO QAM Lansoprazole (Prevacid Solutab) 30 Mg Tab 30 MG PO DAILY for 15 Days, TAB Latanoprost (Xalatan 0.005% Oph Milla) 0.005 % Milla 1 DROPS OPB HS for 30 Days, #2.5 ML 6 Refills Multiple Vitamins W/ Minerals (Preservision Areds) 1 Cap Cap 1 CAP PO BID Multivitamin (Multivitamin) Tab 1 TAB PO QAM, TAB Sennosides-Docusate Sodium (Senna S) 1 Tab Tab 1 TAB PO UD PRN for Constipation Thiamine Hcl (Vitamin B-1) 100 Mg Tab 100 MG PO DAILY, TAB Timolol Maleate (Timolol 0.5% Oph Soln 15 Ml) 15 Ml Soln 1 DROP OPL QAM, #5 Hospital Course This is a 85 yo F with PMHx of HTN, hx CVA on plavix, diastolic CHF with EF 65- 70%, hyperlipidemia, osteoarthritis, esophageal dysmotility with multiple choking episodes, who presents with worsening diarrhea over the past 1 month. The patient is present with her who is a poor historian. The patient has felt generalized weakness and fatigue since the start of this, and worsened in the past 24 hours. She denies eating raw or undercooked meats, picnic foods, or being exposed to sick contacts with similar symptoms. Reports that her diarrhea is loose, mucous-like, last bowel movement was this morning and that it does have foul smell. The patient has been unable to eat or drink when she normally would 2 days. The patient admits to feeling lightheaded and dizzy this morning, as well as nausea. The patient had a syncopal like episode per nursing from the [facility] - pt reports that she got pale and weak, but quickly came to. She did not sustain any trauma during this syncopal like event. Patient denies fevers chills or sweats, chest pain, shortness of breath. The patient is a resident of the [facility], and reports having a C. difficile stool culture sent for pathology 2 days ago but does not have results back. During this hospitalization, stools were checked and negative for C diff, and stool occult blood, and stool culture. Serologies for Celiac were alos negative. Stool o&p were pending however with improving diarrhea, can follow-up as outpatient for results. Imaging studies did not reveal any obstruction but did show a slightly dilated CBD with negative subsequent HIDA. EGD did reveal narrowing at the GE junction and was dilated and some food particles were removed. Swallowing evaluation was done and mechanical soft diet was started. On day of discharge, patient feels well with slow and gradual improvement of her diarrhea. She complains of no chest pain ,no sob, no abd pain and is tolerating her diet well. Vital Signs Date Time Temp Pulse Resp B/P Pulse Ox O2 Delivery O2 Flow Rate FiO2 10/29/16 08:25 Room Air 10/29/16 07:54 36.5 61 16 127/83 95 10/24/16 15:55 2.0 nad, aox3 eomi, anicteric s1 s2 rrr ctab no w/r/r abd soft nt nd +BS no LE edema cn 2-12 grossly intact without facial drooping 1. Chronic diarrhea - unclear etiology, likely viral; improving gradually - C diff negative, obt negative. Stool O&P, crypto, giardia pending, however, this can be follow-up outpatient - anti- ttg mis, iga negative. - no obstruction on imaging - CBD slightly dilated but HIDA without e/o obstruction - GI on board, no further evaluation is warranted at this point 2. Aspiration, dysphagia - EGD with GE junction narrowing, s/p dilation - aspiration precautions - mechanical soft diet - PPI 3. erosive esophagitis - PPI BID 4. Vascular stenoses - seen on imaging in SMA and renal artery - asymptomatic and creat stable - conservative management, monitor for symptoms for now 5. diastolic CHF, HFpEF - stable 6. hx CVA - cont plavix 7. Electrolyte abnormalities - hypokalemia: would cont to replete K if continues to have diarrhea - hypomagnesemia: mag supplements tend to cause diarrhea, so will hold off on continuous supplementation but would check met panel regularly if continues to have diarrhea Total Time Spent: Less than 30 minutes This includes examination of the patient, discharge planning, medication reconciliation, and communication with other providers. Discharge Instructions Please refer to the electronic Patient Visit Report (Discharge Instructions) for additional information. Additional Copies To [facility]
[2016-10-29 12:30] VITALS: BP 127/83; PULSE 61; TEMP 36.5; O2SAT 95
[2016-10-29 13:30] VITALS: BP 85/60; PULSE 50; O2SAT 91
[2016-11-05 15:42] LABS: CRYPTOSPORIDIUM AG TC 37213 NOT DETECTED (NOT DETECTED); O&P GIARDIA AG NOT DETECTED (NOT DETECTED); O&P SOURCE OTHER-STOOL
[2017-02-02] MEDS ORDERED: CLX40 PO (09:34)
[2017-02-02] MEDS ORDERED: ALCA0.25 OPR (09:34)
[2017-02-02] MEDS ORDERED: MULT-506 PO (09:34)
[2017-02-02] MEDS ORDERED: PLV75 PO (09:34)
[2017-02-02] MEDS ORDERED: THIA100T11 PO (16:16)
[2017-02-02] MEDS ORDERED: TMPOPS15 OPL (21:04)
[2017-02-02] MEDS ORDERED: SENN-91 PO (21:54)
[2017-02-02] MEDS ORDERED: LATA0.009 OPB (21:54)
[2017-02-09] MEDS ORDERED: MGNO400 PO (14:27)
[2017-02-09] MEDS ORDERED: AMOX1TAB43 PO (14:27)
[2017-02-09] MEDS ORDERED: CRD200 PO (14:27)
[2017-02-09] MEDS ORDERED: IPRASOL4 INH (14:42)
== END 2016-10-29 15:07 | DRG 391 ==
LOC: ENRESERV → CANRESERV → ENRESERVTM → ENRESERVDT → EDBD 09:01 → C.EDA 09:02 → CANBEDREQ 14:03 → UNDOADMIN 14:17 → C.2T 14:17 → EDBEDREQ 10-21 13:12 → C.MS2W 10-21 13:54 → C.2T 10-21 13:54
PROVIDERS: ADMIT Internal Medicine; ATTEND Internal Medicine
PROC: 0DC58ZZ Extirpation of Matter from Esophagus, Via Natural or Artificial Opening Endoscopic (ICD-10-PCS; principal; 2016-10-23 17:00)
PROC: 0D758ZZ Dilation of Esophagus, Via Natural or Artificial Opening Endoscopic (ICD-10-PCS; principal; 2016-10-23 17:00)
DX: A08.4 Viral intestinal infection, unspecified (principal); E43 Unspecified severe protein-calorie malnutrition; I50.32 Chronic diastolic (congestive) heart failure; R19.7 Diarrhea, unspecified; K22.10 Ulcer of esophagus without bleeding; E87.0 Hyperosmolality and hypernatremia; G93.41 Metabolic encephalopathy; I10 Essential (primary) hypertension; Z86.73 Personal history of transient ischemic attack (TIA), and cerebral infarction without residual deficits; K22.4 Dyskinesia of esophagus; E78.00 Pure hypercholesterolemia, unspecified; Z79.01 Long term (current) use of anticoagulants; Z87.891 Personal history of nicotine dependence; E87.6 Hypokalemia; F32.9 Major depressive disorder, single episode, unspecified; E83.42 Hypomagnesemia; M19.90 Unspecified osteoarthritis, unspecified site; R13.10 Dysphagia, unspecified; N20.0 Calculus of kidney; I70.1 Atherosclerosis of renal artery; K74.60 Unspecified cirrhosis of liver; K22.2 Esophageal obstruction

== ENCOUNTER → 2016-11-13 | Outpatient (CLI) | payer OTHER, BC ==
[~2016-11-13] MED LIST changes: +ACET-1311 PO; +ALCA0.25 OPR; +AMOX1TAB42 PO; +AMOX1TAB43 PO; +CLX40 PO; +CRD200 PO; +IMD2 PO; +IPRASOL4 INH; +LANS30CA12 PO; +LATA0.009 OPB; +LCTX PO; +LOPE-5 PO; +MCRK20 PO; +MGNO400 PO; +MRPL PO; +MULT-506 PO; +PLV75 PO; +PSYL58.636 PO; +SENN-91 PO; +THIA100T11 PO; +TMPOPS15 OPL; +XPNINS125 NEB; +XPNINS1255 INH
[2016-11-13 09:21] LABS: BASO % 0.5 %; BASO ABS # 0.02 K/uL (0-0.2); COMPLETE YES; EOS % 2.8 %; HEMATOCRIT 33.6 % (37-47); IG% 0.5 %; LYMPH % 28.4 %; MEAN CELL VOLUME 98.8 fL (80-100); MEAN CORPUSCULAR HEMOGLOBIN 34.4 pg (25-34); MEAN CORPUSCULAR HGB CONC 34.8 g/dl (32-36); MEAN PLATELET VOLUME 10.4 fL (7.4-10.4); NEUT % 60.8 %; PLATELET COUNT 148 K/uL (130-400); WHITE BLOOD COUNT 3.88 K/uL (4.8-10.8)
[2016-11-13 09:28] LABS: BLOOD UREA NITROGEN 23 mg/dl (7-18); BUN/CREATININE RATIO 35.5 (10-20); CALCIUM 9.1 mg/dl (8.5-10.1); CARBON DIOXIDE 28 mmol/L (21-32); CHLORIDE 108 mmol/L (98-107); CREATININE 0.65 mg/dl (0.60-1.20); GLUCOSE 86 mg/dl (70-99); POTASSIUM 4.1 mmol/L (3.5-5.1); SODIUM 142 mmol/L (136-145)
== END | disposition home or self-care (01) ==
LOC: C.LABVPSUA 08:38
PROVIDERS: ATTEND Internal Medicine Critical Care Medicine
DX: K21.0 Gastro-esophageal reflux disease with esophagitis (principal)

== ENCOUNTER 2017-01-01 21:17 | Inpatient (IN) | payer OTHER, BC ==
[~2017-01-01] VITALS: Ht 165.1 cm; Wt 57.6 kg
[~2017-01-01 21:17] MED LIST changes: -ACET-1311 PO; -ALCA0.25 OPR; -AMOX1TAB42 PO; -AMOX1TAB43 PO; -CLX40 PO; -CRD200 PO; -IMD2 PO; -IPRASOL4 INH; -LANS30CA12 PO; -LATA0.009 OPB; -LCTX PO; -LOPE-5 PO; -MGNO400 PO; -MRPL PO; -MULT-506 PO; -PLV75 PO; -PSYL58.636 PO; -SENN-91 PO; -THIA100T11 PO; -TMPOPS15 OPL; -XPNINS125 NEB; -XPNINS1255 INH
[2017-01-01] MEDS ORDERED: ALBUT/IPRATROP 3MG/0.5MG NEB 3 ML VIAL ONE (21:25)
[2017-01-01] MEDS ORDERED: LORAZEPAM 2 MG/ML 1 ML VIAL ONE (21:33)
[2017-01-01 21:38] VITALS: PULSE 109; O2SAT 98
[2017-01-01 21:47] LABS: MEAN CELL VOLUME 95.5 fL (80-100); MEAN CORPUSCULAR HEMOGLOBIN 29.8 pg (25-34); MEAN CORPUSCULAR HGB CONC 31.2 g/dl (32-36); MEAN PLATELET VOLUME 9.7 fL (7.4-10.4); PLATELET COUNT 238 K/uL (130-400); WHITE BLOOD COUNT 17.82 K/uL (4.8-10.8)
--- NOTE | 2017-01-01 21:51 | EMERGENCY ROOM VISIT NOTE ---
History Report prepared by Roderick: Isidra Vizcaino Under the Supervision of: Jamison RankinO. First contact with patient: 21:34 Chief Complaint: SHORTNESS OF BREATH Stated Complaint: SOB/ASPIRATION [facility] History of Present Illness The patient is a 86 year old female who presents to the Emergency Room via EMS from the [facility] with complaints of severe and worsening difficulty breathing. The patient was eating dinner about an hour and a half ago when she aspirated. The patient has a history of aspiration. She had a change in mental status in route to the Emergency Room. She has a history of CHF , and acute respiratory failure. The patient is a DNR. HPI is limited secondary to altered mental status and severe respiratory distress. Additional history is obtained as per EMS. Source of History: EMS History Limited By: AMS, other (respiratory distress) Onset: about an hour and a half ago Position: other (global) Symptom Intensity: severe Quality: other (difficulty breathing) Review of Systems ROS is limited secondary to altered mental status and severe respiratory distress. Past Medical & Surgical Medical Problems: (1) Acute respiratory failure with hypoxia and hypercapnia (2) Aspiration pneumonia (3) Cerebrovasc Disease Nos (4) Congestive Heart Failure Nos (5) Diarrhea (6) Dysphagia (7) Hypercholesterolemia (8) Hypertension Nos (9) Hysterectomy (10) Osteoarthros Nos-Unspec Family History Patient reports no known family medical history. Social History Smoking Status: Former Smoker Alcohol Use: none Drug Use: none Marital Status: Housing Status: assisted living Occupation Status: retired Current/Historical Medications Scheduled Alcaftadine (Lastacaft), 1 DROPS OPR QAM Citalopram (Citalopram Hydrobromide), 40 MG PO QAM Clopidogrel Bisulfate (Clopidogrel), 75 MG PO QAM Lansoprazole (Prevacid), 30 MG PO DAILY Latanoprost (Xalatan 0.005% Oph Milla), 1 DROPS OPB HS Multiple Vitamins W/ Minerals (Preservision Areds), 1 CAP PO BID Multivitamin (Multivitamin), 1 TAB PO QAM Thiamine Hcl (Vitamin B-1), 100 MG PO DAILY Timolol Maleate (Timolol 0.5% Oph Soln 15 Ml), 1 DROP QAM Scheduled PRN Sennosides-Docusate Sodium (Senna S), 1 TAB PO UD PRN for Constipation Allergies Coded Allergies: Sulfa Antibiotics (Verified Allergy, Unknown, ., 10/20/16) Fish (Verified Adverse Reaction, Unknown, GI SYMPTOMS, 10/20/16) Shellfish Allergy (Verified Adverse Reaction, Unknown, GI SYMPTOMS, 10/20/16 ) Yogurt (Verified Adverse Reaction, Unknown, GI SYMPTOMS, 10/20/16) Physical Exam Vital Signs Date Time Temp Pulse Resp B/P Pulse Ox O2 Delivery O2 Flow Rate FiO2 01/02/17 00:01 80 100 80 01/01/17 23:25 76 17 98/74 98 BiPAP 01/01/17 22:37 80 24 97 01/01/17 22:32 84 24 98 01/01/17 22:27 83 26 97 01/01/17 22:22 83 28 94 01/01/17 22:17 83 27 91 01/01/17 22:12 84 25 92 01/01/17 22:07 82 25 94 01/01/17 22:02 88 26 97 01/01/17 21:57 91 26 97 01/01/17 21:52 87 24 93/72 97 01/01/17 21:52 87 01/01/17 21:47 101 28 98 01/01/17 21:42 104 25 98 BiPAP 80 01/01/17 21:38 109 98 80 01/01/17 21:38 109 28 98 BiPAP 80 01/01/17 21:37 149 78 01/01/17 21:32 148 77 01/01/17 21:28 90 Nasal Cannula 6.0 01/01/17 21:28 90 Nasal Cannula 6.0 01/01/17 21:28 88 Nasal Cannula 6.0 01/01/17 21:27 125 68 Non-Rebreather 15.0 01/01/17 21:20 90 Nasal Cannula 6.0 01/01/17 21:20 149 135/115 90 Nasal Cannula 6.0 Physical Exam GENERAL: Patient is in clear respiratory distress, possibly having an acute seizure. HENT: Normocephalic, atraumatic. Oropharynx unremarkable. EYES: Sclera non-icteric. Has a pupillary defect of the left eye and it is dilated. NECK: Supple. No nuchal rigidity. FROM. No JVD. RESPIRATORY: Clear to auscultation. Respiratory distress, decrease breath sounds. CARDIAC: Tachycardic rate, normal rhythm. Extremities warm and well perfused. Pulses equal. ABDOMEN: Soft, non-distended. No tenderness to palpation. No rebound or guarding. No masses. RECTAL: Deferred. MUSCULOSKELETAL: Chest examination reveals no tenderness. The back is symmetrical on inspection without obvious abnormality. There is no CVA tenderness to palpation. No joint edema. LOWER EXTREMITIES: Calves are equal size bilaterally and non-tender. No edema. No discoloration. NEURO: Unresponsive. SKIN: No rash or jaundice noted. Cyanosis. Medical Decision & Procedures ER Provider Diagnostic Interpretation: X-ray: Per my interpretation, radiologist review. SINGLE VIEW CHEST CLINICAL HISTORY: Dyspnea. FINDINGS: An AP, portable, upright chest radiograph is compared to study dated 10/24/2016. Correlation is made with chest CT dated 06/07/2016. The examination is degraded by portable technique and patient rotation. The heart is enlarged. The pulmonary vasculature is noncongested. 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 Chronic interstitial thickening is unchanged. Consolidative change is seen at the left lung base and there is a small left pleural effusion the right lung is grossly clear. Biapical scarring is observed. There is no pneumothorax. The skeletal structures are osteopenic. Chronic posttraumatic deformity is noted in the right humerus. IMPRESSION: 1. Airspace consolidation is seen at the left lung base and there is a small left pleural effusion. Radiographic follow-up to resolution is recommended. 2. Cardiomegaly without radiographic evidence of congestive failure. 3. Additional chronic findings as above. Electronically signed by: Kirill Cui M.D. 01/01/2017 10:38 PM Dictated Date/Time: 01/01/2017 10:36 PM Laboratory Results 01/01/17 21:39 Red Blood Count 4.40, Mean Corpuscular Volume 95.5, Mean Corpuscular Hemoglobin 29.8, Mean Corpuscular Hemoglobin Concent 31.2, Mean Platelet Volume 9.7, Neutrophils (%) (Auto) 57.1, Lymphocytes (%) (Auto) 34.1, Monocytes (%) (Auto) 7.0, Eosinophils (%) (Auto) 0.9, Basophils (%) (Auto) 0.3, Neutrophils # (Auto) 10.18, Lymphocytes # (Auto) 6.08, Monocytes # (Auto) 1.25, Eosinophils # (Auto) 0.16, Basophils # (Auto) 0.05 01/01/17 21:39 Test 01/01/17 21:39 White Blood Count 17.82 K/uL (4.8-10.8) Red Blood Count 4.40 M/uL (4.2-5.4) Hemoglobin 13.1 g/dL (12.0-16.0) Hematocrit 42.0 % (37-47) Mean Corpuscular Volume 95.5 fL (80-100) Mean Corpuscular Hemoglobin 29.8 pg (25-34) Mean Corpuscular Hemoglobin Concent 31.2 g/dl (32-36) Platelet Count 238 K/uL (130-400) Mean Platelet Volume 9.7 fL (7.4-10.4) Neutrophils (%) (Auto) 57.1 % Lymphocytes (%) (Auto) 34.1 % Monocytes (%) (Auto) 7.0 % Eosinophils (%) (Auto) 0.9 % Basophils (%) (Auto) 0.3 % Neutrophils # (Auto) 10.18 K/uL (1.4-6.5) Lymphocytes # (Auto) 6.08 K/uL (1.2-3.4) Monocytes # (Auto) 1.25 K/uL (0.11-0.59) Eosinophils # (Auto) 0.16 K/uL (0-0.5) Basophils # (Auto) 0.05 K/uL (0-0.2) RDW Standard Deviation 45.5 fL (36.4-46.3) RDW Coefficient of Variation 13.0 % (11.5-14.5) Immature Granulocyte % (Auto) 0.6 % Immature Granulocyte # (Auto) 0.10 K/uL (0.00-0.02) Tear Drop Cells 1+ Anion Gap 6.0 mmol/L (3-11) Estimated GFR () 58.3 Estimated GFR (Non- 50.3 BUN/Creatinine Ratio 19.9 (10-20) Calcium Level 9.5 mg/dl (8.5-10.1) Total Bilirubin 0.5 mg/dl (0.2-1) Direct Bilirubin 0.2 mg/dl (0-0.2) Aspartate Amino Transf (AST/SGOT) 80 U/L (15-37) Alanine Aminotransferase (ALT/SGPT) 57 U/L (12-78) Alkaline Phosphatase 176 U/L (45-117) Total Protein 7.9 gm/dl (6.4-8.2) Albumin 3.6 gm/dl (3.4-5.0) Laboratory results reviewed by me Medications Administered Medications (Trade) Dose Ordered Sig/Bhavna Route Start Time Stop Time Status Last Admin Dose Admin Lorazepam (Ativan Inj) 2 mg STK-MED ONCE .ROUTE 01/01/17 21:33 01/01/17 21:34 DC 01/01/17 21:40 2 MG Levofloxacin (Levaquin / D5W) 750 mg NOW ONCE IV 01/01/17 22:45 01/01/17 22:46 DC 01/01/17 23:17 750 MG Metronidazole (Flagyl / Nss) 500 mg NOW STAT IV 01/01/17 22:42 01/01/17 22:44 DC 01/01/17 23:17 500 MG ECG Indication: SOB/dyspnea Rate (beats per minute): 109 Rhythm: atrial fibrillation Findings: PVC, RBBB (incomplete), left axis deviation ED Course 2133: The patient was evaluated in room A09. A complete history and physical exam was performed. The patient's is out of town and her daughter will serve as the [id number]. The patient's daughter agreed with the DNR paperwork. The patient's daughter would like me to make the patient more comfortable but to not intubate her, perform CPR, or any other procedures as outlined in the DNR paperwork. 2155: I reevaluated the patient who is much improved on BiPAP, no current distress with a pulse ox greater than 94%. 6: I discussed the patient's case with her daughter, Orly Elliott. She is agreeable to administering antibiotics but she continues to agree to the DNR paperwork. She does not want me to perform any invasive procedures. 2242: Flagyl/Nss 500 mg IV 2245: Levofloxacin 750 mg IV 2258: Upon reexamination, the patient was resting comfortably. I discussed the test results and treatment plan with the patient's daughter. I discussed the [facility]'s [facility] The patient will be evaluated for further management. Medical Decision Differential diagnosis includes but is not limited to aspiration pneumonia, hypoxia, CVA, seizure, sepsis. I had spoken to the power of commonwealth attorney immediately upon the patient's arrival she stated that she did not want the patient intubated and the patient was in fact DO NOT RESUSCITATE. I've spoken and the patient's power of commonwealth attorney at bedside as well. Patient was given Ativan 2 mg and placed on BiPAP for which she has actually improved. I did speak again to the power of commonwealth attorney was at bedside and she was okay with the patient receiving antibiotics. Patient was started on Levaquin and Flagyl for presumptive aspiration pneumonia with hypoxia. The case is discussed with the hospitalist for admission Consults Time Called: [phone] Consulting Physician: [facility] Returned Call: [phone] I discussed the patient's case with [facility] Impression Primary Impression: Acute dyspnea Additional Impressions: Acute aspiration pneumonia Hypoxia DNR (do not resuscitate) Critical Care I have personally spent greater than 40 minutes of critical care time in the direct management of this patient. This includes bedside care, interpretation of diagnostic studies, and testing, discussion with consultants, patient, and family members, and other required patient management activities. This 40 minutes is in excess of all separately billable procedures. Scribe Attestation The scribe's documentation has been prepared under my direction and personally reviewed by me in its entirety. I confirm that the note above accurately reflects all work, treatment, procedures, and medical decision making performed by me. Departure Information Dispostion Being Evaluated By Hospitalist Referrals [facility] (PCP) Patient Instructions My [facility] Problem Qualifiers
[2017-01-01 22:04] LABS: ALT/SGPT 57 U/L (12-78); BLOOD UREA NITROGEN 20 mg/dl (7-18); BUN/CREATININE RATIO 19.9 (10-20); CARBON DIOXIDE 30 mmol/L (21-32); CHLORIDE 105 mmol/L (98-107); GLUCOSE 208 mg/dl (70-99); POTASSIUM 4.6 mmol/L (3.5-5.1); SODIUM 141 mmol/L (136-145)
[2017-01-01 22:07] LABS: ALKALINE PHOSPHATASE 176 U/L (45-117); AST/SGOT 80 U/L (15-37)
[2017-01-01 22:17] LABS: CALCIUM 9.5 mg/dl (8.5-10.1)
[2017-01-01 22:22] LABS: BASO % 0.3 %; BASO ABS # 0.05 K/uL (0-0.2); COMPLETE YES; EOS % 0.9 %; IG% 0.6 %; LYMPH % 34.1 %; LYMPH ABS # 6.08 K/uL (1.2-3.4); NEUT % 57.1 %; TEAR DROP CELLS 1+
--- NOTE | 2017-01-01 22:40 | DIAGNOSTIC IMAGING REPORT ---
SINGLE VIEW CHEST CLINICAL HISTORY: Dyspnea. FINDINGS: An AP, portable, upright chest radiograph is compared to study dated 10/24/2016. Correlation is made with chest CT dated 06/07/2016. The examination is degraded by portable technique and patient rotation. The heart is enlarged. The pulmonary vasculature is noncongested. 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 Chronic interstitial thickening is unchanged. Consolidative change is seen at the left lung base and there is a small left pleural effusion the right lung is grossly clear. Biapical scarring is observed. There is no pneumothorax. The skeletal structures are osteopenic. Chronic posttraumatic deformity is noted in the right humerus. IMPRESSION: 1. Airspace consolidation is seen at the left lung base and there is a small left pleural effusion. Radiographic follow-up to resolution is recommended. 2. Cardiomegaly without radiographic evidence of congestive failure. 3. Additional chronic findings as above. Electronically signed by: Kirill Cui M.D. 01/01/2017 10:38 PM Dictated Date/Time: 01/01/2017 10:36 PM
[2017-01-01] MEDS ORDERED: METRONIDAZOLE 500MG / 100ML NSS IV STA (22:42)
[2017-01-01] MEDS ORDERED: LEVAQUIN 750MG / 150ML D5W IV ONE (22:45)
--- NOTE | 2017-01-01 23:32 | History and Physical ---
History & Physical Date & Time of Service: January 01, 2017 at 23:32 Chief Complaint: Sob/Aspiration [facility] Primary Care Physician: Coretta Nelson [place] History of Present Illness Source: family, clinic records, hospital records The patient is an 78-year-old female brought to the emergency department by EMS from the [facility], where she was noted to have probable aspiration while eating dinner tonight about one half hours prior to arrival. She has a known history of aspiration, and EMS reports that her mental status altered en route to the hospital. The history of present illness itself is limited due to the patient's nonresponsive state. Her daughter, who did arrive, does relate some of the patient's history. Past Medical/Surgical History Medical Problems: (1) Hypercholesterolemia Status: Chronic (2) Hysterectomy Status: Resolved Family History Patient reports no known family medical history. Social History Smoking Status: Former Smoker Smokeless Tobacco Use: No Alcohol Use: none Drug Use: none Marital Status: Housing status: lives with family Occupational Status: retired Immunizations History of Influenza Vaccine: Yes Influenza Vaccine Date: Jun 09, 2012 History of Tetanus Vaccine?: Unknown History of Pneumococcal: Yes Pneumococcal Date: Oct 10, 2009 History of Hepatitis B Vaccine: Unknown Multi-Drug Resistant Organisms History of MDRO: No Allergies Coded Allergies: Sulfa Antibiotics (Verified Allergy, Unknown, ., 10/20/16) Fish (Verified Adverse Reaction, Unknown, GI SYMPTOMS, 10/20/16) Shellfish Allergy (Verified Adverse Reaction, Unknown, GI SYMPTOMS, 10/20/16 ) Yogurt (Verified Adverse Reaction, Unknown, GI SYMPTOMS, 10/20/16) Home Medications Scheduled Alcaftadine (Lastacaft), 1 DROPS OPR QAM Citalopram (Citalopram Hydrobromide), 40 MG PO QAM Clopidogrel Bisulfate (Clopidogrel), 75 MG PO QAM Lansoprazole (Prevacid), 30 MG PO DAILY Latanoprost (Xalatan 0.005% Oph Milla), 1 DROPS OPB HS Multiple Vitamins W/ Minerals (Preservision Areds), 1 CAP PO BID Multivitamin (Multivitamin), 1 TAB PO QAM Thiamine Hcl (Vitamin B-1), 100 MG PO DAILY Timolol Maleate (Timolol 0.5% Oph Soln 15 Ml), 1 DROP QAM Scheduled PRN Sennosides-Docusate Sodium (Senna S), 1 TAB PO UD PRN for Constipation Review of Systems Her review of systems, as the history of present illness, is limited secondary to her nonresponsive altered mental status state. The patient's daughter reports that the patient was in her usual state of health until she began to choke while eating dinner tonight about one half hours prior to arrival in the ED. Physical Exam Vital Signs Date Time Temp Pulse Resp B/P Pulse Ox O2 Delivery O2 Flow Rate FiO2 01/01/17 23:25 76 17 98/74 98 BiPAP 01/01/17 22:37 80 24 97 01/01/17 22:32 84 24 98 01/01/17 22:27 83 26 97 01/01/17 22:22 83 28 94 01/01/17:17 83 27 91 01/01/17 22:12 84 25 92 01/01/17 22:07 82 25 94 01/01/17 22:02 88 26 97 01/01/17 21:57 91 26 97 01/01/17 21:52 87 24 93/72 97 01/01/17 21:52 87 01/01/17 21:47 101 28 98 01/01/17 21:42 104 25 98 BiPAP 80 01/01/17 21:38 109 98 80 01/01/17 21:38 109 28 98 BiPAP 80 01/01/17 21:37 149 78 01/01/17 21:32 148 77 01/01/17 21:28 90 Nasal Cannula 6.0 01/01/17 21:28 90 Nasal Cannula 6.0 01/01/17 21:28 88 Nasal Cannula 6.0 01/01/17 21:27 125 68 Non-Rebreather 15.0 01/01/17 21:20 90 Nasal Cannula 6.0 01/01/17 21:20 149 135/115 90 Nasal Cannula 6.0 The patient is nonresponsive, normocephalic and atraumatic, lying in bed with BiPAP mask in place, and otherwise in no acute distress. HEENT--PERRL, mucous membranes and oropharynx dry. Neck--supple, no JVD or bruits, thyroid normal, trachea midline, no adenopathy. Heart--normal S1 and S2, no extra beats, no murmurs, rubs or gallops. Lungs--coarse breath sounds bilaterally, no respiratory distress, no accessory muscle use. Abdomen--normal bowel sounds and soft, nontender and nondistended, no hernias or masses, no organomegaly. Extremities--no cyanosis, clubbing or edema. There are good distal pulses b/l. Dermatologic--normal skin turgor, normal color, warm and dry, no abnormal lymph nodes, no rash. Neurologic--cranial nerves II through XII grossly intact. Rheumatologic--deferred Psychiatric--nonresponsive Diagnostics Laboratory Results Results Past 24 Hours Test 01/01/17 21:39 Range/Units White Blood Count 17.82 4.8-10.8 K/uL Red Blood Count 4.40 4.2-5.4 M/uL Hemoglobin 13.1 12.0-16.0 g/dL Hematocrit 42.0 37-47 % Mean Corpuscular Volume 95.5 80-100 fL Mean Corpuscular Hemoglobin 29.8 25-34 pg Mean Corpuscular Hemoglobin Concent 31.2 32-36 g/dl Platelet Count 238 130-400 K/uL Mean Platelet Volume 9.7 7.4-10.4 fL Neutrophils (%) (Auto) 57.1 % Lymphocytes (%) (Auto) 34.1 % Monocytes (%) (Auto) 7.0 % Eosinophils (%) (Auto) 0.9 % Basophils (%) (Auto) 0.3 % Neutrophils # (Auto) 10.18 1.4-6.5 K/uL Lymphocytes # (Auto) 6.08 1.2-3.4 K/uL Monocytes # (Auto) 1.25 0.11-0.59 K/uL Eosinophils # (Auto) 0.16 0-0.5 K/uL Basophils # (Auto) 0.05 0-0.2 K/uL RDW Standard Deviation 45.5 36.4-46.3 fL RDW Coefficient of Variation 13.0 11.5-14.5 % Immature Granulocyte % (Auto) 0.6 % Immature Granulocyte # (Auto) 0.10 0.00-0.02 K/uL Tear Drop Cells 1+ Sodium Level 141 136-145 mmol/L Potassium Level 4.6 3.5-5.1 mmol/L Chloride Level 105 98-107 mmol/L Carbon Dioxide Level 30 21-32 mmol/L Anion Gap 6.0 3-11 mmol/L Blood Urea Nitrogen 20 7-18 mg/dl Creatinine 1.00 0.60-1.20 mg/dl Estimated GFR () 58.3 Estimated GFR (Non- 50.3 BUN/Creatinine Ratio 19.9 10-20 Random Glucose 208 70-99 mg/dl Calcium Level 9.5 8.5-10.1 mg/dl Total Bilirubin 0.5 0.2-1 mg/dl Direct Bilirubin 0.2 0-0.2 mg/dl Aspartate Amino Transf (AST/SGOT) 80 15-37 U/L Alanine Aminotransferase (ALT/SGPT) 57 12-78 U/L Alkaline Phosphatase 176 45-117 U/L Total Protein 7.9 6.4-8.2 gm/dl Albumin 3.6 3.4-5.0 gm/dl Microbiology Results 01/01/17 Blood Culture, Received Pending 01/01/17 Blood Culture, Received Pending Diagnostic Radiology Patient Name: JASON DIETZ Unit Number: [id number] Dictated: 01/01/172235 Transcribed: 01/01/172235 EV Printed Date/Time: [~ rep prt dt]/[~ rep prt tm] [~ rep ct labl] - [~ rep ct ivnm] [facility] [place] [address] Dictated: 01/01/172235 Transcribed: 01/01/172235 EV Printed Date/Time: [~ rep prt dt]/[~ rep prt tm] [~ rep ct labl] - [~ rep ct ivnm] SINGLE VIEW CHEST CLINICAL HISTORY: Dyspnea. FINDINGS: An AP, portable, upright chest radiograph is compared to study dated 10/24/2016. Correlation is made with chest CT dated 06/07/2016. The examination is degraded by portable technique and patient rotation. The heart is enlarged. The pulmonary vasculature is noncongested. 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 Chronic interstitial thickening is unchanged. Consolidative change is seen at the left lung base and there is a small left pleural effusion the right lung is grossly clear. Biapical scarring is observed. There is no pneumothorax. The skeletal structures are osteopenic. Chronic posttraumatic deformity is noted in the right humerus. IMPRESSION: 1. Airspace consolidation is seen at the left lung base and there is a small left pleural effusion. Radiographic follow-up to resolution is recommended. 2. Cardiomegaly without radiographic evidence of congestive failure. 3. Additional chronic findings as above. Electronically signed by: Kirill Cui M.D. 01/01/2017 10:38 PM Dictated Date/Time: 01/01/2017 10:36 PM The status of this report is Signed. Draft = Not yet reviewed or approved by Radiologist. Signed = Reviewed and approved by Radiologist. <AttendingPhy></AttendingPhy> <FamilyPhy>Luis Alberto Grover M.D.</FamilyPhy> <PrimaryPhy>[facility]</PrimaryPhy> <UnitNumber>[id number]</ UnitNumber> <VisitNumber>[id number]</VisitNumber> <PatientName>JASON DIETZ </PatientName> <DateOfBirth>1930</DateOfBirth> <Location>[facility]</Location> <ServiceDate>01/01/17</ServiceDate> <MNE>ESINDI</MNE> <OrderingPhy>Andre Ruvalcaba DO</OrderingPhy> <OrderingPhyMNE>f rep ord dr ni</OrderingPhyMNE> < DictatingPhyMNE>f rep dict dr ni</DictatingPhyMNE> <CCListMNE>f rep ct raine</ CCListMNE> <AdmittingPhyMNE>f pt admit dr ni</AdmittingPhyMNE> <AttendingPhyMNE >f pt attend dr ni</AttendingPhyMNE> <ConsultingPhyMNE>f pt consult dr ni</ConsultingPhyMNE> <FamilyPhyMNE>f pt fam dr ni</FamilyPhyMNE> <OtherPhyMNE>f pt other dr ni</OtherPhyMNE> < PrimaryPhyMNE>f pt prim care dr ni</PrimaryPhyMNE> <ReferringPhyMNE>f pt referring dr ni</ReferringPhyMNE> EKG EKG shows atrial fibrillation with rapid ventricular response at 117 bpm, and complete right bundle branch block, left anterior fascicular block, otherwise no acute ST-T changes. Impression Assessment and Plan Acute respiratory failure with hypoxia and hypercapnia/Aspiration pneumonia/ BiPAP--the patient will be admitted to the telemetry unit. She will placed on vancomycin IV, Zosyn IV, Xopenex/Atrovent nebulizers, and continue BiPAP until able to be tapered to nasal cannula oxygen. Atrial fibrillation with RVR--her rate did improve significantly down into the low 70s as her respiratory status improved. She'll be monitored on telemetry. Cerebrovascular disease--the patient will be nothing by mouth. Will hold all medications including clopidogrel. GERD--change Prevacid 30 mg by mouth daily to pantoprazole 40 mg IV daily. Glaucoma--continue lastacaft, Xalatan, and timolol maleate. Depression--hold citalopram. CODE STATUS-- patient is a level V DO NOT RESUSCITATE Level of Care Telemetry Advanced Directives Existing Advance Directive: Yes Existing Living Will: Yes Existing Power of Grease Refiner Operator: Yes Resuscitation Status DO NOT RESUSCITATE VTE Prophylaxis VTE Risk Assessment Done? Y/N: Yes Risk Level: Moderate Given or contraindicated: Ayanna Diaz, SCD's Social Service Consult Lives in Assisted
[2017-01-01] MEDS ORDERED: VANCOMYCIN INJ 1,000 MG in SODIUM CHLORIDE 0.9% 250ML 250 ML IV STA (23:34)
[2017-01-01] MEDS ORDERED: ACETAMINOPHEN IV 100 ML IV PRN (23:45)
[2017-01-01] MEDS ORDERED: ONDANSETRON INJ 2 MG/ML 2 ML VIAL IV PRN (23:45)
[2017-01-02] VITALS (37 sets, daily range): BP systolic 70–110; BP diastolic 42–85; PULSE 61–86; TEMP 36.3–37; O2SAT 92–100; Ht 165.1 cm; Wt 57.6 kg
[2017-01-02] MEDS ORDERED: VANCOMYCIN IV STA (00:15)
[2017-01-02] MEDS ORDERED: SODIUM CHLORIDE 0.9% IV STA (00:15)
[2017-01-02] MEDS ORDERED: PATIENT'S HEIGHT AND/OR WEIGHT NEEDED SCH (01:00)
[2017-01-02] MEDS ORDERED: IPRATROPIUM BROMIDE NEB SOLN 0.02% 2.5 ML VIAL INH PRN (01:00)
[2017-01-02] MEDS ORDERED: LEVALBUTEROL 1.25MG/0.5ML NEB INH PRN (01:00)
[2017-01-02] MEDS ORDERED: NSS + 20MEQ KCL 1000ML 1,000 ML IV SCH (01:00)
[2017-01-02] MEDS ORDERED: PIPERACILL/TAZOBAC CONSULT ACTIVE PRN (01:45)
[2017-01-02] MEDS: IPRATROPIUM BROMIDE NEB SOLN 0.02% 2.5 ML VIAL INH SCH ×4 (01:53→19:05)
[2017-01-02] MEDS: LEVALBUTEROL 1.25MG/0.5ML NEB INH SCH ×4 (01:53→19:05)
[2017-01-02] MEDS ORDERED: PIPERACILL/TAZOBAC IV 3.375 GM in DEXTROSE 5% 100ML IV ONE (02:00)
[2017-01-02] MEDS: METHYLPREDNISOLONE IV 30 MG in SYRINGE 0 ML IV SCH ×3 (02:22→20:29)
[2017-01-02] MEDS ORDERED: LEVALBUTEROL/IPRATROPIUM NEB INH SCH (03:00)
[2017-01-02 05:39] LABS: BASO % 0.1 %; BASO ABS # 0.01 K/uL (0-0.2); COMPLETE YES; HEMATOCRIT 38.7 % (37-47); IG% 0.2 %; LYMPH ABS # 0.43 K/uL (1.2-3.4); MEAN CORPUSCULAR HEMOGLOBIN 29.3 pg (25-34); MEAN CORPUSCULAR HGB CONC 31.5 g/dl (32-36); MEAN PLATELET VOLUME 9.7 fL (7.4-10.4); MONO % 3.1 %; NEUT % 93.6 %; PLATELET COUNT 161 K/uL (130-400); RED BLOOD COUNT 4.16 M/uL (4.2-5.4); WHITE BLOOD COUNT 14.33 K/uL (4.8-10.8)
[2017-01-02] MEDS ORDERED: PIPERACILL/TAZOBAC IV 3.375 GM in DEXTROSE 5% 100ML 100 ML IV SCH (06:00)
[2017-01-02 06:19] LABS: BLOOD UREA NITROGEN 21 mg/dl (7-18); BUN/CREATININE RATIO 20.9 (10-20); CALCIUM 8.7 mg/dl (8.5-10.1); CARBON DIOXIDE 29 mmol/L (21-32); CHLORIDE 106 mmol/L (98-107); GLUCOSE 171 mg/dl (70-99); SODIUM 141 mmol/L (136-145)
[2017-01-02 07:59] LABS: MAGNESIUM 1.9 mg/dl (1.8-2.4)
[2017-01-02] MEDS: PIPERACILL/TAZOBAC IV 3.375 GM in DEXTROSE 5% 100ML IV SCH ×3 (08:05→23:46)
[2017-01-02] MEDS: TIMOLOL MALEATE 0.5% OP SOLN 5 ML BTL OPB SCH ×2 (09:23→20:29)
[2017-01-02] MEDS ORDERED: NURSING VERBAL MED ORDER ONE ×4 (09:45→22:00)
[2017-01-02] MEDS ORDERED: SODIUM CHLORIDE 0.9% 1000ML 1,000 ML IV ONE ×2 (10:00→15:45)
--- NOTE | 2017-01-02 10:00 | Pharmacy Progress Note ---
Pharmacy Abx Initial Consult Date of Service January 02, 2017. Pharmacy Dosing Scope Date of Consult: 01/02/17 Consultation requested by: Dr. Sequeira Pharmacy is consulted to initiate Vancomycin and Zosyn IV dosing therapy, order appropriate labs and adjust drug dose/frequency. Subjective The patient is a 86 year old female admitted on January 01, 2017 at 23:31 with acute respiratory failure with hypoxia. Objective Height (Feet): 5 Height (Inches): 5.00 Weight (Kilograms): 53.100 Vital Signs (Past 12Hrs) Vital Signs Past 12 Hours Date Time Temp Pulse Resp B/P Pulse Ox O2 Delivery O2 Flow Rate FiO2 01/02/17 09:27 67 78/55 99 Nasal Cannula 3.0 01/02/17 07:37 36.4 72 15 97/66 100 BiPAP 50 01/02/17 07:02 78 100 50 01/02/17 06:59 73 18 100 BiPAP/CPAP 50 01/02/17 04:00 100 BiPAP 6.0 50 01/02/17 03:55 36.4 77 14 96/73 100 BiPAP 50 01/02/17 01:55 74 100 50 01/02/17 01:53 73 21 100 BiPAP/CPAP 50 01/02/17 00:30 36.3 86 18 110/85 100 BiPAP 50 01/02/17 00:29 82 96 50 01/02/17 00:20 74 17 96 01/02/17 00:01 80 100 80 01/01/17 23:25 76 17 98/74 98 BiPAP 01/01/17 22:37 80 24 97 01/01/17 22:32 84 24 98 01/01/17 22:27 83 26 97 01/01/17 22:22 83 28 94 01/01/17 22:17 83 27 91 01/01/17 22:12 84 25 92 01/01/17 22:07 82 25 94 01/01/17 22:02 88 26 97 01/01/17 21:57 91 26 97 Lab Results (24Hrs) Test 01/01/17 21:39 01/02/17 05:08 01/02/17 06:58 White Blood Count 17.82 K/uL (4.8-10.8) 14.33 K/uL (4.8-10.8) Red Blood Count 4.40 M/uL (4.2-5.4) 4.16 M/uL (4.2-5.4) Hemoglobin 13.1 g/dL (12.0-16.0) 12.2 g/dL (12.0-16.0) Hematocrit 42.0 % (37-47) 38.7 % (37-47) Mean Corpuscular Volume 95.5 fL (80-100) 93.0 fL (80-100) Mean Corpuscular Hemoglobin 29.8 pg (25-34) 29.3 pg (25-34) Mean Corpuscular Hemoglobin Concent 31.2 g/dl (32-36) 31.5 g/dl (32-36) Platelet Count 238 K/uL (130-400) 161 K/uL (130-400) Mean Platelet Volume 9.7 fL (7.4-10.4) 9.7 fL (7.4-10.4) Neutrophils (%) (Auto) 57.1 % 93.6 % Lymphocytes (%) (Auto) 34.1 % 3.0 % Monocytes (%) (Auto) 7.0 % 3.1 % Eosinophils (%) (Auto) 0.9 % 0.0 % Basophils (%) (Auto) 0.3 % 0.1 % Neutrophils # (Auto) 10.18 K/uL (1.4-6.5) 13.41 K/uL (1.4-6.5) Lymphocytes # (Auto) 6.08 K/uL (1.2-3.4) 0.43 K/uL (1.2-3.4) Monocytes # (Auto) 1.25 K/uL (0.11-0.59) 0.45 K/uL (0.11-0.59) Eosinophils # (Auto) 0.16 K/uL (0-0.5) 0.00 K/uL (0-0.5) Basophils # (Auto) 0.05 K/uL (0-0.2) 0.01 K/uL (0-0.2) RDW Standard Deviation 45.5 fL (36.4-46.3) 44.1 fL (36.4-46.3) RDW Coefficient of Variation 13.0 % (11.5-14.5) 13.0 % (11.5-14.5) Immature Granulocyte % (Auto) 0.6 % 0.2 % Immature Granulocyte # (Auto) 0.10 K/uL (0.00-0.02) 0.03 K/uL (0.00-0.02) Tear Drop Cells 1+ Sodium Level 141 mmol/L (136-145) 141 mmol/L (136-145) Chloride Level 105 mmol/L (98-107) 106 mmol/L (98-107) Carbon Dioxide Level 30 mmol/L (21-32) 29 mmol/L (21-32) Anion Gap 6.0 mmol/L (3-11) 6.0 mmol/L (3-11) Blood Urea Nitrogen 20 mg/dl (7-18) 21 mg/dl (7-18) Creatinine 1.00 mg/dl (0.60-1.20) 1.00 mg/dl (0.60-1.20) Estimated GFR () 58.3 58.3 Estimated GFR (Non- 50.3 50.3 BUN/Creatinine Ratio 19.9 (10-20) 20.9 (10-20) Random Glucose 208 mg/dl (70-99) 171 mg/dl (70-99) Calcium Level 9.5 mg/dl (8.5-10.1) 8.7 mg/dl (8.5-10.1) Total Bilirubin 0.5 mg/dl (0.2-1) Direct Bilirubin 0.2 mg/dl (0-0.2) Aspartate Amino Transf (AST/SGOT) 80 U/L (15-37) Alanine Aminotransferase (ALT/SGPT) 57 U/L (12-78) Alkaline Phosphatase 176 U/L (45-117) Total Protein 7.9 gm/dl (6.4-8.2) Albumin 3.6 gm/dl (3.4-5.0) Potassium Level mmol/L (3.5-5.1) 5.0 mmol/L (3.5-5.1) Est Creatinine Clear Calc Drug Dose 32.6 ml/min Magnesium Level mg/dl (1.8-2.4) 1.9 mg/dl (1.8-2.4) Micro Results Date/Time Source Procedure Growth Status 01/01/17 22:41 Blood Blood Culture Pending Received 01/01/17 21:30 Blood Blood Culture Pending Received Assessment & Plan Assessment 86 year old female admitted with acute respiratory failure, suspected aspiration pneumonia. Plan Vancomycin + Zosyn for treatment of aspiration pnx. Vancomycin IV * Loading dose: 1425 mg (27 mg/kg) * Maintenance dose: 900 mg IV (17 mg/kg) every 24 hours * Goal trough level for pnx : 15 to 20 mcg/mL * Trough level ordered for 01/05/17 * MRSA nasal swab ordered to guide possible discontinuation of MRSA coverage Piperacillin/tazobactam * 3.375 g bolus administered over 30 minutes, then 3.375 g IV extended infusion every 8 hours for CrCl greater than 20 mL/min Pharmacy will continue to follow and will adjust dose/frequency as necessary. Thank you.
[2017-01-02] MEDS: SODIUM CHLORIDE 0.9% 1000ML 1,000 ML IV SCH ×2 (10:23→20:15)
--- NOTE | 2017-01-02 10:46 | Hospitalist Progress Note ---
Hospitalist Progress Note Date of Service January 02, 2017. (Karime Shane ., NAV[facility]) Subjective Pt evaluation today including: conversation w/ patient, physical exam, chart review, lab review, review of studies, review of inpatient medication list Pain: None PO Intake: NPO Voiding: voiding difficulty (has not voided, bladder scan over 360 cc) The patient reports feeling very fatigued. She is falling asleep during my interview and exam. Per nursing, the patient was somewhat more awake earlier but had stated then that she was very sleepy. She complains of weakness. The patient denies fevers, chills, sweats, chest pain, palpitations, claudication, cough, wheezing, shortness of breath, nausea, vomiting, abdominal pain, dysuria , hematuria, urinary retention, paralysis, weakness, numbness and tingling. This morning the patient was weaned off of BIPAP and placed on nasal cannula. Per respiratory, there appeared to be some vomit in the BIPAP mask. The patient does not recall vomiting. The patient became hypotensive this morning and received 1 liter fluid bolus. Nursing reports that she has not been voiding. Bladder scan showed over 360 cc of urine. The patient will attempt the bed spears but will otherwise need a straight cath. Additional Comments: See HPI for pertinent positives and negatives. All other systems reviewed and negative. (Karime Shane ., PA-C) Objective Vital Signs Date Time Temp Pulse Resp B/P Pulse Ox O2 Delivery O2 Flow Rate FiO2 01/02/17 10:04 17 102/67 100 Nasal Cannula 3.0 01/02/17 09:27 67 78/55 99 Nasal Cannula 3.0 01/02/17 08:00 100 Nasal Cannula 4.0 01/02/17 07:37 36.4 72 15 97/66 100 BiPAP 50 01/02/17 07:02 78 100 50 01/02/17 06:59 73 18 100 BiPAP/CPAP 50 01/02/17 04:00 100 BiPAP 6.0 50 01/02/17 03:55 36.4 77 14 96/73 100 BiPAP 50 01/02/17 01:55 74 100 50 01/02/17 01:53 73 21 100 BiPAP/CPAP 50 01/02/17 00:30 36.3 86 18 110/85 100 BiPAP 50 01/02/17 00:29 82 96 50 01/02/17 00:20 74 17 96 01/02/17 00:01 80 100 80 01/01/17 23:25 76 17 98/74 98 BiPAP 01/01/17 22:37 80 24 97 01/01/17 22:32 84 24 98 01/01/17 22:27 83 26 97 01/01/17 22:22 83 28 94 01/01/17 22:17 83 27 91 01/01/17 22:12 84 25 92 01/01/17 22:07 82 25 94 01/01/17 22:02 88 26 97 01/01/17 21:57 91 26 97 01/01/17 21:52 87 24 93/72 97 01/01/17 21:52 87 01/01/17 21:47 101 28 98 01/01/17 21:42 104 25 98 BiPAP 80 01/01/17 21:38 109 98 80 01/01/17 21:38 109 28 98 BiPAP 80 01/01/17 21:37 149 78 01/01/17 21:32 148 77 01/01/17 21:28 90 Nasal Cannula 6.0 01/01/17 21:28 90 Nasal Cannula 6.0 01/01/17 21:28 88 Nasal Cannula 6.0 01/01/17 21:27 125 68 Non-Rebreather 15.0 01/01/17 21:20 90 Nasal Cannula 6.0 01/01/17 21:20 149 135/115 90 Nasal Cannula 6.0 (Karime Shane, PA-C) Laboratory Results Last 24 Hours Test 01/01/17 21:39 01/02/17 05:08 01/02/17 06:58 White Blood Count 17.82 K/uL 14.33 K/uL Red Blood Count 4.40 M/uL 4.16 M/uL Hemoglobin 13.1 g/dL 12.2 g/dL Hematocrit 42.0 % 38.7 % Mean Corpuscular Volume 95.5 fL 93.0 fL Mean Corpuscular Hemoglobin 29.8 pg 29.3 pg Mean Corpuscular Hemoglobin Concent 31.2 g/dl 31.5 g/dl Platelet Count 238 K/uL 161 K/uL Mean Platelet Volume 9.7 fL 9.7 fL Neutrophils (%) (Auto) 57.1 % 93.6 % Lymphocytes (%) (Auto) 34.1 % 3.0 % Monocytes (%) (Auto) 7.0 % 3.1 % Eosinophils (%) (Auto) 0.9 % 0.0 % Basophils (%) (Auto) 0.3 % 0.1 % Neutrophils # (Auto) 10.18 K/uL 13.41 K/uL Lymphocytes # (Auto) 6.08 K/uL 0.43 K/uL Monocytes # (Auto) 1.25 K/uL 0.45 K/uL Eosinophils # (Auto) 0.16 K/uL 0.00 K/uL Basophils # (Auto) 0.05 K/uL 0.01 K/uL RDW Standard Deviation 45.5 fL 44.1 fL RDW Coefficient of Variation 13.0 % 13.0 % Immature Granulocyte % (Auto) 0.6 % 0.2 % Immature Granulocyte # (Auto) 0.10 K/uL 0.03 K/uL Tear Drop Cells 1+ Sodium Level 141 mmol/L 141 mmol/L Potassium Level 4.6 mmol/L mmol/L 5.0 mmol/L Chloride Level 105 mmol/L 106 mmol/L Carbon Dioxide Level 30 mmol/L 29 mmol/L Anion Gap 6.0 mmol/L 6.0 mmol/L Blood Urea Nitrogen 20 mg/dl 21 mg/dl Creatinine 1.00 mg/dl 1.00 mg/dl Estimated GFR () 58.3 58.3 Estimated GFR (Non- 50.3 50.3 BUN/Creatinine Ratio 19.9 20.9 Random Glucose 208 mg/dl 171 mg/dl Calcium Level 9.5 mg/dl 8.7 mg/dl Total Bilirubin 0.5 mg/dl Direct Bilirubin 0.2 mg/dl Aspartate Amino Transf (AST/SGOT) 80 U/L Alanine Aminotransferase (ALT/SGPT) 57 U/L Alkaline Phosphatase 176 U/L Total Protein 7.9 gm/dl Albumin 3.6 gm/dl Est Creatinine Clear Calc Drug Dose 32.6 ml/min Magnesium Level mg/dl 1.9 mg/dl (Karime Shane, SANDI) Assessment and Plan 86 y/o female with a history of afib, CVA, depression, glaucoma, and GERD who presented to the ED from [place] with altered mental status and aspiration. Pt developed acute respiratory failure in ED with O2 saturation as low as 68% before being placed on BIPAP. Sepsis secondary to LLL aspiration pneumonia/acute respiratory failure-- improving -Admitted to telemetry. Pt in sinus rhythm over night with HR 60s-70s -Continue IV vancomycin and Zosyn -Pt weaned off BIPAP. O2 by protocol -Continue Xopenex/Atrovent nebs -Decrease Solu-Medrol to 30 mg IV BID -Leukocytosis improving. WBC 14.33 on 01/02, down from 17.82 -Currently NPO due to aspiration/AMS. Records show pt recently on mechanical soft/slippery diet. Will order this for lunch if pt is awake/alert enough to eat -Speech therapy evaluate and treat Altered mental status, likely secondary to sepsis--stable -Pt very lethargic now, difficult to assess orientation. Per nursing was more alert earlier Hypotension--stable -BP down to 78/55 this morning. Given 1L NSS bolus -Due to potassium of 5.0, IVF changed to just NSS at 100 cc/hr -Continue to monitor, may give more boluses as needed H/o CVA -Currently NPO, Plavix on hold Depression -Citalopram on hold while NPO Glaucoma -Continue Lastacaft, Xalatan, and timolol drops GERD -Home Prevacid changed to Protonix 40 mg IV qd DVT prophylaxis -Heparin 5000 units SC q12h -SCDs Code Status -Level V, DO NOT RESUSCITATE (Karime Shane ., PA-C) I agree with PA assessment and plan and have seen and examined pt myself Resting comfortably in bed Hypotension noted this AM Cont IVF and add bolus NS COnt to tx for aspiration PNA Speech eval pending at this time Lungs Dec BS B/L Pt is DNR code status (Charles Funes D.O.)
[2017-01-02] MEDS ORDERED: PANTOprazole INJ 40 MG in SYRINGE 0 ML IV SCH (11:00)
[2017-01-02] MEDS ORDERED: SODIUM CHLORIDE 0.9% 500ML 500 ML IV SCH ×2 (18:30→20:30)
[2017-01-02] MEDS: LATANOPROST 0.005% OP SOLN 2.5 ML BTL OPB SCH (20:30)
[2017-01-02] MEDS: HEPARIN SOD 5000 UNIT/0.5 ML CARP SQ SCH (20:32)
--- NOTE | 2017-01-02 21:00 | DIAGNOSTIC IMAGING REPORT ---
CHEST ONE VIEW PORTABLE CLINICAL HISTORY: hypoxia dyspnea COMPARISON STUDY: 01/01/2017 FINDINGS: Developing congestive heart failure. Chronic megaly. Increased prominence of pulmonary vasculature. IMPRESSION: Congestive heart failure Electronically signed by: Tim Bender M.D. 01/02/2017 8:59 PM Dictated Date/Time: 01/02/2017 8:58 PM
--- NOTE | 2017-01-02 23:05 | GASTROINTESTINAL CONSULTATION ---
DATE OF CONSULTATION: 01/02/2017 CHIEF COMPLAINT: History of recurrent aspiration pneumonia, esophageal food bolus. HISTORY OF PRESENT ILLNESS: Mrs. Elliott is an 86-year-old white female known to me from prior hospitalizations. At a more recent exam, she had a profoundly obstructed esophagus due to food bolus that took over an hour to clear endoscopically. At the present time, the patient was admitted for features of aspiration pneumonia which will be described below. Interestingly, the patient has been eating solids and liquids and does not report any difficulty with oral intake. She actually reports that her weight has increased and does not vomit up any material. She believes she had liquid earlier this afternoon which was also tolerated. She is currently on a full diet. Her prior upper endoscopy on 10/23/2016 showed food in the entire esophagus along with a moderate benign-appearing intrinsic stenosis in the mid esophageal region. This underwent dilation to 51 Armenian. There was evidence of esophagitis. Complete clearing of the esophagus was achieved. The patient required endotracheal intubation. PAST MEDICAL HISTORY: Includes hypercholesterolemia, hysterectomy, recurrent esophageal food bolus with aspiration pneumonia. FAMILY HISTORY: There is no pertinent family history. SOCIAL HISTORY: The patient smoked in the past but does not currently use tobacco products. She does not use alcoholic beverages. She is , lives with family, and is retired. ALLERGIES: TO SULFA, SHELL FISH AND FISH ALLERGIES, AND YOGURT. HOME MEDICATIONS: Include Lastacaft, citalopram, Plavix, lansoprazole, latanoprost, multivitamins, thiamine and Timoptic eyedrops. REVIEW OF SYSTEMS: Otherwise noncontributory based on 14-point exam except for mentioned above. The patient had presented to the Emergency Room last evening on 01/01/2017 at approximately 9:00 p.m. At that time, blood pressure 135/115, heart rate was 149, 90% on 6 liters nasal cannula. ADMISSION LABORATORY DATA: Showed a white count of 17.8, hemoglobin 13.1, MCV 95, platelets 238,000. BUN and creatinine were 20 and 1.0. Potassium was 4.6. Total and direct bilirubin of 0.5 and 0.2, AST 80, ALT 57, alkaline phosphatase 176, albumin 3.6. The patient had a view of the chest which showed airspace consolidation at the left lung base and left pleural effusion. There was evidence of cardiomegaly and chronic changes with chronic interstitial thickening. There was no evidence for pneumothorax and no radial opacities were seen during the study. There is atherosclerotic disease in the thoracic aorta. EKG was atrial fibrillation and right bundle-branch block. IMPRESSION: The patient with admission for recurrent aspiration pneumonia without current symptoms of dysphagia. The patient has had several hospitalizations and evaluations for food boluses in the past, most recently in mid October. This revealed significant accumulation of esophageal retained material. In the past, alternate source of oral intake was described but declined at that time. RECOMMENDATIONS: I made the following recommendations. I would keep the patient on a full liquid diet with aspiration precautions overnight and will tentatively plan to keep the patient n.p.o. after midnight in order to assess for any retained food material. On previous admission, the patient did not have significant dysphagia, yet had an entire esophagus filled with impacted food. At some point, it may be prudent to readdress possible PEG tube placement in order to help avoid solid food intake and still provide adequate calories. Would continue on acid therapy, antibiotics for her aspiration pneumonia. All questions answered. We will plan for upper endoscopy tomorrow to reassess with n.p.o. after midnight.
[2017-01-03] VITALS (15 sets, daily range): BP systolic 91–128; BP diastolic 57–73; PULSE 54–94; TEMP 36.4–36.8; O2SAT 94–98
[2017-01-03] MEDS ORDERED: VANCOMYCIN INJ 900 MG in SODIUM CHLORIDE 0.9% 250ML 250 ML IV SCH ×2
[2017-01-03] MEDS: IPRATROPIUM BROMIDE NEB SOLN 0.02% 2.5 ML VIAL INH SCH ×4 (02:05→19:03)
[2017-01-03] MEDS: LEVALBUTEROL 1.25MG/0.5ML NEB INH SCH ×4 (02:05→19:03)
[2017-01-03 06:01] LABS: COMPLETE YES; HEMATOCRIT 32.3 % (37-47); IG% 0.2 %; LYMPH % 4.6 %; LYMPH ABS # 0.45 K/uL (1.2-3.4); MEAN CELL VOLUME 93.1 fL (80-100); MEAN CORPUSCULAR HEMOGLOBIN 28.5 pg (25-34); MEAN CORPUSCULAR HGB CONC 30.7 g/dl (32-36); MEAN PLATELET VOLUME 9.6 fL (7.4-10.4); MONO % 2.8 %; NEUT % 92.4 %; PLATELET COUNT 132 K/uL (130-400); RED BLOOD COUNT 3.47 M/uL (4.2-5.4); WHITE BLOOD COUNT 9.75 K/uL (4.8-10.8)
[2017-01-03 06:36] LABS: BUN/CREATININE RATIO 24.9 (10-20); CALCIUM 8.5 mg/dl (8.5-10.1); CREATININE 0.9 mg/dl (0.60-1.20); MAGNESIUM 1.8 mg/dl (1.8-2.4); POTASSIUM 4.3 mmol/L (3.5-5.1)
[2017-01-03] MEDS: PIPERACILL/TAZOBAC IV 3.375 GM in DEXTROSE 5% 100ML IV SCH ×3 (08:04→23:17)
[2017-01-03] MEDS ORDERED: HYDROCORTISONE IV 50 MG in SYRINGE 0 ML IV SCH (08:15)
[2017-01-03] MEDS: METHYLPREDNISOLONE IV 30 MG in SYRINGE 0 ML IV SCH ×2 (09:25→20:38)
[2017-01-03] MEDS: HEPARIN SOD 5000 UNIT/0.5 ML CARP SQ SCH ×2 (09:27→20:43)
[2017-01-03] MEDS ORDERED: DOCUSATE SODIUM/SENNA 50/8.6MG TAB PO PRN (10:45)
--- NOTE | 2017-01-03 10:46 | Hospitalist Progress Note ---
Hospitalist Progress Note Date of Service January 03, 2017. (Karime Shane ., [facility]) Subjective Pt evaluation today including: conversation w/ patient, conversation w/ family ( and daughter at bedside), physical exam, chart review, lab review, review of studies, review of inpatient medication list Pain: None PO Intake: Currently NPO Voiding: no voiding problems Patient reports feeling better today. She is much more alert/awake. The patient currently denies any complaints. She does state that she is very hungry. The patient denies fevers, chills, sweats, chest pain, palpitations, claudication, cough, wheezing, shortness of breath, nausea, vomiting, abdominal pain, dysuria, hematuria, urinary retention, paralysis, weakness, numbness and tingling. Additional Comments: See HPI for pertinent positives and negatives. All other systems reviewed and negative. (Karime Shane ., PA-C) Objective Vital Signs Date Time Temp Pulse Resp B/P Pulse Ox O2 Delivery O2 Flow Rate FiO2 01/03/17 09:21 61 115/66 01/03/17 07:44 36.4 60 17 100/58 94 Room Air 01/03/17 06:59 74 18 97 Nasal Cannula 2.0 01/03/17 04:38 36.6 62 20 91/57 98 Nasal Cannula 2.0 01/03/17 04:00 Nasal Cannula 2.0 01/03/17 02:05 66 18 98 Nasal Cannula 2.0 01/02/17 23:59 Nasal Cannula 2.0 01/02/17 23:51 36.4 67 22 92/66 99 Nasal Cannula 2.0 01/02/17 20:30 61 71 86/58 92 01/02/17 20:15 70 18 81/57 98 01/02/17 20:15 72 22 85/55 94 01/02/17 20:00 Nasal Cannula 2.0 01/02/17 20:00 71 22 81/51 98 01/02/17 19:46 70 24 71/55 98 01/02/17 19:30 69 26 92/60 100 01/02/17 19:15 72 24 97/52 100 01/02/17 19:08 68 18 98 Nasal Cannula 2.0 01/02/17 19:00 69 18 91/57 99 01/02/17 18:46 81 20 91/71 100 01/02/17 18:31 75 24 87/60 98 01/02/17 18:08 74/48 01/02/17 18:06 71 26 70/50 98 01/02/17 18:02 71 29 71/42 99 01/02/17 18:00 71 22 73/51 99 01/02/17 17:35 77 20 88/58 98 Nasal Cannula 2.0 01/02/17 17:30 77 26 88/58 100 01/02/17 17:00 85 20 103/64 100 01/02/17 16:30 68 20 91/64 100 01/02/17 16:00 Nasal Cannula 2.0 01/02/17 16:00 67 18 95/68 98 01/02/17 15:14 36.6 68 20 83/57 98 Nasal Cannula 84/53 01/02/17 14:19 66 14 99 Nasal Cannula 2.0 01/02/17 12:00 100 Nasal Cannula 3.0 01/02/17 11:47 37.0 69 16 99/61 100 (Karime Shane ., PA-C) Physical Exam Notes: General appearance: Well-developed, well-nourished, no apparent distress Head: Normocephalic, atraumatic Eyes: +Left pupil irregular in shape, non-reactive. Right pupil reactive. EOMI ENT: Normal ENT inspection, hearing grossly normal, pharynx normal Neck: Supple, no JVD, trachea midline Respiratory/Chest: +Crackles from mid to lower lung tovar bilaterally. Breathing comfortably on room air. Normal breath sounds, no respiratory distress Cardiovascular: Regular rate & rhythm, no gallop, no murmur Abdomen/GI: Normal bowel sounds, non-tender, soft Extremities/Musculoskeletal: Normal inspection, no calf tenderness, no pedal edema Neurological/Psych: Alert, normal mood/affect, oriented x 3 Skin: Normal color, warm/dry, no rash (Karime Shane ., PA-C) Laboratory Results Last 24 Hours Test 01/03/17 05:44 01/03/17 09:30 White Blood Count 9.75 K/uL Red Blood Count 3.47 M/uL Hemoglobin 9.9 g/dL Hematocrit 32.3 % Mean Corpuscular Volume 93.1 fL Mean Corpuscular Hemoglobin 28.5 pg Mean Corpuscular Hemoglobin Concent 30.7 g/dl Platelet Count 132 K/uL Mean Platelet Volume 9.6 fL Neutrophils (%) (Auto) 92.4 % Lymphocytes (%) (Auto) 4.6 % Monocytes (%) (Auto) 2.8 % Eosinophils (%) (Auto) 0.0 % Basophils (%) (Auto) 0.0 % Neutrophils # (Auto) 9.01 K/uL Lymphocytes # (Auto) 0.45 K/uL Monocytes # (Auto) 0.27 K/uL Eosinophils # (Auto) 0.00 K/uL Basophils # (Auto) 0.00 K/uL RDW Standard Deviation 45.1 fL RDW Coefficient of Variation 13.3 % Immature Granulocyte % (Auto) 0.2 % Immature Granulocyte # (Auto) 0.02 K/uL Sodium Level 144 mmol/L Potassium Level 4.3 mmol/L Chloride Level 113 mmol/L Carbon Dioxide Level 25 mmol/L Anion Gap 6.0 mmol/L Blood Urea Nitrogen 22 mg/dl Creatinine 0.90 mg/dl Est Creatinine Clear Calc Drug Dose 38.9 ml/min Estimated GFR () 66.2 Estimated GFR (Non- 57.1 BUN/Creatinine Ratio 24.9 Random Glucose 145 mg/dl Calcium Level 8.5 mg/dl Magnesium Level 1.8 mg/dl (Karime Shane, SANDI) Diagnostic Results Reviewed EKG and agree with interpretation as follows: 59 bpm, sinus bradycardia, PVCs Reviewed the following studies and agree with interpretation as follows: Patient Name: JASON DIETZ Unit Number: [id number] Dictated: 01/02/172057 Transcribed: 01/02/172057 MS Printed Date/Time: [~ rep prt dt]/[~ rep prt tm] [~ rep ct labl] - [~ rep ct ivnm] [facility] [place] [address] Dictated: 01/02/172057 Transcribed: 01/02/172057 MS Printed Date/Time: [~ rep prt dt]/[~ rep prt tm] [~ rep ct labl] - [~ rep ct ivnm] Patient: JASON DIETZ Address1: [address] Med Rec: [id number] Address2: Acct ID: [id number] [facility] Zip: [place] [address] Date: 1930 Sex: F Room/Bed: [facility] Ref Phy: Luis Alberto Grover M.D. SC: [id number] Att Phy: Charles Funse D.O. Report #: [id number] Connie Phy: [facility] Test: CXR1P Admit Phy: Sebastián Sequeira M.D. Dialysis Clinical Manager: FABIÁN Interpreting Phy: Tim Bender M.D. Diagnosis: ACUTE RESPIRATORY FAILURE WITH HYPOXIA AND Ordering Phy: Sebastián Sequeira M.D. Service Date: 01/02/17 Admit Date: 01/01/1705/17/17 MNE: [id number] CONF: DICTATED BY: Tim Bender M.D.]] CC: Charles Funes D.O. Inverso, Nicholas A., M.D. Pasquariello, Rick D M.D. [facility] Endcc: [~ rep ct add3]] CHEST ONE VIEW PORTABLE CLINICAL HISTORY: hypoxia dyspnea COMPARISON STUDY: 01/01/2017 FINDINGS: Developing congestive heart failure. Chronic megaly. Increased prominence of pulmonary vasculature. IMPRESSION: Congestive heart failure Electronically signed by: Tim Bender M.D. 01/02/2017 8:59 PM Dictated Date/Time: 01/02/2017 8:58 PM The status of this report is Signed. Draft = Not yet reviewed or approved by Radiologist. Signed = Reviewed and approved by Radiologist. <AttendingPhy>Charles Funes D.O.</AttendingPhy> <FamilyPhy>Luis Alberto Grover M.D.</FamilyPhy> <PrimaryPhy>[facility]</PrimaryPhy> < UnitNumber>[id number]</UnitNumber> <VisitNumber>[id number]</VisitNumber> < PatientName>JASON DIETZ</PatientName> <DateOfBirth>1930</DateOfBirth> <Location>C.2E</Location> <ServiceDate>01/01/17</ServiceDate> <MNE>ESINDI</MNE> <OrderingPhy>Sebastián Sequeira M.D.</OrderingPhy> <OrderingPhyMNE>f rep ord dr ni</OrderingPhyMNE> <DictatingPhyMNE>f rep dict dr ni</DictatingPhyMNE> < CCListMNE>f rep ct lisandroe</CCListMNE> <AdmittingPhyMNE>f pt admit dr ni</ AdmittingPhyMNE> <AttendingPhyMNE>f pt attend dr ni</AttendingPhyMNE> <ConsultingPhyMNE>f pt consult dr ni</ConsultingPhyMNE> <FamilyPhyMNE>f pt fam dr ni</FamilyPhyMNE> <OtherPhyMNE>f pt other dr ni</OtherPhyMNE> < PrimaryPhyMNE>f pt prim care dr ni</PrimaryPhyMNE> <ReferringPhyMNE>f pt referring dr ni</ReferringPhyMNE> (Karime Shane ., SANDI) Assessment and Plan 86 y/o female with a history of afib, CVA, depression, glaucoma, and GERD who presented to the ED from [facility] with altered mental status and aspiration. Pt developed acute respiratory failure in ED with O2 saturation as low as 68% before being placed on BIPAP. Sepsis secondary to LLL aspiration pneumonia/acute respiratory failure-- improving -Admitted to telemetry. Pt in sinus rhythm over night with HR 60s-70s -Continue IV vancomycin and Zosyn. Day #2 of abx -Pt weaned off BIPAP. O2 by protocol. Currently saturating 94% on room air -Continue Xopenex/Atrovent nebs -Continue Solu-Medrol to 30 mg IV BID -Leukocytosis continues to improve. WBC 9.75 on 01/03, down from 14.33 -Speech therapy evaluate and treat: recommend mechanical soft, slipper diet with aspiration precautions. Consider GI consult -GI consulted, appreciate recs: Plan for EGD to assess for retained food (pt has h/o this despite being asymptomatic). Consider PEG tube -EGD postponed today as pt has remained hypotensive and not hemodynamically stable enough for sedation -Pt may eat today as no procedure, placed on soft/slippery diet. Per nursing, pt tolerated this diet fine yesterday Altered mental status, likely secondary to sepsis--resolved -Pt alert and oriented x 3 today Hypotension--improving -Pt remained hypotensive throughout 01/02 with SBP ranging form 70-90 despite receiving total of 3L of IVF boluses -CXR obtained which showed congestive heart failure -IVF d/c'd -No diuresis at this time due to hypotension -BP slowly improving, last recorded BP this am 115/66 -Continue to monitor. If BP remains stable throughout today, can go for EGD tomorrow H/o CVA -Continue Plavix 75 mg PO qd as now eating Depression -Continue citalopram 40 mg PO qd Glaucoma -Continue Lastacaft, Xalatan, and timolol drops GERD -D/C IV Protonix -Protonix 40 mg PO qam DVT prophylaxis -Heparin 5000 units SC q12h -SCDs Code Status -Level V, DO NOT RESUSCITATE Dispo -Pt lives in independent living apt at [facility] with -PT/OT evaluate and treat -Discharge uncertain at this time (Karime Shane ., PA-C) I personally interviewed and examined the patient I discussed the above plan with Miss Shane Marty Pineda supervising attending 86 y/o female ( PMHx afib, CVA, depression, glaucoma, and GERD) presented with metabolic encephalopathy and hypoxic respiratory failure Acute on chronic hypoxic respiratory failure secondary to below SIRS POA HCAP currently on broad spectrum Abx also on a small dose steroids despite of steroids WBC is improving will continue same management add lactinex for C diff prophylaxis (Marty Celis MD)
[2017-01-03] MEDS ORDERED: PANTOprazole SOD 40 MG TAB PO ONE (11:00)
[2017-01-03 12:32] LABS: INFLUENZA A PCR Neg for Influ A (NEG); INFLUENZA B PCR Neg for Influ B (NEG)
--- NOTE | 2017-01-03 16:45 | PROGRESS NOTE ---
DATE: 01/03/2017 SUBJECTIVE: The patient was admitted with left lower lobe aspiration pneumonia and difficulty swallowing, this difficulty swallowing has resolved and she is currently on antibiotics for her pneumonia. There was an EGD that was tentatively scheduled for today but was canceled due to the fact that the patient was hypotensive and hemodynamically unstable. In reviewing her records, she had an EGD done just 5 months ago on 07/19/2016 with a totally normal exam. IMPRESSION AND PLAN: The patient has recurrent aspiration, probably from oropharyngeal dysphagia. She had an EGD in July, which was negative. I am not sure that pursuing an EGD at this time would be of value, especially given her debilitated state. If it is felt that she cannot swallow safely and is going to continue to aspirate, we may be able to pursue a PEG tube in the future when her infection in the lung is little better. Dr. Fonseca will be covering this weekend.
[2017-01-03] MEDS: LATANOPROST 0.005% OP SOLN 2.5 ML BTL OPB SCH (20:44)
[2017-01-04] VITALS (14 sets, daily range): BP systolic 96–125; BP diastolic 61–78; PULSE 55–68; TEMP 36.3–37; O2SAT 96–100
[2017-01-04] MEDS: LEVALBUTEROL 1.25MG/0.5ML NEB INH SCH ×4 (01:50→19:28)
[2017-01-04] MEDS: IPRATROPIUM BROMIDE NEB SOLN 0.02% 2.5 ML VIAL INH SCH ×4 (01:50→19:28)
[2017-01-04 06:48] LABS: COMPLETE YES; HEMATOCRIT 32.2 % (37-47); IG% 0.3 %; LYMPH % 5.8 %; LYMPH ABS # 0.41 K/uL (1.2-3.4); MEAN CELL VOLUME 92.5 fL (80-100); MEAN CORPUSCULAR HEMOGLOBIN 28.4 pg (25-34); MEAN CORPUSCULAR HGB CONC 30.7 g/dl (32-36); MONO % 3.3 %; NEUT % 90.6 %; PLATELET COUNT 144 K/uL (130-400); RED BLOOD COUNT 3.48 M/uL (4.2-5.4); WHITE BLOOD COUNT 7.06 K/uL (4.8-10.8)
[2017-01-04 07:14] LABS: BUN/CREATININE RATIO 23.4 (10-20); CALCIUM 8.8 mg/dl (8.5-10.1); CREATININE 1.1 mg/dl (0.60-1.20); MAGNESIUM 1.9 mg/dl (1.8-2.4); POTASSIUM 4.3 mmol/L (3.5-5.1)
[2017-01-04] MEDS: THIAMINE HCL 100 MG TAB PO SCH (07:36)
[2017-01-04] MEDS: MULTIVITAMIN TAB PO SCH (07:36)
[2017-01-04] MEDS: CLOPIDOGREL BISULFATE 75 MG TAB PO SCH (07:37)
[2017-01-04] MEDS: CITALOPRAM 40 MG TAB PO SCH (07:37)
[2017-01-04] MEDS: LACTOBACILLUS ACIDOPHILUS (FLORANEX) TAB PO SCH ×3 (07:37→16:07)
[2017-01-04] MEDS: PANTOprazole SOD 40 MG TAB PO SCH (07:37)
[2017-01-04] MEDS: TIMOLOL MALEATE 0.5% OP SOLN 5 ML BTL OPB SCH (07:38)
[2017-01-04] MEDS: PIPERACILL/TAZOBAC IV 3.375 GM in DEXTROSE 5% 100ML IV SCH ×2 (07:38→16:07)
[2017-01-04] MEDS: HEPARIN SOD 5000 UNIT/0.5 ML CARP SQ SCH ×2 (07:44→21:00)
[2017-01-04] MEDS: METHYLPREDNISOLONE IV 30 MG in SYRINGE 0 ML IV SCH ×2 (07:44→20:56)
[2017-01-04] MEDS ORDERED: NURSING VERBAL MED ORDER ONE (12:15)
[2017-01-04] MEDS ORDERED: POLYETHYLENE (MIRALAX) 17 GM PACK PO PRN (12:30)
--- NOTE | 2017-01-04 15:48 | Gastroenterology Progress Note ---
Progress Note Date of Service: January 04, 2017 Subjective Pt evaluation today including: conversation w/ patient, physical exam, chart review, lab review, review of studies, review of inpatient medication list CC f/u dysphagia, gerd HPI Per nursing and patient she is tolerating mechanical soft slippery diet in the hospital without issue. Pt states ate home if she is not careful and tries to eat too many bites at once she develops problems. She denies abd pain. Review of Systems Respiratory: No shortness of breath Cardiac: No chest pain Medications Current Inpatient Medications Medications (Trade) Dose Ordered Sig/Bhavna Route Start Time Stop Time Status Last Admin Dose Admin Latanoprost (Xalatan Oph Soln) 1 drops HS OPB 01/02/17 21:00 02/01/17 20:59 01/03/17 20:44 1 DROPS Timolol Maleate (Timoptic 0.5% Oph Soln) 1 drops QAM OPB 01/02/17 09:00 02/01/17 08:59 01/04/17 07:38 1 DROPS Miscellaneous Information (Order Awaiting Action) 1 ea QS N/A 01/02/17 08:00 02/01/17 07:59 Ondansetron HCl 4 mg 4 mg Q6H PRN IV 01/01/17 23:45 01/31/17 23:44 Acetaminophen (Ofirmev Iv) 100 ml @ 400 mls/hr Q8H PRN IV 01/01/17 23:45 01/31/17 23:44 Ipratropium [place] (Atrovent 0.02% 0.5MG/2.5ML Neb) 0.5 mg Q6R INH 01/02/17 03:00 02/01/17 02:59 01/04/17 14:03 0.5 MG Levalbuterol (Xopenex 1.25MG/ 0.5ML Neb) 1.25 mg Q6R INH 01/02/17 03:00 02/01/17 02:59 01/04/17 14:03 1.25 MG Ipratropium [place] (Atrovent 0.02% 0.5MG/2.5ML Neb) 0.5 mg Q2H PRN INH 01/02/17 01:00 02/01/17 00:59 Levalbuterol 1.25 mg 1.25 mg Q2H PRN INH 01/02/17 01:00 02/01/17 00:59 Piperacillin Sod/ Tazobactam Sod/ Dextrose (Zosyn Iv/D5 100ml) 115 ml @ 28.75 mls/ hr Q8H IV 01/02/17 08:00 01/09/17 07:59 01/04/17 07:38 28.75 MLS/HR Piperacillin Sod/ Tazobactam Sod (Consult) 1 ea UD PRN N/A 01/02/17 01:45 02/01/17 01:44 Heparin Sodium (Porcine) 5000 unit 5,000 unit Q12 SQ 01/02/17 21:00 02/01/17 20:59 01/04/17 07:44 5,000 UNIT Methylprednisolone Sodium Succinate/ Syringe (Solu-Medrol IV/ Syringe) 0.48 ml @ 1.5 mls/min Q12H IV 01/02/17 21:00 02/01/17 20:59 01/04/17 07:44 1.5 MLS/MIN Citalopram Hydrobromide (celeXA TAB) 40 mg QAM PO 01/04/17 09:00 02/03/17 08:59 01/04/17 07:37 40 MG Clopidogrel Bisulfate (plAVix TAB) 75 mg QAM PO 01/04/17 09:00 02/03/17 08:59 01/04/17 07:37 75 MG Multivitamins (Multivitamin Tab) 1 tab QAM PO 01/04/17 09:00 02/03/17 08:59 01/04/17 07:36 1 TAB Senna/Docusate Sodium (Senokot S Tab) 1 tab DAILY PRN PO 01/03/17 10:45 02/02/17 10:44 Thiamine HCl (Vitamin B-1 Tab) 100 mg DAILY PO 01/04/17 09:00 02/03/17 08:59 01/04/17 07:36 100 MG Pantoprazole Sodium (Protonix Tab) 40 mg QAM PO 01/04/17 09:00 02/03/17 08:59 01/04/17 07:37 40 MG Lactobacillus Acidophilus (Floranex Tab) 4 tab TIDM PO 01/04/17 07:30 02/03/17 07:29 01/04/17 11:23 4 TAB Polyethylene (Miralax Powder Packet) 17 gm DAILY PRN PO 01/04/17 12:30 02/03/17 12:29 01/04/17 13:11 17 GM Objective Vital Signs Date Time Temp Pulse Resp B/P Pulse Ox O2 Delivery O2 Flow Rate FiO2 01/04/17 14:03 57 16 100 Nasal Cannula 1.0 01/04/17 12:00 97 Nasal Cannula 1.0 01/04/17 11:39 36.3 59 18 108/63 100 Nasal Cannula 1.0 01/04/17 08:00 97 Nasal Cannula 1.0 01/04/17 07:51 36.7 61 19 113/70 97 Nasal Cannula 1.0 01/04/17 07:00 68 16 98 Nasal Cannula 1.0 01/04/17 04:30 36.6 65 20 107/67 98 Nasal Cannula 1.0 01/04/17 04:02 Nasal Cannula 1.5 50 01/04/17 01:50 68 16 98 Nasal Cannula 1.0 01/04/17 00:01 Nasal Cannula 1.5 50 01/03/17 23:39 36.8 60 22 118/67 96 Nasal Cannula 1.0 01/03/17 20:00 Nasal Cannula 1.5 01/03/17 19:20 36.5 61 20 100/58 95 Nasal Cannula 1.0 01/03/17 19:03 54 18 97 Nasal Cannula 1.0 01/03/17 16:35 36.6 67 18 128/62 95 Room Air 01/03/17 16:00 95 Room Air Physical Exam General Appearance: WD/WN, no apparent distress Respiratory/Chest: lungs clear, no respiratory distress Cardiovascular: regular rate, rhythm Abdomen: normal bowel sounds, non tender, soft Laboratory Results Last 24 Hours Test 01/04/17 05:57 White Blood Count 7.06 K/uL Red Blood Count 3.48 M/uL Hemoglobin 9.9 g/dL Hematocrit 32.2 % Mean Corpuscular Volume 92.5 fL Mean Corpuscular Hemoglobin 28.4 pg Mean Corpuscular Hemoglobin Concent 30.7 g/dl Platelet Count 144 K/uL Mean Platelet Volume 10.0 fL Neutrophils (%) (Auto) 90.6 % Lymphocytes (%) (Auto) 5.8 % Monocytes (%) (Auto) 3.3 % Eosinophils (%) (Auto) 0.0 % Basophils (%) (Auto) 0.0 % Neutrophils # (Auto) 6.40 K/uL Lymphocytes # (Auto) 0.41 K/uL Monocytes # (Auto) 0.23 K/uL Eosinophils # (Auto) 0.00 K/uL Basophils # (Auto) 0.00 K/uL RDW Standard Deviation 44.6 fL RDW Coefficient of Variation 13.3 % Immature Granulocyte % (Auto) 0.3 % Immature Granulocyte # (Auto) 0.02 K/uL Sodium Level 143 mmol/L Potassium Level 4.3 mmol/L Chloride Level 110 mmol/L Carbon Dioxide Level 25 mmol/L Anion Gap 8.0 mmol/L Blood Urea Nitrogen 26 mg/dl Creatinine 1.10 mg/dl Est Creatinine Clear Calc Drug Dose 31.8 ml/min Estimated GFR () 51.9 Estimated GFR (Non- 44.8 BUN/Creatinine Ratio 23.4 Random Glucose 147 mg/dl Calcium Level 8.8 mg/dl Magnesium Level 1.9 mg/dl Assessment and Plan Dysphagia--EGD 07/2016 normal, EGD 10/2016 entire esophagus full of food, grade B esophagitis, mild esoph stricture dilated with resistance felt only wtwith 48 and 51 F dilators---at present eating fine. Perhaps has primary esophageal dysmotility or induced by GERD. Would continue slippery mechanical ground diet and needs to be on that diet at home. No endoscopic intervention planned unless develops signs of problems with eating. GERD--stable, continue PPI--Protonix 40 mg q am.
--- NOTE | 2017-01-04 15:53 | Progress Note ---
Subjective Date of Service: January 04, 2017. Subjective Pt evaluation today including: conversation w/ patient, physical exam, chart review, lab review Problem List Medical Problems: (1) Acute aspiration pneumonia Status: Acute (2) Acute dyspnea Status: Acute (3) Choking Status: Acute (4) Choking episode Status: Acute (5) Choking episode Status: Acute (6) Contusion of multiple sites Status: Acute (7) Dizzy spells Status: Acute (8) DNR (do not resuscitate) Status: Acute (9) Fall Status: Acute (10) Fall Status: Acute (11) Hypokalemia Status: Acute (12) Hypoxia Status: Acute (13) Lactic acidosis Status: Acute (14) Respiratory arrest Status: Acute (15) Respiratory arrest Status: Acute (16) Rib pain on left side Status: Acute (17) Upper abdominal pain Status: Acute Review of Systems Constitutional: No chills, No fatigue, No fever, No problem reported, No see HPI, No sweats, No weakness, No weight loss Eyes: No diplopia, No discharge, No eye pain, No problem reported, No redness, No see HPI, No worsening of vision ENT: No dental problems, No hearing loss, No nasal symptoms, No problem reported, No see HPI, No sore throat, No tinnitus, No trouble swallowing, No unusual epistaxis Respiratory: No cough, No dyspnea at rest, No dyspnea on exertion, No hemoptysis, No problem reported, No see HPI, No shortness of breath, No sputum, No wheezing Cardiac: No PND, No chest pain, No claudication, No edema, No orthopnea, No palpitations, No problem reported, No see HPI Abdomen: No GI bleeding, No constipation, No diarrhea, No nausea, No pain, No problem reported, No see HPI, No vomiting Musculoskeletal: No calf pain, No joint pain, No muscle pain, No problem reported, No see HPI, No swelling Female : No abnormal vaginal bleeding, No dysuria, No hematuria, No incontinence, No problem reported, No see HPI, No urinary frequency, No vaginal discharge Neurologic: No balance problems, No memory loss, No numbness/tingling, No paralysis, No problem reported, No see HPI, No vertigo, No weakness Psychiatric: No anhedonism, No anxiety, No depression symptoms, No insomnia, No problem reported, No see HPI, No substance abuse Heme: No abnormal bleeding/bruising, No clotting problems, No night sweats, No problem reported, No see HPI, No swollen lymph nodes Endo: No excessive thirst, No excessive urination, No fatigue, No problem reported, No see HPI Skin: No bleeding, No color change, No itch, No new/changing skin lesions, No problem reported, No rash, No see HPI Medications Current Inpatient Medications Medications (Trade) Dose Ordered Sig/Bhavna Route Start Time Stop Time Status Last Admin Dose Admin Latanoprost (Xalatan Oph Soln) 1 drops HS OPB 01/02/17 21:00 02/01/17 20:59 01/03/17 20:44 1 DROPS Timolol Maleate (Timoptic 0.5% Oph Soln) 1 drops QAM OPB 01/02/17 09:00 02/01/17 08:59 01/04/17 07:38 1 DROPS Miscellaneous Information (Order Awaiting Action) 1 ea QS N/A 01/02/17 08:00 02/01/17 07:59 Ondansetron HCl 4 mg 4 mg Q6H PRN IV 01/01/17 23:45 01/31/17 23:44 Acetaminophen (Ofirmev Iv) 100 ml @ 400 mls/hr Q8H PRN IV 01/01/17 23:45 01/31/17 23:44 Ipratropium [place] (Atrovent 0.02% 0.5MG/2.5ML Neb) 0.5 mg Q6R INH 01/02/17 03:00 02/01/17 02:59 01/04/17 14:03 0.5 MG Levalbuterol (Xopenex 1.25MG/ 0.5ML Neb) 1.25 mg Q6R INH 01/02/17 03:00 02/01/17 02:59 01/04/17 14:03 1.25 MG Ipratropium [place] (Atrovent 0.02% 0.5MG/2.5ML Neb) 0.5 mg Q2H PRN INH 01/02/17 01:00 02/01/17 00:59 Levalbuterol 1.25 mg 1.25 mg Q2H PRN INH 01/02/17 01:00 02/01/17 00:59 Piperacillin Sod/ Tazobactam Sod/ Dextrose (Zosyn Iv/D5 100ml) 115 ml @ 28.75 mls/ hr Q8H IV 01/02/17 08:00 01/09/17 07:59 01/04/17 07:38 28.75 MLS/HR Piperacillin Sod/ Tazobactam Sod (Consult) 1 ea UD PRN N/A 01/02/17 01:45 02/01/17 01:44 Heparin Sodium (Porcine) 5000 unit 5,000 unit Q12 SQ 01/02/17 21:00 02/01/17 20:59 01/04/17 07:44 5,000 UNIT Methylprednisolone Sodium Succinate/ Syringe (Solu-Medrol IV/ Syringe) 0.48 ml @ 1.5 mls/min Q12H IV 01/02/17 21:00 02/01/17 20:59 01/04/17 07:44 1.5 MLS/MIN Citalopram Hydrobromide (celeXA TAB) 40 mg QAM PO 01/04/17 09:00 02/03/17 08:59 01/04/17 07:37 40 MG Clopidogrel Bisulfate (plAVix TAB) 75 mg QAM PO 01/04/17 09:00 02/03/17 08:59 01/04/17 07:37 75 MG Multivitamins (Multivitamin Tab) 1 tab QAM PO 01/04/17 09:00 02/03/17 08:59 01/04/17 07:36 1 TAB Senna/Docusate Sodium (Senokot S Tab) 1 tab DAILY PRN PO 01/03/17 10:45 02/02/17 10:44 Thiamine HCl (Vitamin B-1 Tab) 100 mg DAILY PO 01/04/17 09:00 02/03/17 08:59 01/04/17 07:36 100 MG Pantoprazole Sodium (Protonix Tab) 40 mg QAM PO 01/04/17 09:00 02/03/17 08:59 01/04/17 07:37 40 MG Lactobacillus Acidophilus (Floranex Tab) 4 tab TIDM PO 01/04/17 07:30 02/03/17 07:29 01/04/17 11:23 4 TAB Polyethylene (Miralax Powder Packet) 17 gm DAILY PRN PO 01/04/17 12:30 02/03/17 12:29 01/04/17 13:11 17 GM Objective Vital Signs Date Time Temp Pulse Resp B/P Pulse Ox O2 Delivery O2 Flow Rate FiO2 01/04/17 14:03 57 16 100 Nasal Cannula 1.0 01/04/17 12:00 97 Nasal Cannula 1.0 01/04/17 11:39 36.3 59 18 108/63 100 Nasal Cannula 1.0 01/04/17 08:00 97 Nasal Cannula 1.0 01/04/17 07:51 36.7 61 19 113/70 97 Nasal Cannula 1.0 01/04/17 07:00 68 16 98 Nasal Cannula 1.0 01/04/17 04:30 36.6 65 20 107/67 98 Nasal Cannula 1.0 01/04/17 04:02 Nasal Cannula 1.5 50 01/04/17 01:50 68 16 98 Nasal Cannula 1.0 01/04/17 00:01 Nasal Cannula 1.5 50 01/03/17 23:39 36.8 60 22 118/67 96 Nasal Cannula 1.0 01/03/17 20:00 Nasal Cannula 1.5 01/03/17 19:20 36.5 61 20 100/58 95 Nasal Cannula 1.0 01/03/17 19:03 54 18 97 Nasal Cannula 1.0 01/03/17 16:35 36.6 67 18 128/62 95 Room Air 01/03/17 16:00 95 Room Air Physical Exam General Appearance: WD/WN, no apparent distress Eyes: normal inspection, EOMI ENT: normal ENT inspection, hearing grossly normal Neck: supple Respiratory/Chest: chest non-tender, + accessory muscle use, + rales Cardiovascular: regular rate, rhythm, no edema, no gallop, no JVD, no murmur Abdomen: normal bowel sounds, non tender, soft, no organomegaly, no pulsatile mass Extremities: normal range of motion, non-tender, normal inspection, no pedal edema, no calf tenderness Neurologic/Psychiatric: canine deputy II-XII nml as tested, no motor/sensory deficits, alert, normal mood/affect, oriented x 3 Skin: normal color, warm/dry, no rash Laboratory Results Last 24 Hours Test 01/04/17 05:57 White Blood Count 7.06 K/uL Red Blood Count 3.48 M/uL Hemoglobin 9.9 g/dL Hematocrit 32.2 % Mean Corpuscular Volume 92.5 fL Mean Corpuscular Hemoglobin 28.4 pg Mean Corpuscular Hemoglobin Concent 30.7 g/dl Platelet Count 144 K/uL Mean Platelet Volume 10.0 fL Neutrophils (%) (Auto) 90.6 % Lymphocytes (%) (Auto) 5.8 % Monocytes (%) (Auto) 3.3 % Eosinophils (%) (Auto) 0.0 % Basophils (%) (Auto) 0.0 % Neutrophils # (Auto) 6.40 K/uL Lymphocytes # (Auto) 0.41 K/uL Monocytes # (Auto) 0.23 K/uL Eosinophils # (Auto) 0.00 K/uL Basophils # (Auto) 0.00 K/uL RDW Standard Deviation 44.6 fL RDW Coefficient of Variation 13.3 % Immature Granulocyte % (Auto) 0.3 % Immature Granulocyte # (Auto) 0.02 K/uL Sodium Level 143 mmol/L Potassium Level 4.3 mmol/L Chloride Level 110 mmol/L Carbon Dioxide Level 25 mmol/L Anion Gap 8.0 mmol/L Blood Urea Nitrogen 26 mg/dl Creatinine 1.10 mg/dl Est Creatinine Clear Calc Drug Dose 31.8 ml/min Estimated GFR () 51.9 Estimated GFR (Non- 44.8 BUN/Creatinine Ratio 23.4 Random Glucose 147 mg/dl Calcium Level 8.8 mg/dl Magnesium Level 1.9 mg/dl Assessment and Plan 86 y/o female with a history of afib, CVA, depression, glaucoma, and GERD who presented to the ED from [place] with altered mental status and aspiration. Pt developed acute respiratory failure in ED with O2 saturation as low as 68% before being placed on BIPAP. Assessment: Sepsis secondary to LLL aspiration pneumonia/acute respiratory failure-- improving Metabolic encephalopathy / Altered mental status, likely secondary to sepsis / resolved Hypotension / improved H/o CVA Depression Glaucoma GERD Plan: -Continue Zosyn. Day #3 of abx -Pt weaned off BIPAP. O2 by protocol. -Continue Xopenex/Atrovent nebs -Continue Solu-Medrol to 30 mg IV BID -Leukocytosis continues to normalized -Speech therapy evaluate and treat: recommend mechanical soft, slipper diet with aspiration precautions. GI consult appreciated , continue to monitor, She had an EGD in July, which was negative -IVF d/c'd -No diuresis at this time due to hypotension -BP slowly improving -Continue to monitor. -D/C IV Protonix -Protonix 40 mg PO qam -Continue Plavix 75 mg PO qd as now eating -Continue Lastacaft, Xalatan, and timolol drops -Continue citalopram 40 mg PO qd -start PT/OT DVT prophylaxis -Heparin 5000 units SC q12h -SCDs Code Status -Level V, DO NOT RESUSCITATE Dispo -Pt lives in independent living apt at [place] at [facility] with
[2017-01-04] MEDS: LATANOPROST 0.005% OP SOLN 2.5 ML BTL OPB SCH (20:56)
[2017-01-04] MEDS ORDERED: VANCOMYCIN TROUGH SCH (23:30)
[2017-01-05] VITALS (8 sets, daily range): BP systolic 92–126; BP diastolic 55–75; PULSE 51–61; TEMP 36.4–36.6; O2SAT 95–97
[2017-01-05] MEDS: PIPERACILL/TAZOBAC IV 3.375 GM in DEXTROSE 5% 100ML IV SCH ×4 (00:14→23:51)
[2017-01-05] MEDS: IPRATROPIUM BROMIDE NEB SOLN 0.02% 2.5 ML VIAL INH SCH ×4 (01:27→19:06)
[2017-01-05] MEDS: LEVALBUTEROL 1.25MG/0.5ML NEB INH SCH ×4 (01:28→19:06)
[2017-01-05 07:32] LABS: COMPLETE YES; HEMATOCRIT 32.4 % (37-47); IG% 0.5 %; LYMPH % 8.2 %; LYMPH ABS # 0.53 K/uL (1.2-3.4); MEAN CELL VOLUME 90.3 fL (80-100); MEAN CORPUSCULAR HGB CONC 32.1 g/dl (32-36); MEAN PLATELET VOLUME 9.9 fL (7.4-10.4); MONO % 5.9 %; NEUT % 85.4 %; PLATELET COUNT 147 K/uL (130-400); RED BLOOD COUNT 3.59 M/uL (4.2-5.4); WHITE BLOOD COUNT 6.48 K/uL (4.8-10.8)
[2017-01-05 08:04] LABS: BUN/CREATININE RATIO 34.7 (10-20); CALCIUM 9.1 mg/dl (8.5-10.1); CREATININE 0.94 mg/dl (0.60-1.20)
[2017-01-05 08:07] LABS: ALB/GLOB RATIO 0.9 (0.9-2); PHOSPHORUS 2.7 mg/dl (2.5-4.9)
[2017-01-05] MEDS: CITALOPRAM 40 MG TAB PO SCH (08:56)
[2017-01-05] MEDS: CLOPIDOGREL BISULFATE 75 MG TAB PO SCH (08:56)
[2017-01-05] MEDS: LACTOBACILLUS ACIDOPHILUS (FLORANEX) TAB PO SCH ×3 (08:56→17:38)
[2017-01-05] MEDS: TIMOLOL MALEATE 0.5% OP SOLN 5 ML BTL OPB SCH (08:57)
[2017-01-05] MEDS: PANTOprazole SOD 40 MG TAB PO SCH (08:57)
[2017-01-05] MEDS: PSYLLIUM 58.6% PWD PACK S\\F PO SCH (08:57)
[2017-01-05] MEDS: THIAMINE HCL 100 MG TAB PO SCH (08:57)
[2017-01-05] MEDS: METHYLPREDNISOLONE IV 30 MG in SYRINGE 0 ML IV SCH (08:57)
[2017-01-05] MEDS: MULTIVITAMIN TAB PO SCH (08:57)
[2017-01-05] MEDS: HEPARIN SOD 5000 UNIT/0.5 ML CARP SQ SCH ×2 (08:59→21:20)
--- NOTE | 2017-01-05 11:34 | Progress Note ---
Subjective Date of Service: January 05, 2017. Subjective Pt evaluation today including: conversation w/ patient, physical exam, chart review, lab review, review of studies, review of inpatient medication list Problem List Medical Problems: (1) Acute aspiration pneumonia Status: Acute (2) Acute dyspnea Status: Acute (3) Choking Status: Acute (4) Choking episode Status: Acute (5) Choking episode Status: Acute (6) Contusion of multiple sites Status: Acute (7) Dizzy spells Status: Acute (8) DNR (do not resuscitate) Status: Acute (9) Fall Status: Acute (10) Fall Status: Acute (11) Hypokalemia Status: Acute (12) Hypoxia Status: Acute (13) Lactic acidosis Status: Acute (14) Respiratory arrest Status: Acute (15) Respiratory arrest Status: Acute (16) Rib pain on left side Status: Acute (17) Upper abdominal pain Status: Acute Review of Systems Constitutional: No chills, No fatigue, No fever, No problem reported, No see HPI, No sweats, No weakness, No weight loss Eyes: No diplopia, No discharge, No eye pain, No problem reported, No redness, No see HPI, No worsening of vision ENT: No dental problems, No hearing loss, No nasal symptoms, No problem reported, No see HPI, No sore throat, No tinnitus, No trouble swallowing, No unusual epistaxis Respiratory: + shortness of breath, No cough, No dyspnea at rest, No dyspnea on exertion, No hemoptysis, No problem reported, No see HPI, No sputum, No wheezing Cardiac: No PND, No chest pain, No claudication, No edema, No orthopnea, No palpitations, No problem reported, No see HPI Abdomen: No GI bleeding, No constipation, No diarrhea, No nausea, No pain, No problem reported, No see HPI, No vomiting Musculoskeletal: No calf pain, No joint pain, No muscle pain, No problem reported, No see HPI, No swelling Female : No abnormal vaginal bleeding, No dysuria, No hematuria, No incontinence, No problem reported, No see HPI, No urinary frequency, No vaginal discharge Neurologic: No balance problems, No memory loss, No numbness/tingling, No paralysis, No problem reported, No see HPI, No vertigo, No weakness Psychiatric: No anhedonism, No anxiety, No depression symptoms, No insomnia, No problem reported, No see HPI, No substance abuse Heme: No abnormal bleeding/bruising, No clotting problems, No night sweats, No problem reported, No see HPI, No swollen lymph nodes Endo: No excessive thirst, No excessive urination, No fatigue, No problem reported, No see HPI Skin: No bleeding, No color change, No itch, No new/changing skin lesions, No problem reported, No rash, No see HPI Medications Current Inpatient Medications Medications (Trade) Dose Ordered Sig/Bhavna Route Start Time Stop Time Status Last Admin Dose Admin Latanoprost (Xalatan Oph Soln) 1 drops HS OPB 01/02/17 21:00 02/01/17 20:59 01/04/17 20:56 1 DROPS Timolol Maleate (Timoptic 0.5% Oph Soln) 1 drops QAM OPB 01/02/17 09:00 02/01/17 08:59 01/05/17 08:57 1 DROPS Miscellaneous Information (Order Awaiting Action) 1 ea QS N/A 01/02/17 08:00 02/01/17 07:59 Ondansetron HCl 4 mg 4 mg Q6H PRN IV 01/01/17 23:45 01/31/17 23:44 Acetaminophen (Ofirmev Iv) 100 ml @ 400 mls/hr Q8H PRN IV 01/01/17 23:45 01/31/17 23:44 Ipratropium [place] (Atrovent 0.02% 0.5MG/2.5ML Neb) 0.5 mg Q6R INH 01/02/17 03:00 02/01/17 02:59 01/04/17 19:28 0.5 MG Levalbuterol (Xopenex 1.25MG/ 0.5ML Neb) 1.25 mg Q6R INH 01/02/17 03:00 02/01/17 02:59 01/04/17 19:28 1.25 MG Ipratropium [place] (Atrovent 0.02% 0.5MG/2.5ML Neb) 0.5 mg Q2H PRN INH 01/02/17 01:00 02/01/17 00:59 Levalbuterol 1.25 mg 1.25 mg Q2H PRN INH 01/02/17 01:00 02/01/17 00:59 Piperacillin Sod/ Tazobactam Sod/ Dextrose (Zosyn Iv/D5 100ml) 115 ml @ 28.75 mls/ hr Q8H IV 01/02/17 08:00 01/09/17 07:59 01/05/17 08:56 28.75 MLS/HR Piperacillin Sod/ Tazobactam Sod (Consult) 1 ea UD PRN N/A 01/02/17 01:45 02/01/17 01:44 Heparin Sodium (Porcine) 5000 unit 5,000 unit Q12 SQ 01/02/17 21:00 02/01/17 20:59 01/05/17 08:59 5,000 UNIT Methylprednisolone Sodium Succinate/ Syringe (Solu-Medrol IV/ Syringe) 0.48 ml @ 1.5 mls/min Q12H IV 01/02/17 21:00 02/01/17 20:59 01/05/17 08:57 1.5 MLS/MIN Citalopram Hydrobromide (celeXA TAB) 40 mg QAM PO 01/04/17 09:00 02/03/17 08:59 01/05/17 08:56 40 MG Clopidogrel Bisulfate (plAVix TAB) 75 mg QAM PO 01/04/17 09:00 02/03/17 08:59 01/05/17 08:56 75 MG Multivitamins (Multivitamin Tab) 1 tab QAM PO 01/04/17 09:00 02/03/17 08:59 01/05/17 08:57 1 TAB Senna/Docusate Sodium (Senokot S Tab) 1 tab DAILY PRN PO 01/03/17 10:45 02/02/17 10:44 01/05/17 08:56 1 TAB Thiamine HCl (Vitamin B-1 Tab) 100 mg DAILY PO 01/04/17 09:00 02/03/17 08:59 01/05/17 08:57 100 MG Pantoprazole Sodium (Protonix Tab) 40 mg QAM PO 01/04/17 09:00 02/03/17 08:59 01/05/17 08:57 40 MG Lactobacillus Acidophilus (Floranex Tab) 4 tab TIDM PO 01/04/17 07:30 02/03/17 07:29 01/05/17 08:56 4 TAB Polyethylene (Miralax Powder Packet) 17 gm DAILY PRN PO 01/04/17 12:30 02/03/17 12:29 01/04/17 13:11 17 GM Psyllium Hydrophilic Mucilloid (Metamucil Powder) 1 pkt QAM PO 01/05/17 09:00 02/04/17 08:59 01/05/17 08:57 1 PKT Objective Vital Signs Date Time Temp Pulse Resp B/P Pulse Ox O2 Delivery O2 Flow Rate FiO2 01/05/17 08:08 36.6 54 17 126/75 95 Room Air 01/05/17 08:00 Room Air 01/05/17 04:30 36.6 55 15 122/74 95 Room Air 01/05/17 04:00 Room Air 01/05/17 00:00 Room Air 01/04/17 23:42 36.6 59 21 125/78 96 Room Air 01/04/17 20:00 Room Air 01/04/17 19:31 55 16 96 Room Air 01/04/17 19:01 37.0 57 17 102/61 99 Room Air 01/04/17 16:00 97 Room Air 01/04/17 15:59 36.6 59 18 96/61 98 Nasal Cannula 2.0 01/04/17 14:03 57 16 100 Nasal Cannula 1.0 01/04/17 12:00 97 Nasal Cannula 1.0 01/04/17 11:39 36.3 59 18 108/63 100 Nasal Cannula 1.0 Physical Exam General Appearance: WD/WN, no apparent distress Eyes: normal inspection, EOMI ENT: normal ENT inspection, hearing grossly normal Neck: supple Respiratory/Chest: chest non-tender, no respiratory distress, no accessory muscle use, + decreased breath sounds, + crackles, + rhonchi Cardiovascular: regular rate, rhythm, no edema, no gallop, no JVD, no murmur Abdomen: normal bowel sounds, non tender, soft, no organomegaly, no pulsatile mass Extremities: normal range of motion, non-tender, normal inspection, no pedal edema Neurologic/Psychiatric: community health agent II-XII nml as tested, no motor/sensory deficits, alert, normal mood/affect, oriented x 3 Skin: normal color, warm/dry, no rash Laboratory Results Last 24 Hours Test 01/04/17 16:10 01/05/17 06:30 White Blood Count 6.48 K/uL Red Blood Count 3.59 M/uL Hemoglobin 10.4 g/dL Hematocrit 32.4 % Mean Corpuscular Volume 90.3 fL Mean Corpuscular Hemoglobin 29.0 pg Mean Corpuscular Hemoglobin Concent 32.1 g/dl Platelet Count 147 K/uL Mean Platelet Volume 9.9 fL Neutrophils (%) (Auto) 85.4 % Lymphocytes (%) (Auto) 8.2 % Monocytes (%) (Auto) 5.9 % Eosinophils (%) (Auto) 0.0 % Basophils (%) (Auto) 0.0 % Neutrophils # (Auto) 5.54 K/uL Lymphocytes # (Auto) 0.53 K/uL Monocytes # (Auto) 0.38 K/uL Eosinophils # (Auto) 0.00 K/uL Basophils # (Auto) 0.00 K/uL RDW Standard Deviation 43.6 fL RDW Coefficient of Variation 13.2 % Immature Granulocyte % (Auto) 0.5 % Immature Granulocyte # (Auto) 0.03 K/uL Sodium Level 143 mmol/L Potassium Level 4.0 mmol/L Chloride Level 108 mmol/L Carbon Dioxide Level 27 mmol/L Anion Gap 8.0 mmol/L Blood Urea Nitrogen 33 mg/dl Creatinine 0.94 mg/dl Est Creatinine Clear Calc Drug Dose 37.2 ml/min Estimated GFR () 62.8 Estimated GFR (Non- 54.2 BUN/Creatinine Ratio 34.7 Random Glucose 130 mg/dl Calcium Level 9.1 mg/dl Phosphorus Level 2.7 mg/dl Magnesium Level 2.0 mg/dl Total Bilirubin 0.4 mg/dl Aspartate Amino Transf (AST/SGOT) 51 U/L Alanine Aminotransferase (ALT/SGPT) 67 U/L Alkaline Phosphatase 95 U/L Total Protein 5.8 gm/dl Albumin 2.8 gm/dl Globulin 3.0 gm/dl Albumin/Globulin Ratio 0.9 Assessment and Plan 86 y/o female with a history of afib, CVA, depression, glaucoma, and GERD who presented to the ED from [place] with altered mental status and aspiration. Pt developed acute respiratory failure in ED with O2 saturation as low as 68% before being placed on BIPAP. Assessment: Sepsis secondary to LLL aspiration pneumonia/acute respiratory failure-- improving Metabolic encephalopathy / Altered mental status, likely secondary to sepsis / resolved Hypotension / improved H/o CVA Depression Glaucoma GERD Plan: -Continue Zosyn. Day #4 of abx, after day 5 it can be switched to CTXN to continue 2 more days (otal of 7 days of Abx) / add lactinex -CXR reviewed today and Left lobe was masked by cardiac shadow -Pt weaned off BIPAP. nad off O2 -Continue Xopenex/Atrovent nebs -decrease Solu-Medrol to 20 mg IV BID -Speech therapy evaluate and treat: recommend mechanical soft, slipper diet with aspiration precautions. GI consult appreciated , continue to monitor, She had an EGD in July, which was negative -IVF d/c'd -hold diuresis at this time due to hypotension -BP slowly improving -Continue to monitor. -D/C IV Protonix -Protonix 40 mg PO qam -Continue Plavix 75 mg PO qd as now eating -Continue Lastacaft, Xalatan, and timolol drops -Continue citalopram 40 mg PO qd DVT prophylaxis -Heparin 5000 units SC q12h -SCDs Code Status -Level V, DO NOT RESUSCITATE Dispo -Pt lives in independent living apt at [place] at [facility] with -PT/OT recommended rehab
--- NOTE | 2017-01-05 12:01 | DIAGNOSTIC IMAGING REPORT ---
CHEST ONE VIEW PORTABLE HISTORY: Short of breath. COMPARISON: Chest 01/02/2017. FINDINGS: Rotated study. This may account for the widening at the aortic knob. The heart remains mildly enlarged. Mild central pulmonary vascular congestion without overt edema. The right lung is clear. Left basilar opacity/effusion remains unchanged. IMPRESSION: Rotated study. Improvement in the pulmonary vascular congestion. Left basilar opacity/effusion persists. Electronically signed by: Tee Whatley M.D. 01/05/2017 12:00 PM Dictated Date/Time: 01/05/2017 11:57 AM
--- NOTE | 2017-01-05 12:45 | Gastroenterology Progress Note ---
Progress Note Date of Service: January 05, 2017 Subjective Pt evaluation today including: conversation w/ patient, physical exam, chart review, lab review, review of studies, review of inpatient medication list cc f/u dysphagia, gerd HPI Pt had some chest discomfort this am before breakfast she attibutes to gerd resolved.Per nursing she can eat and takes pills without a problem. New diarrhea today. Review of Systems Respiratory: No shortness of breath Cardiac: No chest pain (no angina pain) Medications Current Inpatient Medications Medications (Trade) Dose Ordered Sig/Bhavna Route Start Time Stop Time Status Last Admin Dose Admin Latanoprost (Xalatan Oph Soln) 1 drops HS OPB 01/02/17 21:00 02/01/17 20:59 01/04/17 20:56 1 DROPS Timolol Maleate (Timoptic 0.5% Oph Soln) 1 drops QAM OPB 01/02/17 09:00 02/01/17 08:59 01/05/17 08:57 1 DROPS Miscellaneous Information (Order Awaiting Action) 1 ea QS N/A 01/02/17 08:00 02/01/17 07:59 Ondansetron HCl 4 mg 4 mg Q6H PRN IV 01/01/17 23:45 01/31/17 23:44 Acetaminophen (Ofirmev Iv) 100 ml @ 400 mls/hr Q8H PRN IV 01/01/17 23:45 01/31/17 23:44 Ipratropium [place] (Atrovent 0.02% 0.5MG/2.5ML Neb) 0.5 mg Q6R INH 01/02/17 03:00 02/01/17 02:59 01/04/17 19:28 0.5 MG Levalbuterol (Xopenex 1.25MG/ 0.5ML Neb) 1.25 mg Q6R INH 01/02/17 03:00 02/01/17 02:59 01/04/17 19:28 1.25 MG Ipratropium [place] (Atrovent 0.02% 0.5MG/2.5ML Neb) 0.5 mg Q2H PRN INH 01/02/17 01:00 02/01/17 00:59 Levalbuterol 1.25 mg 1.25 mg Q2H PRN INH 01/02/17 01:00 02/01/17 00:59 Piperacillin Sod/ Tazobactam Sod/ Dextrose (Zosyn Iv/D5 100ml) 115 ml @ 28.75 mls/ hr Q8H IV 01/02/17 08:00 01/09/17 07:59 01/05/17 08:56 28.75 MLS/HR Piperacillin Sod/ Tazobactam Sod (Consult) 1 ea UD PRN N/A 01/02/17 01:45 02/01/17 01:44 Heparin Sodium (Porcine) (Heparin Sq 5000 Unit/0.5ml) 5,000 unit Q12 SQ 01/02/17 21:00 02/01/17 20:59 01/05/17 08:59 5,000 UNIT Citalopram Hydrobromide (celeXA TAB) 40 mg QAM PO 01/04/17 09:00 02/03/17 08:59 01/05/17 08:56 40 MG Clopidogrel Bisulfate (plAVix TAB) 75 mg QAM PO 01/04/17 09:00 02/03/17 08:59 01/05/17 08:56 75 MG Multivitamins (Multivitamin Tab) 1 tab QAM PO 01/04/17 09:00 02/03/17 08:59 01/05/17 08:57 1 TAB Senna/Docusate Sodium (Senokot S Tab) 1 tab DAILY PRN PO 01/03/17 10:45 02/02/17 10:44 01/05/17 08:56 1 TAB Thiamine HCl (Vitamin B-1 Tab) 100 mg DAILY PO 01/04/17 09:00 02/03/17 08:59 01/05/17 08:57 100 MG Pantoprazole Sodium (Protonix Tab) 40 mg QAM PO 01/04/17 09:00 02/03/17 08:59 01/05/17 08:57 40 MG Lactobacillus Acidophilus (Floranex Tab) 4 tab TIDM PO 01/04/17 07:30 02/03/17 07:29 01/05/17 11:47 4 TAB Polyethylene (Miralax Powder Packet) 17 gm DAILY PRN PO 01/04/17 12:30 02/03/17 12:29 01/04/17 13:11 17 GM Psyllium Hydrophilic Mucilloid 1 pkt 1 pkt QAM PO 01/05/17 09:00 02/04/17 08:59 01/05/17 08:57 1 PKT Methylprednisolone Sodium Succinate/ Syringe (Solu-Medrol IV/ Syringe) 0.32 ml @ 1.5 mls/min Q12H IV 01/05/17 21:00 02/04/17 11:44 Objective Vital Signs Date Time Temp Pulse Resp B/P Pulse Ox O2 Delivery O2 Flow Rate FiO2 01/05/17 12:24 36.6 54 18 92/55 95 Room Air 01/05/17 12:00 Room Air 01/05/17 08:08 36.6 54 17 126/75 95 Room Air 01/05/17 08:00 Room Air 01/05/17 04:30 36.6 55 15 122/74 95 Room Air 01/05/17 04:00 Room Air 01/05/17 00:00 Room Air 01/04/17 23:42 36.6 59 21 125/78 96 Room Air 01/04/17 20:00 Room Air 01/04/17 19:31 55 16 96 Room Air 01/04/17 19:01 37.0 57 17 102/61 99 Room Air 01/04/17 16:00 97 Room Air 01/04/17 15:59 36.6 59 18 96/61 98 Nasal Cannula 2.0 01/04/17 14:03 57 16 100 Nasal Cannula 1.0 Physical Exam General Appearance: WD/WN, no apparent distress Respiratory/Chest: lungs clear, no respiratory distress Cardiovascular: regular rate, rhythm Abdomen: normal bowel sounds, non tender, soft, no organomegaly Laboratory Results Last 24 Hours Test 01/04/17 16:10 01/05/17 06:30 White Blood Count 6.48 K/uL Red Blood Count 3.59 M/uL Hemoglobin 10.4 g/dL Hematocrit 32.4 % Mean Corpuscular Volume 90.3 fL Mean Corpuscular Hemoglobin 29.0 pg Mean Corpuscular Hemoglobin Concent 32.1 g/dl Platelet Count 147 K/uL Mean Platelet Volume 9.9 fL Neutrophils (%) (Auto) 85.4 % Lymphocytes (%) (Auto) 8.2 % Monocytes (%) (Auto) 5.9 % Eosinophils (%) (Auto) 0.0 % Basophils (%) (Auto) 0.0 % Neutrophils # (Auto) 5.54 K/uL Lymphocytes # (Auto) 0.53 K/uL Monocytes # (Auto) 0.38 K/uL Eosinophils # (Auto) 0.00 K/uL Basophils # (Auto) 0.00 K/uL RDW Standard Deviation 43.6 fL RDW Coefficient of Variation 13.2 % Immature Granulocyte % (Auto) 0.5 % Immature Granulocyte # (Auto) 0.03 K/uL Sodium Level 143 mmol/L Potassium Level 4.0 mmol/L Chloride Level 108 mmol/L Carbon Dioxide Level 27 mmol/L Anion Gap 8.0 mmol/L Blood Urea Nitrogen 33 mg/dl Creatinine 0.94 mg/dl Est Creatinine Clear Calc Drug Dose 37.2 ml/min Estimated GFR () 62.8 Estimated GFR (Non- 54.2 BUN/Creatinine Ratio 34.7 Random Glucose 130 mg/dl Calcium Level 9.1 mg/dl Phosphorus Level 2.7 mg/dl Magnesium Level 2.0 mg/dl Total Bilirubin 0.4 mg/dl Aspartate Amino Transf (AST/SGOT) 51 U/L Alanine Aminotransferase (ALT/SGPT) 67 U/L Alkaline Phosphatase 95 U/L Total Protein 5.8 gm/dl Albumin 2.8 gm/dl Globulin 3.0 gm/dl Albumin/Globulin Ratio 0.9 Assessment and Plan Dysphagia--EGD 07/2016 normal, EGD 10/2016 entire esophagus full of food, grade B esophagitis, mild esoph stricture dilated with resistance felt only wtwith 48 and 51 F dilators---at present eating fine. Perhaps has primary esophageal dysmotility or induced by GERD. Would continue slippery mechanical ground diet and needs to be on that diet at home. No endoscopic intervention planned unless develops signs of problems with eating. GERD--stable, continue PPI--Protonix 40 mg q am. diarrhea--new agree with check CDiff Dr Smith assuming GI care today 01/05/17 as of 1700.
[2017-01-05 20:27] LABS: URINE APPEARANCE CLEAR (CLEAR); URINE BILIRUBIN NEG (NEG); URINE COLOR YELLOW; URINE NITRITE NEG (NEG); UROBILINOGEN NEG (NEG)
[2017-01-05 20:37] LABS: MANUAL MICROSCOPIC REQUIRED? NO; REVIEW REQ? NO
[2017-01-05] MEDS: LATANOPROST 0.005% OP SOLN 2.5 ML BTL OPB SCH (21:19)
[2017-01-05] MEDS: METHYLPREDNISOLONE IV 20 MG in SYRINGE 0 ML IV SCH (21:19)
[2017-01-06] VITALS (9 sets, daily range): BP systolic 80–112; BP diastolic 51–76; PULSE 50–62; TEMP 36.4–36.6; O2SAT 95–97
[2017-01-06] MEDS: IPRATROPIUM BROMIDE NEB SOLN 0.02% 2.5 ML VIAL INH SCH ×4 (02:15→19:20)
[2017-01-06] MEDS: LEVALBUTEROL 1.25MG/0.5ML NEB INH SCH ×4 (02:15→19:20)
[2017-01-06 05:57] LABS: COMPLETE YES; HEMATOCRIT 33.2 % (37-47); IG% 0.8 %; LYMPH ABS # 0.55 K/uL (1.2-3.4); MEAN CORPUSCULAR HEMOGLOBIN 29.3 pg (25-34); MEAN CORPUSCULAR HGB CONC 32.2 g/dl (32-36); MEAN PLATELET VOLUME 9.9 fL (7.4-10.4); MONO % 8.4 %; NEUT % 79.8 %; PLATELET COUNT 153 K/uL (130-400); RED BLOOD COUNT 3.65 M/uL (4.2-5.4); WHITE BLOOD COUNT 4.98 K/uL (4.8-10.8)
[2017-01-06 06:23] LABS: CALCIUM 8.9 mg/dl (8.5-10.1)
[2017-01-06 06:36] LABS: ALB/GLOB RATIO 0.8 (0.9-2); BUN/CREATININE RATIO 33.6 (10-20); CREATININE 0.95 mg/dl (0.60-1.20); PHOSPHORUS 2.7 mg/dl (2.5-4.9)
[2017-01-06] MEDS: LACTOBACILLUS ACIDOPHILUS (FLORANEX) TAB PO SCH ×3 (07:30→18:03)
[2017-01-06] MEDS: PIPERACILL/TAZOBAC IV 3.375 GM in DEXTROSE 5% 100ML IV SCH (08:00)
[2017-01-06] MEDS: TIMOLOL MALEATE 0.5% OP SOLN 5 ML BTL OPB SCH (09:00)
[2017-01-06] MEDS: HEPARIN SOD 5000 UNIT/0.5 ML CARP SQ SCH ×2 (09:00→21:46)
[2017-01-06] MEDS: MULTIVITAMIN TAB PO SCH (09:00)
[2017-01-06] MEDS: CITALOPRAM 40 MG TAB PO SCH (09:00)
[2017-01-06] MEDS: PSYLLIUM 58.6% PWD PACK S\\F PO SCH (09:00)
[2017-01-06] MEDS: THIAMINE HCL 100 MG TAB PO SCH (09:00)
[2017-01-06] MEDS: PANTOprazole SOD 40 MG TAB PO SCH (09:00)
[2017-01-06] MEDS: METHYLPREDNISOLONE IV 20 MG in SYRINGE 0 ML IV SCH (09:00)
[2017-01-06] MEDS: CLOPIDOGREL BISULFATE 75 MG TAB PO SCH (09:00)
--- NOTE | 2017-01-06 16:08 | PROGRESS NOTE ---
DATE: 01/06/2017 SUBJECTIVE: The patient had diarrhea over the weekend and a C. diff was ordered. The C. diff has returned normal. Her liver tests were very slightly elevated as well and they were also returned to normal. She has 2 recorded bowel movements for today, which seems to indicate that her condition is improved. No further intervention is necessary at this time. Please contact us for any new developments.
[2017-01-06] MEDS: AMOXICILLIN/CLAVULANATE TAB 500 MG TAB PO SCH (18:03)
--- NOTE | 2017-01-06 20:28 | Progress Note ---
Subjective Date of Service: January 06, 2017. Subjective Pt evaluation today including: conversation w/ patient, conversation w/ family ( at bedside), physical exam, chart review, lab review, review of studies (cxr), review of inpatient medication list Pain: denies dysphagia or any other pain PO Intake: normal/improved Voiding: no voiding problems tele without a. fib overnight she feels better denies any complaints no swallowing issues, heartburn, etc Problem List Medical Problems: (1) Acute aspiration pneumonia Status: Acute (2) Acute dyspnea Status: Acute (3) Choking Status: Acute (4) Choking episode Status: Acute (5) Choking episode Status: Acute (6) Contusion of multiple sites Status: Acute (7) Dizzy spells Status: Acute (8) DNR (do not resuscitate) Status: Acute (9) Fall Status: Acute (10) Fall Status: Acute (11) Hypokalemia Status: Acute (12) Hypoxia Status: Acute (13) Lactic acidosis Status: Acute (14) Respiratory arrest Status: Acute (15) Respiratory arrest Status: Acute (16) Rib pain on left side Status: Acute (17) Upper abdominal pain Status: Acute Review of Systems Constitutional: No fever Respiratory: No cough, No dyspnea on exertion, No shortness of breath Cardiac: No chest pain Abdomen: No pain Objective Vital Signs Date Time Temp Pulse Resp B/P Pulse Ox O2 Delivery O2 Flow Rate FiO2 01/06/17 16:00 Room Air 01/06/17 15:56 36.5 52 16 97/63 97 Room Air 01/06/17 14:39 54 16 97 Room Air 01/06/17 11:31 36.4 52 18 98/67 97 Room Air 01/06/17 11:00 Room Air 01/06/17 07:59 36.5 50 17 112/74 95 Room Air 01/06/17 07:38 51 16 97 Room Air 01/06/17 07:30 Room Air 01/06/17 04:02 Room Air 01/06/17 02:50 36.5 55 20 112/76 97 Room Air 01/06/17 00:00 Room Air 01/05/17 23:46 36.6 51 20 102/63 96 Room Air Physical Exam General Appearance: no apparent distress ENT: pharynx normal Neck: no JVD Respiratory/Chest: no respiratory distress, no accessory muscle use, + decreased breath sounds (left base, with rales) Cardiovascular: regular rate, rhythm, no gallop, no murmur Abdomen: normal bowel sounds, non tender, soft, no organomegaly Extremities: + pedal edema (trace b/l) Neurologic/Psychiatric: alert Laboratory Results Last 24 Hours Test 01/06/17 05:28 White Blood Count 4.98 K/uL Red Blood Count 3.65 M/uL Hemoglobin 10.7 g/dL Hematocrit 33.2 % Mean Corpuscular Volume 91.0 fL Mean Corpuscular Hemoglobin 29.3 pg Mean Corpuscular Hemoglobin Concent 32.2 g/dl Platelet Count 153 K/uL Mean Platelet Volume 9.9 fL Neutrophils (%) (Auto) 79.8 % Lymphocytes (%) (Auto) 11.0 % Monocytes (%) (Auto) 8.4 % Eosinophils (%) (Auto) 0.0 % Basophils (%) (Auto) 0.0 % Neutrophils # (Auto) 3.97 K/uL Lymphocytes # (Auto) 0.55 K/uL Monocytes # (Auto) 0.42 K/uL Eosinophils # (Auto) 0.00 K/uL Basophils # (Auto) 0.00 K/uL RDW Standard Deviation 44.6 fL RDW Coefficient of Variation 13.4 % Immature Granulocyte % (Auto) 0.8 % Immature Granulocyte # (Auto) 0.04 K/uL Sodium Level 145 mmol/L Potassium Level 4.0 mmol/L Chloride Level 109 mmol/L Carbon Dioxide Level 28 mmol/L Anion Gap 8.0 mmol/L Blood Urea Nitrogen 32 mg/dl Creatinine 0.95 mg/dl Est Creatinine Clear Calc Drug Dose 36.8 ml/min Estimated GFR () 62.0 Estimated GFR (Non- 53.5 BUN/Creatinine Ratio 33.6 Random Glucose 130 mg/dl Calcium Level 8.9 mg/dl Phosphorus Level 2.7 mg/dl Magnesium Level 2.0 mg/dl Total Bilirubin 0.4 mg/dl Aspartate Amino Transf (AST/SGOT) 32 U/L Alanine Aminotransferase (ALT/SGPT) 56 U/L Alkaline Phosphatase 90 U/L Total Protein 5.9 gm/dl Albumin 2.7 gm/dl Globulin 3.2 gm/dl Albumin/Globulin Ratio 0.8 Assessment and Plan 86yo female: 1. acute hypoxic resp failure 2nd to aspiration pneumonia - resolved. no wheezing on exam; stop the IV steroids. 2. LLL aspiration pneumonia - day #5 of zosyn - d/c, change to augmentin, complete 7 days in total of abx. 3. dysphagia - esophageal dysmotility - stable at the present time. Appreciate GI consultation & recs. 4. h/o esophagitis - continue PPI. 5. h/o a. fib - no signs of such on tele while here. 6. h/o stroke - noted; continue plavix for secondary stroke prevention. 7. DVT proph - heparin BID. 8. diarrhea - improved; c. diff negative. dispo - [facility] tomorrow Continued [facility] stay due to: multiple IV medications needed [facility]charge planning[facility] jail facility
[2017-01-06] MEDS: LATANOPROST 0.005% OP SOLN 2.5 ML BTL OPB SCH (21:45)
[2017-01-07] VITALS (9 sets, daily range): BP systolic 91–122; BP diastolic 55–77; PULSE 48–59; TEMP 36.5–36.8; O2SAT 93–96
[2017-01-07] MEDS: LEVALBUTEROL 1.25MG/0.5ML NEB INH SCH ×3 (01:45→14:46)
[2017-01-07] MEDS: IPRATROPIUM BROMIDE NEB SOLN 0.02% 2.5 ML VIAL INH SCH ×3 (01:45→14:46)
[2017-01-07] MEDS: PSYLLIUM 58.6% PWD PACK S\\F PO SCH (07:32)
[2017-01-07] MEDS: AMOXICILLIN/CLAVULANATE TAB 500 MG TAB PO SCH ×2 (07:33→17:06)
[2017-01-07] MEDS: LACTOBACILLUS ACIDOPHILUS (FLORANEX) TAB PO SCH ×3 (07:34→17:06)
[2017-01-07] MEDS: MULTIVITAMIN TAB PO SCH (07:34)
[2017-01-07] MEDS: PANTOprazole SOD 40 MG TAB PO SCH (07:34)
[2017-01-07] MEDS: TIMOLOL MALEATE 0.5% OP SOLN 5 ML BTL OPB SCH (07:36)
[2017-01-07] MEDS: HEPARIN SOD 5000 UNIT/0.5 ML CARP SQ SCH (07:38)
[2017-01-07] MEDS: CLOPIDOGREL BISULFATE 75 MG TAB PO SCH (09:00)
[2017-01-07] MEDS: CITALOPRAM 40 MG TAB PO SCH (09:00)
[2017-01-07 10:06] LABS: LEGIONELLA ANTIGEN NOT DETECTED (NOT DETECTED)
[2017-01-07] MEDS: THIAMINE HCL 100 MG TAB PO SCH (12:31)
[2017-01-07] MEDS ORDERED: IMD2 PO (15:17)
[2017-01-07] MEDS ORDERED: LCTX PO (15:17)
[2017-01-07] MEDS ORDERED: XPNINS1255 INH (15:17)
[2017-01-07] MEDS ORDERED: AMOX1TAB42 PO (15:17)
--- NOTE | 2017-01-07 15:23 | Discharge Instructions ---
Discharge Instructions Date of Service January 07, 2017. Admission Reason for Admission: Acute Respiratory Failure due to aspiration pneumonia Discharge Discharge Diagnosis / Problem: aspiration pneumonia - resolved Discharge Goals Goal(s): Learn about illness, Diagnostic testing, Therapeutic intervention Activity Recommendations Activity Level: Assistance Required Therapies: Physical Therapy, Occupational Therapy, Speech Therapy . Additional Information Patient informed of condition: Yes Advance Directives: Yes DNR: Yes Level of Care: Skilled Communicable Disease: No Prognosis: Stable Oxygen at (LPM): none Dent Catheter: No Instructions / Follow-Up Instructions / Follow-Up From Dr. Caruso - 1. recommend follow-up with [facility] within 2 weeks to recheck swallow function 2. recommend follow-up with medical customer service representative at [facility] within 48 hours Current Hospital Diet Patient's current hospital diet: AHA Diet (Heart Healthy) Discharge Diet Recommended Diet: AHA Diet (Heart Healthy) Diet Texture: Mechanical Soft (ground) (Mechanical soft diet and SLIPPERY) Procedures Procedures Performed: chest x-rays showing pneumonia Pending Studies Studies pending at discharge: no Physician Orders On Transfer Special Precautions: From our Speech therapist: 1. Mechanical soft diet - slippery 2. Aspiration precautions, straws OK. Fully upright for all p.o. intake and for at least 30 minutes after meals. HOB elevated to 30 degrees at all times, to include while asleep. 3. Alternate solids and liquids. Slow rate, rest breaks. Consider small frequent meals. Avoid all food that are dry, thick, pasty, and doughy. 4. Strongly recommend follow up with speech therapy in the home environment for further education, training, and carryover of recommendations. Vital Signs: per routine Additional Orders: CBC, BMP, and Mag level in 4-5 days for stability report results to Human Resources Operations Coordinator POL Discussion: Not Applicable Medical Emergencies . Who to Call and When: Medical Emergencies: If at any time you feel your situation is an emergency, please call 911 immediately. . Non-Emergent Contact Non-Emergency issues call your: Primary Care Provider Call Non-Emergent contact if: temperature is above 100.5, you have any medication questions . . "Provider Documentation" section prepared by Everette Caruso. . Core Measure Problem Core Measures: None
--- NOTE | 2017-01-07 20:06 | GASTROENTEROLOGY PROGRESS NOTE ---
DATE: 01/07/2017 HISTORY OF PRESENT ILLNESS: The patient has been doing well and has anticipated transfer to nursing care this afternoon. She denies any odynophagia, dysphagia. Her breathing is comfortable and she has no other untoward effects from her recent aspiration pneumonia treatment. LABORATORY STUDIES: Show a white count 4.98 yesterday, hemoglobin 10.7, platelets 153,000. Potassium 4.0, BUN and creatinine 32 and 0.9. IMAGING DATA: X-ray from January 05 showed improvement in the pulmonary vascular congestion with persistent left opacities. REVIEW OF SYSTEMS: Otherwise noncontributory based on 14-point exam. PHYSICAL EXAMINATION: VITAL SIGNS: Today, patient is afebrile 36.6, blood pressure 91/55 and repeat 102/66, room air 94%. Physical exam today is unremarkable and unchanged. IMPRESSION AND PLAN: I spoke with the patient and her at length this afternoon regarding her recurrent nature of aspiration pneumonia as well as prior esophageal food bolus and impaction. Generally, these occur with minimal dysphagia symptoms according to the patient nevertheless still places a risk of aspiration for her. As in the past, we did discuss the possibility of a PEG tube placement that would permit adequate nourishment by reducing the risk of aspiration provide aspiration precautions are maintained with tube feeds. This would also negate the need for significant oral intake to provide adequate nutrition. I did answer all of their questions regarding the tube placement, its location, and some information regarding tube care and how the feedings are administered. They would like to think about this and will make a decision. At the present time, the patient is being discharged and will sign off for now. I did question the patient that she should maintain aspiration precautions while eating any material and these should be of a soft consistency that are not overly dense or stringy to prevent food impaction. All questions answered.
--- NOTE | 2017-01-14 12:17 | Discharge Summary ---
Discharge Summary Date of Service January 14, 2017. Discharge Summary Admission Date: January 01, 2017 at 23:31 Discharge Date: January 07, 2017 Discharge Disposition: halfway facility ([facility] ) Principal Diagnosis: acute hypoxic respiratory failure 2nd to aspiration pneumonia Problems/Secondary Diagnoses: 1. dysphagia 2nd to esophageal dysmotility 2. history of stroke 3. history of paroxysmal a. fib 4. diarrhea, acute/chronic 5. history of esophagitis 6. sepsis 2nd to aspiration pneumonia - resolved Immunizations: Have You Had Influenza Vaccine: Yes Influenza Vaccine Date: Jun 09, 2012 History of Tetanus Vaccine?: Unknown History of Pneumococcal: Yes Pneumococcal Date: Oct 10, 2009 History of Hepatitis B Vaccine: Unknown Procedures: multiple chest x-rays Consultations: PT, OT, speech gastroenterology - Luis Alberto Grover MD Medication Reconciliation New Medications: Loperamide HCl (Loperamide HCl) 2 Mg Cap 2 MG PO Q3H PRN for diarrhea, #20 0 Refills Amoxicillin & Pot Clavulanate (Amoxicillin/Clavulanate P) 1 Tab Tab 500 MG PO BIDM, #3 TAB 0 Refills take 3 more doses - start TONIGHT 01/07/17 Lactobacillus Acidophilus (Floranex) 1 Tab Tab 3 TAB PO TIDM for 5 Days, #45 TAB 0 Refills Levalbuterol (Levalbuterol) 1.25 Mg/0.5 Ml Nebu 1.25 MG INH Q6R PRN for cough/wheeze/sob, #1 BOX 1 Refill Continued Medications: Alcaftadine (Lastacaft) 0.25 % Milla 1 DROPS OPR QAM, ML Citalopram (Citalopram Hydrobromide) 40 Mg Tab 40 MG PO QAM Clopidogrel Bisulfate (Clopidogrel) 75 Mg Tab 75 MG PO QAM Lansoprazole (Prevacid) 30 Mg Capcr 30 MG PO DAILY, CAP Latanoprost (Xalatan 0.005% Oph Milla) 0.005 % Milla 1 DROPS OPB HS, #2.5 ML 6 Refills Multiple Vitamins W/ Minerals (Preservision Areds) 1 Cap Cap 1 CAP PO BID Multivitamin (Multivitamin) Tab 1 TAB PO QAM, TAB Sennosides-Docusate Sodium (Senna S) 1 Tab Tab 1 TAB PO UD PRN for Constipation Thiamine Hcl (Vitamin B-1) 100 Mg Tab 100 MG PO DAILY, TAB Timolol Maleate (Timolol 0.5% Oph Soln 15 Ml) 15 Ml Soln 1 DROP QAM, #5 Discharge Exam Physical Exam: General Appearance: no apparent distress, + thin ENT: pharynx normal Neck: no JVD Respiratory/Chest: no respiratory distress, no accessory muscle use, + decreased breath sounds (left base) Cardiovascular: no gallop, no murmur, normal peripheral pulses, + bradycardia Abdomen / GI: normal bowel sounds, non tender, soft, no organomegaly Extremities: no pedal edema Neurologic/Psychiatric: alert, oriented x 3 Hospital Course HISTORY OF PRESENT ILLNESS: The patient is an 78-year-old female brought to the emergency department by EMS from the [facility] where she was noted to have probable aspiration while eating dinner tonight about one half hours prior to arrival. She has a known history of aspiration, and EMS reports that her mental status was altered en route to the hospital. The history of present illness itself is limited due to the patient's nonresponsive state. Her daughter, who did arrive, does relate some of the patient's history. HOSPITAL COURSE: The patient's acute hypoxic respiratory failure 2nd to LLL aspiration pneumonia was treated with broad-spectrum IV antibiotic therapy and supportive care. Early on in her stay she required the use of BIPAP. This was ultimately weaned to nasal cannula and then finally room air. She was transitioned to oral augmentin at time of hospital discharge. She was seen in consult by speech therapy as well as [facility] Gastroenterology. Speech therapy recommended mechanical soft, slippery diet but all levels of liquids. It was felt her dysphagia was due to severe esophageal dysmotility. [facility] GI deferred on EGD or other testing while here as she had had these procedures in the recent past. All other medical problems remained stable while here. Despite the history of a. fib she had no evidence of such during this hospitalization. Telemetry demonstrated sinus bradycardia, but she had normal chronotropic response with activity and reported no dizziness/lightheadedness with activity. Total Time Spent: Greater than 30 minutes This includes examination of the patient, discharge planning, medication reconciliation, and communication with other providers. Discharge Instructions Please refer to the electronic Patient Visit Report (Discharge Instructions) for additional information. Follow-Up 1. see medical surgical tech of the [facility] within [address] Grover at [facility] within 2 weeks Additional Copies To Luis Alberto Grover M.D.; Juma Jones M.D.; [facility]
--- NOTE | 2017-01-19 18:51 | EDITING REQUIRED CODING QUERY ---
SEPSIS Dear Dr. Caruso, To promote full compliance with coding requirements relating to patient care, physician participation is requested in all cases of senior teradata developer uncertainty. Please assist us with the question(s) below: In responding to this query, please exercise your independent professional judgement. The fact that a question is asked does not imply that any particular answer is desired or expected. We appreciate your clarification on this issue. Please clarify Sepsis below: Sepsis is documented on the Progress notes but not on the Discharge Summary. Please charlene all that apply by placing a (x) in the parentheses. Medical documentation: Progress Note: sepsis secondary to LLL aspiration pneumonia/acute respiratory failure--improving Discharge Summary Principal Diagnosis: acute hypoxic respiratory failure 2nd to aspiration pneumonia Problems/Secondary Diagnoses: 1. dysphagia 2nd to esophageal dysmotility 2. history of stroke 3. history of paroxysmal a. fib 4. diarrhea, acute/chronic ( )Bacteremia (Nonspecific laboratory finding of bacteria in the blood) Specify Organism () Present on Admission () Not present on admission () Unable to clinically determine ( ) Septicemia (Systemic disease associated with the presence of pathogenic microorganisms in the blood): Specify Organism () Present on Admission () Not present on admission () Unable to clinically determine (x ) Sepsis Specify Organism Specify Associated Condition/Diagnosis (x) Present on Admission () Not present on admission () Unable to clinically determine ( ) Severe Sepsis (Sepsis associated with acute organ dysfunction) Specify Organism Specify Associated Condition/Diagnosis () Present on Admission () Not present on admission () Unable to clinically determine ( ) Septic Shock (Severe sepsis with acute circulatory failure, unexplained by other causes) () Present on Admission () Not present on admission () Unable to clinically determine ( ) Other, patient has: ( ) Sepsis was ruled out. Thank you for your time. Orly Hernández, MUCK OPERATOR
[2017-02-02] MEDS ORDERED: ALCA0.25 OPR (09:34)
[2017-02-02] MEDS ORDERED: CLX40 PO (09:34)
[2017-02-02] MEDS ORDERED: PLV75 PO (09:34)
[2017-02-02] MEDS ORDERED: MULT-506 PO (09:34)
[2017-02-02] MEDS ORDERED: THIA100T11 PO (16:16)
[2017-02-02] MEDS ORDERED: TMPOPS15 OPL (21:04)
[2017-02-02] MEDS ORDERED: LATA0.009 OPB (21:54)
[2017-02-02] MEDS ORDERED: SENN-91 PO (21:54)
[2017-02-09] MEDS ORDERED: AMOX1TAB43 PO (14:27)
[2017-02-09] MEDS ORDERED: MGNO400 PO (14:27)
[2017-02-09] MEDS ORDERED: CRD200 PO (14:27)
[2017-02-09] MEDS ORDERED: IPRASOL4 INH (14:42)
== END 2017-01-07 17:30 | DRG 871 ==
LOC: ENRESERVTM → ENRESERVDT → EDBD 21:17 → C.EDA 21:20 → C.2E 23:31 → EDBEDREQ 23:38
PROVIDERS: ADMIT Hospitalist; ATTEND Internal Medicine
DX: A41.9 Sepsis, unspecified organism (principal); J69.0 Pneumonitis due to inhalation of food and vomit; J96.21 Acute and chronic respiratory failure with hypoxia; G93.41 Metabolic encephalopathy; K21.9 Gastro-esophageal reflux disease without esophagitis; F32.9 Major depressive disorder, single episode, unspecified; Z66 Do not resuscitate; I48.91 Unspecified atrial fibrillation; I95.9 Hypotension, unspecified; Y95 Nosocomial condition; R13.10 Dysphagia, unspecified; K22.4 Dyskinesia of esophagus; R19.7 Diarrhea, unspecified; H40.9 Unspecified glaucoma; E78.00 Pure hypercholesterolemia, unspecified; I69.991 Dysphagia following unspecified cerebrovascular disease; Z79.899 Other long term (current) drug therapy; Z86.73 Personal history of transient ischemic attack (TIA), and cerebral infarction without residual deficits; Z87.891 Personal history of nicotine dependence; Z79.02 Long term (current) use of antithrombotics/antiplatelets

== ENCOUNTER → 2017-01-14 | Outpatient (CLI) | payer OTHER, BC ==
[~2017-01-14] MED LIST changes: +ACET-1311 PO; +ALCA0.25 OPR; +AMOX1TAB42 PO; +AMOX1TAB43 PO; +CLX40 PO; +CRD200 PO; +IMD2 PO; +IPRASOL4 INH; +LANS30CA12 PO; -LANS30TA3 PO; +LATA0.009 OPB; +LCTX PO; +LEVE500T13 PO; +LOPE-5 PO; -MCRK20 PO; +MGNO400 PO; +MRPL PO; +MULT-506 PO; +PLV75 PO; +PSYL58.636 PO; +ROXANOL 20MG/ML PO; +SENN-91 PO; +THIA100T11 PO; +TMPOPS15 OPL; +XPNINS125 NEB; +XPNINS1255 INH
[2017-01-14 11:30] LABS: MEAN CELL VOLUME 94.2 fL (80-100); MEAN CORPUSCULAR HEMOGLOBIN 30.7 pg (25-34); MEAN CORPUSCULAR HGB CONC 32.6 g/dl (32-36); MEAN PLATELET VOLUME 10.5 fL (7.4-10.4); PLATELET COUNT 155 K/uL (130-400); RED BLOOD COUNT 3.29 M/uL (4.2-5.4); WHITE BLOOD COUNT 5.93 K/uL (4.8-10.8)
[2017-01-14 11:37] LABS: BLOOD UREA NITROGEN 18 mg/dl (7-18); BUN/CREATININE RATIO 27.7 (10-20); CALCIUM 8.5 mg/dl (8.5-10.1); CARBON DIOXIDE 29 mmol/L (21-32); CHLORIDE 108 mmol/L (98-107); CREATININE 0.64 mg/dl (0.60-1.20); GLUCOSE 87 mg/dl (70-99); MAGNESIUM 1.9 mg/dl (1.8-2.4); POTASSIUM 3.9 mmol/L (3.5-5.1); SODIUM 143 mmol/L (136-145)
== END | disposition home or self-care (01) ==
LOC: C.LABVPSUA 10:54
PROVIDERS: ATTEND Internal Medicine Critical Care Medicine
DX: J93.9 Pneumothorax, unspecified (principal)

== ENCOUNTER 2017-02-02 22:19 | Inpatient (IN) | payer OTHER, BC ==
[~2017-02-02] VITALS: Ht 167.6 cm; Wt 58.4 kg
[~2017-02-02 22:19] MED LIST changes: -ACET-1311 PO; -AMOX1TAB43 PO; -CRD200 PO; +ETOMIDATE 2 MG/ML 20 ML VIAL IV ONE; +FENTANYL CITRATE 100 MCG 2 ML CARP IV ONE; +HEPARIN SOD 5000 UNIT/0.5 ML CARP SQ SCH; -IPRASOL4 INH; -LANS30CA12 PO; -LEVE500T13 PO; -LOPE-5 PO; -MGNO400 PO; +MIDAZOLAM HCL 1 MG/ML 2ML VIAL IV ONE; -MRPL PO; -PSYL58.636 PO; +ROCURONIUM BROMIDE 10 MG/ML 10 ML VIAL IV ONE; -ROXANOL 20MG/ML PO; -XPNINS125 NEB
[2017-02-02] MEDS ORDERED: RAPID SEQUENCE INDUCTION BAG ONE (22:24)
[2017-02-02] MEDS ORDERED: METRONIDAZOLE 500MG / 100ML NSS IV STA (22:25)
[2017-02-02] MEDS ORDERED: MULTCAP33 PO (22:43)
[2017-02-02] MEDS ORDERED: LOPE-5 PO (22:43)
[2017-02-02] MEDS ORDERED: ACET-1311 PO (22:43)
[2017-02-02] MEDS ORDERED: XPNINS125 NEB (22:47)
[2017-02-02] MEDS ORDERED: PSYL58.636 PO (22:47)
[2017-02-02] MEDS ORDERED: LEVAQUIN 750MG / 150ML D5W ONE (22:48)
[2017-02-02] MEDS ORDERED: SODIUM CHLORIDE 0.9% 1000ML 1,000 ML IV STA (22:56)
--- NOTE | 2017-02-02 22:59 | EMERGENCY ROOM VISIT NOTE ---
History Report prepared by Roderick: David Faulkner Under the Supervision of: Dr. Albert Johnson D.O. First contact with patient: 22:21 Chief Complaint: RESPIRATORY DISTRESS Stated Complaint: RESP. DIFF. History of Present Illness The patient is an 86 year old female who presents to the Emergency Room with acute respiratory distress. Per EMS, the patient resides at [facility] where she reportedly aspirated. The patient's pulse ox was reportedly in the 40s. The patient was given nebulizer and albuterol treatments prior to arrival. The patient has been intubated in the past for respiratory distress. She has cardiac history. History was obtained from EMS, and is limited secondary to respiratory distress. Source of History: EMS History Limited By: other (respiratory distress) Onset: tonight Position: other (respiratory) Quality: other (respiratory distress) Timing: other (acute) Review of Systems ROS is limited secondary to respiratory distress. Past Medical & Surgical Medical Problems: (1) Acute respiratory failure with hypoxia and hypercapnia (2) Aspiration pneumonia (3) Cerebrovasc Disease Nos (4) Congestive Heart Failure Nos (5) Diarrhea (6) Dysphagia (7) Hypercholesterolemia (8) Hypertension Nos (9) Hysterectomy (10) Osteoarthros Nos-Unspec Family History Patient reports no known family medical history. Social History Smoking Status: Former Smoker Alcohol Use: none Drug Use: none Marital Status: Housing Status: assisted living Occupation Status: retired Current/Historical Medications Scheduled Acetaminophen (Tylenol), 650 MG PO DAILY Alcaftadine (Lastacaft), 1 DROP OPR QAM Citalopram (Citalopram Hydrobromide), 40 MG PO QAM Clopidogrel Bisulfate (Clopidogrel), 75 MG PO QAM Lansoprazole (Prevacid), 30 MG PO QAM Latanoprost (Xalatan 0.005% Oph Milla), 1 DROP OPB HS Multiple Vitamins W/ Minerals (Preservision Areds), 1 CAP PO BID Multivitamin (Multivitamin), 1 TAB PO QAM Thiamine Hcl (Vitamin B-1), 100 MG PO DAILY Timolol Maleate (Timolol 0.5% Oph Soln 15 Ml), 1 DROP OPL QAM Scheduled PRN Levalbuterol (Levalbuterol HCl), 1 VIAL NEB Q6H PRN for SOB/Wheezing Loperamide Hcl (Imodium A-D), 2 MG PO Q3HRS PRN for Loose Stool(s) Psyllium (Metamucil Fiber), 1 PKT PO BID PRN for Loose Stool(s) Sennosides-Docusate Sodium (Senna S), 1 TAB PO UD PRN for Constipation Allergies Coded Allergies: Sulfa Antibiotics (Verified Allergy, Unknown, ., 10/20/16) Yogurt (Verified Allergy, Unknown, Unknown, 02/02/17) Fish (Verified Adverse Reaction, Unknown, GI SYMPTOMS, 10/20/16) Shellfish Allergy (Verified Adverse Reaction, Unknown, GI SYMPTOMS, 10/20/16 ) Physical Exam Vital Signs Date Time Temp Pulse Resp B/P (MAP) Pulse Ox O2 Delivery O2 Flow Rate FiO2 02/02/17 23:31 135/97 02/02/17 23:29 87 14 100 02/02/17 23:26 151/117 02/02/17 23:24 87 14 100 02/02/17 23:21 150/115 02/02/17 23:19 86 14 98 02/02/17 23:16 156/108 02/02/17 23:14 88 14 97 02/02/17 23:11 114/83 02/02/17 23:09 80 14 96 02/02/17 23:06 87/65 02/02/17 23:04 80 14 96 02/02/17 23:03 66/44 02/02/17 23:01 64/47 02/02/17 23:00 69/50 02/02/17 22:59 82 14 92 02/02/17 22:58 /55 02/02/17 22:57 68/47 02/02/17 22:54 85 14 99 02/02/17 22:51 83/63 02/02/17 22:49 86 14 100 02/02/17 22:46 103/79 02/02/17 22:44 104 14 100 02/02/17 22:43 100 02/02/17 22:41 133/108 02/02/17 22:39 108 14 100 02/02/17 22:38 139/110 02/02/17 22:37 121 02/02/17 22:34 100 02/02/17 22:34 125 40 100 02/02/17 22:32 95/77 02/02/17 22:29 124 46 93 02/02/17 22:29 125 02/02/17 22:24 92 Non-Rebreather 15.0 02/02/17 22:24 Non-Rebreather 02/02/17 22:24 154/121 02/02/17 22:24 126 50 154/124 91 High Flow Oxygen 15.0 Physical Exam GENERAL: Patient is awake, very anxious appearing, appears to be in severe respiratory distress. EYES: The conjunctivae are clear. The pupils are round and reactive. EARS, NOSE, MOUTH AND THROAT: The nose is without any evidence of any deformity. Mucous membranes are moist tongue is midline NECK: Significant JVD noted. RESPIRATORY: Sounds diminished throughout, very poor air movement noted, significant tachypnea and conversational dyspnea noted. CARDIOVASCULAR: Regular rate and rhythm noted to auscultation, no definite murmurs were noted. GASTROINTESTINAL: The abdomen is soft. Bowel sounds are present in all quadrants. Abdomen is nontender MUSCULOSKELETAL/EXTREMITIES: There is no evidence of gross deformity full range of motion is noted in the hips and shoulders SKIN: Pedal edema was noted bilaterally. NEUROLOGIC: Patient is awake and alert, appears to be oriented to person place and situation. Medical Decision & Procedures ER Provider Diagnostic Interpretation: X-ray results as stated below per interpretation by me. Chest One View Portable: Cardiomegaly with tortuous aortic knob noted. Tracheal tube above the darwin and in good position. Gastric tube terminates at the distal esophagus. Infiltrative changed noted at the right base and left middle lobe consistent with volume overload vs infectious process. Changes are new compared to XR on 01/05/17. Laboratory Results 02/02/17 22:52 Red Blood Count 4.49, Mean Corpuscular Volume 91.8, Mean Corpuscular Hemoglobin 29.0, Mean Corpuscular Hemoglobin Concent 31.6, Mean Platelet Volume 9.7, Neutrophils (%) (Auto) 62.2, Lymphocytes (%) (Auto) 28.9, Monocytes (%) (Auto) 7.1, Eosinophils (%) (Auto) 1.1, Basophils (%) (Auto) 0.3, Neutrophils # (Auto) 5.63, Lymphocytes # (Auto) 2.62, Monocytes # (Auto) 0.64, Eosinophils # (Auto) 0.10, Basophils # (Auto) 0.03 02/02/17 22:52 Test 02/02/17 20:55 02/02/17 22:52 02/02/17 22:55 02/02/17 23:25 Urine Color DK YELLOW Urine Appearance CLEAR (CLEAR) Urine pH 5.5 (4.5-7.5) Urine Specific [place] 1.024 (1.000-1.030) Urine Protein 3+ (NEG) Urine Glucose (UA) NEG (NEG) Urine Ketones TRACE (NEG) Urine Occult Blood NEG (NEG) Urine Nitrite NEG (NEG) Urine Bilirubin NEG (NEG) Urine Urobilinogen NEG (NEG) Urine Leukocyte Esterase NEG (NEG) White Blood Count 9.06 K/uL (4.8-10.8) Red Blood Count 4.49 M/uL (4.2-5.4) Hemoglobin 13.0 g/dL (12.0-16.0) Hematocrit 41.2 % (37-47) Mean Corpuscular Volume 91.8 fL (80-100) Mean Corpuscular Hemoglobin 29.0 pg (25-34) Mean Corpuscular Hemoglobin Concent 31.6 g/dl (32-36) Platelet Count 195 K/uL (130-400) Mean Platelet Volume 9.7 fL (7.4-10.4) Neutrophils (%) (Auto) 62.2 % Lymphocytes (%) (Auto) 28.9 % Monocytes (%) (Auto) 7.1 % Eosinophils (%) (Auto) 1.1 % Basophils (%) (Auto) 0.3 % Neutrophils # (Auto) 5.63 K/uL (1.4-6.5) Lymphocytes # (Auto) 2.62 K/uL (1.2-3.4) Monocytes # (Auto) 0.64 K/uL (0.11-0.59) Eosinophils # (Auto) 0.10 K/uL (0-0.5) Basophils # (Auto) 0.03 K/uL (0-0.2) RDW Standard Deviation 46.4 fL (36.4-46.3) RDW Coefficient of Variation 13.9 % (11.5-14.5) Immature Granulocyte % (Auto) 0.4 % Immature Granulocyte # (Auto) 0.04 K/uL (0.00-0.02) Erythrocyte Sedimentation Rate 6 mm/hr (0-21) Anion Gap 11.0 mmol/L (3-11) Est Creatinine Clear Calc Drug Dose 37.5 ml/min Estimated GFR () 60.4 Estimated GFR (Non- 52.1 BUN/Creatinine Ratio 17.7 (10-20) Calcium Level 8.3 mg/dl (8.5-10.1) Phosphorus Level 4.3 mg/dl (2.5-4.9) Magnesium Level 1.8 mg/dl (1.8-2.4) Total Bilirubin 0.3 mg/dl (0.2-1) Aspartate Amino Transf (AST/SGOT) 27 U/L (15-37) Alanine Aminotransferase (ALT/SGPT) 21 U/L (12-78) Alkaline Phosphatase 123 U/L (45-117) Total Creatine Kinase 36 U/L (26-192) Creatine Kinase MB 1.1 ng/ml (0.5-3.6) Creatine Kinase MB Ratio 3.1 (0-3.0) Troponin I < 0.015 ng/ml (0-0.045) C-Reactive Protein < 0.29 mg/dl (0-0.29) Pro-B-Type Natriuretic Peptide 6879 pg/ml (0-1800) Total Protein 6.9 gm/dl (6.4-8.2) Albumin 3.3 gm/dl (3.4-5.0) Globulin 3.6 gm/dl (2.5-4.0) Albumin/Globulin Ratio 0.9 (0.9-2) Lipase 234 U/L (73-393) Chemistry Specimen Hemolysis Venous Blood pH 7.22 (7.36-7.41) Venous Blood Partial Pressure CO2 68 mmHg (38.0-50.0) Venous Blood Partial Pressure O2 52 mmHg Venous Blood HCO3 27 mmol/L Venous Blood Oxygen Saturation 79.6 % Venous Blood Base Excess -1.7 mmol/L Laboratory results per my review. Medications Administered Medications (Trade) Dose Ordered Sig/Bhavna Route Start Time Stop Time Status Last Admin Dose Admin Miscellaneous (Rapid Sequence Induction Bag) 1 ea STK-MED ONCE N/A 02/02/17 22:24 02/02/17 22:25 DC 02/02/17 22:47 1 EA Metronidazole (Flagyl / Nss) 500 mg NOW STAT IV 02/02/17 22:25 02/02/17 22:27 DC 02/02/17 22:54 500 MG Levofloxacin (Levaquin / D5W) 750 mg STK-MED ONCE .ROUTE 02/02/17 22:48 02/02/17 22:49 DC 02/02/17 22:53 750 MG Sodium Chloride 1,000 ml @ 999 mls/hr Q1H1M STAT IV 02/02/17 22:56 02/02/17 23:56 02/02/17 22:35 999 MLS/HR Norepinephrine Bitartrate (Levophed Inj) 16 mg STK-MED ONCE .ROUTE 02/02/17 23:04 02/02/17 23:05 DC 02/02/17 23:04 16 MG Dexmedetomidine HCl 200 mcg/ Sodium Chloride 50 ml @ 0 mls/hr PRN PRN IV 02/02/17 23:07 02/06/17 23:06 02/02/17 23:29 0 MLS/HR Procedure Endotracheal Intubation Indication: Respiratory Distress. The patient was on 100% oxygen via NRB prior to the procedure. Suction, airway equipment, RSI drugs, respiratory equipment, and appropriate personnel were prepared prior to the initiation of the procedure. A time out was taken. Induction was performed with Etomidate and Rocuronium. After observing the clinical benefit of the medications, the airway was easily visualized utilizing a GlideScope. A 7.5 size ETT tube was placed atraumatically to 22 cm using standard technique. The cuff inflated without signs of malfunction. There were bilateral breath sounds, positive colormetric change, no gastric sounds, a good capnography waveform, and post procedure pulse oximetry was 100%. Post intubation sedation and paralysis was administered using Fentanyl and Versed. There were no complications. Central Venous Catheter Indication: Hypoxia and respiratory failure. Catheter type: Triple lumen Location: Right Femoral Verbal consent was obtained after the risks and benefits were explained, including but not limited to pneumothorax, hemothorax, vessel injury, bleeding, scarring, infection, pain, and bone/joint/nerve damage. At this time, the risks of the procedure are less than the risks of NOT performing the procedure. A time out was taken and the correct patient and site identified. The patient was placed in the supine position and the skin was prepped in the standard fashion with chlorhexidine and full sterile drapes applied. The proper landmarks were identified, and the needle was inserted through the skin in the standard fashion. The needle was carefully advanced into blood vessel. The guidewire was placed uneventfully. The vessel is dilated and the catheter was placed. It was sutured into position. There was good blood return from all ports. The patient tolerated the procedure well and there were no complications. Post procedure x-ray was normal. ECG Indication: other (respiratory distress) Rate (beats per minute): 81 Rhythm: normal sinus Findings: ST depression (wide spread), T-wave inversion, no ectopy Comparison ECG Date: 03 Jan 2017 Change: no significant change ED Course 2221: The patient was evaluated in room B1. A complete history and physical examination were performed. 2225: Ordered Flagyl / NSS 500 mg IV. 2230: Endotracheal Intubation performed. Please see procedural note above. 2245: Central Line placed. Please see procedural note above. 2256: NSS 1000 ml @ 999 mls/hr. 2300: Dr. Sequeira, [facility] Hospitalist, is in the ED evaluating the patient. 0600: Ordered Levofloxacin 750 mg IV Medical Decision Prior records/ancillary studies reviewed. Triage Nursing notes reviewed. The patient's history was concerning for respiratory difficulties. Differential diagnosis: Etiologies such as infections, reactive airway disease, pneumonia, pneumothorax , COPD, CHF, cardiac ischemia, pulmonary embolism, musculoskeletal, gastrointestinal, as well as others were entertained. The patient is an 86-year-old female who presented to the emergency department with respiratory distress. The patient had reported acute onset of respiratory distress. She has a history of aspiration pneumonia. The paramedics noted that the patient's oxygen level was very low and reportedly in the forties and fifties prior to arrival. The patient was treated with a bronchodilator treatment prior to arrival. Her oxygen saturation had somewhat improved but she had severe tachypnea and conversational dyspnea. The patient has a very confusing DO NOT RESUSCITATE order which states that she does not wish to have intervention done if her heart or lungs were stopped however if she was in distress. She did want all therapy. I was able to asked the patient if she wanted to be intubated and she said yes. Unfortunately no family members came to the emergency department with the patient. The patient was intubated and then started on IV fluids and IV antibiotics. She also had a central line placed because of a transient episode of hypotension which resolved with IV fluids and a small amount of pressors. I discussed the patient's laboratory radiographic studies with the on-call [facility] hospitalist. They've agreed to evaluate the patient in emergency department for further management and disposition. Likely the patient's condition is very familiar to the inpatient hospitalist group. Consults Time Called: 2250 Consulting Physician: Dr. Sequeira [facility] Hospitalist Returned Call: 2300 Being evaluated in the ED. Impression Primary Impression: Respiratory failure Additional Impressions: Aspiration pneumonia Respiratory acidosis Critical Care I have personally spent greater than 60 minutes of critical care time in the direct management of this patient. This includes bedside care, interpretation of diagnostic studies, and testing, discussion with consultants, patient, and family members, and other required patient management activities. This 60 minutes is in excess of all separately billable procedures. Scribe Attestation The scribe's documentation has been prepared under my direction and personally reviewed by me in its entirety. I confirm that the note above accurately reflects all work, treatment, procedures, and medical decision making performed by me. Departure Information Dispostion Being Evaluated By Hospitalist Referrals [place] [facility] (PCP) Patient Instructions Asthma - [facility], COPD - [facility], Croup - [facility], My [facility] Health Problem Qualifiers Primary Impression: Respiratory failure Chronicity: acute Respiratory failure complication: hypoxia and hypercapnia Qualified Codes: J96.01 - Acute respiratory failure with hypoxia; J96.02 - Acute respiratory failure with hypercapnia Additional Impressions: Aspiration pneumonia Aspiration pneumonia type: unspecified Laterality: unspecified laterality Lung location: unspecified part of lung Qualified Codes: J69.0 - Pneumonitis due to inhalation of food and vomit
[2017-02-02] MEDS ORDERED: NOREPINEPHRINE BITARTRATE 1 MG/ML 4 ML VIAL ONE (23:04)
[2017-02-02 23:07] LABS: BASO % 0.3 %; BASO ABS # 0.03 K/uL (0-0.2); COMPLETE YES; EOS % 1.1 %; HEMATOCRIT 41.2 % (37-47); IG% 0.4 %; LYMPH % 28.9 %; LYMPH ABS # 2.62 K/uL (1.2-3.4); MEAN CELL VOLUME 91.8 fL (80-100); MEAN CORPUSCULAR HGB CONC 31.6 g/dl (32-36); MEAN PLATELET VOLUME 9.7 fL (7.4-10.4); MONO % 7.1 %; NEUT % 62.2 %; PLATELET COUNT 195 K/uL (130-400); RED BLOOD COUNT 4.49 M/uL (4.2-5.4); WHITE BLOOD COUNT 9.06 K/uL (4.8-10.8)
[2017-02-02 23:08] LABS: VEN BLD GAS O2 SATURATION 79.6 %; VEN BLOOD GAS BASE EXCESS -1.7 mmol/L
[2017-02-02] MEDS ORDERED: SODIUM BICARB 8.4% INJ 50 MEQ/50 ML SYR IV ONE (23:08)
[2017-02-02] MEDS ORDERED: VANCOMYCIN INJ 1,500 MG in SODIUM CHLORIDE 0.9% 500ML 500 ML IV STA (23:27)
[2017-02-02] MEDS: DexMEDEtomidine HCL IV 200 MCG in SODIUM CHLORIDE 0.9% 50ML 48 ML IV PRN (23:29)
[2017-02-02] MEDS ORDERED: LANS30CA12 PO (23:30)
[2017-02-02 23:34] LABS: URINE APPEARANCE CLEAR (CLEAR); URINE BILIRUBIN NEG (NEG); URINE COLOR DK YELLOW; URINE EPITHELIAL CELL AUTO >30 /lpf (0-5); URINE NITRITE NEG (NEG); URINE PH 5.5 (4.5-7.5); URINE SPECIFIC GRAVITY 1.024 (1.000-1.030); UROBILINOGEN NEG (NEG); ZZURINE CULT IF INDIC CATH NO
[2017-02-02 23:34] LABS: ALB/GLOB RATIO 0.9 (0.9-2); ALKALINE PHOSPHATASE 123 U/L (45-117); ALT/SGPT 21 U/L (12-78); AST/SGOT 27 U/L (15-37); BLOOD UREA NITROGEN 17 mg/dl (7-18); BUN/CREATININE RATIO 17.7 (10-20); C-REACTIVE PROTEIN < 0.29 mg/dl (0-0.29); CALCIUM 8.3 mg/dl (8.5-10.1); CARBON DIOXIDE 27 mmol/L (21-32); CHLORIDE 108 mmol/L (98-107); CKMB/CK RATIO 3.1 (0-3.0); CREATININE 0.97 mg/dl (0.60-1.20); GLUCOSE 195 mg/dl (70-99); MAGNESIUM 1.8 mg/dl (1.8-2.4); PHOSPHORUS 4.3 mg/dl (2.5-4.9); POTASSIUM 3.6 mmol/L (3.5-5.1); SODIUM 146 mmol/L (136-145)
[2017-02-02 23:38] LABS: MANUAL MICROSCOPIC REQUIRED? NO; REVIEW REQ? YES
--- NOTE | 2017-02-02 23:58 | History and Physical ---
History & Physical Date & Time of Service: Feb 02, 2017 at 23:51 Chief Complaint: Resp. Diff. Primary Care Physician: Juma Jones M.D. History of Present Illness Patient intubated on my arrival to the ER. History was obtained from EMS, ED physician and EMR notes. Patient noted to have had an episode of aspiration this evening. Was brought to the ED by EMS. Was in respiratory distress in the ER. She noted to ED physician that she wanted to be intubated and placed on mechanical ventilation. Intubation was done urgently in the ED. Review of the records does show that she was recently admitted for aspiration. In the ED, she was started on a bolus of NSS. BP was 60/40, so Levofed was started simultaneously, with recovery of BP to 150s systolic. Doses of Flagyl and Levaquin were given. Patient was empirically treated with 2 amps of Bicarb. Of note, she was admitted from 01/01 - 01/15 for sepsis secondary to aspiration pneumonia. She was noted at that time to have esophageal dysmotility, with recommendations for diet texture modification alone (soft slippert diet). At that time she required BiPAP on arrival but was gradually transitioned to nasal cannula and subsequently room air and was discharged to the [facility] to continue her recovery. Past Medical/Surgical History Medical Problems: (1) Hypercholesterolemia Status: Chronic (2) Hysterectomy Status: Resolved Family History Patient reports no known family medical history. Social History Smoking Status: Former Smoker Alcohol Use: none Drug Use: none Marital Status: Housing status: lives with family Occupational Status: retired Immunizations History of Influenza Vaccine: Yes Influenza Vaccine Date: Jun 09, 2012 History of Tetanus Vaccine?: Unknown History of Pneumococcal: Yes Pneumococcal Date: Oct 10, 2009 History of Hepatitis B Vaccine: Unknown Multi-Drug Resistant Organisms History of MDRO: No Allergies Coded Allergies: Sulfa Antibiotics (Verified Allergy, Unknown, ., 10/20/16) Fish (Verified Adverse Reaction, Unknown, GI SYMPTOMS, 10/20/16) Shellfish Allergy (Verified Adverse Reaction, Unknown, GI SYMPTOMS, 10/20/16 ) Home Medications Scheduled Acetaminophen (Tylenol), 650 MG PO DAILY Alcaftadine (Lastacaft), 1 DROP OPR QAM Amiodarone HCl (Amiodarone HCl), 100 MG PO TIDM Amoxicillin & Pot Clavulanate (Amoxicillin/Clavulanate P), 875 MG PO BIDM Citalopram (Citalopram Hydrobromide), 40 MG PO QAM Clopidogrel Bisulfate (Clopidogrel), 75 MG PO QAM Ipratropium-Albuterol (Duoneb), 1 TREATMENT INH Q4H Lansoprazole (Prevacid), 30 MG PO QAM Latanoprost (Xalatan 0.005% Oph Milla), 1 DROP OPB HS Magnesium Oxide (Magnesium-Oxide), 400 MG PO BID Multivitamin (Multivitamin), 1 TAB PO QAM Thiamine Hcl (Vitamin B-1), 100 MG PO DAILY Timolol Maleate (Timolol 0.5% Oph Soln 15 Ml), 1 DROP OPL QAM Scheduled PRN Levalbuterol (Levalbuterol HCl), 1 VIAL NEB Q6H PRN for SOB/Wheezing Loperamide Hcl (Imodium A-D), 2 MG PO Q3HRS PRN for Loose Stool(s) Psyllium (Metamucil Fiber), 1 PKT PO BID PRN for Loose Stool(s) Sennosides-Docusate Sodium (Senna S), 1 TAB PO UD PRN for Constipation Review of Systems A 10 point review of systems was unobtainable as patient was intubated on my arrival. Physical Exam Vital Signs Date Time Temp Pulse Resp B/P (MAP) Pulse Ox O2 Delivery O2 Flow Rate FiO2 02/02/17 23:47 94 02/02/17 23:31 135/97 02/02/17 23:29 87 14 100 02/02/17 23:26 151/117 02/02/17 23:24 87 14 100 02/02/17 23:21 150/115 02/02/17 23:19 86 14 98 02/02/17 23:16 156/108 02/02/17 23:14 88 14 97 02/02/17 23:11 114/83 02/02/17 23:09 80 14 96 02/02/17 23:06 87/65 02/02/17 23:04 80 14 96 02/02/17 23:03 66/44 02/02/17 23:01 64/47 02/02/17 23:00 69/50 02/02/17 22:59 82 14 92 02/02/17 22:58 /55 02/02/17 22:57 68/47 02/02/17 22:54 85 14 99 02/02/17 22:51 83/63 02/02/17 22:49 86 14 100 02/02/17 22:46 103/79 02/02/17 22:44 104 14 100 02/02/17 22:43 100 02/02/17 22:41 133/108 02/02/17 22:39 108 14 100 02/02/17 22:38 139/110 02/02/17 22:37 121 02/02/17 22:34 100 02/02/17 22:34 125 40 100 02/02/17 22:32 95/77 02/02/17 22:29 124 46 93 02/02/17 22:29 125 02/02/17 22:24 92 Non-Rebreather 15.0 02/02/17 22:24 Non-Rebreather 02/02/17 22:24 154/121 02/02/17 22:24 126 50 154/124 91 High Flow Oxygen 15.0 General Appearance: WD/WN, no apparent distress Head: normocephalic, atraumatic Eyes: normal inspection, PERRL ENT: + pertinent finding (intubated) Neck: supple, no adenopathy, no JVD Respiratory/Chest: + pertinent finding (bilateral crackles and coarse breath sounds, more prominent at bases) Cardiovascular: regular rate, rhythm, no gallop, no murmur Abdomen/GI: normal bowel sounds, non tender, soft Extremities/Musculoskelatal: no calf tenderness, + pedal edema (2+ bilaterally) Skin: normal color, warm/dry, no rash Lymphatic: no adenopathy Diagnostics Laboratory Results Results Past 24 Hours Test 02/02/17 20:55 02/02/17 22:52 02/02/17 22:55 02/02/17 23:25 Range/Units Urine Color DK YELLOW Urine Appearance CLEAR CLEAR Urine pH 5.5 4.5-7.5 Urine Specific [place] 1.024 1.000-1.030 Urine Protein 3+ NEG Urine Glucose (UA) NEG NEG Urine Ketones TRACE NEG Urine Occult Blood NEG NEG Urine Nitrite NEG NEG Urine Bilirubin NEG NEG Urine Urobilinogen NEG NEG Urine Leukocyte Esterase NEG NEG White Blood Count 9.06 4.8-10.8 K/uL Red Blood Count 4.49 4.2-5.4 M/uL Hemoglobin 13.0 12.0-16.0 g/dL Hematocrit 41.2 37-47 % Mean Corpuscular Volume 91.8 80-100 fL Mean Corpuscular Hemoglobin 29.0 25-34 pg Mean Corpuscular Hemoglobin Concent 31.6 32-36 g/dl Platelet Count 195 130-400 K/uL Mean Platelet Volume 9.7 7.4-10.4 fL Neutrophils (%) (Auto) 62.2 % Lymphocytes (%) (Auto) 28.9 % Monocytes (%) (Auto) 7.1 % Eosinophils (%) (Auto) 1.1 % Basophils (%) (Auto) 0.3 % Neutrophils # (Auto) 5.63 1.4-6.5 K/uL Lymphocytes # (Auto) 2.62 1.2-3.4 K/uL Monocytes # (Auto) 0.64 0.11-0.59 K/uL Eosinophils # (Auto) 0.10 0-0.5 K/uL Basophils # (Auto) 0.03 0-0.2 K/uL RDW Standard Deviation 46.4 36.4-46.3 fL RDW Coefficient of Variation 13.9 11.5-14.5 % Immature Granulocyte % (Auto) 0.4 % Immature Granulocyte # (Auto) 0.04 0.00-0.02 K/uL Erythrocyte Sedimentation Rate 6 0-21 mm/hr Sodium Level 146 136-145 mmol/L Potassium Level 3.6 3.5-5.1 mmol/L Chloride Level 108 98-107 mmol/L Carbon Dioxide Level 27 21-32 mmol/L Anion Gap 11.0 3-11 mmol/L Blood Urea Nitrogen 17 7-18 mg/dl Creatinine 0.97 0.60-1.20 mg/dl Est Creatinine Clear Calc Drug Dose 37.5 ml/min Estimated GFR () 60.4 Estimated GFR (Non- 52.1 BUN/Creatinine Ratio 17.7 10-20 Random Glucose 195 70-99 mg/dl Calcium Level 8.3 8.5-10.1 mg/dl Phosphorus Level 4.3 2.5-4.9 mg/dl Magnesium Level 1.8 1.8-2.4 mg/dl Total Bilirubin 0.3 0.2-1 mg/dl Aspartate Amino Transf (AST/SGOT) 27 15-37 U/L Alanine Aminotransferase (ALT/SGPT) 21 12-78 U/L Alkaline Phosphatase 123 45-117 U/L Total Creatine Kinase 36 26-192 U/L Creatine Kinase MB 1.1 0.5-3.6 ng/ml Creatine Kinase MB Ratio 3.1 0-3.0 Troponin I < 0.015 0-0.045 ng/ml C-Reactive Protein < 0.29 0-0.29 mg/dl Pro-B-Type Natriuretic Peptide 6879 0-1800 pg/ml Total Protein 6.9 6.4-8.2 gm/dl Albumin 3.3 3.4-5.0 gm/dl Globulin 3.6 2.5-4.0 gm/dl Albumin/Globulin Ratio 0.9 0.9-2 Lipase 234 73-393 U/L Chemistry Specimen Hemolysis Venous Blood pH 7.22 7.36-7.41 Venous Blood Partial Pressure CO2 68 38.0-50.0 mmHg Venous Blood Partial Pressure O2 52 mmHg Venous Blood HCO3 27 mmol/L Venous Blood Oxygen Saturation 79.6 % Venous Blood Base Excess -1.7 mmol/L Microbiology Results 02/02/17 Blood Culture, Received Pending 02/02/17 Blood Culture, Received Pending EKG Normal sinus rhythm Left anterior fascicular block Septal infarct , age undetermined Lateral infarct (cited on or before 21-SEP-2016) ST & T wave abnormality, consider anterior ischemia Abnormal ECG When compared with ECG of 03-JAN-2017 06:54, Premature ventricular complexes are no longer Present Septal infarct is now Present Impression Assessment and Plan (1) Acute respiratory failure with hypoxia and hypercapnia (2) Aspiration pneumonia (3) Esophageal dysmotility (4) Congestive Heart Failure Nos (5) Cerebrovasc Disease Nos (6) Hypertension Nos (7) Hypotension (8) Paroxysmal a-fib Neurological - Precedex and Versed Infusion - Goal RASS -3; wean sedation to -1/0 once respiratory status stabilized - Depression: Citalopram via OG tube Cardiovascular - Goal MAP > 65 - Levofed as needed to keep MAP > 65 - Hx of diastolic CHF. 2014, EF reported 65-70%; daily weights with strict I/Os - Hx of paroxysmal afib: NSR on arrival, continue to monitor as she is at risk given acute pulmonary issues Respiratory - Recurrence of aspiration pneumonia - Continue mechanical ventilation A/C Mode FiO2 100%; RR 14; Vt 450; PEEP 5 - ABG and adjust ventilator settings accordingly - Duoneb q6h leandro - Vancomycin and Zosyn IV Gastrointestinal - Hx of esophageal dysmotility with recurrent aspiration - NPO - OG tube in place - Protonix 40 mg IV - May require PEG tube to circumvent ongoing risk of aspiration Genitourinary - Monitor U/O; daily weight, I/Os - Mild hypernatremia 146 - Patient treated empirically with 2 amps NaHCO3 in ED; may cause further increase in Na - 1/2 NSS + 20 KCl @ 100 ml/hr - No history of diabetes BSG q6h while fasting; AC/HS once tolerating diet Infectious Disease - No leukocytosis; patient afebrile on arrival - Procalcitonin and Lactate pending - Aspiration PNA: Vancomycin and Zosyn Heme - Stable DVT Prophylaxis - Heparin 5000 TID - SCD Code Status - DNR - POLST form shows patient DNR if not pulse and not breathing; however, if pulse and breathing, POLST states to treat including intubation. Patient also noted to ED physician to do as such. Disposition - ICU - PT and OT ordered Level of Care Critical Care Resuscitation Status DO NOT RESUSCITATE VTE Prophylaxis VTE Risk Assessment Done? Y/N: Yes Risk Level: Moderate Given or contraindicated: Unfractionated heparin SQ Assessment and Plan Attending Addendum: I have physically seen and examined this patient, have directed their medical care, have supervised the medical residents activities, and agree with the H&P as noted above, with the following changes: NONE Problem Qualifiers (1) Aspiration pneumonia: Aspiration pneumonia type: unspecified Laterality: unspecified laterality Lung location: unspecified part of lung Qualified Codes: J69.0 - Pneumonitis due to inhalation of food and vomit
[2017-02-03] VITALS (35 sets, daily range): BP systolic 60–138; BP diastolic 36–110; PULSE 45–88; TEMP 35.3–37.9; O2SAT 91–100; Ht 167.6 cm; Wt 58.4 kg
[2017-02-03] MEDS ORDERED: LOPERAMIDE HCL 2 MG CAP PO PRN
[2017-02-03] MEDS ORDERED: MoRPHine SULFATE 2 MG/ML CARP IV PRN
[2017-02-03] MEDS ORDERED: PSYLLIUM 58.6% PWD PACK S\\F PO PRN
[2017-02-03] MEDS ORDERED: DOCUSATE SODIUM/SENNA 50/8.6MG TAB PO PRN
[2017-02-03 00:18] LABS: INR 1.1 (0.9-1.1)
[2017-02-03] MEDS ORDERED: VANCOMYCIN CONSULT ACTIVE PRN (00:45)
[2017-02-03] MEDS ORDERED: PIPERACILL/TAZOBAC CONSULT ACTIVE PRN (00:45)
[2017-02-03 00:52] LABS: ISTAT ALLEN TEST Pass; ISTAT ARTERIAL BLOOD GAS HCO3 25 meq/L (19-24); ISTAT ARTERIAL BLOOD GAS PCO2 53 mmHg (35-46); ISTAT ARTERIAL BLOOD GAS PO2 85 mmHg (80-95); ISTAT ARTERIAL BLOOD GAS pH 7.27 (7.35-7.45); ISTAT CARBON DIOXIDE 26 mEq/l (24-31); ISTAT DELIVERY SYSTEM Ventilator; ISTAT FIO2 100 %; ISTAT PEEP 5; ISTAT RATE 14; ISTAT SITE L Brachial; VE 7.4; Vt 450
[2017-02-03] MEDS ORDERED: MIDAZOLAM 125MG/250ML D5W 250 ML IV PRN (00:56)
[2017-02-03] MEDS ORDERED: PIPERACILL/TAZOBAC IV 3.375 GM in DEXTROSE 5% 100ML IV ONE (01:00)
[2017-02-03] MEDS ORDERED: SODIUM CHLOR 0.45% + 20MEQ KCL 1,000 ML IV SCH (01:00)
[2017-02-03] MEDS: ALBUT/IPRATROP 3MG/0.5MG NEB 3 ML VIAL INH SCH ×4 (01:08→19:00)
[2017-02-03 03:34] LABS: ISTAT ARTERIAL BLOOD GAS HCO3 24 meq/L (19-24); ISTAT ARTERIAL BLOOD GAS PCO2 42 mmHg (35-46); ISTAT ARTERIAL BLOOD GAS PO2 91 mmHg (80-95); ISTAT ARTERIAL BLOOD GAS pH 7.36 (7.35-7.45); ISTAT CARBON DIOXIDE 25 mEq/l (24-31); ISTAT DELIVERY SYSTEM Ventilator; ISTAT FIO2 100 %; ISTAT PEEP 10; ISTAT RATE 18; ISTAT SITE L Brachial; VE 8.2; Vt 450
[2017-02-03] MEDS: HEPARIN SOD 5000 UNIT/0.5 ML CARP SQ SCH ×3 (05:31→22:29)
[2017-02-03] MEDS: PIPERACILL/TAZOBAC IV 3.375 GM in DEXTROSE 5% 100ML IV SCH ×3 (05:32→22:30)
[2017-02-03 05:37] LABS: BASO % 0.1 %; BASO ABS # 0.01 K/uL (0-0.2); COMPLETE YES; EOS % 0.2 %; HEMATOCRIT 40.1 % (37-47); IG% 0.2 %; LYMPH % 7.5 %; LYMPH ABS # 0.77 K/uL (1.2-3.4); MEAN CELL VOLUME 89.7 fL (80-100); MEAN CORPUSCULAR HEMOGLOBIN 27.5 pg (25-34); MEAN CORPUSCULAR HGB CONC 30.7 g/dl (32-36); MEAN PLATELET VOLUME 9.6 fL (7.4-10.4); MONO % 5.8 %; NEUT % 86.2 %; PLATELET COUNT 242 K/uL (130-400); RED BLOOD COUNT 4.47 M/uL (4.2-5.4)
[2017-02-03] MEDS ORDERED: LEVAQUIN 750MG / 150ML D5W IV ONE (06:00)
[2017-02-03] MEDS ORDERED: PIPERACILL/TAZOBAC IV 3.375 GM in DEXTROSE 5% 100ML 100 ML IV SCH (06:00)
[2017-02-03 06:21] LABS: ALB/GLOB RATIO 0.9 (0.9-2); BUN/CREATININE RATIO 18.2 (10-20); CALCIUM 7.8 mg/dl (8.5-10.1); CREATININE 0.9 mg/dl (0.60-1.20); MAGNESIUM 1.5 mg/dl (1.8-2.4); PHOSPHORUS 2.7 mg/dl (2.5-4.9); POTASSIUM 3.5 mmol/L (3.5-5.1)
--- NOTE | 2017-02-03 06:24 | DIAGNOSTIC IMAGING REPORT ---
CHEST ONE VIEW PORTABLE CLINICAL HISTORY: Sepsis dyspnea COMPARISON STUDY: 01/05/2017 FINDINGS: Findings of mild pulmonary edema. Small left pleural effusion. Endotracheal tube 3 cm above the darwin. IMPRESSION: Pulmonary edema. Small left pleural effusion. Endotracheal tube 3 cm above the darwin. Electronically signed by: Tim Bender M.D. 02/03/2017 6:22 AM Dictated Date/Time: 02/03/2017 6:22 AM
[2017-02-03] MEDS ORDERED: SODIUM CHLORIDE 0.9% 500ML 500 ML IV SCH (06:30)
[2017-02-03] MEDS ORDERED: MAGNESIUM SULFATE 1GM / D5W 1 GM in PREMIXED IN D5W 100 ML IV ONE ×2 (07:00→09:46)
[2017-02-03] MEDS ORDERED: NURSING VERBAL MED ORDER ONE ×2 (07:00→09:45)
[2017-02-03] MEDS: NOREPINEPHRINE BIT INJ 8 MG in DEXTROSE 5% 500ML 500 ML IV PRN (07:13)
[2017-02-03] MEDS ORDERED: MAGNESIUM SULFATE 1GM / D5W 1 GM in PREMIXED IN D5W 100 ML IV STA (07:33)
--- NOTE | 2017-02-03 08:51 | DIAGNOSTIC IMAGING REPORT ---
SINGLE VIEW CHEST CLINICAL HISTORY: Aspiration pneumonia. FINDINGS: An AP, portable, upright chest radiograph is compared to study dated 02/02/2017. Correlation is made with chest CT dated 06/07/2016. The examination is degraded by portable technique and patient rotation. An enteric tube has been removed. The endotracheal tube has been advanced. The tip projects 1.3 cm above the darwin The heart is enlarged. There is pulmonary vascular congestion with interstitial edema. 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 Chronic interstitial thickening is unchanged. Opacities are present both lung bases and there is a left pleural effusion. Biapical scarring is observed. There is no pneumothorax. The skeletal structures are osteopenic. Chronic posttraumatic deformity is noted in the right humerus. IMPRESSION: 1. Cardiomegaly with congestive failure and interstitial edema. This has modestly improved from 02/02/2017. 2. Bibasilar airspace opacities and left pleural effusion. This likely represents atelectasis/pulmonary edema. Correlate clinically for evidence of superimposed pneumonia. 3. The enteric tube has been removed. Electronically signed by: Kirill Cui M.D. 02/03/2017 8:49 AM Dictated Date/Time: 02/03/2017 8:46 AM
[2017-02-03] MEDS ORDERED: PANTOprazole SOD 40 MG TAB PO SCH (09:00)
[2017-02-03] MEDS ORDERED: CITALOPRAM 40 MG TAB PO SCH (09:00)
[2017-02-03] MEDS ORDERED: VANCOMYCIN INJ 1,000 MG in SODIUM CHLORIDE 0.9% 250ML 250 ML IV SCH (09:00)
[2017-02-03] MEDS: TIMOLOL MALEATE 0.5% OP SOLN 5 ML BTL OPL SCH (09:00)
[2017-02-03] MEDS ORDERED: THIAMINE HCL 100 MG TAB PO SCH (09:00)
[2017-02-03] MEDS: SODIUM CHLORIDE 0.45% 1000ML 1,000 ML IV SCH ×2 (09:47→15:07)
[2017-02-03] MEDS: POTASSIUM CHLR 20MEQ / WTR IV SCH ×2 (10:04→12:00)
[2017-02-03] MEDS: DexMEDEtomidine HCL IV 200 MCG in SODIUM CHLORIDE 0.9% 50ML 48 ML IV PRN (10:04)
[2017-02-03] MEDS: PANTOprazole INJ 40 MG in SYRINGE 0 ML IV SCH (10:05)
--- NOTE | 2017-02-03 10:35 | CRITICAL CARE CONSULTATION ---
DATE OF CONSULTATION: 02/03/2017 CHIEF COMPLAINT: Shortness of breath. HISTORY OF PRESENT ILLNESS: Denise Elliott is an 86-year-old woman with a history of esophageal dysmotility and esophageal obstruction secondary to food boluses who presented to the Emergency Department in respiratory distress last night. She lives at [facility] at [facility] and evidently aspirated on some type of food. She was in respiratory distress and was given a bronchodilator on the way into the hospital by EMS and required emergent intubation with the use of rocuronium and etomidate. She received Levaquin and Flagyl in the Emergency Department along with sodium bicarbonate x2 amps and at least 1 liter of IV fluid bolus. She was then transferred to the intensive care unit. The patient was recently in the hospital between January 01 and January 15 with aspiration pneumonia and was found to have esophageal dysmotility. She was seen by Dr. Grover and Dr. Smith and was to have been eating a modified soft slippery diet. On that admission, she was treated with Zosyn. She has also had a choking episode in June of 2016, which led to a respiratory arrest. She at times has required EGD to remove fluid boluses from her esophagus. Obviously, she cannot give me any history. Presently, there is no family at the bedside. No family had called in to the hospital according to her. PAST MEDICAL HISTORY: Aspiration pneumonia, hypercholesterolemia, status post CVA, dysphagia, hypertension, osteoarthritis. PAST SURGICAL HISTORY: Status post hysterectomy. ALLERGIES: SULFA, YOGURT AND SHELLFISH. PREHOSPITAL MEDICATIONS: Acetaminophen 325 mg daily, Lastacaft 1 drop in the right eye daily, citalopram 40 mg daily, clopidogrel 75 mg daily, Prevacid 30 mg daily, Xalatan 1 drop at bedtime, Xopenex p.r.n. and Imodium p.r.n., multivitamin with minerals daily, Metamucil p.r.n., senna p.r.n., thiamine 100 mg daily, timolol eyedrops. SOCIAL HISTORY: She lives at the [facility] in the assisted living area. She is a former smoker. There is no information about alcohol on the previous few admissions. FAMILY HISTORY: Noncontributory. REVIEW OF SYSTEMS: Not obtainable. PHYSICAL EXAMINATION: VITAL SIGNS: Temperature 36.4, heart rate 54, respiratory rate 18, blood pressure 80s-90s over 50s-60s, oxygen saturation 100%, ventilator settings assist control rate 18, tidal volume 450, FiO2 80%, PEEP 10. GENERAL: She is sedated with Versed and Precedex. HEENT: Pupils are unequal. The left pupil is surgical and irregular and reacts a little bit. Right is about 2 mm and minimally sluggishly reactive. There is an endotracheal tube in place. The patient has her own teeth. I am unable to appreciate any obstruction or foreign material in her posterior pharynx on visual inspection. NECK: No adenopathy, veins are flat. LUNGS: Coarse bilaterally. No rales, rhonchi or wheezes. HEART: Regular rate and rhythm. ABDOMEN: Soft, nondistended, nontender. Active bowel sounds. EXTREMITIES: Warm, 1+ radial and dorsalis pedis pulses, trace pretibial edema. NEUROLOGIC: She will move all 4 extremities, but not to command. LABORATORY DATA: White blood cell count is 906, hemoglobin 13, hematocrit 41.2, platelets 195, pH 7.36, pCO2 42, pO2 91, HCO3 24. Sodium 146, potassium 3.6, chloride 108, CO2 27, BUN 17, creatinine 0.97, calcium 8.3, phosphorus 4.3, magnesium 1.8, AST 27, ALT 21, alkaline phosphatase 123. ProBNP 6879, albumin 3.3. Procalcitonin less than 0.05. PT, PTT, INR within normal limits. Lactic acid 1.9, repeated 2.5. Blood cultures are pending. IMAGING DATA: Chest x-ray was reviewed and shows the endotracheal tube to be in satisfactory position. She has a large aortic knob and bibasilar infiltrate. Normal sinus rhythm with T-wave inversions in V2 through V6. Left anterior fascicular block. IMPRESSION: 1. Acute hypoxemic respiratory failure secondary to aspiration. 2. Hypotension with contributing factors being her sedation. 3. Aspiration pneumonitis. 4. History of esophageal dysmotility and aspiration. 5. History of cerebrovascular accident, on Plavix. PLAN: 1. Neurologic: Continue sedation with Precedex and Versed. Wakeup assessment today. 2. Pulmonary: Continue bronchodilators and consider bronchoscopy, wean FIO2-68 and then PEEP. 3. Cardiovascular: Rule out myocardial infarction with serial cardiac enzymes. Wean the Levophed for a MAP greater than or equal to 65. She has a right femoral triple lumen catheter placed in the Emergency Department. 4. Infectious disease: She is on Zosyn and vancomycin. I would like to obtain sputum Gram stain and culture. Blood cultures pending. 5. Gastrointestinal: I spoke to the GI service. There has been difficulty passing the NG tube. Dr. Grover knows her well. PPI for her GI prophylaxis. 6. Hematology: She is on subcutaneous heparin for DVT prophylaxis. 7. Renal: No acute active issues. Change IV fluids to half normal saline at 100 mL per hour. The patient has a POLST form and is now DNR. It is unclear to me whether or not family is aware that she is here. I expect the daylight team to try to connect up with them today. Critical care time 1 hour. JOLIE
--- NOTE | 2017-02-03 13:50 | Critical Care Progress Note ---
Critical Care Progress Note Date of Service Feb 03, 2017. Critical Care Progress Note Patient is currently intubated, no subjective data. Progress note in addition to consultation completed this am 1. Acute hypoxemic respiratory failure secondary to aspiration 2. Hypotension with contributing factors being her sedation. 3. Aspiration pneumonitis 4. History of esophageal dysmotility and aspiration 5. History of cerebrovascular accident, on Plavix 6. Elevated rectal temp possibly secondary to infection 7. h/o GERD 8. Prolonged QTc with short run of VT 9. Glaucoma 10. Depression NVS - patient currently on midazolam and Precedex for sedation - will start to wean slowly, sedation vacation after patient assessed for food bolus removal CVS - has had two short run of VT - She received 2 GM of Mag this am - Repeat EKG revealed improvement of QTc to 522 from 591 - continue to hold the citalopram - Levaquin that was received should be out of the system in 24 hours - repeat EKG in am RESP - R 18, TV 0.45, PEEP 10, FIO2- 50 - ID - patient has a rectal temp of 38.9 however the axillary and oral temp is < 37 - patient is not tachycardic or diaphoretic - repeat blood cultures - Tylenol prn IV - Zosyn ( per antibiogram is sufficient for pseudomonal coverage) and vanco GI - GI consulted - on a previous admission as she has had multiple intubations for aspiration pna a PEG was discussed - Pantoprazole 40 mg daily - continue to monitor I&O HEME - when able, continue Plavix for h/o CVA ENDO - BSG ACHS DVT Prophylaxis - heparin q8h Patient is a DNR Resident Physician Supervision Note: Dr. West was resident physician during care of patient. I separately evaluated patient and did history and exam. I discussed the case with the resident and generally agree with the findings and plan. Patient still requiring vasoactive medications, no spontaneous breathing trial today, to sedate will scale back sedatives and attempt spontaneous breathing trial tomorrow I have personally spent 35 minutes of critical care time in the direct management of this patient. This is a life/limb threatening event. This includes time spent evaluating patient, direct bedside care, chart review, placing orders, interpretation of diagnostic studies, discussion with consultants, patient, and family members, as well as other required patient management activities. This time is exclusive of all separately billable procedures, and teaching time and separate from and in addition to any other critical care service time. Documented By: Bud Garcia, DO
--- NOTE | 2017-02-03 13:56 | Pharmacy Progress Note ---
Pharmacy Antibiotic Consult Date of Service: Feb 03, 2017. Pharmacy Dosing Scope Pharmacy is consulted to initiate IV VANCOMYCIN and ZOSYN therapy, order appropriate labs and adjust drug dose/frequency. Subjective The patient is a 86 year old female admitted on Feb 02, 2017 at 23:45 for hypoxia, respiratory failure following aspiration. The patient is currently being treated for possible aspiration PNX. Objective Height (Feet): 5 Height (Inches): 6.00 Weight (Kilograms): 58.300 Lab Results (24hrs): Test 02/02/17 20:55 02/02/17 22:52 02/02/17 22:55 02/02/17 23:58 Urine Color DK YELLOW Urine Appearance CLEAR (CLEAR) Urine pH 5.5 (4.5-7.5) Urine Specific [place] 1.024 (1.000-1.030) Urine Protein 3+ (NEG) Urine Glucose (UA) NEG (NEG) Urine Ketones TRACE (NEG) Urine Occult Blood NEG (NEG) Urine Nitrite NEG (NEG) Urine Bilirubin NEG (NEG) Urine Urobilinogen NEG (NEG) Urine Leukocyte Esterase NEG (NEG) Urine WBC (Auto) 1-5 /hpf (0-5) Urine RBC (Auto) 0-4 /hpf (0-4) Urine Hyaline Casts (Auto) 10-30 /lpf (0-5) Urine Epithelial Cells (Auto) >30 /lpf (0-5) Urine Bacteria (Auto) NEG (NEG) Urine Renal Epithelial Cells /lpf (0-5) Urine Crystals AMORPHOUS SEDIMENT (NONE White Blood Count 9.06 K/uL (4.8-10.8) Red Blood Count 4.49 M/uL (4.2-5.4) Hemoglobin 13.0 g/dL (12.0-16.0) Hematocrit 41.2 % (37-47) Mean Corpuscular Volume 91.8 fL (80-100) Mean Corpuscular Hemoglobin 29.0 pg (25-34) Mean Corpuscular Hemoglobin Concent 31.6 g/dl (32-36) Platelet Count 195 K/uL (130-400) Mean Platelet Volume 9.7 fL (7.4-10.4) Neutrophils (%) (Auto) 62.2 % Lymphocytes (%) (Auto) 28.9 % Monocytes (%) (Auto) 7.1 % Eosinophils (%) (Auto) 1.1 % Basophils (%) (Auto) 0.3 % Neutrophils # (Auto) 5.63 K/uL (1.4-6.5) Lymphocytes # (Auto) 2.62 K/uL (1.2-3.4) Monocytes # (Auto) 0.64 K/uL (0.11-0.59) Eosinophils # (Auto) 0.10 K/uL (0-0.5) Basophils # (Auto) 0.03 K/uL (0-0.2) RDW Standard Deviation 46.4 fL (36.4-46.3) RDW Coefficient of Variation 13.9 % (11.5-14.5) Immature Granulocyte % (Auto) 0.4 % Immature Granulocyte # (Auto) 0.04 K/uL (0.00-0.02) Erythrocyte Sedimentation Rate 6 mm/hr (0-21) Sodium Level 146 mmol/L (136-145) Potassium Level 3.6 mmol/L (3.5-5.1) Chloride Level 108 mmol/L (98-107) Carbon Dioxide Level 27 mmol/L (21-32) Anion Gap 11.0 mmol/L (3-11) Blood Urea Nitrogen 17 mg/dl (7-18) Creatinine 0.97 mg/dl (0.60-1.20) Est Creatinine Clear Calc Drug Dose 37.5 ml/min Estimated GFR () 60.4 Estimated GFR (Non- 52.1 BUN/Creatinine Ratio 17.7 (10-20) Random Glucose 195 mg/dl (70-99) Calcium Level 8.3 mg/dl (8.5-10.1) Phosphorus Level 4.3 mg/dl (2.5-4.9) Magnesium Level 1.8 mg/dl (1.8-2.4) Total Bilirubin 0.3 mg/dl (0.2-1) Aspartate Amino Transf (AST/SGOT) 27 U/L (15-37) Alanine Aminotransferase (ALT/SGPT) 21 U/L (12-78) Alkaline Phosphatase 123 U/L (45-117) Total Creatine Kinase 36 U/L (26-192) Creatine Kinase MB 1.1 ng/ml (0.5-3.6) Creatine Kinase MB Ratio 3.1 (0-3.0) Troponin I < 0.015 ng/ml (0-0.045) C-Reactive Protein < 0.29 mg/dl (0-0.29) Pro-B-Type Natriuretic Peptide 6879 pg/ml (0-1800) Total Protein 6.9 gm/dl (6.4-8.2) Albumin 3.3 gm/dl (3.4-5.0) Globulin 3.6 gm/dl (2.5-4.0) Albumin/Globulin Ratio 0.9 (0.9-2) Lipase 234 U/L (73-393) Procalcitonin < 0.05 ng/ml (0-0.5) Chemistry Specimen Hemolysis Venous Blood pH 7.22 (7.36-7.41) Venous Blood Partial Pressure CO2 68 mmHg (38.0-50.0) Venous Blood Partial Pressure O2 52 mmHg Venous Blood HCO3 27 mmol/L Venous Blood Oxygen Saturation 79.6 % Venous Blood Base Excess -1.7 mmol/L Prothrombin Time 12.0 SECONDS (9.0-12.0) Prothromb Time International Ratio 1.1 (0.9-1.1) Activated Partial Thromboplast Time 25.5 SECONDS (21.0-31.0) Partial Thromboplastin Ratio 1.0 Test 02/03/17 00:40 02/03/17 03:22 02/03/17 05:09 02/03/17 05:34 Blood Gas Sample Site L Brachial L Brachial Bedside Blood Gas pH (LAB) 7.27 (7.35-7.45) 7.36 (7.35-7.45) Bedside Blood Gas pCO2 (LAB) 53 mmHg (35-46) 42 mmHg (35-46) Bedside Blood Gas pO2 (LAB) 85 mmHg (80-95) 91 mmHg (80-95) Bedside Blood Gas HCO3 (LAB) 25 meq/L (19-24) 24 meq/L (19-24) Bedside Blood Gas Total CO2 26 mEq/l (24-31) 25 mEq/l (24-31) Bedside Blood Gas Base Excess (LAB) -2.0 meq/L (-9-1.8) -2.0 meq/L (-9-1.8) Bedside Blood Gas O2 Saturation 95.0 % (90-95) 97.0 % (90-95) Kosta Test Pass NA Oxygen Delivery Device Ventilator Ventilator Bedside Oxygen Rate (breaths/min) 14 18 Blood Gas Minute Ventilation 7.4 8.2 Bedside FiO2 100 % 100 % Blood Gas Tidal Volume 450 450 Blood Gas PEEP 5 10 White Blood Count 10.20 K/uL (4.8-10.8) Red Blood Count 4.47 M/uL (4.2-5.4) Hemoglobin 12.3 g/dL (12.0-16.0) Hematocrit 40.1 % (37-47) Mean Corpuscular Volume 89.7 fL (80-100) Mean Corpuscular Hemoglobin 27.5 pg (25-34) Mean Corpuscular Hemoglobin Concent 30.7 g/dl (32-36) Platelet Count 242 K/uL (130-400) Mean Platelet Volume 9.6 fL (7.4-10.4) Neutrophils (%) (Auto) 86.2 % Lymphocytes (%) (Auto) 7.5 % Monocytes (%) (Auto) 5.8 % Eosinophils (%) (Auto) 0.2 % Basophils (%) (Auto) 0.1 % Neutrophils # (Auto) 8.79 K/uL (1.4-6.5) Lymphocytes # (Auto) 0.77 K/uL (1.2-3.4) Monocytes # (Auto) 0.59 K/uL (0.11-0.59) Eosinophils # (Auto) 0.02 K/uL (0-0.5) Basophils # (Auto) 0.01 K/uL (0-0.2) RDW Standard Deviation 45.6 fL (36.4-46.3) RDW Coefficient of Variation 13.9 % (11.5-14.5) Immature Granulocyte % (Auto) 0.2 % Immature Granulocyte # (Auto) 0.02 K/uL (0.00-0.02) Sodium Level 143 mmol/L (136-145) Potassium Level 3.5 mmol/L (3.5-5.1) Chloride Level 108 mmol/L (98-107) Carbon Dioxide Level 24 mmol/L (21-32) Anion Gap 11.0 mmol/L (3-11) Blood Urea Nitrogen 16 mg/dl (7-18) Creatinine 0.90 mg/dl (0.60-1.20) Est Creatinine Clear Calc Drug Dose 39.8 ml/min Estimated GFR () 66.2 Estimated GFR (Non- 57.1 BUN/Creatinine Ratio 18.2 (10-20) Random Glucose 156 mg/dl (70-99) Lactic Acid Level 2.5 mmol/L (0.4-2.0) Calcium Level 7.8 mg/dl (8.5-10.1) Phosphorus Level 2.7 mg/dl (2.5-4.9) Magnesium Level 1.5 mg/dl (1.8-2.4) Total Bilirubin 0.9 mg/dl (0.2-1) Aspartate Amino Transf (AST/SGOT) 17 U/L (15-37) Alanine Aminotransferase (ALT/SGPT) 15 U/L (12-78) Alkaline Phosphatase 96 U/L (45-117) Total Protein 5.8 gm/dl (6.4-8.2) Albumin 2.8 gm/dl (3.4-5.0) Globulin 3.0 gm/dl (2.5-4.0) Albumin/Globulin Ratio 0.9 (0.9-2) Procalcitonin 0.23 ng/ml (0-0.5) Bedside Glucose 129 mg/dl (70-90) Test 02/03/17 11:17 02/03/17 11:40 Lactic Acid Level 2.6 mmol/L (0.4-2.0) Bedside Glucose (other) 203 mg/dl (70-99) Micro Results: Blood Cx's ordered and pending Negative MRSA nares screen UA negative for infxn Recent Pertinent Medications Vancomycin 1500mg (~26mg/kg) x 1 02/02 @ 4018 Levofloxacin 750mg IV x 1 02/02 @2253 Zosyn 3.375gm extended infusion Q 8 hrs Assessment & Plan * 86 yo female w/ h/o dysphagia presented last evening with hypoxia and resp distress following aspiration * She is current intubated, sedated on mechanical ventilation * WBC not elevated, pt noted to be hypothermic - bear hugger ordered, procalcitonin < 0.05 -->0.23, CXR reported to show bibasilar opacities and L effusion; oxygenating well w/ current vent settings, HR 50's and BPs 90's/50's ( was receiving dexmedetomidine - this is being weaned); MRSA nasal swab negative ; SCr 0.9 and producing adequate urine at this time * QTc prolonged - would avoid further Levofloxacin doses and other QT prolonging meds; Doxy indicated if atypical coverage necessary however atypicals would be unusual cause of aspiration pnx VANCOMYCIN * Load 1500mg (26mg/kg) give x 1 last evening * Maintenance dose: 900mg (15mg/kg) Q 24 hrs * Goal trough: 15-20mcg/mL for pulmonary infxn * Check trough level w/ 3rd dose * P'kinetic estimates: Vd 0.7L/kg; half-life ~19 hours; Valeriy 0.36 hr-1 ZOSYN * 3.375gm ext-infusion Q 8 hrs appropriate for eCrCl > 20cc/min and BMI 20.7 Pharmacy will continue to follow and will adjust dose/frequency as necessary. Thank you
--- NOTE | 2017-02-03 14:30 | Progress Note ---
Subjective Date of Service: Feb 03, 2017. Subjective Pt evaluation today including: conversation w/ family, physical exam, chart review, lab review, review of studies, conversation w/ it architecture consultant, review of inpatient medication list Voiding: quesada catheter in place Intubated, sedated, on pressure support, about 600 urine output in the last 24 hours, afebrile Problem List Medical Problems: (1) Acute aspiration pneumonia Status: Acute (2) Acute dyspnea Status: Acute (3) Choking Status: Acute (4) Choking episode Status: Acute (5) Choking episode Status: Acute (6) Contusion of multiple sites Status: Acute (7) Dizzy spells Status: Acute (8) DNR (do not resuscitate) Status: Acute (9) Fall Status: Acute (10) Fall Status: Acute (11) Hypokalemia Status: Acute (12) Hypoxia Status: Acute (13) Lactic acidosis Status: Acute (14) Respiratory acidosis Status: Acute (15) Respiratory arrest Status: Acute (16) Respiratory arrest Status: Acute (17) Respiratory failure Status: Acute (18) Rib pain on left side Status: Acute (19) Upper abdominal pain Status: Acute Review of Systems Constitutional: + problem reported (not able to obtain because patient is intubated) Objective Vital Signs Date Time Temp Pulse Resp B/P (MAP) Pulse Ox O2 Delivery O2 Flow Rate FiO2 02/03/17 12:00 37.5 69 20 117/69 (85) 98 Mechanical Ventilator 35 02/03/17 12:00 50 02/03/17 12:00 Mechanical Ventilator 50 02/03/17 11:03 50 02/03/17 10:55 Mechanical Ventilator 50 02/03/17 10:30 35 02/03/17 10:00 37.0 55 19 93/62 (72) 100 02/03/17 08:00 36.7 55 18 98/67 (77) 100 02/03/17 08:00 Mechanical Ventilator 50 02/03/17 07:35 50 02/03/17 06:06 80 02/03/17 05:01 100 02/03/17 04:08 100 02/03/17 04:05 36.4 54 18 83/62 (69) 100 02/03/17 04:00 100 Mechanical Ventilator 100 02/03/17 04:00 100 02/03/17 04:00 36.3 53 18 100 02/03/17 04:00 80 02/03/17 03:41 36.0 53 15 90/57 (68) 99 02/03/17 03:01 35.4 52 18 98/64 (75) 100 02/03/17 03:00 35.4 52 18 100 02/03/17 02:01 35.3 50 18 103/66 (78) 100 02/03/17 02:00 35.3 50 18 100 02/03/17 01:47 35.4 51 18 103/66 (78) 100 02/03/17 01:31 35.8 51 18 99/67 (78) 100 02/03/17 01:26 35.8 45 18 105/66 (79) 100 02/03/17 01:16 36.0 51 25 96/56 (69) 95 02/03/17 01:14 36.0 49 28 60/36 (44) 94 02/03/17 01:11 62 18 95 Mechanical Ventilator 100 02/03/17 01:11 36.0 46 24 95 02/03/17 01:08 100 02/03/17 01:01 36.0 53 18 69/43 (52) 95 02/03/17 01:00 35.9 54 18 93 02/03/17 00:58 36.0 58 18 97/59 (72) 91 02/03/17 00:40 36.0 57 19 88/62 (71) 97 02/03/17 00:25 36.2 65 22 88/62 94 Mechanical Ventilator 100 02/03/17 00:06 88 19 138/110 (119) 97 02/03/17 00:01 83 19 121/91 (101) 97 02/03/17 00:00 80 19 98 02/02/17 23:47 94 02/02/17 23:31 135/97 02/02/17 23:29 87 14 100 02/02/17 23:26 151/117 02/02/17 23:24 87 14 100 02/02/17 23:21 150/115 02/02/17 23:19 86 14 98 02/02/17 23:16 156/108 02/02/17 23:14 88 14 97 02/02/17 23:11 114/83 02/02/17 23:09 80 14 96 02/02/17 23:06 87/65 02/02/17 23:04 80 14 96 02/02/17 23:03 66/44 02/02/17 23:01 64/47 02/02/17 23:00 69/50 02/02/17 22:59 82 14 92 02/02/17 22:58 /55 02/02/17 22:57 68/47 02/02/17 22:54 85 14 99 02/02/17 22:51 83/63 02/02/17 22:49 86 14 100 02/02/17 22:46 103/79 02/02/17 22:44 104 14 100 02/02/17 22:43 100 02/02/17 22:41 133/108 02/02/17 22:39 108 14 100 02/02/17 22:38 139/110 02/02/17 22:37 121 02/02/17 22:34 100 02/02/17 22:34 125 40 100 02/02/17 22:32 95/77 02/02/17 22:29 124 46 93 02/02/17 22:29 125 02/02/17 22:24 92 Non-Rebreather 15.0 02/02/17 22:24 Non-Rebreather 02/02/17 22:24 154/121 02/02/17 22:24 126 50 154/124 91 High Flow Oxygen 15.0 Physical Exam General Appearance: + pertinent finding (intubated and sedated) ENT: + pertinent finding (trach is in mid line) Neck: supple, no adenopathy, thyroid normal, no JVD, no carotid bruits, trachea midline Respiratory/Chest: chest non-tender, normal breath sounds, + decreased breath sounds Cardiovascular: regular rate, rhythm, no edema, no gallop, no JVD, no murmur Abdomen: normal bowel sounds, non tender, soft, no organomegaly, no pulsatile mass Extremities: + swelling (1+) Neurologic/Psychiatric: + pertinent finding (sedated) Skin: + pertinent finding (cold) Laboratory Results Last 24 Hours Test 02/02/17 20:55 02/02/17 22:52 02/02/17 22:55 02/02/17 23:25 Urine Color DK YELLOW Urine Appearance CLEAR Urine pH 5.5 Urine Specific [place] 1.024 Urine Protein 3+ Urine Glucose (UA) NEG Urine Ketones TRACE Urine Occult Blood NEG Urine Nitrite NEG Urine Bilirubin NEG Urine Urobilinogen NEG Urine Leukocyte Esterase NEG Urine WBC (Auto) 1-5 /hpf Urine RBC (Auto) 0-4 /hpf Urine Hyaline Casts (Auto) 10-30 /lpf Urine Epithelial Cells (Auto) >30 /lpf Urine Bacteria (Auto) NEG Urine Renal Epithelial Cells /lpf Urine Crystals AMORPHOUS SEDIMENT White Blood Count 9.06 K/uL Red Blood Count 4.49 M/uL Hemoglobin 13.0 g/dL Hematocrit 41.2 % Mean Corpuscular Volume 91.8 fL Mean Corpuscular Hemoglobin 29.0 pg Mean Corpuscular Hemoglobin Concent 31.6 g/dl Platelet Count 195 K/uL Mean Platelet Volume 9.7 fL Neutrophils (%) (Auto) 62.2 % Lymphocytes (%) (Auto) 28.9 % Monocytes (%) (Auto) 7.1 % Eosinophils (%) (Auto) 1.1 % Basophils (%) (Auto) 0.3 % Neutrophils # (Auto) 5.63 K/uL Lymphocytes # (Auto) 2.62 K/uL Monocytes # (Auto) 0.64 K/uL Eosinophils # (Auto) 0.10 K/uL Basophils # (Auto) 0.03 K/uL RDW Standard Deviation 46.4 fL RDW Coefficient of Variation 13.9 % Immature Granulocyte % (Auto) 0.4 % Immature Granulocyte # (Auto) 0.04 K/uL Erythrocyte Sedimentation Rate 6 mm/hr Sodium Level 146 mmol/L Potassium Level 3.6 mmol/L Chloride Level 108 mmol/L Carbon Dioxide Level 27 mmol/L Anion Gap 11.0 mmol/L Blood Urea Nitrogen 17 mg/dl Creatinine 0.97 mg/dl Est Creatinine Clear Calc Drug Dose 37.5 ml/min Estimated GFR () 60.4 Estimated GFR (Non- 52.1 BUN/Creatinine Ratio 17.7 Random Glucose 195 mg/dl Calcium Level 8.3 mg/dl Phosphorus Level 4.3 mg/dl Magnesium Level 1.8 mg/dl Total Bilirubin 0.3 mg/dl Aspartate Amino Transf (AST/SGOT) 27 U/L Alanine Aminotransferase (ALT/SGPT) 21 U/L Alkaline Phosphatase 123 U/L Total Creatine Kinase 36 U/L Creatine Kinase MB 1.1 ng/ml Creatine Kinase MB Ratio 3.1 Troponin I < 0.015 ng/ml C-Reactive Protein < 0.29 mg/dl Pro-B-Type Natriuretic Peptide 6879 pg/ml Total Protein 6.9 gm/dl Albumin 3.3 gm/dl Globulin 3.6 gm/dl Albumin/Globulin Ratio 0.9 Lipase 234 U/L Procalcitonin < 0.05 ng/ml Chemistry Specimen Hemolysis Venous Blood pH 7.22 Venous Blood Partial Pressure CO2 68 mmHg Venous Blood Partial Pressure O2 52 mmHg Venous Blood HCO3 27 mmol/L Venous Blood Oxygen Saturation 79.6 % Venous Blood Base Excess -1.7 mmol/L Lactic Acid Level 1.9 mmol/L Test 02/02/17 23:58 02/03/17 00:40 02/03/17 03:22 02/03/17 05:09 Prothrombin Time 12.0 SECONDS Prothromb Time International Ratio 1.1 Activated Partial Thromboplast Time 25.5 SECONDS Partial Thromboplastin Ratio 1.0 Blood Gas Sample Site L Brachial L Brachial Bedside Blood Gas pH (LAB) 7.27 7.36 Bedside Blood Gas pCO2 (LAB) 53 mmHg 42 mmHg Bedside Blood Gas pO2 (LAB) 85 mmHg 91 mmHg Bedside Blood Gas HCO3 (LAB) 25 meq/L 24 meq/L Bedside Blood Gas Total CO2 26 mEq/l 25 mEq/l Bedside Blood Gas Base Excess (LAB) -2.0 meq/L -2.0 meq/L Bedside Blood Gas O2 Saturation 95.0 % 97.0 % Kosta Test Pass NA Oxygen Delivery Device Ventilator Ventilator Bedside Oxygen Rate (breaths/min) 14 18 Blood Gas Minute Ventilation 7.4 8.2 Bedside FiO2 100 % 100 % Blood Gas Tidal Volume 450 450 Blood Gas PEEP 5 10 White Blood Count 10.20 K/uL Red Blood Count 4.47 M/uL Hemoglobin 12.3 g/dL Hematocrit 40.1 % Mean Corpuscular Volume 89.7 fL Mean Corpuscular Hemoglobin 27.5 pg Mean Corpuscular Hemoglobin Concent 30.7 g/dl Platelet Count 242 K/uL Mean Platelet Volume 9.6 fL Neutrophils (%) (Auto) 86.2 % Lymphocytes (%) (Auto) 7.5 % Monocytes (%) (Auto) 5.8 % Eosinophils (%) (Auto) 0.2 % Basophils (%) (Auto) 0.1 % Neutrophils # (Auto) 8.79 K/uL Lymphocytes # (Auto) 0.77 K/uL Monocytes # (Auto) 0.59 K/uL Eosinophils # (Auto) 0.02 K/uL Basophils # (Auto) 0.01 K/uL RDW Standard Deviation 45.6 fL RDW Coefficient of Variation 13.9 % Immature Granulocyte % (Auto) 0.2 % Immature Granulocyte # (Auto) 0.02 K/uL Sodium Level 143 mmol/L Potassium Level 3.5 mmol/L Chloride Level 108 mmol/L Carbon Dioxide Level 24 mmol/L Anion Gap 11.0 mmol/L Blood Urea Nitrogen 16 mg/dl Creatinine 0.90 mg/dl Est Creatinine Clear Calc Drug Dose 39.8 ml/min Estimated GFR () 66.2 Estimated GFR (Non- 57.1 BUN/Creatinine Ratio 18.2 Random Glucose 156 mg/dl Lactic Acid Level 2.5 mmol/L Calcium Level 7.8 mg/dl Phosphorus Level 2.7 mg/dl Magnesium Level 1.5 mg/dl Total Bilirubin 0.9 mg/dl Aspartate Amino Transf (AST/SGOT) 17 U/L Alanine Aminotransferase (ALT/SGPT) 15 U/L Alkaline Phosphatase 96 U/L Total Protein 5.8 gm/dl Albumin 2.8 gm/dl Globulin 3.0 gm/dl Albumin/Globulin Ratio 0.9 Procalcitonin 0.23 ng/ml Test 02/03/17 05:34 02/03/17 11:17 02/03/17 11:40 Bedside Glucose 129 mg/dl Lactic Acid Level 2.6 mmol/L Bedside Glucose (other) 203 mg/dl Assessment and Plan 86-year-old white female admitted to ICU because of acute respiratory failure from aspiration pneumonia on 02/02/2017 Acute respiratory failure with hypoxia and hypercapnia possible from aspiration pneumonia and CHF exacerbation Aspiration pneumonia Possible CHF exacerbation which is supported by pulmonary edema in chest x-ray and elevated BNP Possible sepsis and septic shock with elevated lactic acid, and require pressor support, source of infection possible from pneumonia Esophageal dysmotility, is chronic associated with chronic choking and aspiration, GI on the case, this is patient's 12 x admission because of aspiration and cause respirator failure per GI on the case, patient clearly expressed do not want to have a PEG tube placement before per , will pending GI continue to talk to the family Congestive Heart Failure , with hx of Hx of diastolic CHF. 2015, EF reported 65-70%; follow-up new echo results daily weights with strict I/Os Cerebrovasc Disease Nos Paroxysmal a-fib Hypernatremia at 146 upon admission, today improved Aspiration and swallowing dysfunction probably untreatable, we'll have GI talk more with the patient and family about the options, because of patient's age multiple admission significant end-stage organ failure, possible palliative care soon be on board Protonix 40 mg IV Continue Quesada catheter, check input and output Continue broad spectrum antibiotics such as Vancomycin and Zosyn for aspiration pneumonia and sepsis and septic shock DVT Prophylaxis - Heparin 5000 TID - SCD Code Status - DNR - POLST form shows patient DNR if not pulse and not breathing; however, if pulse and breathing, POLST states to treat including intubation. Patient also noted to ED physician to do as such. Discussed with and ICU service Continued [facility] stay due to: multiple IV medications needed Discharge planning: uncertain
[2017-02-03 18:12] LABS: ALB/GLOB RATIO 0.9 (0.9-2); BUN/CREATININE RATIO 17.7 (10-20); CALCIUM 8.1 mg/dl (8.5-10.1); CREATININE 1.1 mg/dl (0.60-1.20); MAGNESIUM 2.1 mg/dl (1.8-2.4)
[2017-02-03 18:13] LABS: POTASSIUM 4.7 mmol/L (3.5-5.1)
[2017-02-03 18:14] LABS: PHOSPHORUS 1.7 mg/dl (2.5-4.9)
[2017-02-03] MEDS ORDERED: SODIUM PHOSPHATE 3 MMOL/1 ML INFUSION IV STA (18:40)
[2017-02-03] MEDS ORDERED: SODIUM PHOSPHATE INJ 21 MMOL in SODIUM CHLORIDE 0.9% 500ML 500 ML IV SCH (19:15)
[2017-02-03] MEDS: CLOPIDOGREL BISULFATE 75 MG TAB PO SCH (19:20)
[2017-02-03] MEDS: MULTIVITAMIN TAB PO SCH (19:20)
--- NOTE | 2017-02-03 20:53 | GASTROINTESTINAL CONSULTATION ---
DATE OF CONSULTATION: 02/03/2017 REASON FOR EVALUATION: Recurrent aspiration and difficulty swallowing. HISTORY OF PRESENT ILLNESS: The patient is an 86-year-old female who we have seen multiple times for recurrent aspirations from esophageal dysmotility. The patient was here last month and was brought to the endoscopy unit to be endoscoped at that time but became hypotensive and the procedure was canceled. In the past, she had a normal EGD in July and in October when she came in, her esophagus was full of food from her dysmotility and had to be removed. She presents to the hospital now with recurrent food impaction and aspiration pneumonia. She is currently intubated on the ventilator and an orogastric tube was attempted to be passed, but was unable to be advanced into the stomach because of food blockage. In the past, we discussed placing a percutaneous endoscopic gastrostomy feeding tube and the patient has declined having this done in the past, multiple times. PAST MEDICAL HISTORY: Remarkable for elevated cholesterol. She had a hysterectomy, esophageal dysmotility, and esophageal reflux. MEDICATIONS: Citalopram, Plavix, Prevacid, multiple vitamin and vitamin B12. ALLERGIES: SULFA, YOGURT, FISH, SHELLFISH. FAMILY HISTORY: There is no known family history of medical significance. SOCIAL HISTORY: The patient is . She [facility] at the [facility]. She is a former smoker. She is retired. REVIEW OF SYSTEMS: Unobtainable as patient is intubated. PHYSICAL EXAMINATION: GENERAL: The patient is somnolent and on an endotracheal tube with Levophed, blood pressure support running. VITAL SIGNS: Blood pressure is currently 94 systolic. LUNGS: Showed decreased breath sounds. HEART: Showed a regular rate and rhythm with occasional runs of V-tach. ABDOMEN: Soft. Impression AND PLAN: The patient has recurrent aspiration pneumonia and probable congestive heart failure. She is currently on blood pressure support medication and is having some occasional ventricular tachycardia. I discussed the situation with her and her situation is quite grim. If she does improve at some point, we may be able to pass an endoscope and try to clear her esophagus, so we can potentially pass an orogastric feeding tube, which would only be temporary. In the past, she has declined this as well as a percutaneous endoscopic gastrostomy tube. At this point, I think her prognosis is not very good and if things improve, will get reengaged in her care, but will continue to follow her during her hospital stay.
[2017-02-03] MEDS: ACETAMINOPHEN IV 650 MG in EMPTY BAG 0 ML IV PRN (20:55)
[2017-02-03] MEDS: LATANOPROST 0.005% OP SOLN 2.5 ML BTL OPB SCH (22:30)
[2017-02-03] MEDS ORDERED: VANCOMYCIN INJ 900 MG in SODIUM CHLORIDE 0.9% 250ML 250 ML IV SCH (23:00)
[2017-02-04] VITALS (17 sets, daily range): BP systolic 99–126; BP diastolic 59–87; PULSE 49–114; TEMP 37.1–37.3; O2SAT 96–100
[2017-02-04] MEDS: ALBUT/IPRATROP 3MG/0.5MG NEB 3 ML VIAL INH SCH (01:44)
[2017-02-04] MEDS: DexMEDEtomidine HCL IV 200 MCG in SODIUM CHLORIDE 0.9% 50ML 48 ML IV PRN (02:43)
[2017-02-04] MEDS: PIPERACILL/TAZOBAC IV 3.375 GM in DEXTROSE 5% 100ML IV SCH (05:37)
[2017-02-04] MEDS: HEPARIN SOD 5000 UNIT/0.5 ML CARP SQ SCH ×3 (05:38→22:06)
[2017-02-04 05:40] LABS: VEN BLD GAS O2 SATURATION 72.7 %; VEN BLOOD GAS BASE EXCESS -2.5 mmol/L
[2017-02-04] MEDS: NOREPINEPHRINE BIT INJ 8 MG in DEXTROSE 5% 500ML 500 ML IV PRN (05:48)
[2017-02-04 06:04] LABS: HEMATOCRIT 35.5 % (37-47); MEAN CELL VOLUME 88.1 fL (80-100); MEAN CORPUSCULAR HEMOGLOBIN 28.5 pg (25-34); MEAN CORPUSCULAR HGB CONC 32.4 g/dl (32-36); MEAN PLATELET VOLUME 9.3 fL (7.4-10.4); PLATELET COUNT 168 K/uL (130-400); RED BLOOD COUNT 4.03 M/uL (4.2-5.4); WHITE BLOOD COUNT 10.87 K/uL (4.8-10.8)
[2017-02-04 06:29] LABS: BASO % 0.1 %; BASO ABS # 0.01 K/uL (0-0.2); COMPLETE YES; EOS % 0.6 %; IG% 0.4 %; LYMPH % 12.6 %; LYMPH ABS # 1.37 K/uL (1.2-3.4); MONO % 9.7 %; NEUT % 76.6 %
[2017-02-04 06:47] LABS: BUN/CREATININE RATIO 20.7 (10-20); CALCIUM 7.9 mg/dl (8.5-10.1); CREATININE 0.96 mg/dl (0.60-1.20); MAGNESIUM 1.8 mg/dl (1.8-2.4)
[2017-02-04 06:55] LABS: ALB/GLOB RATIO 0.9 (0.9-2); PHOSPHORUS 2.7 mg/dl (2.5-4.9)
--- NOTE | 2017-02-04 07:08 | DIAGNOSTIC IMAGING REPORT ---
CHEST ONE VIEW PORTABLE CLINICAL HISTORY: aspiration pnea pneumonitis COMPARISON STUDY: 02/03/2017 FINDINGS: Mild improvement in aeration both lung bases. Mild stable cardia megaly. Endotracheal tube 1.1 cm above the darwin. Pulmonary apex is clear. IMPRESSION: Improving aeration both lung bases. Electronically signed by: Tim Bender M.D. 02/04/2017 7:06 AM Dictated Date/Time: 02/04/2017 7:05 AM
[2017-02-04] MEDS ORDERED: LEValbuterol HFA 15GM INHALER INH SCH (09:00)
[2017-02-04] MEDS ORDERED: ALBUTEROL HFA 8 GM INHALER INH SCH (09:00)
[2017-02-04] MEDS: MULTIVITAMIN TAB PO SCH (09:00)
[2017-02-04] MEDS ORDERED: IPRATROPIUM BROMIDE HFA INHALER INH SCH (09:00)
[2017-02-04] MEDS: CLOPIDOGREL BISULFATE 75 MG TAB PO SCH (09:00)
[2017-02-04] MEDS ORDERED: MAGNESIUM SULFATE 1GM / D5W 1 GM in PREMIXED IN D5W 100 ML IV STA (09:03)
[2017-02-04] MEDS: AMPICILLIN/SULBACTAM SOD INJ 1,500 MG in SODIUM CHLORIDE 0.9% 100ML 100 ML IV SCH ×3 (09:44→21:54)
[2017-02-04] MEDS: PANTOprazole INJ 40 MG in SYRINGE 0 ML IV SCH (09:45)
[2017-02-04] MEDS: SODIUM CHLORIDE 0.45% 1000ML 1,000 ML IV SCH (09:45)
[2017-02-04] MEDS: TIMOLOL MALEATE 0.5% OP SOLN 5 ML BTL OPL SCH (09:46)
[2017-02-04] MEDS ORDERED: MAGNESIUM SULFATE 1GM / D5W 1 GM in PREMIXED IN D5W 100 ML IV ONE (10:15)
[2017-02-04] MEDS ORDERED: GLUCOSE 40% GEL 15 GM TUBE PO PRN (11:15)
[2017-02-04] MEDS ORDERED: DEXTROSE 50% 50 ML SYR IV PRN (11:15)
[2017-02-04] MEDS ORDERED: GLUCAGON FOR INJ 1 MG VIAL SQ PRN (11:15)
[2017-02-04] MEDS ORDERED: GLUCOSE 10 TABS/TUBE PO PRN (11:15)
--- NOTE | 2017-02-04 11:37 | DIAGNOSTIC IMAGING REPORT ---
CHEST ONE VIEW PORTABLE CLINICAL HISTORY: right pic tip placement COMPARISON STUDY: 02/04/2017 6:50 AM FINDINGS: Endotracheal tube 1.7 cm both darwin. Right-sided PICC catheter place in superior vena cava at the juncture with the right atrium. No evidence pneumothorax. IMPRESSION: 1. PICC catheter place in superior vena cava the juncture with the right atrium. 2. No evidence pneumothorax. 3. All remaining components of the study are unchanged Electronically signed by: Tim Bender M.D. 02/04/2017 11:36 AM Dictated Date/Time: 02/04/2017 11:33 AM
[2017-02-04] MEDS: INSULIN ASPART 100 UNITS/ML 3 ML PEN SC SCH ×3 (12:00→23:14)
--- NOTE | 2017-02-04 12:11 | Clinical Documentation Query ---
CLINICAL DOCUMENTATION QUERY Dr. GUAN, In your clinical opinion is this patient being managed for: ( x) possible acute on chronic diastolic CHF ( ) Other explanation of clinical findings (Please Explain) ( ) Unable to determine (Please Define) ( ) Need to Discuss ( ) Not Agree The medical record reflects the following clinical findings, treatment, and risk factors. Clinical Indicators: 86 yo female presenting with aspiration pneumonia and acute respiratory failure. Documentation reflects possible CHF exacerbation. BNP 6879, Initial CXR with mild pulmonary edema. Treatment: pending ECHO (I don't actually see this ordered), daily wts, strict I/O Risk Factors: age, Hx diastolic CHF, aspiration pneumonia, HTN Please clarify and document your clinical opinion in the progress notes and discharge summary. Terms such as "probable", "suspected", "likely", "questionable", "possible", or "still to be ruled out" are acceptable. IF IN AGREEMENT, YOU MUST DOCUMENT ABOVE DIAGNOSTIC STATEMENT IN DAILY PROGRESS NOTES AND DISCHARGE SUMMARY. This document is not part of the patient's record. Thank You, Montserrat Greco, RN [phone]
--- NOTE | 2017-02-04 15:21 | Critical Care Progress Note ---
Critical Care Progress Note Date of Service Feb 04, 2017. ICU Day ICU Day Number: [address] Garcia Subjective Patient was extubated this afternoon after a successful breathing trial. Denies any pain except that her throat was " a bit scratchy". Ongoing mild dyspnea however comfortable on the ma Objective General: not in acute distress, resting in bed Skin: no rashes noted, no suspicious lesions, no areas of inflammations/ lacerations/ erythema noted CVS: S1/ S2 noted, RRR, no rubs/ murmurs noted, no cyanosis RVS: not in acute respiratory distress, coarse breath sounds bilat but > on the right side, decreased to bilat bases Neck: inspection WNL, full ROM of neck ABD: BSx4, no pain/ tenderness on palpation, no organomegaly MSK: inspection of all limbs WNL, motor and sensation intact in all limbs, no swelling/ pain on palpation of joints NVS: PERRL, EOMI, affect appropriate Lymph: No lymphadenopathy palpable Current SOFA Score SOFA Score Response (Comments) Value Platelets (x10) > 150 0 Bilirubin (mg/dL) < 1.2 0 Bryan Coma Score 13 - 14 1 Level of Hypotension No Hypotension 0 Creatinine (mg/dL) < 1.2 0 Total 1 Assessment & Plan 1. Acute hypoxemic respiratory failure secondary to aspiration 2. Hypotension with contributing factors being her sedation. 3. Aspiration pneumonitis 4. History of esophageal dysmotility and aspiration 5. History of cerebrovascular accident, on Plavix 6. Elevated rectal temp possibly secondary to infection 7. h/o GERD 8. Prolonged QTc with short run of VT 9. Glaucoma 10. Depression NVS - extubated and sedation has been d/c - monitor so S&S of delirium CVS - she has not had any more run of VT since yesterday - recommend avoiding any medications that prolong QTc - She received 2 GM of Mag yesterday and 2 GM today - Repeat EKG- > 500 QTc - continue to hold the citalopram - repeat EKG in am - continues to require Levophed, continue attempting to wean - random cortisol RESP -extubated - duoneb changed to prn - o2 per nursing protocol ID - blood cultures- negative to date - Tylenol prn IV - Zosyn ( per antibiogram is sufficient for pseudomonal coverage) and vanco GI - GI consulted- consider EGD when patient is more clinically stable - on a previous admission as she has had multiple intubations for aspiration pna a PEG was discussed however patient did not wish to have this intervention - Pantoprazole 40 mg daily - continue to monitor I&O, U/O has improved overnight HEME - Plavix for h/o CVA ENDO - BSG ACHS DVT Prophylaxis - heparin q8h Patient is a DNR Resident Physician Supervision Note: Dr. West was resident physician during care of patient. I separately evaluated patient and did history and exam. I discussed the case with the resident and generally agree with the findings and plan. Patient successfully extubated today I reviewed GI's notes from today I reviewed the speech therapy instructions from 01/02/2017: Speech Therapy Discharge Instructions * 1. Mechanical soft diet, slippery 2. Aspiration precautions, straws OK. Fully upright for all p.o. intake and for at least 30 minutes after meals. HOB elevated to 30 degrees at all times, to include while asleep. 3. Alternate solids and liquids. Slow rate, rest breaks. Consider small frequent meals. Avoid all food that are dry, thick, pasty, and doughy. 4. Consider a GI consult due to ongoing esophageal dysfunction. 5. Strongly recommend follow up with speech therapy in the home environment for further education, training, and carryover of recommendations. I have personally spent 35 minutes of critical care time in the direct management of this patient. This is a life/limb threatening event. This includes time spent evaluating patient, direct bedside care, chart review, placing orders, interpretation of diagnostic studies, discussion with consultants, patient, and family members, as well as other required patient management activities. This time is exclusive of all separately billable procedures, and teaching time and separate from and in addition to any other critical care service time. Documented By: Bud Garcia DO Consults & Procedures Consultants: Dr Smith- GI Procedures: Intubation 02/03/17 Data Medications: Current Inpatient Medications Medications (Trade) Dose Ordered Sig/Bhavna Route Start Time Stop Time Status Last Admin Dose Admin Norepinephrine Bitartrate 8 mg/ Dextrose 508 ml @ 0 mls/hr Q0M PRN IV 02/02/17 23:03 03/04/17 23:02 02/04/17 05:48 37 MLS/HR Dexmedetomidine HCl 200 mcg/ Sodium Chloride 50 ml @ 0 mls/hr PRN PRN IV 02/02/17 23:07 02/06/17 23:06 02/04/17 02:43 7.5 MLS/HR Citalopram Hydrobromide (celeXA TAB) 40 mg QAM PO 02/03/17 09:00 03/05/17 08:59 Future Hold Clopidogrel Bisulfate (plAVix TAB) 75 mg QAM PO 02/03/17 09:00 03/05/17 08:59 Latanoprost (Xalatan Oph Soln) 1 drops HS OPB 02/03/17 21:00 03/05/17 20:59 02/03/17 22:30 1 DROPS Multivitamins (Multivitamin Tab) 1 tab QAM PO 02/03/17 09:00 03/05/17 08:59 Senna/Docusate Sodium (Senokot S Tab) 1 tab DAILY PRN PO 02/03/17 00:00 03/05/17 00:00 Timolol Maleate (Timoptic 0.5% Oph Soln) 1 drops QAM OPL 02/03/17 09:00 03/05/17 08:59 02/04/17 09:46 1 DROPS Miscellaneous Information (Order Awaiting Action) 1 ea QS N/A 02/03/17 08:00 03/05/17 07:59 Psyllium Hydrophilic Mucilloid (Metamucil Powder) 1 pkt BID PRN PO 02/03/17 00:00 03/05/17 00:00 Heparin Sodium (Porcine) (Heparin Sq 5000 Unit/0.5ml) 5,000 unit Q8H SQ 02/03/17 06:00 03/05/17 05:59 02/04/17 13:57 5,000 UNIT Pantoprazole Sodium 40 mg/ Syringe 10 ml @ 5 mls/min DAILY@11 IV 02/03/17 11:00 03/05/17 10:59 02/04/17 09:45 5 MLS/MIN Sodium Chloride 1,000 ml @ 75 mls/hr [id number] IV 02/03/17 07:30 03/05/17 07:29 02/04/17 09:45 75 MLS/HR Acetaminophen 650 mg/Empty Bag 65 ml @ 260 mls/hr Q6H PRN IV 02/03/17 13:45 03/05/17 13:44 02/03/17 20:55 260 MLS/HR Albuterol (Ventolin Hfa Inhaler) 4 puffs Q6R INH 02/04/17 09:00 03/06/17 08:59 Ipratropium [place] (Atrovent Hfa Inhaler) 4 puffs Q6R INH 02/04/17 09:00 03/06/17 08:59 Ampicillin Sodium/ Sulbactam Sodium 1500 mg/Sodium Chloride 104 ml @ 200 mls/hr Q6H IV 02/04/17 10:00 02/10/17 02:00 02/04/17 09:44 200 MLS/HR Insulin Aspart (novoLOG ASPART) SLIDING SCALE Q6 SC 02/04/17 12:00 03/06/17 11:59 Glucose (Glucose 40% Gel) 15-30 GRAMS 15 GRAMS... UD PRN PO 02/04/17 11:15 03/06/17 11:14 Glucose (Glucose Chew Tab) 4-8 Tablets 4 Tabl... UD PRN PO 02/04/17 11:15 03/06/17 11:14 Dextrose (Dextrose 50% 50ML Syringe) 25-50ML OF 50% DW IV FOR... UD PRN IV 02/04/17 11:15 03/06/17 11:14 Glucagon (Glucagon Inj) 1 mg UD PRN SQ 02/04/17 11:15 03/06/17 11:14 Heparin Sodium (Porcine) (Heparin 10 Unit/ ml 5 ml Flush) 5 ml PRN PRN FLUSH 02/04/17 12:30 03/06/17 12:29 Vital Signs: Date Time Temp Pulse Resp B/P (MAP) Pulse Ox O2 Delivery O2 Flow Rate FiO2 02/04/17 12:00 Humidified Oxygen 35 02/04/17 08:00 37.2 55 22 110/66 (81) 100 Mechanical Ventilator 30 02/04/17 08:00 30 02/04/17 08:00 Mechanical Ventilator 30 02/04/17 07:10 30 02/04/17 05:16 30 02/04/17 04:32 37.3 55 18 126/76 100 02/04/17 04:01 37.3 49 19 103/59 99 02/04/17 04:00 Mechanical Ventilator 30 02/04/17 04:00 30 02/04/17 03:01 37.3 55 18 103/61 100 02/04/17 02:31 37.3 55 18 121/65 100 02/04/17 02:01 37.3 57 18 116/67 100 02/04/17 01:44 30 02/04/17 01:31 37.3 57 18 114/68 100 02/04/17 01:01 37.3 58 18 124/68 100 02/04/17 00:32 37.3 60 18 120/74 100 02/04/17 00:01 30 02/04/17 00:01 37.3 59 21 99/65 99 02/04/17 00:01 Mechanical Ventilator 30 02/03/17 23:31 37.3 57 18 110/63 99 02/03/17 23:19 30 02/03/17 23:01 37.4 60 18 123/69 100 02/03/17 22:31 37.5 58 18 114/68 98 02/03/17 22:01 37.5 58 18 113/63 100 02/03/17 21:01 37.7 59 21 109/63 100 02/03/17 20:31 37.8 58 18 116/67 100 02/03/17 20:08 37.9 53 19 99/61 100 02/03/17 20:02 37.8 54 19 93/40 100 02/03/17 20:00 30 02/03/17 20:00 Mechanical Ventilator 30 02/03/17 19:01 58 21 97/57 100 02/03/17 19:00 35 02/03/17 18:00 37.2 62 18 81/52 (62) 98 Mechanical Ventilator 35 02/03/17 17:55 35 02/03/17 16:00 Mechanical Ventilator 50 02/03/17 16:00 50 02/03/17 16:00 37.2 72 20 94/56 (69) 98 Mechanical Ventilator 35 Laboratory Results: Last 24 Hours Test 02/03/17 17:13 02/03/17 18:11 02/04/17 00:15 02/04/17 05:30 Sodium Level 140 mmol/L 139 mmol/L Potassium Level 4.7 mmol/L 4.0 mmol/L Chloride Level 107 mmol/L 107 mmol/L Carbon Dioxide Level 24 mmol/L 21 mmol/L Anion Gap 9.0 mmol/L 11.0 mmol/L Blood Urea Nitrogen 20 mg/dl 20 mg/dl Creatinine 1.10 mg/dl 0.96 mg/dl Est Creatinine Clear Calc Drug Dose 32.5 ml/min 37.9 ml/min Estimated GFR () 51.9 61.2 Estimated GFR (Non- 44.8 52.8 BUN/Creatinine Ratio 17.7 20.7 Random Glucose 199 mg/dl 127 mg/dl Calcium Level 8.1 mg/dl 7.9 mg/dl Phosphorus Level 1.7 mg/dl 2.7 mg/dl Magnesium Level 2.1 mg/dl 1.8 mg/dl Total Bilirubin 1.2 mg/dl 1.2 mg/dl Aspartate Amino Transf (AST/SGOT) 14 U/L 11 U/L Alanine Aminotransferase (ALT/SGPT) 14 U/L 13 U/L Alkaline Phosphatase 85 U/L 77 U/L Total Protein 5.7 gm/dl 5.1 gm/dl Albumin 2.7 gm/dl 2.4 gm/dl Globulin 3.0 gm/dl 2.7 gm/dl Albumin/Globulin Ratio 0.9 0.9 Bedside Glucose (other) 181 mg/dl 171 mg/dl White Blood Count 10.87 K/uL Red Blood Count 4.03 M/uL Hemoglobin 11.5 g/dL Hematocrit 35.5 % Mean Corpuscular Volume 88.1 fL Mean Corpuscular Hemoglobin 28.5 pg Mean Corpuscular Hemoglobin Concent 32.4 g/dl Platelet Count 168 K/uL Mean Platelet Volume 9.3 fL Neutrophils (%) (Auto) 76.6 % Lymphocytes (%) (Auto) 12.6 % Monocytes (%) (Auto) 9.7 % Eosinophils (%) (Auto) 0.6 % Basophils (%) (Auto) 0.1 % Neutrophils # (Auto) 8.33 K/uL Lymphocytes # (Auto) 1.37 K/uL Monocytes # (Auto) 1.05 K/uL Eosinophils # (Auto) 0.07 K/uL Basophils # (Auto) 0.01 K/uL RDW Standard Deviation 46.6 fL RDW Coefficient of Variation 14.2 % Immature Granulocyte % (Auto) 0.4 % Immature Granulocyte # (Auto) 0.04 K/uL Venous Blood pH 7.41 Venous Blood Partial Pressure CO2 35 mmHg Venous Blood Partial Pressure O2 37 mmHg Venous Blood HCO3 22 mmol/L Venous Blood Oxygen Saturation 72.7 % Venous Blood Base Excess -2.5 mmol/L Lactic Acid Level 1.6 mmol/L Test 02/04/17 06:08 02/04/17 08:26 02/04/17 12:28 Bedside Glucose (other) 129 mg/dl Random Cortisol 17.27 mcg/dl Bedside Glucose 121 mg/dl
--- NOTE | 2017-02-04 15:41 | Progress Note ---
Subjective Date of Service: Feb 04, 2017. Subjective Pt evaluation today including: conversation w/ patient, conversation w/ family , physical exam, chart review, lab review, review of studies, conversation w/ media consultant outside sales, review of inpatient medication list Was extubated this morning at 11:30am, pressure support was off, and MAP more than 65, urine output more than 1 L every 8 hour Patient is awake and alert and orientated, currently is on high flow oxygen Mild labored breathing and wheezing, no other complaint Problem List Medical Problems: (1) Acute aspiration pneumonia Status: Acute (2) Acute dyspnea Status: Acute (3) Choking Status: Acute (4) Choking episode Status: Acute (5) Choking episode Status: Acute (6) Contusion of multiple sites Status: Acute (7) Dizzy spells Status: Acute (8) DNR (do not resuscitate) Status: Acute (9) Fall Status: Acute (10) Fall Status: Acute (11) Hypokalemia Status: Acute (12) Hypoxia Status: Acute (13) Lactic acidosis Status: Acute (14) Respiratory acidosis Status: Acute (15) Respiratory arrest Status: Acute (16) Respiratory arrest Status: Acute (17) Respiratory failure Status: Acute (18) Rib pain on left side Status: Acute (19) Upper abdominal pain Status: Acute Review of Systems Constitutional: + weakness, + fatigue, No fever, No chills, No sweats, No weight loss, No problem reported Eyes: No worsening of vision, No eye pain, No redness, No discharge, No diplopia ENT: No hearing loss, No unusual epistaxis, No nasal symptoms, No sore throat, No tinnitus, No dental problems, No trouble swallowing Respiratory: + cough, + wheezing, + shortness of breath, No sputum, No dyspnea on exertion, No dyspnea at rest, No hemoptysis Cardiac: No chest pain, No orthopnea, No PND, No edema, No claudication, No palpitations Abdomen: No pain, No nausea, No vomiting, No diarrhea, No constipation Musculoskeletal: No joint pain, No muscle pain, No swelling, No calf pain Female : No dysuria, No urinary frequency, No hematuria, No incontinence, No abnormal vaginal bleeding, No vaginal discharge Neurologic: No memory loss, No paralysis, No weakness, No numbness/tingling, No vertigo, No balance problems Psychiatric: No depression symptoms, No anhedonism, No anxiety, No insomnia, No substance abuse Heme: No abnormal bleeding/bruising, No clotting problems, No swollen lymph nodes, No night sweats Endo: No fatigue, No excessive thirst, No excessive urination Skin: No rash, No itch, No new/changing skin lesions, No color change, No bleeding Objective Vital Signs Date Time Temp Pulse Resp B/P (MAP) Pulse Ox O2 Delivery O2 Flow Rate FiO2 02/04/17 12:00 Humidified Oxygen 35 02/04/17 08:00 37.2 55 22 110/66 (81) 100 Mechanical Ventilator 30 02/04/17 08:00 30 02/04/17 08:00 Mechanical Ventilator 30 02/04/17 07:10 30 02/04/17 05:16 30 02/04/17 04:32 37.3 55 18 126/76 100 02/04/17 04:01 37.3 49 19 103/59 99 02/04/17 04:00 Mechanical Ventilator 30 02/04/17 04:00 30 02/04/17 03:01 37.3 55 18 103/61 100 02/04/17 02:31 37.3 55 18 121/65 100 02/04/17 02:01 37.3 57 18 116/67 100 02/04/17 01:44 30 02/04/17 01:31 37.3 57 18 114/68 100 02/04/17 01:01 37.3 58 18 124/68 100 02/04/17 00:32 37.3 60 18 120/74 100 02/04/17 00:01 30 02/04/17 00:01 37.3 59 21 99/65 99 02/04/17 00:01 Mechanical Ventilator 30 02/03/17 23:31 37.3 57 18 110/63 99 02/03/17 23:19 30 02/03/17 23:01 37.4 60 18 123/69 100 02/03/17 22:31 37.5 58 18 114/68 98 02/03/17 22:01 37.5 58 18 113/63 100 02/03/17 21:01 37.7 59 21 109/63 100 02/03/17 20:31 37.8 58 18 116/67 100 02/03/17 20:08 37.9 53 19 99/61 100 02/03/17 20:02 37.8 54 19 93/40 100 02/03/17 20:00 30 02/03/17 20:00 Mechanical Ventilator 30 02/03/17 19:01 58 21 97/57 100 02/03/17 19:00 35 02/03/17 18:00 37.2 62 18 81/52 (62) 98 Mechanical Ventilator 35 02/03/17 17:55 35 02/03/17 16:00 Mechanical Ventilator 50 02/03/17 16:00 50 02/03/17 16:00 37.2 72 20 94/56 (69) 98 Mechanical Ventilator 35 Physical Exam General Appearance: WD/WN, no apparent distress, + thin, + pertinent finding ( mild labored breathing) Eyes: normal inspection, PERRL, EOMI, sclerae normal ENT: normal ENT inspection, hearing grossly normal, pharynx normal Neck: supple, no adenopathy, thyroid normal, no JVD, no carotid bruits, trachea midline Respiratory/Chest: chest non-tender, normal breath sounds, no respiratory distress, no accessory muscle use, + decreased breath sounds, + wheezing (mild) Cardiovascular: regular rate, rhythm, no edema, no gallop, no JVD, no murmur Abdomen: normal bowel sounds, non tender, soft, no organomegaly, no pulsatile mass Extremities: normal range of motion, non-tender, normal inspection, no pedal edema, no calf tenderness, normal capillary refill, pelvis stable Neurologic/Psychiatric: cementer II-XII nml as tested, no motor/sensory deficits, alert, normal mood/affect, oriented x 3 Skin: normal color, warm/dry, no rash Lymphatic: no adenopathy Laboratory Results Last 24 Hours Test 02/03/17 17:13 02/03/17 18:11 02/04/17 00:15 02/04/17 05:30 Sodium Level 140 mmol/L 139 mmol/L Potassium Level 4.7 mmol/L 4.0 mmol/L Chloride Level 107 mmol/L 107 mmol/L Carbon Dioxide Level 24 mmol/L 21 mmol/L Anion Gap 9.0 mmol/L 11.0 mmol/L Blood Urea Nitrogen 20 mg/dl 20 mg/dl Creatinine 1.10 mg/dl 0.96 mg/dl Est Creatinine Clear Calc Drug Dose 32.5 ml/min 37.9 ml/min Estimated GFR () 51.9 61.2 Estimated GFR (Non- 44.8 52.8 BUN/Creatinine Ratio 17.7 20.7 Random Glucose 199 mg/dl 127 mg/dl Calcium Level 8.1 mg/dl 7.9 mg/dl Phosphorus Level 1.7 mg/dl 2.7 mg/dl Magnesium Level 2.1 mg/dl 1.8 mg/dl Total Bilirubin 1.2 mg/dl 1.2 mg/dl Aspartate Amino Transf (AST/SGOT) 14 U/L 11 U/L Alanine Aminotransferase (ALT/SGPT) 14 U/L 13 U/L Alkaline Phosphatase 85 U/L 77 U/L Total Protein 5.7 gm/dl 5.1 gm/dl Albumin 2.7 gm/dl 2.4 gm/dl Globulin 3.0 gm/dl 2.7 gm/dl Albumin/Globulin Ratio 0.9 0.9 Bedside Glucose (other) 181 mg/dl 171 mg/dl White Blood Count 10.87 K/uL Red Blood Count 4.03 M/uL Hemoglobin 11.5 g/dL Hematocrit 35.5 % Mean Corpuscular Volume 88.1 fL Mean Corpuscular Hemoglobin 28.5 pg Mean Corpuscular Hemoglobin Concent 32.4 g/dl Platelet Count 168 K/uL Mean Platelet Volume 9.3 fL Neutrophils (%) (Auto) 76.6 % Lymphocytes (%) (Auto) 12.6 % Monocytes (%) (Auto) 9.7 % Eosinophils (%) (Auto) 0.6 % Basophils (%) (Auto) 0.1 % Neutrophils # (Auto) 8.33 K/uL Lymphocytes # (Auto) 1.37 K/uL Monocytes # (Auto) 1.05 K/uL Eosinophils # (Auto) 0.07 K/uL Basophils # (Auto) 0.01 K/uL RDW Standard Deviation 46.6 fL RDW Coefficient of Variation 14.2 % Immature Granulocyte % (Auto) 0.4 % Immature Granulocyte # (Auto) 0.04 K/uL Venous Blood pH 7.41 Venous Blood Partial Pressure CO2 35 mmHg Venous Blood Partial Pressure O2 37 mmHg Venous Blood HCO3 22 mmol/L Venous Blood Oxygen Saturation 72.7 % Venous Blood Base Excess -2.5 mmol/L Lactic Acid Level 1.6 mmol/L Test 02/04/17 06:08 02/04/17 08:26 02/04/17 12:28 Bedside Glucose (other) 129 mg/dl Random Cortisol 17.27 mcg/dl Bedside Glucose 121 mg/dl Assessment and Plan 86-year-old white female admitted to ICU because of acute respiratory failure from aspiration pneumonia on 02/02/2017, Extubated on 02/03/2017, stable and improving Acute respiratory failure with hypoxia and hypercapnia possible from aspiration pneumonia and CHF exacerbation Aspiration pneumonia possible acute on chronic diastolic CHF exacerbation which is supported by pulmonary edema in chest x-ray and elevated BNP Possible sepsis and septic shock with elevated lactic acid, and require pressor support, source of infection possible from pneumonia The above condition is stable and improving Esophageal dysmotility, is chronic associated with chronic choking and aspiration, Aspiration and swallowing dysfunction probably untreatable, Protonix 40 mg IV GI on the case, this is patient's 12 x admission because of aspiration and cause respirator failure per GI on the case, patient clearly expressed do not want to have a PEG tube placement before per , GI is talking to family Congestive Heart Failure , with hx of Hx of diastolic CHF. 2015, EF reported 65-70%; follow-up new echo results daily weights with strict I/Os Cerebrovasc Disease Nos: Stable Paroxysmal a-fib: Now is normal sinus resume Hypernatremia at 146 upon admission, today improved, resolved Continue Dent catheter, check input and output Continue broad spectrum antibiotics such as Vancomycin and Zosyn for aspiration pneumonia and sepsis and septic shock DVT Prophylaxis - Heparin 5000 TID - SCD Code Status - DNR - POLST form shows patient DNR if not pulse and not breathing; however, if pulse and breathing, POLST states to treat including intubation. - We'll request palliative care consult Discussed with patient , and ICU service Continued [facility] stay due to: multiple IV medications needed Discharge planning: uncertain
--- NOTE | 2017-02-04 15:56 | GASTROENTEROLOGY PROGRESS NOTE ---
DATE: 02/04/2017 DATE: 02/04/2017. HISTORY OF PRESENT ILLNESS: The patient is extubated on a rebreathing mask. The patient appears awake and alert. The patient's is present. She has had no nutritional intake since admission. Her vital signs since 4 o'clock this morning afebrile at 37.2, heart rate 55, blood pressure 110/66. She is weaned off Levophed and is on 30% FIO2 with 100% pulse ox. The patient has blood cultures that are pending. Blood cultures on admission were no growth to date. CURRENT MEDICATIONS: Include heparin, insulin, Unasyn, latanoprost, pantoprazole IV, Plavix, multivitamins, timolol, sodium, heparin subcutaneous. REVIEW OF SYSTEMS: Otherwise noncontributory based on 14-point exam. PHYSICAL EXAMINATION: GENERAL: Unremarkable from abdominal standpoint. The patient is awake, alert and oriented, is verbal although limited words, however does shake her head appropriately to questions, particularly regarding her interest in feeding tubes. HEAD, EYES, EARS, NOSE, AND THROAT: Oral mucosa is parched. HEART: Normal S1, S2. ABDOMEN: Soft, flat, without rebound or guarding. EXTREMITIES: Without edema. LUNGS: Show diminished breath sounds. LABORATORY STUDIES: Were reviewed. White count today 10.8, which is slightly up from 10.2 yesterday, hemoglobin 11.5. Serum chemistry, BUN and creatinine are 20 and 1.0. Potassium is 4.0. LFTs were normal this morning. The patient had chest x-ray this morning revealing no evidence of pneumothorax and impression showed improving aeration at both lung bases. IMPRESSION: I spoke with the patient and her at length this afternoon regarding the options for feeding. Clearly the patient has demonstrated a pattern of recurrent aspiration pneumonia. According to the patient's while at the [facility] she does well with a soft diet, however when discharged to home she seems to liberalize her diet and he believes this is making her prone to aspiration and reflux. Again, we talked about the options that include ultimately a PEG tube placement which I believe would provide the most durable solution and carries the greatest reduced risk for aspiration provided that feeding solutions and posture are respected. Other options would be to try temporary nasogastric feeding tube just to support and provide nutrition. The patient is adamantly refusing this as well as the PEG tube, although the patient's would like to consider this. At the present time protocols says that they can advance her diet in a couple hours and this can be considered, although risk of aspiration remains high, aspiration precautions should be followed with appropriate thickening of the material to minimize aspiration risk. We will continue to follow. All questions answered.
[2017-02-04] MEDS ORDERED: METOPROLOL TARTRATE 1 MG/ML VIAL IV STA (20:38)
[2017-02-04] MEDS: LATANOPROST 0.005% OP SOLN 2.5 ML BTL OPB SCH (20:40)
[2017-02-04] MEDS ORDERED: IPRATROPIUM BROMIDE HFA INHALER INH PRN (21:00)
[2017-02-04] MEDS ORDERED: METOPROLOL TARTRATE 1 MG/ML VIAL IV PRN ×2 (21:30)
[2017-02-04] MEDS: ACETAMINOPHEN IV 650 MG in EMPTY BAG 0 ML IV PRN (22:51)
[2017-02-05] VITALS (12 sets, daily range): BP systolic 88–164; BP diastolic 53–99; PULSE 55–96; TEMP 36.8–37.1; O2SAT 94–99
[2017-02-05] MEDS ORDERED: AMIODARONE IV BOLUS / DRIP IV STA (02:07)
[2017-02-05] MEDS ORDERED: AMIODARONE / D5W 100 ML IV STA (02:29)
[2017-02-05] MEDS ORDERED: AMIODARONE / D5W 200 ML IV SCH ×2 (02:30→08:30)
[2017-02-05] MEDS: SODIUM CHLORIDE 0.45% 1000ML 1,000 ML IV SCH (02:35)
[2017-02-05 03:18] LABS: CREATININE 0.61 mg/dl (0.60-1.20); MAGNESIUM 1.9 mg/dl (1.8-2.4); PHOSPHORUS 2.1 mg/dl (2.5-4.9); POTASSIUM 3.5 mmol/L (3.5-5.1)
[2017-02-05] MEDS ORDERED: SODIUM PHOSPHATE 3 MMOL/1 ML INFUSION IV STA (03:23)
[2017-02-05 03:25] LABS: BASO % 0.2 %; BASO ABS # 0.01 K/uL (0-0.2); COMPLETE YES; HEMATOCRIT 30.4 % (37-47); IG% 0.2 %; LYMPH % 17.6 %; LYMPH ABS # 0.84 K/uL (1.2-3.4); MEAN CELL VOLUME 89.1 fL (80-100); MEAN CORPUSCULAR HEMOGLOBIN 28.2 pg (25-34); MEAN CORPUSCULAR HGB CONC 31.6 g/dl (32-36); MEAN PLATELET VOLUME 9.3 fL (7.4-10.4); MONO % 8.4 %; NEUT % 72.6 %; PLATELET COUNT 102 K/uL (130-400); RED BLOOD COUNT 3.41 M/uL (4.2-5.4); WHITE BLOOD COUNT 4.78 K/uL (4.8-10.8)
[2017-02-05] MEDS: AMPICILLIN/SULBACTAM SOD INJ 1,500 MG in SODIUM CHLORIDE 0.9% 100ML 100 ML IV SCH ×4 (03:29→22:22)
[2017-02-05] MEDS ORDERED: SODIUM PHOSPHATE INJ 15 MMOL in SODIUM CHLORIDE 0.9% 250ML 250 ML IV ONE (04:00)
[2017-02-05] MEDS: POTASSIUM CHLORIDE 20 MEQ/15 ML UDC PO SCH ×2 (05:07→09:11)
[2017-02-05] MEDS: HEPARIN SOD 5000 UNIT/0.5 ML CARP SQ SCH ×3 (05:07→21:12)
[2017-02-05] MEDS: INSULIN ASPART 100 UNITS/ML 3 ML PEN SC SCH ×3 (06:00→17:27)
[2017-02-05] MEDS: ALBUTEROL HFA 8 GM INHALER INH PRN (08:02)
[2017-02-05] MEDS ORDERED: POTASSIUM CHLORIDE 10 MEQ TABCR PO STA (08:41)
[2017-02-05] MEDS: CLOPIDOGREL BISULFATE 75 MG TAB PO SCH (09:09)
[2017-02-05] MEDS: MULTIVITAMIN TAB PO SCH (09:10)
[2017-02-05] MEDS: ACETAMINOPHEN IV 650 MG in EMPTY BAG 0 ML IV PRN (09:11)
[2017-02-05] MEDS: TIMOLOL MALEATE 0.5% OP SOLN 5 ML BTL OPL SCH (09:16)
[2017-02-05] MEDS: MAGNESIUM SULFATE 1GM / D5W 1 GM in PREMIXED IN D5W 100 ML IV SCH ×2 (09:17→10:00)
[2017-02-05] MEDS ORDERED: ONDANSETRON INJ 2 MG/ML 2 ML VIAL IV PRN (10:00)
[2017-02-05] MEDS: LANSOPRAZOLE SOLUTAB 30 MG PO SCH (11:42)
--- NOTE | 2017-02-05 13:19 | Palliative Care Consultation ---
Consultation Date of Consultation: Feb 05, 2017. Requesting Physician: Dr. Aguirre Attending Physician: Dr. Aguirre Reason for Consultation: Goals of care History of Present Illness This 86 year old female patient presented to the ED three days ago with c/o respiratory distress after a "choking" episode. Patient has known esophageal dysmotility and recurrent aspiration pneumonia. Patent is a DNR, but is okay with elective intubation when these episodes occur, so she was intubated and admitted to ICU. She was hypotensive and requiring norepinephrine infusion. She has had some improvement and was able to be extubated yesterday at 1130, levophed has been off since about midnight last night. Unfortunately, patient went into atrial fibrillation, was started on amiodarone infusion, and had a 5.5sec pause on the monitor last night. She is now back in a normal sinus rhythm. Per the , patient has had a difficult year with hospitalizations , recurrent aspiration and pneumonia, and a significant decline in overall functional status and condition. Patient does follow with Dr. Grover as outpatient for GI- he has recommended a PEG in the past, but patient adamantly refuses. Palliative care consulted to establish goals of care. I met with the patient this morning. She's awake, alert and oriented x4. Denies any pain or discomfort. We discussed her condition and goals of care. She indicated that she did not want any aggressive treatment such as intubation, pacer/ICD, or a feeding tube. She gave permission to call . I met with Juan Elliott, /POA, an discussed in detail the patient's condition and goals of care. Dr. Garcia, industrial plant custodian also present for discussion and went over in detail goals of care. Patient stated she did not want to be on anticoagulation, does not want feeding tube, wants to continue to eat soft diet , doesn't want pacer/ICD, or to be reintubated if/when this occurs again. was present and agrees. For now she'd like to continue antibiotics. Patient's goal is for comfort and doesn't want "to go through this again." Patient stated, "I'm not afraid if this happens again. I'm not afraid to . I just want to go home and live, and when it's my time it's my time." Past Medical/Surgical History Medical History: Esophageal dysmotility Dysphagia Food boluses Aspiration Aspiration pneumonia Hyper cholesterolemia CVA Hypertension Osteoarthritis Surgical History: Hysterectomy Social History Smoking Status: Former Smoker History of Alcohol Use: No Drug Use: none Marital Status: Housing Status: lives with family Occupation Status: retired Review of Systems Constitutional: + weakness ENT: + see HPI, + trouble swallowing Respiratory: + cough, No shortness of breath Cardiac: No chest pain Abdomen: No pain, No nausea, No vomiting Female : No problem reported Psychiatric: No depression symptoms, No anxiety Allergies Coded Allergies: Sulfa Antibiotics (Verified Allergy, Unknown, ., 10/20/16) Yogurt (Verified Allergy, Unknown, Unknown, 02/02/17) Fish (Verified Adverse Reaction, Unknown, GI SYMPTOMS, 10/20/16) Shellfish Allergy (Verified Adverse Reaction, Unknown, GI SYMPTOMS, 10/20/16 ) Medications Current Inpatient Medications Medications (Trade) Dose Ordered Sig/Bhavna Route Start Time Stop Time Status Last Admin Dose Admin Citalopram Hydrobromide (celeXA TAB) 40 mg QAM PO 02/03/17 09:00 03/05/17 08:59 Future Hold Clopidogrel Bisulfate (plAVix TAB) 75 mg QAM PO 02/03/17 09:00 03/05/17 08:59 Latanoprost (Xalatan Oph Soln) 1 drops HS OPB 02/03/17 21:00 03/05/17 20:59 02/04/17 20:40 1 DROPS Multivitamins (Multivitamin Tab) 1 tab QAM PO 02/03/17 09:00 03/05/17 08:59 Senna/Docusate Sodium (Senokot S Tab) 1 tab DAILY PRN PO 02/03/17 00:00 03/05/17 00:00 Timolol Maleate (Timoptic 0.5% Oph Soln) 1 drops QAM OPL 02/03/17 09:00 03/05/17 08:59 02/04/17 09:46 1 DROPS Miscellaneous Information (Order Awaiting Action) 1 ea QS N/A 02/03/17 08:00 03/05/17 07:59 Psyllium Hydrophilic Mucilloid (Metamucil Powder) 1 pkt BID PRN PO 02/03/17 00:00 03/05/17 00:00 Heparin Sodium (Porcine) (Heparin Sq 5000 Unit/0.5ml) 5,000 unit Q8H SQ 02/03/17 06:00 03/05/17 05:59 02/04/17 22:06 5,000 UNIT Pantoprazole Sodium 40 mg/ Syringe 10 ml @ 5 mls/min DAILY@11 IV 02/03/17 11:00 03/05/17 10:59 02/04/17 09:45 5 MLS/MIN Sodium Chloride 1,000 ml @ 75 mls/hr [id number] IV 02/03/17 07:30 03/05/17 07:29 02/05/17 02:35 75 MLS/HR Acetaminophen 650 mg/Empty Bag 65 ml @ 260 mls/hr Q6H PRN IV 02/03/17 13:45 03/05/17 13:44 02/04/17 22:51 260 MLS/HR Ampicillin Sodium/ Sulbactam Sodium 1500 mg/Sodium Chloride 104 ml @ 200 mls/hr Q6H IV 02/04/17 10:00 02/10/17 02:00 02/05/17 03:29 200 MLS/HR Insulin Aspart (novoLOG ASPART) SLIDING SCALE Q6 SC 02/04/17 12:00 03/06/17 11:59 Glucose (Glucose 40% Gel) 15-30 GRAMS 15 GRAMS... UD PRN PO 02/04/17 11:15 03/06/17 11:14 Glucose (Glucose Chew Tab) 4-8 Tablets 4 Tabl... UD PRN PO 02/04/17 11:15 03/06/17 11:14 Dextrose (Dextrose 50% 50ML Syringe) 25-50ML OF 50% DW IV FOR... UD PRN IV 02/04/17 11:15 03/06/17 11:14 Glucagon (Glucagon Inj) 1 mg UD PRN SQ 02/04/17 11:15 03/06/17 11:14 Heparin Sodium (Porcine) (Heparin 10 Unit/ ml 5 ml Flush) 5 ml PRN PRN FLUSH 02/04/17 12:30 03/06/17 12:29 Albuterol (Ventolin Hfa Inhaler) 4 puffs Q6R PRN INH 02/04/17 21:00 03/06/17 08:59 02/05/17 08:02 4 PUFFS Ipratropium [place] (Atrovent Hfa Inhaler) 4 puffs Q6R PRN INH 02/04/17 21:00 03/06/17 08:59 Amiodarone HCL/ Dextrose 200 ml @ 16.7 mls/hr [id number] IV 02/05/17 08:30 03/07/17 08:29 02/05/17 08:06 16.7 MLS/HR Physical Exam Date Time Temp Pulse Resp B/P (MAP) Pulse Ox O2 Delivery O2 Flow Rate FiO2 02/05/17 06:00 89 16 102/65 (77) 97 Nasal Cannula 2.0 02/05/17 04:00 37.1 84 16 109/58 (75) 96 Nasal Cannula 2.0 02/05/17 04:00 Nasal Cannula 2.0 02/05/17 02:00 94 20 109/66 (80) 98 Nasal Cannula 2.0 02/05/17 00:01 37.0 96 20 98/65 (76) 96 Nasal Cannula 2.0 02/04/17 23:59 Nasal Cannula 2.0 02/04/17 22:00 98 20 118/79 (92) 97 Nasal Cannula 2.0 02/04/17 21:49 112 122/93 02/04/17 20:54 119 114/65 02/04/17 20:00 Nasal Cannula 2.0 02/04/17 20:00 37.2 112 22 126/87 (100) 96 Nasal Cannula 2.0 02/04/17 18:00 37.1 114 18 115/77 (90) 99 Humidified Oxygen 30 02/04/17 16:00 37.1 111 18 104/69 (81) 99 Humidified Oxygen 30 02/04/17 16:00 Humidified Oxygen 30 02/04/17 14:00 37.2 60 21 105/64 (78) 100 Humidified Oxygen 30 02/04/17 12:00 Humidified Oxygen 35 02/04/17 12:00 37.2 55 22 110/66 (81) 100 Humidified Oxygen 30 02/04/17 11:35 30 02/04/17 10:00 37.2 55 22 110/66 (81) 100 Mechanical Ventilator 30 General Appearance: no apparent distress, + thin ENT: hearing grossly normal Neck: supple, no JVD Respiratory: no respiratory distress, no accessory muscle use, + rhonchi ( coarse throughout), + pertinent finding (nasal cannula) Cardiovascular: regular rate, rhythm, + bradycardia, + normal peripheral pulses Abdomen: normal bowel sounds, non tender, soft Neurologic/Psychiatric: alert, normal mood/affect, oriented x 3 Laboratory Results Last 24 Hours Test 02/04/17 12:28 02/04/17 18:39 02/04/17 22:09 02/05/17 02:20 Bedside Glucose 121 mg/dl 105 mg/dl 112 mg/dl White Blood Count 4.78 K/uL Red Blood Count 3.41 M/uL Hemoglobin 9.6 g/dL Hematocrit 30.4 % Mean Corpuscular Volume 89.1 fL Mean Corpuscular Hemoglobin 28.2 pg Mean Corpuscular Hemoglobin Concent 31.6 g/dl Platelet Count 102 K/uL Mean Platelet Volume 9.3 fL Neutrophils (%) (Auto) 72.6 % Lymphocytes (%) (Auto) 17.6 % Monocytes (%) (Auto) 8.4 % Eosinophils (%) (Auto) 1.0 % Basophils (%) (Auto) 0.2 % Neutrophils # (Auto) 3.47 K/uL Lymphocytes # (Auto) 0.84 K/uL Monocytes # (Auto) 0.40 K/uL Eosinophils # (Auto) 0.05 K/uL Basophils # (Auto) 0.01 K/uL RDW Standard Deviation 46.8 fL RDW Coefficient of Variation 14.4 % Immature Granulocyte % (Auto) 0.2 % Immature Granulocyte # (Auto) 0.01 K/uL Sodium Level 143 mmol/L Potassium Level 3.5 mmol/L Chloride Level 112 mmol/L Carbon Dioxide Level 26 mmol/L Anion Gap 5.0 mmol/L Blood Urea Nitrogen 10 mg/dl Creatinine 0.61 mg/dl Est Creatinine Clear Calc Drug Dose 59.7 ml/min Estimated GFR () 93.8 Estimated GFR (Non- 80.9 BUN/Creatinine Ratio 17.0 Random Glucose 80 mg/dl Calcium Level 8.0 mg/dl Phosphorus Level 2.1 mg/dl Magnesium Level 1.9 mg/dl Test 02/05/17 08:08 Assessment & Plan Palliative Performance Scale: 40 % Problem list: Weakness SOB/respiratory failure 2/2 aspiration pneumonia Esophageal dysmotility Dysphagia Aspiration pneumonia Hypoalbuminemia Hypotension Goals of care (Z51.) Palliative care recommendations: discussed with patient, /POA Juan, Dr. Garcia and Dr. Aguirre. -DNR and now DNI. -Continue antibiotics for now. -Transfer out of ICU to [facility]. -Per patient's wishes: no more aggressive treatment. No invasive procedures including pacer/ICD. Does not want to be on anticoagulation, no feeding tube. -Goal is for comfort, plan to probably go to the [facility] for likely residential placement. -Still uncertain if patient would want to come back to hospital if/when this occurs again, unsure if she'd want antibiotics either. Will be able to discuss POLST before discharge. Will also discuss hospice. -Allow to continue soft diet despite risk. Thank you kindly for this consult. I will follow as needed.
[2017-02-05] MEDS ORDERED: AMIODARONE 200 MG TAB PO STA (13:35)
[2017-02-05] MEDS ORDERED: PROCHLORPERAZINE IV PRN (13:45)
[2017-02-05] MEDS ORDERED: SODIUM CHLORIDE 0.9% IV PRN (13:45)
--- NOTE | 2017-02-05 14:05 | Critical Care Progress Note ---
Critical Care Progress Note Date of Service Feb 05, 2017. ICU Day ICU Day Number: [address] Garcia Subjective Patient was found to have PAF overnight with a 5 second pause. Was asymptomatic during this episode She denies any chest pain, SOB. She states she has been coughing up "less gunk" and denies any hemoptysis. She does not some ongoing dyspnea however this has improved greatly per the patient. Prolonged discussion was had between the , patient palliative and the payroll and benefits assistant regarding her wishes for care. She reflected the understanding of refusing specific treatments and accept the stroke risk regarding no anticoag with PAF. No intubation, pacer/ AICD, anticoag for PAF or intubation. OK with antibiotics Objective General: not in acute distress, resting in bed Skin: no rashes noted, no suspicious lesions, no areas of inflammations/ lacerations/ erythema noted CVS: S1/ S2 noted, RRR, no rubs/ murmurs noted, no cyanosis RVS: not in acute respiratory distress, coarse breath sounds bilat but > on the right side, decreased to bilat bases, NC in place Neck: inspection WNL, full ROM of neck ABD: BSx4, no pain/ tenderness on palpation, no organomegaly MSK: inspection of all limbs WNL, motor and sensation intact in all limbs, no swelling/ pain on palpation of joints NVS: PERRL, EOMI, affect appropriate Lymph: No lymphadenopathy palpable Current SOFA Score SOFA Score Response (Comments) Value Platelets (x10) < 150 1 Bilirubin (mg/dL) < 1.2 0 [place] Coma Score 13 - 14 1 Level of Hypotension No Hypotension 0 Creatinine (mg/dL) < 1.2 0 Total 2 Assessment & Plan 1. Acute hypoxemic respiratory failure secondary to aspiration 2. Hypotension with contributing factors being her sedation. 3. Aspiration pneumonitis 4. History of esophageal dysmotility and aspiration 5. History of cerebrovascular accident, on Plavix 6. Elevated rectal temp possibly secondary to infection- resolved 7. h/o GERD 8. Prolonged QTc with short run of VT 9. Glaucoma 10. Depression 11. Thrombocytopenia 12. PAF NVS - monitor so S&S of delirium - As per above patient is of sound mind and does not wish to have any interventions which includes PEG placement, anticoag for PAF, Pacer/ AICD or intubation - she is ok with continuing with antibiotics CVS - she has not had any more run of VT however did have PAF which converted after a 5 second pause - Lopressor prn and amiodarone --> transitioned to PO amiodarone - recommend avoiding any medications that prolong QTc - 2 Gm this am of Mg - Repeat EKG- > 500 QTc - continue to hold the citalopram RESP - o2 per nursing protocol ID - blood cultures- negative to date - Tylenol prn IV - Unasyn GI - GI consulted- No PEG placement at this time - Pantoprazole 40 mg daily--> prevacid 30 mg daily - Diet per speech guidelines - continue to monitor I&O, U/O has improved HEME - Plavix for h/o CVA - Based on the 4 T's patient has a low risk for HIT, will defer PF4 levels at this time - patient has been refusing her heparin while not intubated ENDO - BSG ACHS DVT Prophylaxis - heparin q8h Patient is a DNR Patient converted into A. fib overnight, started amiodarone for rhythm control, she had approximately a 6 second cause but this appears to be associated with a conversion event into normal sinus rhythm. I had an extensive discussion with the patient and the patient's at bedside, the patient does not want a feeding tube, she understands this we'll place her at risk for repeat aspiration and further pneumonias. She does not want CPR performed nor would she want intubation for respiratory failure including secondary to aspiration pneumonias. When discussing her risks and benefits of systemic anticoagulation for paroxysmal A. fib she does not want to undergo systemic anticoagulation, and accepts the stroke risk. Additionally she was uncertain whether she would want to go antibiotics or not for recurrent aspiration pneumonias, in the setting this may cause difficulty in regulating Coumadin level. Again she does not want to go undergo systemic anticoagulation. Accordingly her care will be focused on maximizing her comfort. This was discussed jointly with Dilcia JACOBO at the bedside. All were in agreement and the patient will be transferred to [facility] floor, she'll be continued on amiodarone for hopeful rhythm control, and continue a mechanical soft diet to hopefully prevent aspiration. Consults & Procedures Consultants: Dr Smith- GI Procedures: Intubation 02/03/17 Data Medications: Current Inpatient Medications Medications (Trade) Dose Ordered Sig/Bhavna Route Start Time Stop Time Status Last Admin Dose Admin Citalopram Hydrobromide (celeXA TAB) 40 mg QAM PO 02/03/17 09:00 03/05/17 08:59 Future Hold Clopidogrel Bisulfate (plAVix TAB) 75 mg QAM PO 02/03/17 09:00 03/05/17 08:59 02/05/17 09:09 75 MG Latanoprost (Xalatan Oph Soln) 1 drops HS OPB 02/03/17 21:00 03/05/17 20:59 02/04/17 20:40 1 DROPS Multivitamins (Multivitamin Tab) 1 tab QAM PO 02/03/17 09:00 03/05/17 08:59 02/05/17 09:10 1 TAB Senna/Docusate Sodium (Senokot S Tab) 1 tab DAILY PRN PO 02/03/17 00:00 03/05/17 00:00 Timolol Maleate (Timoptic 0.5% Oph Soln) 1 drops QAM OPL 02/03/17 09:00 03/05/17 08:59 02/05/17 09:16 1 DROPS Miscellaneous Information (Order Awaiting Action) 1 ea QS N/A 02/03/17 08:00 03/05/17 07:59 Psyllium Hydrophilic Mucilloid (Metamucil Powder) 1 pkt BID PRN PO 02/03/17 00:00 03/05/17 00:00 Heparin Sodium (Porcine) (Heparin Sq 5000 Unit/0.5ml) 5,000 unit Q8H SQ 02/03/17 06:00 03/05/17 05:59 02/04/17 22:06 5,000 UNIT Acetaminophen 650 mg/Empty Bag 65 ml @ 260 mls/hr Q6H PRN IV 02/03/17 13:45 03/05/17 13:44 02/05/17 09:11 260 MLS/HR Ampicillin Sodium/ Sulbactam Sodium 1500 mg/Sodium Chloride 104 ml @ 200 mls/hr Q6H IV 02/04/17 10:00 02/10/17 02:00 02/05/17 11:42 200 MLS/HR Insulin Aspart (novoLOG ASPART) SLIDING SCALE Q6 SC 02/04/17 12:00 03/06/17 11:59 Glucose (Glucose 40% Gel) 15-30 GRAMS 15 GRAMS... UD PRN PO 02/04/17 11:15 03/06/17 11:14 Glucose (Glucose Chew Tab) 4-8 Tablets 4 Tabl... UD PRN PO 02/04/17 11:15 03/06/17 11:14 Dextrose (Dextrose 50% 50ML Syringe) 25-50ML OF 50% DW IV FOR... UD PRN IV 02/04/17 11:15 03/06/17 11:14 Glucagon (Glucagon Inj) 1 mg UD PRN SQ 02/04/17 11:15 03/06/17 11:14 Heparin Sodium (Porcine) (Heparin 10 Unit/ ml 5 ml Flush) 5 ml PRN PRN FLUSH 02/04/17 12:30 03/06/17 12:29 Albuterol (Ventolin Hfa Inhaler) 4 puffs Q6R PRN INH 02/04/17 21:00 03/06/17 08:59 02/05/17 08:02 4 PUFFS Ipratropium [place] (Atrovent Hfa Inhaler) 4 puffs Q6R PRN INH 02/04/17 21:00 03/06/17 08:59 Lansoprazole (Prevacid Solutab) 30 mg DAILY PO 02/05/17 11:00 03/07/17 10:59 02/05/17 11:42 30 MG Amiodarone HCl (Cordarone Tab) 100 mg TIDM PO 02/05/17 16:30 03/07/17 16:29 Prochlorperazine Edisylate 5 mg/ Sodium Chloride 51 ml @ 204 mls/hr Q6H PRN IV 02/05/17 13:45 03/07/17 13:44 I & O: 24-Hour Column 02/06/17 08:00 Intake Total 2659 ml Output Total 225 ml Balance 2434 ml Vital Signs: Date Time Temp Pulse Resp B/P (MAP) Pulse Ox O2 Delivery O2 Flow Rate FiO2 02/05/17 11:30 Nasal Cannula 2.0 02/05/17 11:00 55 20 99 02/05/17 10:00 69 24 136/99 (111) 95 02/05/17 09:48 74 22 164/89 (114) 94 02/05/17 09:00 61 23 97 02/05/17 08:00 66 26 129/70 (89) 95 02/05/17 07:30 36.8 89 20 118/63 (81) 97 Nasal Cannula 2.0 02/05/17 07:30 Nasal Cannula 2.0 30 02/05/17 07:00 63 20 118/63 (81) 95 02/05/17 06:00 89 16 102/65 (77) 97 Nasal Cannula 2.0 02/05/17 04:00 37.1 84 16 109/58 (75) 96 Nasal Cannula 2.0 02/05/17 04:00 Nasal Cannula 2.0 02/05/17 02:00 94 20 109/66 (80) 98 Nasal Cannula 2.0 02/05/17 00:01 37.0 96 20 98/65 (76) 96 Nasal Cannula 2.0 02/04/17 23:59 Nasal Cannula 2.0 02/04/17 22:00 98 20 118/79 (92) 97 Nasal Cannula 2.0 02/04/17 21:49 112 122/93 02/04/17 20:54 119 114/65 02/04/17 20:00 Nasal Cannula 2.0 02/04/17 20:00 37.2 112 22 126/87 (100) 96 Nasal Cannula 2.0 02/04/17 18:00 37.1 114 18 115/77 (90) 99 Humidified Oxygen 30 02/04/17 16:00 37.1 111 18 104/69 (81) 99 Humidified Oxygen 30 02/04/17 16:00 Humidified Oxygen 30 02/04/17 14:00 37.2 60 21 105/64 (78) 100 Humidified Oxygen 30 Laboratory Results: Last 24 Hours Test 02/04/17 18:39 02/04/17 22:09 02/05/17 02:20 02/05/17 08:42 Bedside Glucose 105 mg/dl 112 mg/dl White Blood Count 4.78 K/uL Red Blood Count 3.41 M/uL Hemoglobin 9.6 g/dL Hematocrit 30.4 % Mean Corpuscular Volume 89.1 fL Mean Corpuscular Hemoglobin 28.2 pg Mean Corpuscular Hemoglobin Concent 31.6 g/dl Platelet Count 102 K/uL Mean Platelet Volume 9.3 fL Neutrophils (%) (Auto) 72.6 % Lymphocytes (%) (Auto) 17.6 % Monocytes (%) (Auto) 8.4 % Eosinophils (%) (Auto) 1.0 % Basophils (%) (Auto) 0.2 % Neutrophils # (Auto) 3.47 K/uL Lymphocytes # (Auto) 0.84 K/uL Monocytes # (Auto) 0.40 K/uL Eosinophils # (Auto) 0.05 K/uL Basophils # (Auto) 0.01 K/uL RDW Standard Deviation 46.8 fL RDW Coefficient of Variation 14.4 % Immature Granulocyte % (Auto) 0.2 % Immature Granulocyte # (Auto) 0.01 K/uL Sodium Level 143 mmol/L Potassium Level 3.5 mmol/L Chloride Level 112 mmol/L Carbon Dioxide Level 26 mmol/L Anion Gap 5.0 mmol/L Blood Urea Nitrogen 10 mg/dl Creatinine 0.61 mg/dl Est Creatinine Clear Calc Drug Dose 59.7 ml/min Estimated GFR () 93.8 Estimated GFR (Non- 80.9 BUN/Creatinine Ratio 17.0 Random Glucose 80 mg/dl Calcium Level 8.0 mg/dl Phosphorus Level 2.1 mg/dl Magnesium Level 1.9 mg/dl Troponin I 0.041 ng/ml
--- NOTE | 2017-02-05 14:21 | Progress Note ---
Subjective Date of Service: Feb 05, 2017. Subjective Pt evaluation today including: conversation w/ patient, conversation w/ family , physical exam, chart review, lab review, review of studies, conversation w/ provider contracting consultant, review of inpatient medication list Was having A. fib, amiodarone drip was started Patient was extubated yesterday Doing well Tolerate diet No complaint Problem List Medical Problems: (1) Acute aspiration pneumonia Status: Acute (2) Acute dyspnea Status: Acute (3) Choking Status: Acute (4) Choking episode Status: Acute (5) Choking episode Status: Acute (6) Contusion of multiple sites Status: Acute (7) Dizzy spells Status: Acute (8) DNR (do not resuscitate) Status: Acute (9) Fall Status: Acute (10) Fall Status: Acute (11) Hypokalemia Status: Acute (12) Hypoxia Status: Acute (13) Lactic acidosis Status: Acute (14) Respiratory acidosis Status: Acute (15) Respiratory arrest Status: Acute (16) Respiratory arrest Status: Acute (17) Respiratory failure Status: Acute (18) Rib pain on left side Status: Acute (19) Upper abdominal pain Status: Acute Review of Systems Constitutional: + weakness, + fatigue Eyes: + worsening of vision, + eye pain ENT: + hearing loss, + unusual epistaxis Respiratory: + cough Cardiac: No chest pain Abdomen: No see HPI, No pain, No nausea, No vomiting, No diarrhea, No constipation, No GI bleeding, No problem reported Musculoskeletal: No see HPI, No joint pain, No muscle pain, No swelling, No calf pain, No problem reported Female : No see HPI, No dysuria, No urinary frequency, No hematuria, No incontinence, No abnormal vaginal bleeding, No vaginal discharge, No problem reported Neurologic: No see HPI, No memory loss, No paralysis, No weakness, No numbness/ tingling, No vertigo, No balance problems, No problem reported Psychiatric: No see HPI, No depression symptoms, No anhedonism, No anxiety, No insomnia, No substance abuse, No problem reported Heme: No see HPI, No abnormal bleeding/bruising, No clotting problems, No swollen lymph nodes, No night sweats, No problem reported Endo: No see HPI, No fatigue, No excessive thirst, No excessive urination, No problem reported Skin: No see HPI, No rash, No itch, No new/changing skin lesions, No color change, No bleeding, No problem reported Objective Vital Signs Date Time Temp Pulse Resp B/P (MAP) Pulse Ox O2 Delivery O2 Flow Rate FiO2 02/05/17 11:30 Nasal Cannula 2.0 02/05/17 11:00 55 20 99 02/05/17 10:00 69 24 136/99 (111) 95 02/05/17 09:48 74 22 164/89 (114) 94 02/05/17 09:00 61 23 97 02/05/17 08:00 66 26 129/70 (89) 95 02/05/17 07:30 36.8 89 20 118/63 (81) 97 Nasal Cannula 2.0 02/05/17 07:30 Nasal Cannula 2.0 30 02/05/17 07:00 63 20 118/63 (81) 95 02/05/17 06:00 89 16 102/65 (77) 97 Nasal Cannula 2.0 02/05/17 04:00 37.1 84 16 109/58 (75) 96 Nasal Cannula 2.0 02/05/17 04:00 Nasal Cannula 2.0 02/05/17 02:00 94 20 109/66 (80) 98 Nasal Cannula 2.0 02/05/17 00:01 37.0 96 20 98/65 (76) 96 Nasal Cannula 2.0 02/04/17 23:59 Nasal Cannula 2.0 02/04/17 22:00 98 20 118/79 (92) 97 Nasal Cannula 2.0 02/04/17 21:49 112 122/93 02/04/17 20:54 119 114/65 02/04/17 20:00 Nasal Cannula 2.0 02/04/17 20:00 37.2 112 22 126/87 (100) 96 Nasal Cannula 2.0 02/04/17 18:00 37.1 114 18 115/77 (90) 99 Humidified Oxygen 30 02/04/17 16:00 37.1 111 18 104/69 (81) 99 Humidified Oxygen 30 02/04/17 16:00 Humidified Oxygen 30 Physical Exam General Appearance: WD/WN, no apparent distress, + thin, + pertinent finding ( frail and chronically ill-looking) Eyes: normal inspection, PERRL, EOMI, sclerae normal ENT: normal ENT inspection, hearing grossly normal, pharynx normal Neck: supple, no adenopathy, thyroid normal, no JVD, no carotid bruits, trachea midline Respiratory/Chest: normal breath sounds, no respiratory distress, no accessory muscle use Cardiovascular: regular rate, rhythm, no edema, no gallop, no JVD, no murmur, + irregularly irregular Abdomen: normal bowel sounds, non tender, soft, no organomegaly, no pulsatile mass Extremities: normal range of motion, non-tender, normal inspection, no pedal edema, no calf tenderness, normal capillary refill, pelvis stable Neurologic/Psychiatric: router setter II-XII nml as tested, no motor/sensory deficits, alert, normal mood/affect, oriented x 3 Skin: normal color, warm/dry, no rash Lymphatic: no adenopathy Laboratory Results Last 24 Hours Test 02/04/17 18:39 02/04/17 22:09 02/05/17 02:20 02/05/17 08:42 Bedside Glucose 105 mg/dl 112 mg/dl White Blood Count 4.78 K/uL Red Blood Count 3.41 M/uL Hemoglobin 9.6 g/dL Hematocrit 30.4 % Mean Corpuscular Volume 89.1 fL Mean Corpuscular Hemoglobin 28.2 pg Mean Corpuscular Hemoglobin Concent 31.6 g/dl Platelet Count 102 K/uL Mean Platelet Volume 9.3 fL Neutrophils (%) (Auto) 72.6 % Lymphocytes (%) (Auto) 17.6 % Monocytes (%) (Auto) 8.4 % Eosinophils (%) (Auto) 1.0 % Basophils (%) (Auto) 0.2 % Neutrophils # (Auto) 3.47 K/uL Lymphocytes # (Auto) 0.84 K/uL Monocytes # (Auto) 0.40 K/uL Eosinophils # (Auto) 0.05 K/uL Basophils # (Auto) 0.01 K/uL RDW Standard Deviation 46.8 fL RDW Coefficient of Variation 14.4 % Immature Granulocyte % (Auto) 0.2 % Immature Granulocyte # (Auto) 0.01 K/uL Sodium Level 143 mmol/L Potassium Level 3.5 mmol/L Chloride Level 112 mmol/L Carbon Dioxide Level 26 mmol/L Anion Gap 5.0 mmol/L Blood Urea Nitrogen 10 mg/dl Creatinine 0.61 mg/dl Est Creatinine Clear Calc Drug Dose 59.7 ml/min Estimated GFR () 93.8 Estimated GFR (Non- 80.9 BUN/Creatinine Ratio 17.0 Random Glucose 80 mg/dl Calcium Level 8.0 mg/dl Phosphorus Level 2.1 mg/dl Magnesium Level 1.9 mg/dl Troponin I 0.041 ng/ml Assessment and Plan 86-year-old white female admitted to ICU because of acute respiratory failure from aspiration pneumonia on 02/02/2017, Extubated on 02/03/2017, stable and improving Acute respiratory failure with hypoxia and hypercapnia possible from aspiration pneumonia and CHF exacerbation Aspiration pneumonia possible acute on chronic diastolic CHF exacerbation which is supported by pulmonary edema in chest x-ray and elevated BNP Possible sepsis and septic shock with elevated lactic acid, and require pressor support, source of infection possible from pneumonia The above condition is stable and improving Atrial fibrillation with hx Paroxysmal a-fib: currently on amiodarone drip, rate controlled, will switch to by mouth Esophageal dysmotility, is chronic associated with chronic choking and aspiration, Aspiration and swallowing dysfunction probably untreatable, GI on the case, this is patient's 12 x admission because of aspiration and cause respirator failure per GI on the case, patient continue clearly expressed do not want to have a PEG tube placement Feeding with risk of aspiration after careful discussion with medical team with patient and patient's Congestive Heart Failure , with hx of Hx of diastolic CHF. 2014, EF reported 65-70%; continue daily weights with strict I/Os hx Cerebrovasc Disease Nos: Stable Hypernatremia at 146 upon admission, today improved, resolved Continue Dent catheter, check input and output Continue broad spectrum antibiotics such as Vancomycin and Zosyn for aspiration pneumonia and sepsis and septic shock DVT Prophylaxis - Heparin 5000 TID - SCD Palliative care recommendations: discussed with patient, /POShanthi Martinez, Dr. Garcia and Dr. Aguirre. DNR and now DNI. Continue antibiotics for now. Transfer out of ICU to [facility]. Per patient's wishes: no more aggressive treatment. No invasive procedures including pacer/ICD. Does not want to be on anticoagulation, no feeding tube. Goal is for comfort, plan to probably go to the [facility] for likely skilled nursing placement. Still uncertain if patient would want to come back to hospital if/when this occurs again, unsure if she'd want antibiotics either. Will need to discuss POLST before discharge. Will also discuss hospice. Allow to continue soft diet despite risk Verify all of the above information with patient and , and make sure we are in the same page they agreed Continued [facility] stay due to: multiple IV medications needed [facility]charge planning: [facility] facility
[2017-02-05] MEDS: AMIODARONE 200 MG TAB PO SCH (17:14)
[2017-02-05] MEDS: LATANOPROST 0.005% OP SOLN 2.5 ML BTL OPB SCH (21:09)
--- NOTE | 2017-02-05 21:39 | GASTROENTEROLOGY PROGRESS NOTE ---
DATE: 02/05/2017 SUBJECTIVE: The patient is doing well, resting comfortably in bed. She reports that she had eaten earlier today and tolerated liquids and some soft foods. Her breathing is not labored. She denies any odynophagia or dysphagia and did not have any choking events when eating and drinking. REVIEW OF SYSTEMS: Otherwise noncontributory based on 14-point exam. MEDICATIONS: She continues on lansoprazole, insulin, Unasyn. OBJECTIVE: VITAL SIGNS: Today, the patient is afebrile 36.8, blood pressure 136/99, respirations 20, 99% on 2 liters, heart rate 55. LUNGS: Diminished breath sounds at the bases. HEART: Normal S1, S2. ABDOMEN: Soft, flat, nontender, nondistended with good bowel sounds. EXTREMITIES: Without clubbing, cyanosis or edema. RECTAL: Deferred at this time. RECOMMENDATIONS: I again discussed the possibility of a PEG tube or temporary orogastric tube. The patient is quite adamant that she does not wish to have either type feeding tubes placed at this time and wants to continue take nutrition by mouth. I did remind her that the risk of aspiration remains high, although she should follow strict aspiration precautions, have foods that have a consistency that is optimized for swallowing and minimized for aspiration. She does recognize that the recurrent bouts of aspiration can be problematic and can be life threatening. At the present time she understands this and does not wish to pursue any further endoscopic or enteral tubes, will therefore sign off at this time. Please contact us if we could be of further assistance. Thank you for allowing us to participate in this patient's care.
[2017-02-05] MEDS ORDERED: VANCOMYCIN TROUGH ONE (22:30)
[2017-02-06] MEDS: ACETAMINOPHEN IV 650 MG in EMPTY BAG 0 ML IV PRN (00:26)
[2017-02-06 00:30] VITALS: BP 131/76; PULSE 78; TEMP 36.8; O2SAT 99
[2017-02-06] MEDS: ALBUTEROL HFA 8 GM INHALER INH PRN (00:54)
[2017-02-06 02:20] LABS: MANUAL MICROSCOPIC REQUIRED? YES; URINE APPEARANCE CLOUDY (CLEAR); URINE BILIRUBIN NEG (NEG); URINE COLOR RED; URINE NITRITE NEG (NEG); URINE PH 5.5 (4.5-7.5); URINE SPECIFIC GRAVITY 1.025 (1.000-1.030); UROBILINOGEN NEG (NEG)
[2017-02-06 02:21] LABS: REVIEW REQ? NO
[2017-02-06 02:23] LABS: URINE RBC >30 /hpf (0-4); URINE WBC >30 /hpf (0-5)
[2017-02-06 02:24] LABS: URINE BACTERIA NEG (NEG)
[2017-02-06 02:25] LABS: URINE GRANULAR CAST 0-3 /lpf (0)
[2017-02-06 02:26] LABS: ZZURINE CULT IF INDIC CATH YES
[2017-02-06] MEDS: AMPICILLIN/SULBACTAM SOD INJ 1,500 MG in SODIUM CHLORIDE 0.9% 100ML 100 ML IV SCH ×2 (04:56→10:45)
[2017-02-06] MEDS: HEPARIN SOD 5000 UNIT/0.5 ML CARP SQ SCH ×3 (06:00→20:33)
[2017-02-06] MEDS: INSULIN ASPART 100 UNITS/ML 3 ML PEN SC SCH ×4 (06:00→18:00)
[2017-02-06 06:29] LABS: BUN/CREATININE RATIO 18.4 (10-20); CALCIUM 8.5 mg/dl (8.5-10.1); CREATININE 0.55 mg/dl (0.60-1.20); POTASSIUM 4.1 mmol/L (3.5-5.1)
[2017-02-06 07:11] VITALS: BP 170/119; PULSE 92; TEMP 36.9; O2SAT 95
[2017-02-06] MEDS ORDERED: HydrALAZINE HCL 20 MG/ML VIAL IV. PRN (08:00)
[2017-02-06 09:07] VITALS: BP 130/84; PULSE 98
[2017-02-06] MEDS: LANSOPRAZOLE SOLUTAB 30 MG PO SCH (09:08)
[2017-02-06] MEDS: AMIODARONE 200 MG TAB PO SCH ×3 (09:08→20:31)
[2017-02-06] MEDS: CLOPIDOGREL BISULFATE 75 MG TAB PO SCH (09:08)
[2017-02-06] MEDS: MULTIVITAMIN TAB PO SCH (09:08)
[2017-02-06] MEDS: TIMOLOL MALEATE 0.5% OP SOLN 5 ML BTL OPL SCH (09:09)
--- NOTE | 2017-02-06 12:05 | Progress Note ---
Subjective Date of Service: Feb 06, 2017. Subjective Pt evaluation today including: conversation w/ patient, conversation w/ family , physical exam, chart review, lab review, review of studies, review of inpatient medication list Nurse reported patient was having agitation and possible hallucination last night, resolved When I seeing her she was reported sleepy, but conversational No special complaint On 4 L oxygen She is eating drinking Problem List Medical Problems: (1) Acute aspiration pneumonia Status: Acute (2) Acute dyspnea Status: Acute (3) Choking Status: Acute (4) Choking episode Status: Acute (5) Choking episode Status: Acute (6) Contusion of multiple sites Status: Acute (7) Dizzy spells Status: Acute (8) DNR (do not resuscitate) Status: Acute (9) Fall Status: Acute (10) Fall Status: Acute (11) Hypokalemia Status: Acute (12) Hypoxia Status: Acute (13) Lactic acidosis Status: Acute (14) Respiratory acidosis Status: Acute (15) Respiratory arrest Status: Acute (16) Respiratory arrest Status: Acute (17) Respiratory failure Status: Acute (18) Rib pain on left side Status: Acute (19) Upper abdominal pain Status: Acute Review of Systems Constitutional: + weakness, + fatigue, No see HPI, No fever, No chills, No sweats, No weight loss, No problem reported Eyes: No worsening of vision, No eye pain, No redness, No discharge, No diplopia ENT: No hearing loss, No unusual epistaxis, No nasal symptoms, No sore throat, No tinnitus, No dental problems, No trouble swallowing Respiratory: + cough, + shortness of breath Cardiac: No chest pain, No orthopnea, No PND, No edema, No claudication, No palpitations Abdomen: No pain, No nausea, No vomiting, No diarrhea, No constipation Musculoskeletal: No joint pain, No muscle pain, No swelling, No calf pain Female : No dysuria, No urinary frequency, No hematuria, No incontinence, No abnormal vaginal bleeding, No vaginal discharge Neurologic: No memory loss, No paralysis, No weakness, No numbness/tingling, No vertigo, No balance problems Psychiatric: No depression symptoms, No anhedonism, No anxiety, No insomnia, No substance abuse Heme: No abnormal bleeding/bruising, No clotting problems, No swollen lymph nodes, No night sweats Endo: No fatigue, No excessive thirst, No excessive urination Skin: No rash, No itch, No new/changing skin lesions, No color change, No bleeding Objective Vital Signs Date Time Temp Pulse Resp B/P (MAP) Pulse Ox O2 Delivery O2 Flow Rate FiO2 02/06/17 09:07 98 130/84 (99) 02/06/17 08:10 Nasal Cannula 4.0 02/06/17 07:11 36.9 92 22 170/119 (136) 95 4.0 02/06/17 02:58 Nasal Cannula 4.0 02/06/17 00:30 36.8 78 20 131/76 (94) 99 Nasal Cannula 4.0 02/05/17 16:30 Nasal Cannula 2.0 02/05/17 14:20 36.8 55 20 99 2.0 Physical Exam General Appearance: WD/WN, no apparent distress, + thin, + pertinent finding ( frail) Eyes: normal inspection, PERRL, EOMI, sclerae normal ENT: normal ENT inspection, hearing grossly normal, pharynx normal Neck: supple, no adenopathy, thyroid normal, no JVD, no carotid bruits, trachea midline Respiratory/Chest: chest non-tender, normal breath sounds, no respiratory distress, no accessory muscle use, + decreased breath sounds Cardiovascular: regular rate, rhythm, no edema, no gallop, no JVD, no murmur Abdomen: normal bowel sounds, non tender, soft, no organomegaly, no pulsatile mass Extremities: normal range of motion, non-tender, normal inspection, no pedal edema, no calf tenderness, normal capillary refill, pelvis stable Neurologic/Psychiatric: cosmetics 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 II-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 nml as tested, no motor/sensory deficits, alert, normal mood/affect, oriented x 3 Skin: normal color, warm/dry, no rash Lymphatic: no adenopathy Laboratory Results Last 24 Hours Test 02/05/17 19:36 02/05/17 19:40 02/05/17 19:58 02/06/17 00:23 Bedside Glucose 377 mg/dl 169 mg/dl 157 mg/dl 115 mg/dl Test 02/06/17 02:00 02/06/17 05:25 02/06/17 06:25 02/06/17 11:39 Urine Color RED Urine Appearance CLOUDY Urine pH 5.5 Urine Specific [place] 1.025 Urine Protein 1+ Urine Glucose (UA) NEG Urine Ketones 1+ Urine Occult Blood 3+ Urine Nitrite NEG Urine Bilirubin NEG Urine Urobilinogen NEG Urine Leukocyte Esterase NEG Urine RBC >30 /hpf Urine WBC >30 /hpf Urine Epithelial Cells 10-20 /lpf Urine Bacteria NEG Urine Hyaline Casts 1-5 /lpf Urine Granular Casts 0-3 /lpf Sodium Level 140 mmol/L Potassium Level 4.1 mmol/L Chloride Level 107 mmol/L Carbon Dioxide Level 26 mmol/L Anion Gap 7.0 mmol/L Blood Urea Nitrogen 10 mg/dl Creatinine 0.55 mg/dl Est Creatinine Clear Calc Drug Dose 65.2 ml/min Estimated GFR () 97.1 Estimated GFR (Non- 83.7 BUN/Creatinine Ratio 18.4 Random Glucose 113 mg/dl Calcium Level 8.5 mg/dl Chemistry Specimen Hemolysis Bedside Glucose 107 mg/dl 118 mg/dl Assessment and Plan 86-year-old white female admitted to ICU because of acute respiratory failure from aspiration pneumonia on 02/02/2017, Extubated on 02/03/2017, Relative stable Was transferred to [facility] because the goal of care is comfort methods Acute respiratory failure with hypoxia and hypercapnia possible from aspiration pneumonia and CHF exacerbation Aspiration pneumonia stable possible acute on chronic diastolic CHF exacerbation which is supported by pulmonary edema in chest x-ray and elevated BNP Possible sepsis and septic shock with elevated lactic acid, and require pressor support, source of infection possible from pneumonia The above condition Atrial fibrillation with hx Paroxysmal a-fib: Was on amiodarone drip, rate controlled, has switched to oral amiodarone 100mg 3 times a day, will continue Esophageal dysmotility, is chronic associated with chronic choking and aspiration, Aspiration and swallowing dysfunction probably untreatable, GI on the case, this is patient's 12 x admission because of aspiration and cause respirator failure per patient continue clearly expressed do not want to have a PEG tube placement , which was confirmed in the family meeting with the direct care professional and palliative care in the ICU Feeding with risk of aspiration after careful discussion with medical team with patient and patient's Continue current care feeding as tolerated Congestive Heart Failure , with hx of Hx of diastolic CHF. 2014, EF reported 65-70%; continue daily weights with strict I/Os hx Cerebrovasc Disease Nos: Stable Hypernatremia at 146 upon admission, today improved, resolved Continue Dent catheter, check input and output Continue broad spectrum antibiotics such as Vancomycin and Zosyn for aspiration pneumonia and sepsis and septic shock DVT Prophylaxis - Heparin 5000 TID - SCD Palliative care recommendations: discussed with patient, /Dr. Radha Paris DNR and now DNI. Continue antibiotics for now. Transfer out of ICU to [facility]. Per patient's wishes: no more aggressive treatment. No invasive procedures including pacer/ICD. Does not want to be on anticoagulation, no feeding tube. Goal is for comfort, plan to probably go to the [facility] for likely terminal system operator placement. Still uncertain if patient would want to come back to hospital if/when this occurs again, unsure if she'd want antibiotics either. We'll discuss with about this again Will need to discuss POLST before discharge. Will also discuss hospice. Palliative care on the case Allow to continue soft diet despite risk Talk to today, updated him patient's conditions Possible discharge to [facility] in day 1 or 2 with continuation of supportive care Continued [facility] stay due to: multiple IV medications needed Discharge planning: retirement facility
[2017-02-06 15:44] VITALS: BP 136/93; PULSE 106; TEMP 36.8; O2SAT 96
[2017-02-06 16:05] VITALS: O2SAT 96
--- NOTE | 2017-02-06 16:18 | Palliative Care Progress Note ---
Palliative Care Progress Note Date of Service Feb 06, 2017. Subjective Pt evaluation today including: conversation w/ patient, conversation w/ family Pain: 0/10 PO Intake: tolerating small amounts of soft diet Voiding: quesada catheter in place -Patient had a difficult night with hallucinations and delirium. -At the time i was in the room with her and her , Juan, she was receiving physical therapy and was quite pleasant. Still confused, but stated she was feeling so much better after performing the bed exercises. -Juan and I discussed and filled out a POLST form with the patient present in the room. Yesterday, patient repeatedly stated her could make decisions for her. -POLST form as follows: DNR, comfort measures only, determine the use or limitation of abx if infection occurs with comfort as the goal, trial of IVF but NO FEEDING TUBE. -Physical exam not done at the time I was in room as patient was working with therapy. She looked comfortable and denied any c/o pain or discomfort. Assessment and Plan Problem list: Delirium Weakness SOB/respiratory failure 2/2 aspiration pneumonia Esophageal dysmotility Dysphagia Aspiration pneumonia Hypoalbuminemia Hypotension Goals of care (Z51.5) Palliative care recommendations: -POLST form as follows: DNR, comfort measures only, determine the use or limitation of abx if infection occurs with comfort as the goal, trial of IVF but NO FEEDING TUBE. -Plan is for patient to go to the [facility]. Case management following. -Goal is for comfort and good quality of life. Patient does not want to be in the hospital. -Patient denies pain at this time and has not been taking pain medication while here in the hospital. -Does complain of occasional nausea. Recommend script for ondansetron 4mg Q6h PRN nausea. -Continue soft diet and aspiration precautions. Please contact me with any further palliative care needs. Palliative Performance Scale: 40 % Continued [facility] stay due to: multiple IV medications needed Discharge planning: [facility] facility
[2017-02-06 16:20] VITALS: O2SAT 96
[2017-02-06] MEDS: AMOXICILLIN/CLAVULANATE TAB 875 MG TAB PO SCH (20:30)
[2017-02-06] MEDS: LATANOPROST 0.005% OP SOLN 2.5 ML BTL OPB SCH (20:31)
[2017-02-07] MEDS: HEPARIN SOD 5000 UNIT/0.5 ML CARP SQ SCH ×3 (06:00→20:55)
[2017-02-07] MEDS: INSULIN ASPART 100 UNITS/ML 3 ML PEN SC SCH ×4 (06:00→17:52)
[2017-02-07 07:10] VITALS: BP 134/89; PULSE 76; TEMP 36.8; O2SAT 100
[2017-02-07] MEDS: LANSOPRAZOLE SOLUTAB 30 MG PO SCH (08:41)
[2017-02-07] MEDS: CLOPIDOGREL BISULFATE 75 MG TAB PO SCH (08:42)
[2017-02-07] MEDS: AMIODARONE 200 MG TAB PO SCH ×3 (08:42→17:52)
[2017-02-07] MEDS: AMOXICILLIN/CLAVULANATE TAB 875 MG TAB PO SCH ×2 (08:42→17:51)
[2017-02-07] MEDS: MULTIVITAMIN TAB PO SCH (08:42)
[2017-02-07] MEDS: TIMOLOL MALEATE 0.5% OP SOLN 5 ML BTL OPL SCH (08:43)
[2017-02-07 12:43] VITALS: PULSE 65; O2SAT 100
[2017-02-07 14:51] VITALS: BP 90/62; PULSE 74; TEMP 36.6; O2SAT 99
--- NOTE | 2017-02-07 15:26 | Progress Note ---
Subjective Date of Service: Feb 07, 2017. Subjective Pt evaluation today including: conversation w/ patient, conversation w/ family , physical exam, chart review, lab review, review of studies, conversation w/ strategy consultant, review of inpatient medication list Report tired, no appetite, 50% intake in Breakfast Generalized weakness, However conversational Problem List Medical Problems: (1) Acute aspiration pneumonia Status: Acute (2) Acute dyspnea Status: Acute (3) Choking Status: Acute (4) Choking episode Status: Acute (5) Choking episode Status: Acute (6) Contusion of multiple sites Status: Acute (7) Dizzy spells Status: Acute (8) DNR (do not resuscitate) Status: Acute (9) Fall Status: Acute (10) Fall Status: Acute (11) Hypokalemia Status: Acute (12) Hypoxia Status: Acute (13) Lactic acidosis Status: Acute (14) Respiratory acidosis Status: Acute (15) Respiratory arrest Status: Acute (16) Respiratory arrest Status: Acute (17) Respiratory failure Status: Acute (18) Rib pain on left side Status: Acute (19) Upper abdominal pain Status: Acute Review of Systems Constitutional: + weakness, + fatigue, No fever, No chills Respiratory: + shortness of breath Cardiac: No see HPI, No chest pain, No orthopnea, No PND, No edema, No claudication, No palpitations, No problem reported Abdomen: No see HPI, No pain, No nausea, No vomiting, No diarrhea, No constipation, No GI bleeding, No problem reported Musculoskeletal: No see HPI, No joint pain, No muscle pain, No swelling, No calf pain, No problem reported Female : No see HPI, No dysuria, No urinary frequency, No hematuria, No incontinence, No abnormal vaginal bleeding, No vaginal discharge, No problem reported Neurologic: No see HPI, No memory loss, No paralysis, No weakness, No numbness/ tingling, No vertigo, No balance problems, No problem reported Psychiatric: No see HPI, No depression symptoms, No anhedonism, No anxiety, No insomnia, No substance abuse, No problem reported Heme: No see HPI, No abnormal bleeding/bruising, No clotting problems, No swollen lymph nodes, No night sweats, No problem reported Endo: No see HPI, No fatigue, No excessive thirst, No excessive urination, No problem reported Objective Vital Signs Date Time Temp Pulse Resp B/P (MAP) Pulse Ox O2 Delivery O2 Flow Rate FiO2 02/07/17 14:51 36.6 74 20 90/62 (71) 99 3.0 02/07/17 12:43 65 100 Nasal Cannula 3.0 02/07/17 08:40 Nasal Cannula 4.0 02/07/17 07:10 36.8 76 20 134/89 (104) 100 02/07/17 00:38 Nasal Cannula 4.0 02/06/17 16:20 96 02/06/17 16:05 96 Nasal Cannula 4.0 02/06/17 15:44 36.8 106 18 136/93 (107) 96 Nasal Cannula 4.0 Physical Exam General Appearance: WD/WN, no apparent distress, + thin, + pertinent finding ( frail, chronically ill-looking) Eyes: normal inspection, PERRL, EOMI, sclerae normal ENT: normal ENT inspection, hearing grossly normal, pharynx normal, + pertinent finding (on nasal cannula) Neck: supple, no adenopathy, thyroid normal, no JVD, no carotid bruits, trachea midline Respiratory/Chest: normal breath sounds, no respiratory distress, no accessory muscle use, + decreased breath sounds Cardiovascular: regular rate, rhythm, no edema, no gallop, no JVD, no murmur Abdomen: normal bowel sounds, non tender, soft, no organomegaly, no pulsatile mass Extremities: normal range of motion, non-tender, normal inspection, no pedal edema, no calf tenderness, normal capillary refill, pelvis stable Neurologic/Psychiatric: electrical calibrator II-XII nml as tested, no motor/sensory deficits, alert, normal mood/affect, oriented x 3 Skin: normal color, warm/dry, no rash Lymphatic: no adenopathy Laboratory Results Last 24 Hours Test 02/06/17 16:35 02/06/17 20:05 02/06/17 23:58 02/07/17 06:39 Bedside Glucose 127 mg/dl 106 mg/dl 112 mg/dl 96 mg/dl Test 02/07/17 07:16 02/07/17 11:26 Bedside Glucose 82 mg/dl 146 mg/dl Assessment and Plan 86-year-old white female admitted to ICU because of acute respiratory failure from aspiration pneumonia on 02/02/2017, Extubated on 02/03/2017, Relative stable Was transferred to [facility] E. because the goal of care is comfort methods Acute respiratory failure with hypoxia and hypercapnia possible from aspiration pneumonia and CHF exacerbation Aspiration pneumonia stable possible acute on chronic diastolic CHF exacerbation which is supported by pulmonary edema in chest x-ray and elevated BNP Possible sepsis and septic shock with elevated lactic acid, and require pressor support, source of infection possible from pneumonia The above condition has been related to stable Atrial fibrillation with hx Paroxysmal a-fib: Was on amiodarone drip, rate controlled, has switched to oral amiodarone 100mg 3 times a day, will continue Esophageal dysmotility, is chronic associated with chronic choking and aspiration, Aspiration and swallowing dysfunction probably untreatable, GI on the case, this is patient's 12 x admission because of aspiration and cause respirator failure per patient continue clearly expressed do not want to have a PEG tube placement , which was confirmed in the family meeting with the merchandise presentation associate and palliative care in the ICU Feeding with risk of aspiration after careful discussion with medical team with patient and patient's Continue current care feeding as tolerated which is pured diet Because of esophageal malfunctioning speech therapy will be no help Congestive Heart Failure , with hx of Hx of diastolic CHF. 2015, EF reported 65-70% For diet and now will be as tolerated and comfort feeding hx Cerebrovasc Disease Nos: Stable Hypernatremia at 146 upon admission, today improved, resolved Continue Dent catheter, check input and output Continue broad spectrum antibiotics such as Vancomycin and Zosyn for aspiration pneumonia and sepsis and septic shock DVT Prophylaxis - Heparin 5000 TID - SCD Palliative care recommendations: discussed with patient, /[facility] Dr. Radha Martinez DNR and now DNI. Continue antibiotics for now. Per patient's wishes: no more aggressive treatment. No invasive procedures including pacer/ICD. Does not want to be on anticoagulation, no feeding tube. Goal is for comfort, plan to probably go to the [facility] for likely half-way placement. Still uncertain if patient would want to come back to hospital if/when this occurs again, unsure if she'd want antibiotics either. abx is 5 out of 10 today Will need to discuss POLST before discharge. With present on nurse, discussed with about hospice care, will talk to bottle caser [facility] with continuation of supportive care Continued [facility] stay due to: multiple IV medications needed Discharge planning: long term facility
[2017-02-07 16:12] VITALS: O2SAT 96
[2017-02-07] MEDS: LATANOPROST 0.005% OP SOLN 2.5 ML BTL OPB SCH (20:54)
[2017-02-07] MEDS: ACETAMINOPHEN IV 650 MG in EMPTY BAG 0 ML IV PRN (21:50)
[2017-02-07 23:57] VITALS: BP 109/72; PULSE 65; TEMP 36.6; O2SAT 99
[2017-02-08] MEDS: HEPARIN SOD 5000 UNIT/0.5 ML CARP SQ SCH ×3 (05:35→21:18)
[2017-02-08] MEDS: INSULIN ASPART 100 UNITS/ML 3 ML PEN SC SCH ×2 (06:00)
[2017-02-08 06:46] VITALS: BP 122/81; PULSE 65; TEMP 36.5; O2SAT 98
--- NOTE | 2017-02-08 09:39 | Progress Note ---
Subjective Date of Service: Feb 08, 2017. Subjective Pt evaluation today including: conversation w/ patient, physical exam, chart review, lab review, review of studies, conversation w/ information services consultant, review of inpatient medication list Nurse report patient was feeding herself yesterday, This morning she is sleepy, wake up and conversational No complaining Problem List Medical Problems: (1) Acute aspiration pneumonia Status: Acute (2) Acute dyspnea Status: Acute (3) Choking Status: Acute (4) Choking episode Status: Acute (5) Choking episode Status: Acute (6) Contusion of multiple sites Status: Acute (7) Dizzy spells Status: Acute (8) DNR (do not resuscitate) Status: Acute (9) Fall Status: Acute (10) Fall Status: Acute (11) Hypokalemia Status: Acute (12) Hypoxia Status: Acute (13) Lactic acidosis Status: Acute (14) Respiratory acidosis Status: Acute (15) Respiratory arrest Status: Acute (16) Respiratory arrest Status: Acute (17) Respiratory failure Status: Acute (18) Rib pain on left side Status: Acute (19) Upper abdominal pain Status: Acute Review of Systems Constitutional: + weakness, + fatigue Eyes: No worsening of vision, No eye pain, No redness, No discharge, No diplopia ENT: No hearing loss, No unusual epistaxis, No nasal symptoms, No sore throat, No tinnitus, No dental problems, No trouble swallowing Respiratory: No cough, No sputum, No wheezing, No shortness of breath, No dyspnea on exertion, No dyspnea at rest, No hemoptysis Cardiac: No chest pain, No orthopnea, No PND, No edema, No claudication, No palpitations Abdomen: No pain, No nausea, No vomiting, No diarrhea, No constipation Musculoskeletal: No joint pain, No muscle pain, No swelling, No calf pain Female : No dysuria, No urinary frequency, No hematuria, No incontinence, No abnormal vaginal bleeding, No vaginal discharge Neurologic: No memory loss, No paralysis, No weakness, No numbness/tingling, No vertigo, No balance problems Psychiatric: No depression symptoms, No anhedonism, No anxiety, No insomnia, No substance abuse Heme: No abnormal bleeding/bruising, No clotting problems, No swollen lymph nodes, No night sweats Endo: No fatigue, No excessive thirst, No excessive urination Skin: No rash, No itch, No new/changing skin lesions, No color change, No bleeding Objective Vital Signs Date Time Temp Pulse Resp B/P (MAP) Pulse Ox O2 Delivery O2 Flow Rate FiO2 02/08/17 06:46 36.5 65 16 122/81 (95) 98 Nasal Cannula 3.0 02/08/17 00:32 Nasal Cannula 3.0 02/07/17 23:57 36.6 65 16 109/72 (84) 99 Nasal Cannula 3.0 02/07/17 16:12 96 Nasal Cannula 3.0 02/07/17 14:51 36.6 74 20 90/62 (71) 99 3.0 02/07/17 12:43 65 100 Nasal Cannula 3.0 Physical Exam General Appearance: WD/WN, no apparent distress, + thin, + pertinent finding Eyes: normal inspection, PERRL, EOMI, sclerae normal ENT: normal ENT inspection, hearing grossly normal, pharynx normal Neck: supple, no adenopathy, thyroid normal, no JVD, no carotid bruits, trachea midline Respiratory/Chest: chest non-tender, lungs clear, normal breath sounds, no respiratory distress, no accessory muscle use, + decreased breath sounds Cardiovascular: regular rate, rhythm, no edema, no gallop, no JVD, no murmur Abdomen: normal bowel sounds, non tender, soft, no organomegaly, no pulsatile mass Extremities: normal range of motion, non-tender, normal inspection, no pedal edema, no calf tenderness, normal capillary refill, pelvis stable Neurologic/Psychiatric: shade cutter II-XII nml as tested, no motor/sensory deficits, alert, normal mood/affect, oriented x 3 Skin: normal color, warm/dry, no rash Lymphatic: no adenopathy Laboratory Results Last 24 Hours Test 02/07/17 11:26 02/07/17 15:57 02/07/17 20:19 02/08/17 06:31 Bedside Glucose 146 mg/dl 137 mg/dl 152 mg/dl 99 mg/dl Assessment and Plan 86-year-old white female admitted to ICU because of acute respiratory failure from aspiration pneumonia on 02/02/2017, Extubated on 02/03/2017, cont relative stable Was transferred to [facility] because the goal of care is comfort methods Acute respiratory failure with hypoxia and hypercapnia possible from aspiration pneumonia and CHF exacerbation Aspiration pneumonia stable possible acute on chronic diastolic CHF exacerbation which is supported by pulmonary edema in chest x-ray and elevated BNP Possible sepsis and septic shock with elevated lactic acid, and require pressor support, source of infection possible from pneumonia The above condition has been related to stable Atrial fibrillation with hx Paroxysmal a-fib while in icu stay Was on amiodarone drip, rate controlled, has switched to oral amiodarone 100mg 3 times a day, will continue Esophageal dysmotility, is chronic associated with chronic choking and aspiration, Aspiration and swallowing dysfunction probably untreatable, GI on the case, this is patient's 12 x admission because of aspiration and cause respirator failure per patient continue clearly expressed do not want to have a PEG tube placement , which was confirmed in the family meeting with the talent analyst and palliative care in the ICU Feeding with risk of aspiration after careful discussion with medical team with patient and patient's Continue current care feeding as tolerated which is pured diet, so far doing okay Because of esophageal malfunctioning speech therapy will be no help Congestive Heart Failure , with hx of Hx of diastolic CHF. 2015, EF reported 65-70% For diet and now will be as tolerated and comfort feeding hx Cerebrovasc Disease Nos: Stable Hypernatremia at 146 upon admission, improved, resolved We'll discontinue Dent cath Was on broad spectrum antibiotics such as Vancomycin and Zosyn for aspiration pneumonia and sepsis and septic shock has change to Augmentin on 02/06/2017 DVT Prophylaxis - Heparin 5000 TID - SCD Palliative care recommendations: discussed with patient, /Dr. Radha Paris DNR and now DNI. Continue antibiotics for now. Per patient's wishes: no more aggressive treatment. No invasive procedures including pacer/ICD. Does not want to be on anticoagulation, no feeding tube. Goal is for comfort, plan to probably go to the [facility] for likely local company intermodal truck driver placement. Still uncertain if patient would want to come back to hospital if/when this occurs again, unsure if she'd want antibiotics either. abx is 6 out of 10 today Will need to discuss POLST before discharge. With present on nurse, discussed with about hospice care, will talk to showcase maker Will continue to talk to Planning discharge tomorrow Continued [facility] stay due to: multiple IV medications needed Discharge planning: senior care facility
[2017-02-08] MEDS: MULTIVITAMIN TAB PO SCH (09:48)
[2017-02-08] MEDS: LANSOPRAZOLE SOLUTAB 30 MG PO SCH (09:48)
[2017-02-08] MEDS: AMOXICILLIN/CLAVULANATE TAB 875 MG TAB PO SCH ×2 (09:48→17:19)
[2017-02-08] MEDS: CLOPIDOGREL BISULFATE 75 MG TAB PO SCH (09:49)
[2017-02-08] MEDS: AMIODARONE 200 MG TAB PO SCH ×3 (09:49→17:14)
[2017-02-08] MEDS: TIMOLOL MALEATE 0.5% OP SOLN 5 ML BTL OPL SCH (09:50)
[2017-02-08 16:01] VITALS: BP 105/73; PULSE 81; TEMP 36.5; O2SAT 96
[2017-02-08] MEDS: LATANOPROST 0.005% OP SOLN 2.5 ML BTL OPB SCH (21:19)
[2017-02-08] MEDS: ACETAMINOPHEN IV 650 MG in EMPTY BAG 0 ML IV PRN (21:34)
[2017-02-08 23:26] VITALS: BP 107/64; PULSE 64; TEMP 36.5; O2SAT 98
[2017-02-09] MEDS: HEPARIN SOD 5000 UNIT/0.5 ML CARP SQ SCH ×2 (05:58→13:37)
[2017-02-09 06:15] LABS: BASO % 0.4 %; BASO ABS # 0.02 K/uL (0-0.2); COMPLETE YES; EOS % 2.8 %; HEMATOCRIT 31.4 % (37-47); IG% 1.3 %; LYMPH % 18.7 %; LYMPH ABS # 0.86 K/uL (1.2-3.4); MEAN CELL VOLUME 89.5 fL (80-100); MEAN CORPUSCULAR HEMOGLOBIN 28.2 pg (25-34); MEAN CORPUSCULAR HGB CONC 31.5 g/dl (32-36); MEAN PLATELET VOLUME 9.3 fL (7.4-10.4); MONO % 14.3 %; NEUT % 62.5 %; PLATELET COUNT 148 K/uL (130-400); RED BLOOD COUNT 3.51 M/uL (4.2-5.4); WHITE BLOOD COUNT 4.61 K/uL (4.8-10.8)
[2017-02-09 06:52] LABS: BUN/CREATININE RATIO 20.3 (10-20); CREATININE 0.48 mg/dl (0.60-1.20); MAGNESIUM 1.6 mg/dl (1.8-2.4); POTASSIUM 3.2 mmol/L (3.5-5.1)
[2017-02-09 07:24] LABS: CALCIUM 8.9 mg/dl (8.5-10.1)
[2017-02-09 08:03] VITALS: BP 114/75; PULSE 68; TEMP 36.6; O2SAT 98
[2017-02-09] MEDS ORDERED: POTASSIUM CHLORIDE 10 MEQ TABCR PO STA (08:07)
[2017-02-09] MEDS: MULTIVITAMIN TAB PO SCH (08:17)
[2017-02-09] MEDS: LANSOPRAZOLE SOLUTAB 30 MG PO SCH (08:17)
[2017-02-09] MEDS: AMOXICILLIN/CLAVULANATE TAB 875 MG TAB PO SCH (08:17)
[2017-02-09] MEDS: TIMOLOL MALEATE 0.5% OP SOLN 5 ML BTL OPL SCH (08:17)
[2017-02-09] MEDS: AMIODARONE 200 MG TAB PO SCH ×2 (08:18→13:35)
[2017-02-09] MEDS: CLOPIDOGREL BISULFATE 75 MG TAB PO SCH (08:19)
[2017-02-09] MEDS ORDERED: MAGNESIUM SULFATE 1GM / D5W 1 GM in PREMIXED IN D5W 100 ML IV STA (08:23)
[2017-02-09] MEDS ORDERED: POTASSIUM CHLR 20 MEQ / WTR 20 MEQ in PREMIXED WATER 100 ML IV SCH (09:30)
[2017-02-09] MEDS ORDERED: AMOX1TAB43 PO (14:27)
[2017-02-09] MEDS ORDERED: MGNO400 PO (14:27)
[2017-02-09] MEDS ORDERED: CRD200 PO (14:27)
--- NOTE | 2017-02-09 14:28 | Discharge Instructions ---
Discharge Instructions Date of Service Feb 09, 2017. Admission Reason for Admission: Aspiration Pneumonia Discharge Discharge Diagnosis / Problem: caute respiratory failure from aspiration pneumonia Discharge Goals Goal(s): Decrease discomfort, Improve function Activity Recommendations Activity Level: OOB In Chair (if tolerate) . Additional Information Patient informed of condition: Yes Advance Directives: Yes DNR: Yes Level of Care: Skilled Communicable Disease: No Prognosis: Deteriorating Oxygen at (LPM): 2-4 LPM if need to keep osat>88% Dent Catheter: No Instructions / Follow-Up Instructions / Follow-Up you had a acute respiratory failure from aspiration pneumonia on 02/02/2017, The goal of care is comfort methods you have Aspiration pneumonia need to continue abx, neb treatment, and NC O2 you have Atrial fibrillation with hx Paroxysmal a-fib while in icu stay, need to continue oral amiodarone 100mg 3 times a day, The goal of care is comfort methods you have Esophageal dysmotility, is chronic associated with chronic choking and aspiration, you are on pured diet , eating /drinking on the risks of aspiration Because of esophageal malfunctioning speech therapy will be no help recommend to enter into hospice care after [facility] - you need to follow up with your primary care physician in 1 week, - call your primary care physician if has any fever/chill, chest pain, shortness of breathing, nausea/vomiting/abdominal pain, facial droop/slurry speech/local weakness, or if has any questions. - fall precaution - diet as instructed Current Hospital Diet Patient's current hospital diet: Regular Diet Discharge Diet Recommended Diet: Regular Diet Procedures Procedures Performed: no Pending Studies Studies pending at discharge: no Physician Orders On Transfer POLST Discussion: without POLST completion Medical Emergencies . Who to Call and When: Medical Emergencies: If at any time you feel your situation is an emergency, please call 911 immediately. . Non-Emergent Contact Non-Emergency issues call your: Primary Care Provider . . "Provider Documentation" section prepared by Pako Aguirre. . Core Measure Problem Core Measures: None
[2017-02-09] MEDS ORDERED: IPRASOL4 INH (14:42)
--- NOTE | 2017-02-09 14:46 | Discharge Summary ---
Discharge Summary Date of Service Feb 09, 2017. Discharge Summary Admission Date: Feb 02, 2017 at 23:45 Discharge Date: Feb 09, 2017 Principal Diagnosis: acute respiratory failure Problems/Secondary Diagnoses: Aspiration pneumonia Atrial fibrillation with hx Paroxysmal a-fib Esophageal dysmotility Immunizations: Have You Had Influenza Vaccine: Yes Influenza Vaccine Date: Jun 09, 2012 History of Tetanus Vaccine?: Unknown History of Pneumococcal: Yes Pneumococcal Date: Oct 10, 2009 History of Hepatitis B Vaccine: Unknown Procedures: Intubation and extubation Consultations: GI, manager maintenance Medication Reconciliation New Medications: Amiodarone HCl (Amiodarone HCl) 200 Mg Tab 100 MG PO TIDM for 30 Days, TAB Amoxicillin & Pot Clavulanate (Amoxicillin/Clavulanate P) 1 Tab Tab 875 MG PO BIDM for 7 Days, TAB Magnesium Oxide (Magnesium-Oxide) 400 Mg Tab 400 MG PO BID for 7 Days, TAB Continued Medications: Acetaminophen (Tylenol) 325 Mg Tab 650 MG PO DAILY, TAB Alcaftadine (Lastacaft) 0.25 % Milla 1 DROP OPR QAM, ML Citalopram (Citalopram Hydrobromide) 40 Mg Tab 40 MG PO QAM Clopidogrel Bisulfate (Clopidogrel) 75 Mg Tab 75 MG PO QAM Lansoprazole (Prevacid) 30 Mg Capcr 30 MG PO QAM, CAP TAKE THIS MEDICATION AT BREAKFAST Latanoprost (Xalatan 0.005% Oph Milla) 0.005 % Milla 1 DROP OPB HS, ML Levalbuterol (Levalbuterol HCl) 1.25 Mg/3 Ml Nebu 1 VIAL NEB Q6H PRN for SOB/Wheezing Loperamide Hcl (Imodium A-D) 2 Mg Tab 2 MG PO Q3HRS PRN for Loose Stool(s) Multivitamin (Multivitamin) Tab 1 TAB PO QAM, TAB Psyllium (Metamucil Fiber) 51.7 % Osmar 1 PKT PO BID PRN for Loose Stool(s) Sennosides-Docusate Sodium (Senna S) 1 Tab Tab 1 TAB PO UD PRN for Constipation Thiamine Hcl (Vitamin B-1) 100 Mg Tab 100 MG PO DAILY, TAB Timolol Maleate (Timolol 0.5% Oph Soln 15 Ml) 15 Ml Soln 1 DROP OPL QAM Discontinued Medications: Multiple Vitamins W/ Minerals (Preservision Areds) 1 Cap Cap 1 CAP PO BID Discharge Exam Continue doing fair, conversational, eating diet by herself, no choking Review of Systems: Constitutional: No fever, No chills, No sweats, No weight loss, No weakness , No fatigue, No problem reported Eyes: No worsening of vision, No eye pain, No redness, No discharge, No diplopia, No problem reported ENT: No hearing loss, No unusual epistaxis, No nasal symptoms, No sore throat, No tinnitus, No dental problems, No trouble swallowing, No problem reported Respiratory: + cough, No sputum, No wheezing, No shortness of breath, No dyspnea on exertion, No dyspnea at rest, No hemoptysis, No problem reported Cardiovascular: No chest pain, No orthopnea, No PND, No edema, No claudication, No palpitations, No problem reported Abdomen: No pain, No nausea, No vomiting, No diarrhea, No constipation, No GI bleeding, No problem reported Musculoskeletal: No joint pain, No muscle pain, No swelling, No calf pain, No problem reported Genitourinary - Female: No dysuria, No urinary frequency, No urinary urgency , No urinary incontinence, No urinary retention, No hematuria, No dysmenorrhea, No menorrhagia, No metrorrhagia, No rash, No vaginal bleeding, No vaginal discharge, No vaginal itching, No vulvodynia, No , No problem reported Neurologic: No memory loss, No paralysis, No weakness, No numbness/tingling , No vertigo, No balance problems, No problem reported Psychiatric: No depression symptoms, No anhedonism, No anxiety, No insomnia , No substance abuse, No problem reported Endocrine: No fatigue, No excessive thirst, No excessive urination, No problem reported Hematologic / Lymphatic: No abnormal bleeding/bruising, No clotting problems , No swollen lymph nodes, No night sweats, No problem reported Integumentary: No rash, No itch, No new/changing skin lesions, No color change, No bleeding, No problem reported Physical Exam: General Appearance: + thin, + pertinent finding (thin and frail, look better than yesterday) Eyes: normal inspection, PERRL ENT: normal ENT inspection, hearing grossly normal Neck: supple Respiratory/Chest: chest non-tender, normal breath sounds, no respiratory distress, no accessory muscle use, + decreased breath sounds Cardiovascular: regular rate, rhythm, no edema, no gallop, no JVD, no murmur Abdomen / GI: normal bowel sounds, non tender, soft Extremities: normal inspection, no calf tenderness, normal capillary refill , no pedal edema, normal range of motion Neurologic/Psychiatric: mobile designer II-XII nml as tested, no motor/sensory deficits , alert, normal mood/affect, oriented x 3 Skin: normal color, warm/dry Hospital Course 86-year-old white female admitted to ICU because of acute respiratory failure from aspiration pneumonia on 02/02/2017, Extubated on 02/03/2017, cont relative stable Was transferred to [facility] because the goal of care is comfort methods Acute respiratory failure with hypoxia and hypercapnia possible from aspiration pneumonia and CHF exacerbation Aspiration pneumonia stable, continue oral antibiotics and nebulizer treatment, and oxygen if needed possible acute on chronic diastolic CHF exacerbation which is supported by pulmonary edema in chest x-ray and elevated BNP Possible sepsis and septic shock with elevated lactic acid, and require pressor support, source of infection possible from pneumonia The above condition has been related to stable Atrial fibrillation with hx Paroxysmal a-fib while in icu stay Was on amiodarone drip, rate controlled, has switched to oral amiodarone 100mg 3 times a day, will continue No anticoagulations for stroke prevention because goal of care is comfort methods Esophageal dysmotility, is chronic associated with chronic choking and aspiration, Aspiration and swallowing dysfunction probably untreatable, GI on the case, this is patient's 12 x admission because of aspiration and cause respirator failure per patient continue clearly expressed do not want to have a PEG tube placement , which was confirmed in the family meeting with the manager maintenance and palliative care in the ICU Feeding with risk of aspiration after careful discussion with medical team with patient and patient's Continue current care feeding as tolerated which is pured diet, so far doing okay Because of esophageal malfunctioning speech therapy will be no help Congestive Heart Failure , with hx of Hx of diastolic CHF. 2014, EF reported 65-70% For diet and now will be as tolerated and comfort feeding hx Cerebrovasc Disease Nos: Stable Hypernatremia at 146 upon admission, improved, resolved We'll discontinue Dent cath Was on broad spectrum antibiotics such as Vancomycin and Zosyn for aspiration pneumonia and sepsis and septic shock has change to Augmentin on 02/06/2017 DVT Prophylaxis - Heparin 5000 TID - SCD Palliative care recommendations: discussed with patient, /Dr. Radha Paris DNR and now DNI. Continue antibiotics for now. Per patient's wishes: no more aggressive treatment. No invasive procedures including pacer/ICD. Does not want to be on anticoagulation, no feeding tube. Goal is for comfort, plan to probably go to the [facility] for likely alf placement. Still uncertain if patient would want to come back to hospital if/when this occurs again, With present on nurse, discussed with about hospice care, will talk to corrections caseworker Will continue to talk to Planning discharge tomorrow Instructions / Follow-Up you had a acute respiratory failure from aspiration pneumonia on 02/02/2017, The goal of care is comfort methods you have Aspiration pneumonia need to continue abx, neb treatment, and NC O2 you have Atrial fibrillation with hx Paroxysmal a-fib while in icu stay, need to continue oral amiodarone 100mg 3 times a day, The goal of care is comfort methods you have Esophageal dysmotility, is chronic associated with chronic choking and aspiration, you are on pured diet , eating /drinking on the risks of aspiration Because of esophageal malfunctioning speech therapy will be no help recommend to enter into hospice care after [facility] - you need to follow up with your primary care physician in 1 week, - call your primary care physician if has any fever/chill, chest pain, shortness of breathing, nausea/vomiting/abdominal pain, facial droop/slurry speech/local weakness, or if has any questions. - fall precaution - diet as instructed Total Time Spent: Greater than 30 minutes This includes examination of the patient, discharge planning, medication reconciliation, and communication with other providers. Discharge Instructions Please refer to the electronic Patient Visit Report (Discharge Instructions) for additional information.
[2017-02-09 15:26] VITALS: BP 120/78; PULSE 60; TEMP 37.1; O2SAT 98
[2017-02-09] MEDS ORDERED: MAGNESIUM OXIDE 400 MG TAB PO SCH (20:00)
== END 2017-02-09 16:15 | DRG 871 ==
LOC: EDBD 22:19 → C.EDB 22:20 → C.MSICU 23:45 → ENRESERV 23:48 → C.4E 02-05 13:09 → ENRESERV 02-05 13:18
PROVIDERS: ADMIT Student in an Organized Health Care Education/Training Program; ATTEND Hospitalist
PROC: 04HK33Z Insertion of Infusion Device into Right Femoral Artery, Percutaneous Approach (ICD-10-PCS; principal; 2017-02-02)
PROC: 5A1945Z Respiratory Ventilation, 24-96 Consecutive Hours (ICD-10-PCS; principal; 2017-02-02)
PROC: 0BH17EZ Insertion of Endotracheal Airway into Trachea, Via Natural or Artificial Opening (ICD-10-PCS; principal; 2017-02-02)
DX: A41.9 Sepsis, unspecified organism (principal); J69.0 Pneumonitis due to inhalation of food and vomit; J96.01 Acute respiratory failure with hypoxia; J96.02 Acute respiratory failure with hypercapnia; I50.33 Acute on chronic diastolic (congestive) heart failure; K22.4 Dyskinesia of esophagus; I11.0 Hypertensive heart disease with heart failure; E78.00 Pure hypercholesterolemia, unspecified; I48.0 Paroxysmal atrial fibrillation; R65.20 Severe sepsis without septic shock; Z51.5 Encounter for palliative care; Z66 Do not resuscitate; Z79.899 Other long term (current) drug therapy; Z87.891 Personal history of nicotine dependence; Z79.02 Long term (current) use of antithrombotics/antiplatelets; Z86.73 Personal history of transient ischemic attack (TIA), and cerebral infarction without residual deficits

== ENCOUNTER → 2017-03-06 | Outpatient (CLI) | payer OTHER, BC ==
[~2017-03-06] MED LIST changes: +ACET-1311 PO; -AMOX1TAB42 PO; +AMOX1TAB43 PO; +CRD200 PO; -ETOMIDATE 2 MG/ML 20 ML VIAL IV ONE; -FENTANYL CITRATE 100 MCG 2 ML CARP IV ONE; -HEPARIN SOD 5000 UNIT/0.5 ML CARP SQ SCH; -IMD2 PO; +LANS30CA12 PO; -LCTX PO; +LOPE-5 PO; +MGNO400 PO; -MIDAZOLAM HCL 1 MG/ML 2ML VIAL IV ONE; +MRPL PO; -MULTCAP33 PO; +PSYL58.636 PO; -ROCURONIUM BROMIDE 10 MG/ML 10 ML VIAL IV ONE; +XPNINS125 NEB; -XPNINS1255 INH
== END | disposition home or self-care (01) ==
LOC: C.LABSPEC 17:07
PROVIDERS: ATTEND Internal Medicine Critical Care Medicine
DX: R19.4 Change in bowel habit (principal); T36.95XA Adverse effect of unspecified systemic antibiotic, initial encounter

== ENCOUNTER → 2017-04-04 | Outpatient (CLI) | payer OTHER, BC ==
[~2017-04-04] MED LIST changes: +LEVE500T13 PO; +ROXANOL 20MG/ML PO
[2017-04-04 19:39] LABS: MANUAL MICROSCOPIC REQUIRED? NO; REVIEW REQ? NO; URINE APPEARANCE CLEAR (CLEAR); URINE BILIRUBIN NEG (NEG); URINE COLOR DK YELLOW; URINE EPITHELIAL CELL AUTO >30 /lpf (0-5); URINE NITRITE NEG (NEG); URINE SPECIFIC GRAVITY 1.027 (1.000-1.030); UROBILINOGEN NEG (NEG); ZZUR CULT IF INDIC CLEAN CATCH YES
== END | disposition home or self-care (01) ==
LOC: C.LABVPSUA 08:23
PROVIDERS: ATTEND Internal Medicine Critical Care Medicine
DX: R35.0 Frequency of micturition (principal); R32 Unspecified urinary incontinence; R30.9 Painful micturition, unspecified

== ENCOUNTER 2017-05-10 21:04 | Inpatient (IN) | payer OTHER, BC ==
[~2017-05-10] VITALS: Ht 165.1 cm; Wt 54.8 kg
[~2017-05-10 21:04] MED LIST changes: -LEVE500T13 PO; -MRPL PO; -ROXANOL 20MG/ML PO
[2017-05-10] MEDS ORDERED: LIDOCAINE/EPINEPH/TETRACAINE 1 EA SYR EXT STA (21:27)
--- NOTE | 2017-05-10 21:33 | EMERGENCY ROOM VISIT NOTE ---
History Report prepared by Roderick: Jacques Head Under the Supervision of: Dr. Bud Harding M.D. First contact with patient: 21:19 Chief Complaint: FALL Stated Complaint: FALL, LACERATION ABOVE EYE History of Present Illness The patient is a 86 year old female who presents to the Emergency Room with complaints of a sudden fall that occurred prior to arrival. The patient states that she has a problem with her balance. She reports that she was sitting up beside the bed watching the football game. The patient states that she went to get up with her walker and went to turn when she started to experience dizziness. She states that she fell backwards and hit the back of her head. The patient states that admits to experiencing head pain and bleeding following the incident, which she took two Tylenol for. The patient reports that she was here for a similar scenario two weeks ago. She reports that she tripped over her walker, but denies any bleeding from the incident. She admits to a history of Atrial Fibrillation. The patient states that she believes her tetanus shot is up to date. The patient denies any syncope, headache, neck pain, chest pain, SOB , abdominal pain, nausea, any allergies. 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 A total of 10 systems reviewed and were otherwise negative. Past Medical & Surgical Medical Problems: (1) Acute respiratory failure with hypoxia and hypercapnia (2) Aspiration pneumonia (3) Cerebrovasc Disease Nos (4) Congestive Heart Failure Nos (5) Diarrhea (6) Dysphagia (7) Esophageal dysmotility (8) Hypercholesterolemia (9) Hypertension Nos (10) Hysterectomy (11) Osteoarthros Nos-Unspec (12) Paroxysmal a-fib Old medical records were reviewed. Nurse's notes were reviewed and I agree with. She is DO NOT RESUSCITATE and DO NOT INTUBATE Family History Patient reports no known family medical history. Social History Smoking Status: Former Smoker Alcohol Use: none Drug Use: none Marital Status: Housing Status: assisted living Occupation Status: retired Current/Historical Medications Scheduled Acetaminophen (Tylenol), 650 MG PO HS Alcaftadine (Lastacaft), 1 DROP OPR QAM Citalopram (Citalopram Hydrobromide), 40 MG PO QAM Lansoprazole (Prevacid), 30 MG PO QAM Latanoprost (Xalatan 0.005% Oph Milla), 1 DROP OPB HS Multivitamin (Multivitamin), 1 TAB PO QAM Thiamine Hcl (Vitamin B-1), 100 MG PO DAILY Timolol Maleate (Timolol 0.5% Oph Soln 15 Ml), 1 DROP OPL QAM Scheduled PRN Acetaminophen (Tylenol), 650 MG PO Q4 PRN for Pain or Fever Levalbuterol (Levalbuterol HCl), 1 VIAL NEB Q6H PRN for SOB/Wheezing Loperamide Hcl (Imodium A-D), 2 MG PO Q3HRS PRN for Loose Stool(s) Morphine Sulfate (Morphine Sulfate), 0.25 ML PO Q1H PRN for pain/sob/anxiety Psyllium (Metamucil Fiber), 1 PKT PO BID PRN for Loose Stool(s) Sennosides-Docusate Sodium (Senna S), 1 TAB PO DAILY PRN for Constipation Allergies Coded Allergies: Sulfa Antibiotics (Verified Allergy, Unknown, ., 05/10/17) Fish (Verified Adverse Reaction, Unknown, GI SYMPTOMS, 05/10/17) Shellfish Allergy (Verified Adverse Reaction, Unknown, GI SYMPTOMS, ) Physical Exam Vital Signs Date Time Temp Pulse Resp B/P (MAP) Pulse Ox O2 Delivery O2 Flow Rate FiO2 05/11/17 00:00 56 16 111/74 96 05/10/17 22:52 53 05/10/17 22:44 53 16 125/88 96 Room Air 05/10/17 21:06 36.7 60 20 141/69 96 Room Air Physical Exam General: Well developed well nourished chronically ill appearing old female in no acute distress, breathing comfortably on room air. Normal speech HEENT: 2 cm non bleeding laceration to occipital region. Pupils are equal round and reactive to light. Extraocular movements are intact. Oropharynx is pink with moist mucous membranes. No swelling of the mouth lips or tongue. Neck: Supple with a midline trachea. No meningeal signs or stiffness, no JVD or bruits. No Stridor. Chest: Clear to auscultation bilaterally. No wheezes or rhonchi. No increased work of breathing. Heart: regular rate and rhythm. Abdomen: Soft nontender, nondistended without rebound guarding or rigidity. Extremities: No cyanosis clubbing or edema. No calf tenderness or assymetry Spine/Back. Non tender to palpation. No CVA tenderness Skin: Good turgor without rashes. Neurologic exam: Cranial nerves two through 12 are intact. Motor and sensation are intact and symmetrical throughout. Medical Decision & Procedures ER Provider Diagnostic Interpretation: CT results as stated below per my review and radiologist interpretation: HEAD CT NONCONTRAST CT DOSE: 537.48 mGy.cm HISTORY: Fall. eval for trauma TECHNIQUE: Multiaxial CT images of the head were performed without the use of intravenous contrast. Automated exposure control was utilized for this study. A dose lowering technique was utilized adhering to the principles of ALARA. Comparison: Head CT 10/24/2016. Findings: The paranasal sinuses and mastoid air cells are clear. The calvarium and skull base are intact. No midline shift or acute infarct. Mild atrophy and microvascular ischemic changes are again noted. Small left parafalcine subdural hematoma. This demonstrates a maximal thickness of 4 mm. Impression: Small left parafalcine subdural hematoma. 6 to [address] followed recommended to ensure stability. Electronically signed by: Tee Whatley M.D. 05/10/2017 10:34 PM Dictated Date/Time: 05/10/2017 10:27 PM Laboratory Results 05/10/17 22:39 Red Blood Count 4.07, Mean Corpuscular Volume 88.5, Mean Corpuscular Hemoglobin 28.0, Mean Corpuscular Hemoglobin Concent 31.7, Mean Platelet Volume 10.1, Neutrophils (%) (Auto) 68.0, Lymphocytes (%) (Auto) 20.5, Monocytes (%) (Auto) 9.0, Eosinophils (%) (Auto) 1.9, Basophils (%) (Auto) 0.2, Neutrophils # (Auto) 3.25, Lymphocytes # (Auto) 0.98, Monocytes # (Auto) 0.43, Eosinophils # (Auto) 0.09, Basophils # (Auto) 0.01 05/10/17 22:39 Test 05/10/17 22:39 White Blood Count 4.78 K/uL (4.8-10.8) Red Blood Count 4.07 M/uL (4.2-5.4) Hemoglobin 11.4 g/dL (12.0-16.0) Hematocrit 36.0 % (37-47) Mean Corpuscular Volume 88.5 fL (80-100) Mean Corpuscular Hemoglobin 28.0 pg (25-34) Mean Corpuscular Hemoglobin Concent 31.7 g/dl (32-36) Platelet Count 134 K/uL (130-400) Mean Platelet Volume 10.1 fL (7.4-10.4) Neutrophils (%) (Auto) 68.0 % Lymphocytes (%) (Auto) 20.5 % Monocytes (%) (Auto) 9.0 % Eosinophils (%) (Auto) 1.9 % Basophils (%) (Auto) 0.2 % Neutrophils # (Auto) 3.25 K/uL (1.4-6.5) Lymphocytes # (Auto) 0.98 K/uL (1.2-3.4) Monocytes # (Auto) 0.43 K/uL (0.11-0.59) Eosinophils # (Auto) 0.09 K/uL (0-0.5) Basophils # (Auto) 0.01 K/uL (0-0.2) RDW Standard Deviation 47.3 fL (36.4-46.3) RDW Coefficient of Variation 14.6 % (11.5-14.5) Immature Granulocyte % (Auto) 0.4 % Immature Granulocyte # (Auto) 0.02 K/uL (0.00-0.02) Prothrombin Time 11.1 SECONDS (9.0-12.0) Prothromb Time International Ratio 1.0 (0.9-1.1) Activated Partial Thromboplast Time 23.8 SECONDS (21.0-31.0) Partial Thromboplastin Ratio 0.9 Anion Gap 8.0 mmol/L (3-11) Est Creatinine Clear Calc Drug Dose 41.2 ml/min Estimated GFR () 70.9 Estimated GFR (Non- 61.2 BUN/Creatinine Ratio 42.5 (10-20) Calcium Level 9.3 mg/dl (8.5-10.1) Chemistry Specimen Hemolysis Laboratory studies as stated above per my review. Medications Administered Medications (Trade) Dose Ordered Sig/Bhavna Route Start Time Stop Time Status Last Admin Dose Admin Tetracaine/ Epinephrine/ Lidocaine (L.e.t. Gel 4%/ 1:100/0.5%) 1 ea NOW STAT EXT 05/10/17 21:27 05/10/17 21:29 DC 05/10/17 21:48 1 EA Procedure Location: scalp Total length: 3 cm Complexity: simple Verbal consent was obtained after the risks and benefits were explained, including but not limited to bleeding, scarring, infection, pain, and bone/joint /nerve damage. At this time, the risks of the procedure are less than the risks of NOT performing the procedure. A time out was taken and the correct patient and site identified. The skin was prepped with betadine. The target area was anesthetized with LET gel. Copious irrigation was performed using normal saline. The skin was re-prepped with betadine and a sterile field set. The wound was explored for foreign bodies and none found. Examination revealed no injury to deep structures such as tendons, bone, or significant blood vessels. Debridement was not performed. The wound edges were approximated using latia, 7-0 simple latia. Hemostasis and excellent approximation was achieved. Antibacterial ointment and a sterile dressing applied. Detailed wound care instructions and signs and symptoms of infection reviewed with the the patient. No complications and the patient tolerated the procedure well. ECG Indication: other (fall) Rate (beats per minute): 55 Rhythm: sinus bradycardia Findings: T-wave inversion (Anterior), other (No ST elevation) Comparison ECG Date: 02/06/17 Change: Sinus Bradycardia replaced Atrial Fibrillation. ED Course 2119: Past medical records reviewed. The patient was evaluated in room C09, and a complete history and physical examination were performed. 2126: Ordered Tetracaine/ Epinephrine/ Lidocaine 1 each EXT. 4: [facility] He advises that the patient should stay. 5: I reevaluated the patient and updated her on her results. I discussed her treatment plan and she agrees. The patient will be further evaluated. 2257: I discussed the patients case with Dr. Sequeira, [facility] Hospitalist. He understands the patients condition and agrees to accept the patient. The patient will be further evaluated. 2359: I performed a laceration repair. See procedural notes for further detail. Medical Decision Differentials include, but are not limited to; intracranial, hemorrhage, arrhythmia, and laceration. This patient comes in as described above. She suffered a mechanical fall or hit her head . she looks great on exam and is at her normal mental status and neurologic exam. She has a mild headache. She also fell out about 2 weeks ago and hit her head much harder than she said. She is not on any blood thinners. LET gel was applied. I did order CAT scan of her head. She does have a small subdural hematoma in the sub-galea area and the radiologist recommended a follow -up CAT scan in 6-12 hours. The patient looks good. in light of this I did do any other blood work and she has no acute abnormalities seen her EKG shows. I did review her POLST and they want comfort interventions. I talked to both the patient as well as her on the phone and explained the situation that I do think she needs to have observation. The two choices would be either here or at a bigger tertiary care center. We do not have a neurosurgeon here if this were to get worse. They do aknowledge this and she does not want have surgery and would be a poor surgical candidate. They understand that she could get worse. I discussed this with Dr. Jones as well who is her primary care physician and he does not feel she needs to be transferred and knowing the patient and her and the family's wishes about care, feels that she would be best served here as well. Both the patient and her are in agreement with this and understand the risk and benefits. I have discussed this with the hospitalist. I also stapled her scalp as outlined above. She will be admitted for observation. Medication Reconcilliation Current Medication List: was personally reviewed by me Blood Pressure Screening Patient's blood pressure: Elevated blood pressure Blood pressure disposition: Elevated BP felt to be situational Consults Time Called: [phone] Consulting Physician: Dr. Jones, [facility] Returned Call: [phone] I discussed the patients case with Andrea [facility] Critical [facility]. He advises that the patient should stay. Additional Consults: Time Called: [phone] Consulted Physician: Dr. Sequeira, [facility] Hospitalist Returned Call: [phone] Additional Comments: I discussed the patients case with Dr. Sequeira, [facility] Hospitalist. He understands the patients condition and agrees to accept the patient. The patient will be further evaluated. Impression Primary Impression: Subdural hematoma Additional Impression: Scalp laceration Scribe Attestation The scribe's documentation has been prepared under my direction and personally reviewed by me in its entirety. I confirm that the note above accurately reflects all work, treatment, procedures, and medical decision making performed by me. Departure Information Dispostion Being Evaluated By Hospitalist Referrals [facility] (PCP) Patient Instructions My [facility] Problem Qualifiers
--- NOTE | 2017-05-10 22:35 | DIAGNOSTIC IMAGING REPORT ---
HEAD CT NONCONTRAST CT DOSE: 537.48 mGy.cm HISTORY: Fall. eval for trauma TECHNIQUE: Multiaxial CT images of the head were performed without the use of intravenous contrast. Automated exposure control was utilized for this study. A dose lowering technique was utilized adhering to the principles of ALARA. Comparison: Head CT 10/24/2016. Findings: The paranasal sinuses and mastoid air cells are clear. The calvarium and skull base are intact. No midline shift or acute infarct. Mild atrophy and microvascular ischemic changes are again noted. Small left parafalcine subdural hematoma. This demonstrates a maximal thickness of 4 mm. Impression: Small left parafalcine subdural hematoma. 6 to [address] followed recommended to ensure stability. Electronically signed by: Tee Whatley M.D. 05/10/2017 10:34 PM Dictated Date/Time: 05/10/2017 10:27 PM
[2017-05-10 22:51] LABS: BASO % 0.2 %; BASO ABS # 0.01 K/uL (0-0.2); COMPLETE YES; EOS % 1.9 %; IG% 0.4 %; LYMPH % 20.5 %; LYMPH ABS # 0.98 K/uL (1.2-3.4); MEAN CELL VOLUME 88.5 fL (80-100); MEAN CORPUSCULAR HGB CONC 31.7 g/dl (32-36); MEAN PLATELET VOLUME 10.1 fL (7.4-10.4); PLATELET COUNT 134 K/uL (130-400); RED BLOOD COUNT 4.07 M/uL (4.2-5.4); WHITE BLOOD COUNT 4.78 K/uL (4.8-10.8)
[2017-05-10 23:00] LABS: PARTIAL THROMBOPLASTIN RATIO 0.9; PROTHROMBIN TIME (PATIENT) 11.1 SECONDS (9.0-12.0)
[2017-05-10] MEDS ORDERED: MRPL PO (23:20)
[2017-05-10] MEDS ORDERED: ACET-1311 PO (23:21)
[2017-05-10 23:24] LABS: BUN/CREATININE RATIO 42.5 (10-20); CREATININE 0.85 mg/dl (0.60-1.20)
[2017-05-10 23:25] LABS: CALCIUM 9.3 mg/dl (8.5-10.1); POTASSIUM 4.4 mmol/L (3.5-5.1)
--- NOTE | 2017-05-10 23:49 | History and Physical ---
History & Physical Date & Time of Service: May 10, 2017 at 23:47 Chief Complaint: Fall, Laceration Above Eye Primary Care Physician: Coretta Nelson [place] History of Present Illness Source: patient, clinic records 86F with a PMHx of mechanical fall, Asthma, A. Fib (not on AC) eye surgery p/w a mechanical fall from earlier today when she was watching the football game - she got up and was reaching for her curtains. She suffered a laceration to the head which was repaired in the ER. She was here for a similar fall two weeks ago where she tripped over her walker. She currently lives at the [facility]. The ER the pt was found to have a subdural hematoma on head CT. After discussion with the patient she confirmed her decision to not be transferred and she reiterated a desire not to have potentially life saving surgery. She had clinical decision making capacity in my opinion. Pt did request to have a single room. ROS: No chest pain, no SOB, no dyspnea on exertion, no palpitations, no fevers, no chills, no nausea, no vomiting, no diarrhea, no dysuria, no rash. SH: Lives at the [facility]. Past Medical/Surgical History Medical Problems: (1) Hypercholesterolemia Status: Chronic (2) Hysterectomy Status: Resolved Family History Patient reports no known family medical history. Social History Smoking Status: Former Smoker Smokeless Tobacco Use: No Alcohol Use: none Drug Use: none Marital Status: Housing status: lives with family Occupational Status: retired Immunizations History of Influenza Vaccine: Yes Influenza Vaccine Date: Jun 09, 2012 History of Tetanus Vaccine?: Unknown History of Pneumococcal: Yes Pneumococcal Date: Oct 10, 2009 History of Hepatitis B Vaccine: Unknown Multi-Drug Resistant Organisms History of MDRO: No Allergies Coded Allergies: Sulfa Antibiotics (Verified Allergy, Unknown, ., 05/10/17) Fish (Verified Adverse Reaction, Unknown, GI SYMPTOMS, 05/10/17) Shellfish Allergy (Verified Adverse Reaction, Unknown, GI SYMPTOMS, ) Home Medications Scheduled Acetaminophen (Tylenol), 650 MG PO HS Alcaftadine (Lastacaft), 1 DROP OPR QAM Citalopram (Citalopram Hydrobromide), 40 MG PO QAM Lansoprazole (Prevacid), 30 MG PO QAM Latanoprost (Xalatan 0.005% Oph Milla), 1 DROP OPB HS Multivitamin (Multivitamin), 1 TAB PO QAM Thiamine Hcl (Vitamin B-1), 100 MG PO DAILY Timolol Maleate (Timolol 0.5% Oph Soln 15 Ml), 1 DROP OPL QAM Scheduled PRN Acetaminophen (Tylenol), 650 MG PO Q4 PRN for Pain or Fever Levalbuterol (Levalbuterol HCl), 1 VIAL NEB Q6H PRN for SOB/Wheezing Loperamide Hcl (Imodium A-D), 2 MG PO Q3HRS PRN for Loose Stool(s) Morphine Sulfate (Morphine Sulfate), 0.25 ML PO Q1H PRN for pain/sob/anxiety Psyllium (Metamucil Fiber), 1 PKT PO BID PRN for Loose Stool(s) Sennosides-Docusate Sodium (Senna S), 1 TAB PO DAILY PRN for Constipation Physical Exam Vital Signs Date Time Temp Pulse Resp B/P (MAP) Pulse Ox O2 Delivery O2 Flow Rate FiO2 05/10/17 22:52 53 05/10/17 22:44 53 16 125/88 96 Room Air 05/10/17 21:06 36.7 60 20 141/69 96 Room Air General Appearance: WD/WN Head: + pertinent finding (pt has a dressing covering a sutured laceration on her head) ENT: normal ENT inspection Neck: supple, no adenopathy, no JVD Respiratory/Chest: chest non-tender, lungs clear, normal breath sounds, no respiratory distress, no accessory muscle use Cardiovascular: no edema, no JVD, no murmur, normal peripheral pulses, + irregularly irregular Abdomen/GI: normal bowel sounds, non tender, soft, no organomegaly, no pulsatile mass, normal rectal exam, occult blood negative Back: no CVA tenderness Extremities/Musculoskelatal: normal inspection, no calf tenderness, no pedal edema Neurologic/Psych: no motor/sensory deficits, alert, normal mood/affect, oriented x 3 Skin: warm/dry, no rash Diagnostics Laboratory Results Results Past 24 Hours Test 05/10/17 22:39 Range/Units White Blood Count 4.78 4.8-10.8 K/uL Red Blood Count 4.07 4.2-5.4 M/uL Hemoglobin 11.4 12.0-16.0 g/dL Hematocrit 36.0 37-47 % Mean Corpuscular Volume 88.5 80-100 fL Mean Corpuscular Hemoglobin 28.0 25-34 pg Mean Corpuscular Hemoglobin Concent 31.7 32-36 g/dl Platelet Count 134 130-400 K/uL Mean Platelet Volume 10.1 7.4-10.4 fL Neutrophils (%) (Auto) 68.0 % Lymphocytes (%) (Auto) 20.5 % Monocytes (%) (Auto) 9.0 % Eosinophils (%) (Auto) 1.9 % Basophils (%) (Auto) 0.2 % Neutrophils # (Auto) 3.25 1.4-6.5 K/uL Lymphocytes # (Auto) 0.98 1.2-3.4 K/uL Monocytes # (Auto) 0.43 0.11-0.59 K/uL Eosinophils # (Auto) 0.09 0-0.5 K/uL Basophils # (Auto) 0.01 0-0.2 K/uL RDW Standard Deviation 47.3 36.4-46.3 fL RDW Coefficient of Variation 14.6 11.5-14.5 % Immature Granulocyte % (Auto) 0.4 % Immature Granulocyte # (Auto) 0.02 0.00-0.02 K/uL Prothrombin Time 11.1 9.0-12.0 SECONDS Prothromb Time International Ratio 1.0 0.9-1.1 Activated Partial Thromboplast Time 23.8 21.0-31.0 SECONDS Partial Thromboplastin Ratio 0.9 Sodium Level 141 136-145 mmol/L Potassium Level 4.4 3.5-5.1 mmol/L Chloride Level 107 98-107 mmol/L Carbon Dioxide Level 26 21-32 mmol/L Anion Gap 8.0 3-11 mmol/L Blood Urea Nitrogen 36 7-18 mg/dl Creatinine 0.85 0.60-1.20 mg/dl Est Creatinine Clear Calc Drug Dose 41.2 ml/min Estimated GFR () 70.9 Estimated GFR (Non- 61.2 BUN/Creatinine Ratio 42.5 10-20 Random Glucose 112 70-99 mg/dl Calcium Level 9.3 8.5-10.1 mg/dl Chemistry Specimen Hemolysis Diagnostic Radiology HEAD CT NONCONTRAST CT DOSE: 537.48 mGy.cm HISTORY: Fall. eval for trauma TECHNIQUE: Multiaxial CT images of the head were performed without the use of intravenous contrast. Automated exposure control was utilized for this study. A dose lowering technique was utilized adhering to the principles of ALARA. Comparison: Head CT 10/24/2016. Findings: The paranasal sinuses and mastoid air cells are clear. The calvarium and skull base are intact. No midline shift or acute infarct. Mild atrophy and microvascular ischemic changes are again noted. Small left parafalcine subdural hematoma. This demonstrates a maximal thickness of 4 mm. Impression: Small left parafalcine subdural hematoma. 6 to [address] followed recommended to ensure stability. Impression Assessment and Plan 86F with a PMHx of Magui Bridges (not on AC) presents s/p mechanical fall with laceration on the back of the head. 2nd fall in two weeks. New subdural hematoma on CT. Pt has a POLST form - DNR/DNI. Does not want to be transferred for potentially life saving treatment. Will order follow up head CT at 10am. Anticipate transfer back to the [facility] once she stabilizes. Subdural Hematoma Neuro: AAOx3 Pain control with Tylenol 650mg PO Q6H PRN. Modified Neuro Check: 30min x 2, 1hr x 4 and then every [address] at 10am. Depression Continue home med Citalopram 40mg PO QAM. Other Home Meds: - Continue regular eye drops (Timolol, Lastacaft), Multivitamins and Thiamine. - Levalbuterol PRN wheezing. - Scheduled Tylenol 650 QHS. - PPI - Morphine 0.25mL PO Q1H for Pain/SOB/Anxiety DVT Proph: SCDs MSK - PT and OT on board. Social - No concerns. Lives at the [facility]. Dispo - Admission, Med Surg, Reg Diet. DNR/ DNI - POLST form in chart. Attending Addendum: I have physically seen and examined this patient, have directed the resident's medical activities, and agree with the H&P as noted above with the following exceptions as noted. The patient is awake, alert and oriented 3, well-developed and well-nourished , laceration posterior occiput, head dressing worn, lying in bed and in no acute distress. HEENT--PERRL, EOMI, mucous membranes and oropharynx dry. Neck--supple, no JVD or bruits, thyroid normal, trachea midline, no adenopathy. Heart--irregularly irregular, no murmurs, rubs or gallops. Lungs--clear bilaterally with good air movement, no respiratory distress, no accessory muscle use. Abdomen--normal bowel sounds and soft, nontender and nondistended, no hernias or masses, no organomegaly. Extremities--no cyanosis, clubbing or edema. There are good distal pulses b/l. Dermatologic--normal skin turgor, normal color, warm and dry, no abnormal lymph nodes, no rash. Neurologic--cranial nerves II through XII grossly intact. Rheumatologic--normal range of motion, nontender, muscles and joints. Psychiatric--normal affect. Assessment and Plan: Subdural hematoma/level V DO NOT RESUSCITATE-- Admit to the medical floor. Neuro checks. Repeat head CT 12 hours after the first. Patient and her POA son are both accepting for her to stay in this hospital, and would not want any aggressive intervention done should she worsen. No use of antiplatelet or anticoagulation. DVT prophylaxis-- SCDs Level of Care Med/Surg Advanced Directives Existing Advance Directive: Yes Existing Living Will: Yes Existing Power of Press Machine Operator: Yes Resuscitation Status DO NOT RESUSCITATE VTE Prophylaxis VTE Risk Assessment Done? Y/N: Yes Risk Level: Moderate Given or contraindicated: SCD's, Contraindicated Resident Involvement: Resident Care Provided Care Provided: Adult Hospital Medicine
[2017-05-11] MEDS ORDERED: POLYETHYLENE (MIRALAX) 17 GM PACK PO PRN (00:30)
[2017-05-11] MEDS ORDERED: ALUMINUM/MAGNESIUM/SIMETH (MAALOX MAX) 30 ML UDC PO PRN (00:30)
[2017-05-11] MEDS ORDERED: ACETAMINOPHEN 325 MG TAB PO PRN (00:30)
[2017-05-11] MEDS ORDERED: ZOLPIDEM TARTRATE 5 MG TAB PO PRN ×2 (00:30)
[2017-05-11] MEDS ORDERED: DOCUSATE SODIUM/SENNA 50/8.6MG TAB PO PRN (00:30)
[2017-05-11] MEDS ORDERED: MAGNESIUM HYDROXIDE SUSP 30 ML UDC PO PRN (00:30)
[2017-05-11] MEDS ORDERED: ONDANSETRON INJ 2 MG/ML 2 ML VIAL IV PRN (00:30)
[2017-05-11] MEDS ORDERED: MoRPHine SULFATE 5 MG/0.25 ML UDP PO PRN (00:30)
[2017-05-11] MEDS ORDERED: LEVALBUTEROL 1.25MG/3ML NEB INH PRN (00:30)
[2017-05-11 01:43] VITALS: BP 109/71; PULSE 62; TEMP 36.5; O2SAT 95; Ht 165.1 cm; Wt 54.8 kg
[2017-05-11 07:27] VITALS: BP 128/79; PULSE 53; TEMP 36.7; O2SAT 98
[2017-05-11] MEDS ORDERED: TIMOLOL MALEATE 0.5% OP SOLN 5 ML BTL OPL SCH (08:00)
[2017-05-11] MEDS ORDERED: CITALOPRAM 40 MG TAB PO SCH (08:00)
[2017-05-11] MEDS ORDERED: THIAMINE HCL 100 MG TAB PO SCH (08:00)
[2017-05-11] MEDS ORDERED: PANTOprazole SOD 40 MG TAB PO SCH (08:00)
[2017-05-11] MEDS ORDERED: MULTIVITAMIN TAB PO SCH (08:00)
--- NOTE | 2017-05-11 10:08 | DIAGNOSTIC IMAGING REPORT ---
HEAD WITHOUT CONTRAST (CT) CT DOSE: 537.48 mGy.cm HISTORY: Subdural hematoma Subdural hematoma - track progress TECHNIQUE: Multiaxial CT images of the head were performed without the use of intravenous contrast. A dose lowering technique was utilized adhering to the principles of ALARA. Comparison: 05/10/2017 Findings: Moderate increase in volume of a left parafalcine subdural hematoma. Maximum thickness currently is 13 mm increased from 4 mm. Localized mass effect. No midline shift. Slight increase in blood within the interhemispheric fissure. All remaining components of the study are stable. There are no parenchymal hemorrhagic component. The calvarium and skull base are intact. The ventricles and sulci are within normal limits. Impression: 1. Increased size and volume of a left parafalcine subdural hematoma. 2. Maximum thickness currently is 13 mm increased from the prior study of 4 mm. 3. Mild increase in localized mass effect although there is no evidence for midline shift The above report was generated using voice recognition software. It may contain grammatical, syntax or spelling errors. Electronically signed by: Tim Bender M.D. 05/11/2017 10:07 AM Dictated Date/Time: 05/11/2017 10:03 AM
[2017-05-11 12:42] VITALS: BP 128/79; PULSE 53; TEMP 36.7; O2SAT 98
--- NOTE | 2017-05-11 12:43 | Neurology Consultation ---
Neurology Consultation Date of Consultation: May 11, 2017. Attending Physician: Sebastián Sequeira M.D. Primary Care Physician: Coretta Nelson [place] Reason for Consultation: Stat consult for enlarging subdural hematoma History of Present Illness Source: patient, spouse, hospital records This is a 86-year-old female with a significant history for paroxysmal A. 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 Patient presented to the hospital yesterday after a mechanical fall and hitting her head. She was noted to have a 4 mm left parafalcine subdural hematoma. Patient denies any headaches. She does report that her vision seems to be a little bit off but no loss of vision. She denies any new numbness or weakness. Denies any changes with her speech or swallowing. Denies any changes with her cognition. confirms that he has not noted any change in her cognition. There is been no seizures. 12 hour follow-up CT of the head was done earlier today. Report and images from both CAT scans were reviewed by myself. Size of left parafalcine subdural hematoma has tripled between the 2 scans with mild mass effect. Past Medical/Surgical History Medical Problems: (1) Acute aspiration pneumonia Status: Acute (2) Acute dyspnea Status: Acute (3) Choking Status: Acute (4) Choking episode Status: Acute (5) Choking episode Status: Acute (6) Contusion of multiple sites Status: Acute (7) Dizzy spells Status: Acute (8) DNR (do not resuscitate) Status: Acute (9) Fall Status: Acute (10) Fall Status: Acute (11) Hypokalemia Status: Acute (12) Hypoxia Status: Acute (13) Lactic acidosis Status: Acute (14) Respiratory acidosis Status: Acute (15) Respiratory arrest Status: Acute (16) Respiratory arrest Status: Acute (17) Rib pain on left side Status: Acute (18) Scalp laceration Status: Acute (19) Subdural hematoma Status: Acute (20) Upper abdominal pain Status: Acute History of a stroke 10 years ago with residual minimal left hemisensory loss and minimal hemiplegia. Family History Noncontributory Social History Patient lives in assisted living with her . Normally independent in her activities of daily living. Has had recent falls. Smoking Status: Former smoker Smokeless Tobacco Use: No Alcohol Use: none Drug Use: none Marital Status: Housing Status: assisted living Occupation Status: retired Allergies Coded Allergies: Sulfa Antibiotics (Verified Allergy, Unknown, ., 05/10/17) Fish (Verified Adverse Reaction, Unknown, GI SYMPTOMS, 05/10/17) Shellfish Allergy (Verified Adverse Reaction, Unknown, GI SYMPTOMS, ) Current Inpatient Medications Current Inpatient Medications Medications (Trade) Dose Ordered Sig/Bhavna Route Start Time Stop Time Status Last Admin Dose Admin Acetaminophen (Tylenol Tab) 650 mg Q4H PRN PO 05/11/17 00:30 06/10/17 00:29 Al Hydrox/Mg Hydrox/Simethicone (Maalox Max Susp) 15 ml Q4H PRN PO 05/11/17 00:30 06/10/17 00:29 Magnesium Hydroxide (Milk Of Magnesia Susp) 30 ml Q6H PRN PO 05/11/17 00:30 06/10/17 00:29 Polyethylene (Miralax Powder Packet) 17 gm DAILY PRN PO 05/11/17 00:30 06/10/17 00:29 Zolpidem Tartrate (Ambien Tab) 5 mg HSZ PRN PO 05/11/17 00:30 06/10/17 00:29 05/11/17 02:11 5 MG Ondansetron HCl (Zofran Inj) 4 mg Q6H PRN IV 05/11/17 00:30 06/10/17 00:29 Acetaminophen (Tylenol Tab) 650 mg HS PO 05/11/17 21:00 06/10/17 20:59 Citalopram Hydrobromide (celeXA TAB) 40 mg QAM PO 05/11/17 08:00 06/10/17 08:59 05/11/17 09:28 40 MG Latanoprost (Xalatan Oph Soln) 2 drops HS OPB 05/11/17 21:00 06/10/17 20:59 Levalbuterol (Xopenex 1.25MG/ 3ML Neb) 1.25 mg Q6H PRN INH 05/11/17 00:30 06/10/17 00:29 Morphine Sulfate (Roxanol Oral Soln) 5 mg Q1H PRN PO 05/11/17 00:30 05/25/17 00:29 Multivitamins (Multivitamin Tab) 1 tab QAM PO 05/11/17 08:00 06/10/17 08:59 05/11/17 09:28 1 TAB Senna/Docusate Sodium (Senokot S Tab) 1 tab DAILY PRN PO 05/11/17 00:30 06/10/17 00:29 Thiamine HCl (Vitamin B-1 Tab) 100 mg DAILY PO 05/11/17 08:00 06/10/17 08:59 05/11/17 09:28 100 MG Timolol Maleate (Timoptic 0.5% Oph Soln) 1 drops QAM OPL 05/11/17 08:00 06/10/17 08:59 05/11/17 09:29 1 DROPS Miscellaneous Information (Order Awaiting Action) 1 ea QS N/A 05/11/17 08:00 06/10/17 07:59 Pantoprazole Sodium (Protonix Tab) 40 mg QAM PO 05/11/17 08:00 06/10/17 07:59 05/11/17 09:27 40 MG Review of Systems Complete review of systems otherwise negative except for the above noted in history of present illness Physical Exam Vital Signs (Past 24 Hrs): Date Time Temp Pulse Resp B/P (MAP) Pulse Ox O2 Delivery O2 Flow Rate FiO2 05/11/17 09:30 Room Air 05/11/17 07:27 36.7 53 18 128/79 (95) 98 Room Air 05/11/17 01:43 36.5 62 18 109/71 95 Room Air 05/11/17 01:09 53 16 101/61 96 Room Air 05/11/17 00:00 56 16 111/74 96 05/10/17 22:52 53 05/10/17 22:44 53 16 125/88 96 Room Air 05/10/17 21:06 36.7 60 20 141/69 96 Room Air Gen.: Patient is alert and sitting in bed, in no acute distress. HEENT: Normocephalic /atraumatic, no scleral icterus Heart: Regular rate and rhythm Extremities: No gross deformities or rashes noted Neurological examination: Mental status: Patient is alert and oriented x3. Attention and concentration normal for the situation. Good fund of knowledge. Able to give her own history. Speech is fluent without any dysarthria or aphasia noted Cranial nerve: Visual tovar intact to counting. Funduscopic examination was unremarkable. No papilledema. Left pupil is significantly larger than right pupil and minimally reactive to light. According to patient this appears to be new and she did not know that the left pupil was larger. Extraocular muscles intact without nystagmus. No facial asymmetry noted. Mild decrease facial sensation on the left. Tongue is midline. Good palatal elevation. Good shoulder shrug bilaterally. Hearing grossly intact to voice. Strength: 5/5 both proximal and distally in all extremities. There is no arm drift. Tone is normal. Sensation: Grossly intact to light touch in all extremities with the exception of mild decrease in sensation in the left upper and lower extremity from previous remote stroke Deep tendon reflexes: +1 in bilateral biceps, brachioradialis and patellar. Coordination: Patient had good finger to nose without dysmetria Station within the bed was normal Laboratory Results Past 24 Hours: 05/10/17 22:39 Red Blood Count 4.07, Mean Corpuscular Volume 88.5, Mean Corpuscular Hemoglobin 28.0, Mean Corpuscular Hemoglobin Concent 31.7, Mean Platelet Volume 10.1, Neutrophils (%) (Auto) 68.0, Lymphocytes (%) (Auto) 20.5, Monocytes (%) (Auto) 9.0, Eosinophils (%) (Auto) 1.9, Basophils (%) (Auto) 0.2, Neutrophils # (Auto) 3.25, Lymphocytes # (Auto) 0.98, Monocytes # (Auto) 0.43, Eosinophils # (Auto) 0.09, Basophils # (Auto) 0.01 05/10/17 22:39 Test 05/10/17 22:39 White Blood Count 4.78 K/uL (4.8-10.8) Red Blood Count 4.07 M/uL (4.2-5.4) Hemoglobin 11.4 g/dL (12.0-16.0) Hematocrit 36.0 % (37-47) Mean Corpuscular Volume 88.5 fL (80-100) Mean Corpuscular Hemoglobin 28.0 pg (25-34) Mean Corpuscular Hemoglobin Concent 31.7 g/dl (32-36) Platelet Count 134 K/uL (130-400) Mean Platelet Volume 10.1 fL (7.4-10.4) Neutrophils (%) (Auto) 68.0 % Lymphocytes (%) (Auto) 20.5 % Monocytes (%) (Auto) 9.0 % Eosinophils (%) (Auto) 1.9 % Basophils (%) (Auto) 0.2 % Neutrophils # (Auto) 3.25 K/uL (1.4-6.5) Lymphocytes # (Auto) 0.98 K/uL (1.2-3.4) Monocytes # (Auto) 0.43 K/uL (0.11-0.59) Eosinophils # (Auto) 0.09 K/uL (0-0.5) Basophils # (Auto) 0.01 K/uL (0-0.2) RDW Standard Deviation 47.3 fL (36.4-46.3) RDW Coefficient of Variation 14.6 % (11.5-14.5) Immature Granulocyte % (Auto) 0.4 % Immature Granulocyte # (Auto) 0.02 K/uL (0.00-0.02) Prothrombin Time 11.1 SECONDS (9.0-12.0) Prothromb Time International Ratio 1.0 (0.9-1.1) Activated Partial Thromboplast Time 23.8 SECONDS (21.0-31.0) Partial Thromboplastin Ratio 0.9 Anion Gap 8.0 mmol/L (3-11) Est Creatinine Clear Calc Drug Dose 41.2 ml/min Estimated GFR () 70.9 Estimated GFR (Non- 61.2 BUN/Creatinine Ratio 42.5 (10-20) Calcium Level 9.3 mg/dl (8.5-10.1) Chemistry Specimen Hemolysis Imaging As noted above in history of present illness Impression This is a 86-year-old female with a left parafalcine subdural hematoma that appears to have rapidly enlarged in the last 12 hours with mild mass effect. Only neurological symptoms at this time secondary to the hematoma appears to be an enlarged left pupil. Plan Discussed with hospitalist over the phone at approximately 11:30am and then reiterated in person with the patient, , and hospitalist my recommendation for transfer to the hospital with neurosurgical capabilities in the event that this continues to worsen as there is a strong concern that the patient may need neurosurgical intervention in the near future. Continue off anticoagulation and antiplatelets in the setting of acute bleed. Patient likely needs physical therapy in the future to address recent frequent falls. Patient may follow up in neurology clinic as an outpatient if needed. Thank you for allowing me to participate in this patient's care. If there is any questions or concerns, feel free to call/patient.
--- NOTE | 2017-05-11 12:45 | Progress Note ---
Subjective Date of Service: May 11, 2017. Subjective Pt evaluation today including: conversation w/ patient, conversation w/ family , physical exam, chart review, lab review, review of studies, conversation w/ technical support consultant, review of inpatient medication list Pain: no pain PO Intake: good Voiding: no voiding problems Pt is seen and examined by me. Pt SDH is progressively worsening with left pupil 8mm dilated, without any headaches, confusion and mental status changes.Pt is awake, alert, and oriented to time and place. Pt denies cp, sob, dizziness, palpitation and LOC. Pt denies any difficulty with speech and words. Pt Ct scan findings were discussed with neurology char conveyor tender and after that discuss with patent family both son, grand daughter and after a lengthy discussion they decided to transfer to [facility]. pt denies abdominal pain and urinary symptoms. Problem List Medical Problems: (1) Acute aspiration pneumonia Status: Acute (2) Acute dyspnea Status: Acute (3) Choking Status: Acute (4) Choking episode Status: Acute (5) Choking episode Status: Acute (6) Contusion of multiple sites Status: Acute (7) Dizzy spells Status: Acute (8) DNR (do not resuscitate) Status: Acute (9) Fall Status: Acute (10) Fall Status: Acute (11) Hypokalemia Status: Acute (12) Hypoxia Status: Acute (13) Lactic acidosis Status: Acute (14) Respiratory acidosis Status: Acute (15) Respiratory arrest Status: Acute (16) Respiratory arrest Status: Acute (17) Rib pain on left side Status: Acute (18) Scalp laceration Status: Acute (19) Subdural hematoma Status: Acute (20) Upper abdominal pain Status: Acute Review of Systems Eyes: + problem reported (8-9mm dilated pupil) All Other Systems: Reviewed and Negative Objective Vital Signs Date Time Temp Pulse Resp B/P (MAP) Pulse Ox O2 Delivery O2 Flow Rate FiO2 05/11/17 09:30 Room Air 05/11/17 07:27 36.7 53 18 128/79 (95) 98 Room Air 05/11/17 01:43 36.5 62 18 109/71 95 Room Air 05/11/17 01:09 53 16 101/61 96 Room Air 05/11/17 00:00 56 16 111/74 96 05/10/17 22:52 53 05/10/17 22:44 53 16 125/88 96 Room Air 05/10/17 21:06 36.7 60 20 141/69 96 Room Air Physical Exam General Appearance: no apparent distress Eyes: normal inspection (left eye pupil dialted 8-9mm), EOMI, sclerae normal, + pertinent finding Neck: supple, no adenopathy Respiratory/Chest: lungs clear, normal breath sounds, no respiratory distress Cardiovascular: no edema Abdomen: normal bowel sounds Neurologic/Psychiatric: no motor/sensory deficits, alert, normal mood/affect, oriented x 3 Skin: no rash Lymphatic: no adenopathy Laboratory Results Last 24 Hours Test 05/10/17 22:39 White Blood Count 4.78 K/uL Red Blood Count 4.07 M/uL Hemoglobin 11.4 g/dL Hematocrit 36.0 % Mean Corpuscular Volume 88.5 fL Mean Corpuscular Hemoglobin 28.0 pg Mean Corpuscular Hemoglobin Concent 31.7 g/dl Platelet Count 134 K/uL Mean Platelet Volume 10.1 fL Neutrophils (%) (Auto) 68.0 % Lymphocytes (%) (Auto) 20.5 % Monocytes (%) (Auto) 9.0 % Eosinophils (%) (Auto) 1.9 % Basophils (%) (Auto) 0.2 % Neutrophils # (Auto) 3.25 K/uL Lymphocytes # (Auto) 0.98 K/uL Monocytes # (Auto) 0.43 K/uL Eosinophils # (Auto) 0.09 K/uL Basophils # (Auto) 0.01 K/uL RDW Standard Deviation 47.3 fL RDW Coefficient of Variation 14.6 % Immature Granulocyte % (Auto) 0.4 % Immature Granulocyte # (Auto) 0.02 K/uL Prothrombin Time 11.1 SECONDS Prothromb Time International Ratio 1.0 Activated Partial Thromboplast Time 23.8 SECONDS Partial Thromboplastin Ratio 0.9 Sodium Level 141 mmol/L Potassium Level 4.4 mmol/L Chloride Level 107 mmol/L Carbon Dioxide Level 26 mmol/L Anion Gap 8.0 mmol/L Blood Urea Nitrogen 36 mg/dl Creatinine 0.85 mg/dl Est Creatinine Clear Calc Drug Dose 41.2 ml/min Estimated GFR () 70.9 Estimated GFR (Non- 61.2 BUN/Creatinine Ratio 42.5 Random Glucose 112 mg/dl Calcium Level 9.3 mg/dl Chemistry Specimen Hemolysis Assessment and Plan 86F with a PMHx of Magui Bridges (not on AC) presents s/p mechanical fall with laceration on the back of the head. 2nd fall in two weeks. New subdural hematoma on CT. Pt has a POLST form - DNR/DNI. Does not want to be transferred for potentially life saving treatment. Will order follow up head CT at 10am. [facility]. Subdural Hematoma worsening with left pupil dilated 8-9mm Neuro: AAOx3 Pain control with Tylenol 650mg PO Q6H PRN. Repeat Heat CT shows worsening hematoma to 14 mmm with moderate compression, no midline shift. We did discuss with the family regarding possible acute neuro surgical intervention needed to evacuate the hematoma. We consult neurology and discuses the findings on Ct scan per her recommendation pt need to transfer to neuro surgery in [facility]. we did make all the arrangement needed for transfer. Pt family is agree to proceed with transfer. Depression Continue home med Citalopram 40mg PO QAM. Other Home Meds: - Continue regular eye drops (Timolol, Lastacaft), Multivitamins and Thiamine. - Levalbuterol PRN wheezing. - Scheduled Tylenol 650 QHS. - PPI - Morphine 0.25mL PO Q1H for Pain/SOB/Anxiety DVT Proph: SCDs MSK - PT and OT on board. Continued [facility] stay due to: other Discharge planning: acute transfer
--- NOTE | 2017-05-11 12:50 | Discharge Instructions ---
Discharge Instructions Date of Service May 11, 2017. Admission Reason for Admission: Subdural Hematoma Discharge Discharge Diagnosis / Problem: SDH Discharge Goals Goal(s): Decrease discomfort, Improve function, Improve disease control, Prevent Disease Progression Activity Recommendations Activity Level: Bedrest . Additional Information Patient informed of condition: Yes Advance Directives: Yes DNR: Yes Level of Care: Other ([facility]) Communicable Disease: No Prognosis: Other (if not evacuated SDH may worsen) Dent Catheter: No Current Hospital Diet Patient's current hospital diet: Regular Diet Discharge Diet Recommended Diet: Regular Diet, AHA Diet (Heart Healthy) Pending Studies Studies pending at discharge: no Physician Orders On Transfer Vital Signs: Medications (Trade) Dose Ordered Sig/Bhavna Route Start Time Stop Time Status Last Admin Dose Admin Tetracaine/ Epinephrine/ Lidocaine (L.e.t. Gel 4%/ 1:100/0.5%) 1 ea NOW STAT EXT 05/10/17 21:27 05/10/17 21:29 DC 05/10/17 21:48 1 EA Zolpidem Tartrate (Ambien Tab) 5 mg HSZ PRN PO 05/11/17 00:30 06/10/17 00:29 05/11/17 02:11 5 MG Citalopram Hydrobromide (celeXA TAB) 40 mg QAM PO 05/11/17 08:00 06/10/17 08:59 05/11/17 09:28 40 MG Multivitamins (Multivitamin Tab) 1 tab QAM PO 05/11/17 08:00 06/10/17 08:59 05/11/17 09:28 1 TAB Thiamine HCl (Vitamin B-1 Tab) 100 mg DAILY PO 05/11/17 08:00 06/10/17 08:59 05/11/17 09:28 100 MG Timolol Maleate (Timoptic 0.5% Oph Soln) 1 drops QAM OPL 05/11/17 08:00 06/10/17 08:59 05/11/17 09:29 1 DROPS Pantoprazole Sodium (Protonix Tab) 40 mg QAM PO 05/11/17 08:00 06/10/17 07:59 05/11/17 09:27 40 MG Medical Emergencies . Who to Call and When: Medical Emergencies: If at any time you feel your situation is an emergency, please call 911 immediately. . Non-Emergent Contact Non-Emergency issues call your: Hospital Doctor . . "Provider Documentation" section prepared by Jorge Aguillon . Core Measure Problem Core Measures: None (SDH)
[2017-05-11] MEDS ORDERED: ACETAMINOPHEN 325 MG TAB PO SCH (21:00)
[2017-05-11] MEDS ORDERED: LATANOPROST 0.005% OP SOLN 2.5 ML BTL OPB SCH (21:00)
--- NOTE | 2017-05-24 20:07 | Discharge Summary ---
Discharge Summary Date of Service May 24, 2017. Discharge Summary Admission Date: May 11, 2017 at 00:21 Discharge Date: May 11, 2017 Discharge Disposition: Acute care facility Principal Diagnosis: Subdural hematoma Immunizations: Have You Had Influenza Vaccine: Yes Influenza Vaccine Date: Jun 09, 2012 History of Tetanus Vaccine?: Unknown History of Pneumococcal: Yes Pneumococcal Date: Oct 10, 2009 History of Hepatitis B Vaccine: Unknown Hospital Course 86F with a PMHx of A. Fib (not on AC) presents s/p mechanical fall with laceration on the back of the head. 2nd fall in two weeks. New subdural hematoma on CT. Pt has a POLST form - DNR/DNI. Does not want to be transferred for potentially life saving treatment. Will order follow up head CT at 10am. Anticipate transfer back to the [facility] once she stabilizes. Subdural Hematoma worsening with left pupil dilated 8-9mm Neuro: AAOx3 Pain control with Tylenol 650mg PO Q6H PRN. Repeat Heat CT shows worsening hematoma to 14 mmm with moderate compression, no midline shift. We did discuss with the family regarding possible acute neuro surgical intervention needed to evacuate the hematoma. We consult neurology and discuses the findings on Ct scan per her recommendation pt need to transfer to neuro surgery in [facility]. we did make all the arrangement needed for transfer. Pt family is agree to proceed with transfer. Depression Continue home med Citalopram 40mg PO QAM. Other Home Meds: - Continue regular eye drops (Timolol, Lastacaft), Multivitamins and Thiamine. - Levalbuterol PRN wheezing. - Scheduled Tylenol 650 QHS. - PPI - Morphine 0.25mL PO Q1H for Pain/SOB/Anxiety DVT Proph: SCDs MSK - PT and OT on board. Total Time Spent: Greater than 30 minutes This includes examination of the patient, discharge planning, medication reconciliation, and communication with other providers. Discharge Instructions Please refer to the electronic Patient Visit Report (Discharge Instructions) for additional information.
== END 2017-05-11 14:38 | disposition short-term general hospital (02) | DRG 83 ==
LOC: EDBD 21:04 → C.EDC 21:06 → C.4E 05-11 00:21 → ENRESERV 05-11 00:57
PROVIDERS: ADMIT Family Medicine; ATTEND Hospitalist
PROC: 0HQ0XZZ Repair Scalp Skin, External Approach (ICD-10-PCS; principal; 2017-05-10)
DX: S06.5X9A Traumatic subdural hemorrhage with loss of consciousness of unspecified duration, initial encounter (principal); I69.354 Hemiplegia and hemiparesis following cerebral infarction affecting left non-dominant side; S01.01XA Laceration without foreign body of scalp, initial encounter; W18.30XA Fall on same level, unspecified, initial encounter; Y92.099 Unspecified place in other non-institutional residence as the place of occurrence of the external cause; I69.398 Other sequelae of cerebral infarction; R20.8 Other disturbances of skin sensation; I48.91 Unspecified atrial fibrillation; R29.6 Repeated falls; J45.909 Unspecified asthma, uncomplicated; F32.9 Major depressive disorder, single episode, unspecified; Z66 Do not resuscitate; Z91.81 History of falling; Z87.891 Personal history of nicotine dependence; Z79.891 Long term (current) use of opiate analgesic; Z79.899 Other long term (current) drug therapy

== ENCOUNTER → 2017-05-28 | Outpatient (CLI) | payer OTHER, BC ==
[~2017-05-28] MED LIST changes: -AMOX1TAB43 PO; -CRD200 PO; -MGNO400 PO; +MRPL PO; -PLV75 PO
[2017-05-28 10:44] LABS: BASO % 0.2 %; BASO ABS # 0.01 K/uL (0-0.2); COMPLETE YES; EOS % 2.2 %; HEMATOCRIT 35.3 % (37-47); IG% 0.2 %; LYMPH % 22.3 %; LYMPH ABS # 1.01 K/uL (1.2-3.4); MEAN CELL VOLUME 89.4 fL (80-100); MEAN CORPUSCULAR HEMOGLOBIN 28.4 pg (25-34); MEAN CORPUSCULAR HGB CONC 31.7 g/dl (32-36); MONO % 10.4 %; NEUT % 64.7 %; PLATELET COUNT 122 K/uL (130-400); RED BLOOD COUNT 3.95 M/uL (4.2-5.4); WHITE BLOOD COUNT 4.53 K/uL (4.8-10.8)
[2017-05-28 11:17] LABS: BLOOD UREA NITROGEN 29 mg/dl (7-18); BUN/CREATININE RATIO 37.4 (10-20); CARBON DIOXIDE 25 mmol/L (21-32); CHLORIDE 108 mmol/L (98-107); CREATININE 0.78 mg/dl (0.60-1.20); GLUCOSE 84 mg/dl (70-99); POTASSIUM 4.3 mmol/L (3.5-5.1); SODIUM 141 mmol/L (136-145)
== END | disposition home or self-care (01) ==
LOC: C.LABVPSUA 10:23
PROVIDERS: ATTEND Internal Medicine Critical Care Medicine
DX: I50.9 Heart failure, unspecified (principal); K74.60 Unspecified cirrhosis of liver

== ENCOUNTER → 2017-05-29 | Outpatient (CLI) | payer OTHER, BC ==
[~2017-05-29] MED LIST changes: +LEVE500T13 PO; +ROXANOL 20MG/ML PO
--- NOTE | 2017-05-29 14:15 | DIAGNOSTIC IMAGING REPORT ---
CT OF THE HEAD WITHOUT CONTRAST CLINICAL HISTORY: Fall. Subdural hematoma. COMPARISON STUDY: Head CT May 11, 2017. CT DOSE: 776.86 mGycm TECHNIQUE: Helical axial images of the head were obtained without IV contrast. Automated exposure control was utilized for the study. A dose lowering technique was utilized adhering to the principles of ALARA. FINDINGS: The previously described left parafalcine subdural hematoma has significantly decreased in size since prior head CT of May 11, 2017. The hematoma measures 1.2 cm in maximal thickness. The hematoma is now mixed attenuation consistent with expected evolution. No additional sites of intracranial hemorrhage are present. Ventricular system is stable. Basilar cisterns are patent. There are no extra-axial collections. White matter hypodensity suggests small vessel disease. 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 There is no calvarial fracture. IMPRESSION: Significant decrease in size of the left parafalcine subdural hematoma since head CT of May 11, 2017 with expected evolution. Small residual subacute subdural hematoma. Electronically signed by: Sanford Marques M.D. 05/29/2017 2:14 PM Dictated Date/Time: 05/29/2017 2:10 PM
== END | disposition home or self-care (01) ==
LOC: C.CTS 13:43
PROVIDERS: ATTEND Internal Medicine Critical Care Medicine
DX: S06.5X0A Traumatic subdural hemorrhage without loss of consciousness, initial encounter (principal); R53.1 Weakness; X58.XXXA Exposure to other specified factors, initial encounter

== ENCOUNTER 2017-05-31 23:35 | Emergency (ER) | payer OTHER, BC ==
[~2017-05-31] VITALS: Ht 165.1 cm; Wt 55.0 kg
[~2017-05-31 23:35] MED LIST changes: -LEVE500T13 PO; -ROXANOL 20MG/ML PO
[2017-05-31 23:41] VITALS: TEMP 37; Ht 165.1 cm; Wt 55.0 kg
[2017-06-01 00:45] LABS: COMPLETE YES; EOS % 0.1 %; HEMATOCRIT 37.1 % (37-47); IG% 0.4 %; LYMPH % 7.1 %; MEAN CELL VOLUME 89.4 fL (80-100); MEAN CORPUSCULAR HEMOGLOBIN 29.2 pg (25-34); MEAN CORPUSCULAR HGB CONC 32.6 g/dl (32-36); MEAN PLATELET VOLUME 9.7 fL (7.4-10.4); NEUT % 85.4 %; PLATELET COUNT 152 K/uL (130-400); RED BLOOD COUNT 4.15 M/uL (4.2-5.4); WHITE BLOOD COUNT 8.43 K/uL (4.8-10.8)
[2017-06-01 00:52] LABS: URINE APPEARANCE CLEAR (CLEAR); URINE BILIRUBIN NEG (NEG); URINE COLOR YELLOW; URINE EPITHELIAL CELL AUTO 0-5 /lpf (0-5); URINE NITRITE NEG (NEG); URINE SPECIFIC GRAVITY 1.022 (1.000-1.030); UROBILINOGEN NEG (NEG); ZZURINE CULT IF INDIC CATH YES
[2017-06-01 00:54] LABS: MANUAL MICROSCOPIC REQUIRED? NO; REVIEW REQ? NO
[2017-06-01 00:54] LABS: PROTHROMBIN TIME (PATIENT) 11.2 SECONDS (9.0-12.0)
[2017-06-01 01:04] LABS: BUN/CREATININE RATIO 37.1 (10-20); CALCIUM 8.9 mg/dl (8.5-10.1); CREATININE 1.1 mg/dl (0.60-1.20); POTASSIUM 4.5 mmol/L (3.5-5.1)
[2017-06-01 06:18] VITALS: BP 110/68; PULSE 65; O2SAT 93
[2017-06-01] MEDS ORDERED: LEVE500T13 PO (06:42)
[2017-06-01] MEDS ORDERED: ROXANOL 20MG/ML PO (06:50)
--- NOTE | 2017-06-01 07:55 | DIAGNOSTIC IMAGING REPORT ---
CHEST ONE VIEW PORTABLE HISTORY: Sepsis COMPARISON: Chest 02/04/2017. FINDINGS: No pneumothorax. No pleural effusions. A few linear densities the left lung base favor scarring or atelectasis. This has improved. No new focal lung consolidations to suggest pneumonia. No evidence for pulmonary edema. The heart remains mildly enlarged. Dilated/ectatic thoracic aorta remains unchanged. The heart now measures up to 5.1 cm in diameter. IMPRESSION: 1. No acute process within the chest. 2. No change in the dilated/ectatic thoracic aorta. Electronically signed by: Tee Whatley M.D. 06/01/2017 7:54 AM Dictated Date/Time: 06/01/2017 7:53 AM
--- NOTE | 2017-06-01 08:58 | EMERGENCY ROOM VISIT NOTE ---
History Report prepared by Roderick: Susie Shane Under the Supervision of: Dr. Leeanne Washington D.O. First contact with patient: 23:36 Chief Complaint: RESPIRATORY PROBLEMS Stated Complaint: SHORTNESS OF BREATH/ASPIRATION History of Present Illness The patient is an 86 year old female who presents to the Emergency Room with complaints of worsening respiratory problems starting prior to arrival. Per the nurse, the patient was ate dinner five hours ago and has been coughing since. She states the [facility] and started to complain of shortness of breath prior to arrival. The patient states that she has been coughing since before she ate. She states that she has been coughing frequently and has been producing phlegm. The patient complains of pain in the middle of her back. The patient denies abdominal pain. Source of History: patient, nursing staff Onset: prior to arrival Position: other (global) Quality: other (global) Timing: worsening Associated Symptoms: + cough, + back pain, No abdominal pain Note: The patient complains of producing phlegm with her cough. Review of Systems See HPI for pertinent positives & negatives. A total of 10 systems reviewed and were otherwise negative. Past Medical & Surgical Medical Problems: (1) Acute respiratory failure with hypoxia and hypercapnia (2) Aspiration pneumonia (3) Cerebrovasc Disease Nos (4) Congestive Heart Failure Nos (5) Diarrhea (6) Dysphagia (7) Esophageal dysmotility (8) Hypercholesterolemia (9) Hypertension Nos (10) Hysterectomy (11) Osteoarthros Nos-Unspec (12) Paroxysmal a-fib Family History Patient reports no known family medical history. Social History Smoking Status: Former Smoker Alcohol Use: none Drug Use: none Marital Status: Housing Status: assisted living Occupation Status: retired Current/Historical Medications Scheduled Acetaminophen (Tylenol), 650 MG PO HS Alcaftadine (Lastacaft), 1 DROP OPR QAM Citalopram (Citalopram Hydrobromide), 40 MG PO QAM Lansoprazole (Prevacid), 30 MG PO QAM Latanoprost (Xalatan 0.005% Oph Milla), 1 DROP OPB HS Levetiracetam (Keppra), 500 MG PO BID Multivitamin (Multivitamin), 1 TAB PO QAM Thiamine Hcl (Vitamin B-1), 100 MG PO DAILY Timolol Maleate (Timolol 0.5% Oph Soln 15 Ml), 1 DROP OPL QAM Scheduled PRN Acetaminophen (Tylenol), 650 MG PO Q4 PRN for Pain or Fever Levalbuterol (Levalbuterol HCl), 1 VIAL NEB Q6H PRN for SOB/Wheezing Loperamide Hcl (Imodium A-D), 4 MG PO Q3HRS PRN for Loose Stool(s) Psyllium (Metamucil Fiber), 1 PKT PO BID PRN for Loose Stool(s) Sennosides-Docusate Sodium (Senna S), 1 TAB PO DAILY PRN for Constipation [Roxanol 20MG/Ml], 0.5 ML PO UD PRN for DISTRESS Allergies Coded Allergies: Sulfa Antibiotics (Verified Allergy, Unknown, ., 05/10/17) Fish (Verified Adverse Reaction, Unknown, GI SYMPTOMS, 05/10/17) Shellfish Allergy (Verified Adverse Reaction, Unknown, GI SYMPTOMS, ) Physical Exam Vital Signs Date Time Temp Pulse Resp B/P (MAP) Pulse Ox O2 Delivery O2 Flow Rate FiO2 06/01/17 06:18 65 17 110/68 93 Room Air 06/01/17 04:37 63 17 93 Room Air 06/01/17 03:00 57 16 109/65 93 Room Air 06/01/17 02:00 58 16 105/64 92 Room Air 06/01/17 00:59 96 Nasal Cannula 2.0 06/01/17 00:44 63 18 104/73 100 Nasal Cannula 4.0 05/31/17 23:47 Nasal Cannula 05/31/17 23:47 Nasal Cannula 05/31/17 23:45 60 05/31/17 23:41 37.0 63 20 103/61 97 Nasal Cannula 4.0 Physical Exam HEENT: Head - normocephalic and atraumatic Left pupil is misshapen and right is reactive to light. Extraocular eye muscles are intact, and sclera are anicteric. Nose - moist nasal mucosa without discharge. Mouth - moist buccal mucosa. Oropharynx is nonerythematous and there is no tonsillar exudate or edema noted. Neck: Supple; no JVD, nuchal rigidity, cervical lymphadenopathy. Heart: Regular rate and rhythm. There is a normal S1 and S2 with no murmurs, clicks, or gallops appreciated. Lungs: Rhonchus breath sounds in all lung tovar. Abdomen: Soft, completely nontender, nondistended, with good bowel sounds. There are no palpable pulsatile masses or hepatosplenomegaly. There is no guarding, rigidity, or rebound noted. Extremities: No evidence of cyanosis, clubbing, or edema. There are easily palpable peripheral pulses. Skin: warm and dry with good turgor and no rashes. Medical Decision & Procedures ER Provider Diagnostic Interpretation: Chest X-Ray: The results were interpreted by me. Widened mediastinum. Appears unchanged from 02/04/2017. No obvious pulmonary infiltrate or CHF. Laboratory Results 06/01/17 00:20 Red Blood Count 4.15, Mean Corpuscular Volume 89.4, Mean Corpuscular Hemoglobin 29.2, Mean Corpuscular Hemoglobin Concent 32.6, Mean Platelet Volume 9.7, Neutrophils (%) (Auto) 85.4, Lymphocytes (%) (Auto) 7.1, Monocytes (%) (Auto) 7.0, Eosinophils (%) (Auto) 0.1, Basophils (%) (Auto) 0.0, Neutrophils # (Auto) 7.20, Lymphocytes # (Auto) 0.60, Monocytes # (Auto) 0.59, Eosinophils # (Auto) 0.01, Basophils # (Auto) 0.00 06/01/17 00:20 Test 06/01/17 00:20 06/01/17 00:32 06/01/17 00:40 White Blood Count 8.43 K/uL (4.8-10.8) Red Blood Count 4.15 M/uL (4.2-5.4) Hemoglobin 12.1 g/dL (12.0-16.0) Hematocrit 37.1 % (37-47) Mean Corpuscular Volume 89.4 fL (80-100) Mean Corpuscular Hemoglobin 29.2 pg (25-34) Mean Corpuscular Hemoglobin Concent 32.6 g/dl (32-36) Platelet Count 152 K/uL (130-400) Mean Platelet Volume 9.7 fL (7.4-10.4) Neutrophils (%) (Auto) 85.4 % Lymphocytes (%) (Auto) 7.1 % Monocytes (%) (Auto) 7.0 % Eosinophils (%) (Auto) 0.1 % Basophils (%) (Auto) 0.0 % Neutrophils # (Auto) 7.20 K/uL (1.4-6.5) Lymphocytes # (Auto) 0.60 K/uL (1.2-3.4) Monocytes # (Auto) 0.59 K/uL (0.11-0.59) Eosinophils # (Auto) 0.01 K/uL (0-0.5) Basophils # (Auto) 0.00 K/uL (0-0.2) RDW Standard Deviation 47.2 fL (36.4-46.3) RDW Coefficient of Variation 14.3 % (11.5-14.5) Immature Granulocyte % (Auto) 0.4 % Immature Granulocyte # (Auto) 0.03 K/uL (0.00-0.02) Prothrombin Time 11.2 SECONDS (9.0-12.0) Prothromb Time International Ratio 1.0 (0.9-1.1) Activated Partial Thromboplast Time 26.2 SECONDS (21.0-31.0) Partial Thromboplastin Ratio 1.0 Anion Gap 8.0 mmol/L (3-11) Est Creatinine Clear Calc Drug Dose 30.7 ml/min Estimated GFR () 51.9 Estimated GFR (Non- 44.8 BUN/Creatinine Ratio 37.1 (10-20) Calcium Level 8.9 mg/dl (8.5-10.1) Total Bilirubin 0.4 mg/dl (0.2-1) Aspartate Amino Transf (AST/SGOT) 28 U/L (15-37) Alanine Aminotransferase (ALT/SGPT) 43 U/L (12-78) Alkaline Phosphatase 133 U/L (45-117) Total Protein 6.9 gm/dl (6.4-8.2) Albumin 3.5 gm/dl (3.4-5.0) Globulin 3.4 gm/dl (2.5-4.0) Albumin/Globulin Ratio 1.0 (0.9-2) Bedside Lactic Acid Venous 1.37 mmol/L (0.90-1.70) Urine Color YELLOW Urine Appearance CLEAR (CLEAR) Urine pH 5.0 (4.5-7.5) Urine Specific Prim 1.022 (1.000-1.030) Urine Protein 2+ (NEG) Urine Glucose (UA) NEG (NEG) Urine Ketones NEG (NEG) Urine Occult Blood TRACE (NEG) Urine Nitrite NEG (NEG) Urine Bilirubin NEG (NEG) Urine Urobilinogen NEG (NEG) Urine Leukocyte Esterase NEG (NEG) Urine WBC (Auto) 1-5 /hpf (0-5) Urine RBC (Auto) 0-4 /hpf (0-4) Urine Hyaline Casts (Auto) 1-5 /lpf (0-5) Urine Epithelial Cells (Auto) 0-5 /lpf (0-5) Urine Bacteria (Auto) 4+ (NEG) Laboratory results per my review. ED Course 2346: Past medical records reviewed. The patient was evaluated in room C4. A complete history and physical exam was performed. The patient was noted to be hypoxic upon arrival and was placed on O2. A chest x-ray was obtained. Laboratory studies were drawn as above. 0135: The patient is sleeping at this time. Vital signs are stable. 0234: Upon reevaluation, she is sound asleep. Her O2 stats remained okay off the oxygen. She is going [facility]. I discussed findings and results with her. She verbalized agreement of the treatment plan. The patient was discharged home. Medical Decision The patient is an 86 year old female who presents to the Emergency Room with complaints of worsening respiratory problems starting prior to arrival. Differential diagnoses include bronchitis, pneumonia, aspiration. LABS: No leukocytosis Stable H&H BUN 41 Creatine 1.1 Glucose 131 Lactic Acid 1.37 Normal Coags Normal LFTs Urine at 4+ bacteria, but otherwise normal The patient resides at the [facility]. She notes an increased cough prior to eating this evening but seemed to worsen after she ate. The patient was in no acute respiratory distress while here in the emergency Department O2 saturations remain stable while here in the ER. Chest x-ray reveals no evidence of a pneumonia. The patient was observed here in the emergency department for some time and was not short of breath. O2 saturations remain stable while off the oxygen. She will be discharged back to the [facility] to follow-up with her PCP on Friday. Medication Reconcilliation Current Medication List: was personally reviewed by me Blood Pressure Screening Patient's blood pressure: Normal blood pressure Blood pressure disposition: Did not require urgent referral Impression Primary Impression: Hypoxia Scribe Attestation The scribe's documentation has been prepared under my direction and personally reviewed by me in its entirety. I confirm that the note above accurately reflects all work, treatment, procedures, and medical decision making performed by me. Departure Information Dispostion Home / Self-Care Referrals [facility] (PCP) Forms HOME CARE DOCUMENTATION FORM, IMPORTANT VISIT INFORMATION, WORK / SCHOOL INSTRUCTIONS Patient Instructions My [facility] Additional Instructions Watch the patient closely for signs of aspiration or pneumonia. Her oxygen saturation remained normal in the ER. Follow up immediatley if he devleops a fever or worsening respiratory distress
--- NOTE | 2017-06-03 12:22 | Pharmacy Progress Note ---
ED Pharmacist Culture FollowUp Date of Service: Jun 03, 2017. [facility] regarding urine culture with E. coli. Spoke w RN (Amy) who is taking care of the patient. Provided fax number of . I faxed culture and urinalysis, confirmation was received. Per Amy, further management to be done by [facility] providers.
== END 2017-06-01 06:44 | disposition home or self-care (01) ==
LOC: EDBD 23:35 → C.EDC 23:36 → C.EDB 06-01 06:44
DX: R09.02 Hypoxemia (principal); M19.90 Unspecified osteoarthritis, unspecified site; I10 Essential (primary) hypertension; Z87.891 Personal history of nicotine dependence; Z90.710 Acquired absence of both cervix and uterus